=== PATIENT | male | born 1945 | race Caucasian/White ===

== ENCOUNTER → 2016-06-07 | Outpatient (CLI) | payer OTHER ==
[~2016-06-07] MED LIST: ACC10 PO; ALPR-411 PO; AMOX875T PO; ATOR-22 PO; ATOR-24 PO; ATRIN INH; AZITTAB PO; BENZ-57 PO; CARV6.252 PO; CHOL1000 PO; CLOP1TAB15 PO; DOXY100C76 PO; FLUO10CA48 PO; FLUO20CA35 PO; FLVHFA110 INH; GABA600T PO; GFNSR600 PO; HYDR-5688 PO; LEVO50TA6 PO; LVQ500 PO; MOME50SP5; MOME6000 NAE; NRN/600 PO; NTRGSL/4 UT; NXM/40 PO; OXYC-57 PO; PRED10TA PO; QUET1TAB10 PO; QUET1TAB11 PO; QUIN10TA25 PO; RAME8TAB PO; ROPI4TAB3 PO; SRQ/50 PO; SYMIN/8045 INH; SYN50 PO; TRAZ100T29 PO
[2016-06-07 09:26] LABS: COMPLETE YES; EOS % 3.3 %; HEMATOCRIT 42.6 % (42-52); IG% 0.2 %; LYMPH % 31.2 %; MEAN CELL VOLUME 90.3 fL (80-100); MEAN CORPUSCULAR HEMOGLOBIN 32.6 pg (25-34); MEAN CORPUSCULAR HGB CONC 36.2 g/dl (32-36); MEAN PLATELET VOLUME 9.9 fL (7.4-10.4); NEUT % 54.3 %; PLATELET COUNT 134 K/uL (130-400); RED BLOOD COUNT 4.72 M/uL (4.7-6.1); WHITE BLOOD COUNT 4.81 K/uL (4.8-10.8)
[2016-06-07 09:45] LABS: ALT/SGPT 31 U/L (12-78); AST/SGOT 22 U/L (15-37); BLOOD UREA NITROGEN 10 mg/dl (7-18); BUN/CREATININE RATIO 8.4 (10-20); CALCIUM 8.6 mg/dl (8.5-10.1); CARBON DIOXIDE 26 mmol/L (21-32); CHLORIDE 104 mmol/L (98-107); CHOLESTEROL 124 mg/dl (0-200); ESTIMATED AVERAGE GLUCOSE 123 mg/dl; GLUCOSE 110 mg/dl (70-99); HA1C FLAG Normal (Normal); POTASSIUM 3.6 mmol/L (3.5-5.1); SODIUM 138 mmol/L (136-145); TRIGLYCERIDES 264 mg/dl (0-150); VERY LOW DENSITY LIPOPROT CALC 53 mg/dl
[2016-06-07 09:55] LABS: ALB/GLOB RATIO 1.2 (0.9-2); ALKALINE PHOSPHATASE 79 U/L (45-117); CHOLESTEROL/HDL RATIO 2.3; HDL CHOLESTEROL 54 mg/dl; LDL CHOLESTEROL CALCULATED 17 mg/dl
--- NOTE | 2016-06-12 09:44 | CODING QUERY MEDICAL NECESSITY ---
SUPPORTING DIAGNOSIS NEEDED A supporting diagnosis is required for the test/procedure performed on this patient in order for us to be reimbursed by the patient's insurance. Please provide a supporting diagnosis for the following test/procedure listed below next to the test name along with your signature. *If there is no additional diagnosis for this patient that would support the following test/procedure please document that below next to the test/procedure. Test(s)/Procedure(s) that require a supporting diagnosis: DOS 06/07 * Vitamin D DIAGNOSIS: Provider Signature: Date: Thank you Rosi Apodaca Health Information Management Once completed, please kindly fax back to [phone] For questions please call [phone]
== END | disposition home or self-care (01) ==
LOC: C.LAB 08:11
PROVIDERS: ATTEND Internal Medicine Geriatric Medicine
DX: I10 Essential (primary) hypertension (principal); E11.9 Type 2 diabetes mellitus without complications; I25.10 Atherosclerotic heart disease of native coronary artery without angina pectoris; E03.9 Hypothyroidism, unspecified; G25.81 Restless legs syndrome; E55.9 Vitamin D deficiency, unspecified

== ENCOUNTER → 2016-10-26 | Outpatient (CLI) | payer OTHER ==
--- NOTE | 2016-10-26 09:05 | DIAGNOSTIC IMAGING REPORT ---
CHEST 2 VIEWS ROUTINE CLINICAL HISTORY: 71 years-old Male presenting with history of upper respiratory infection, cough. TECHNIQUE: PA and lateral views of the chest were obtained. COMPARISON: 11/30/2015. FINDINGS: Tortuosity of the thoracic aorta. Mildly enlarged cardiac silhouette. Lungs and pleural spaces clear. Osseous structures and upper abdomen normal. IMPRESSION: 1. Mild cardiomegaly without evidence of pulmonary edema. 2. No evidence of acute cardiopulmonary disease. Electronically signed by: Harjit Shipman M.D. 10/26/2016 9:04 AM Dictated Date/Time: 10/26/2016 9:02 AM
== END | disposition home or self-care (01) ==
LOC: C.RAD 08:46
PROVIDERS: ATTEND Physician Assistant
DX: Z87.09 Personal history of other diseases of the respiratory system (principal); I51.7 Cardiomegaly

== ENCOUNTER 2016-12-26 09:20 | Emergency (ER) | payer OTHER ==
[~2016-12-26] VITALS: Ht 162.6 cm; Wt 79.0 kg
[~2016-12-26 09:20] MED LIST changes: -AMOX875T PO; -ATOR-24 PO; -AZITTAB PO; -BENZ-57 PO; -CHOL1000 PO; -DOXY100C76 PO; -GFNSR600 PO; -LEVO50TA6 PO; -MOME6000 NAE; -NRN/600 PO; -OXYC-57 PO; -PRED10TA PO; -QUET1TAB10 PO; -QUIN10TA25 PO; -SRQ/50 PO; -SYMIN/8045 INH
[2016-12-26 09:30] VITALS: TEMP 37.3; Ht 162.6 cm; Wt 79.0 kg
[2016-12-26 10:26] VITALS: O2SAT 88
[2016-12-26 10:44] LABS: COMPLETE YES; EOS % 0.9 %; IG% 0.2 %; LYMPH % 8.8 %; LYMPH ABS # 0.89 K/uL (1.2-3.4); MEAN CELL VOLUME 92.1 fL (80-100); MEAN CORPUSCULAR HEMOGLOBIN 32.1 pg (25-34); MEAN CORPUSCULAR HGB CONC 34.9 g/dl (32-36); MEAN PLATELET VOLUME 9.4 fL (7.4-10.4); MONO % 12.9 %; NEUT % 77.2 %; PLATELET COUNT 122 K/uL (130-400); RED BLOOD COUNT 4.45 M/uL (4.7-6.1); WHITE BLOOD COUNT 10.09 K/uL (4.8-10.8)
--- NOTE | 2016-12-26 10:48 | DIAGNOSTIC IMAGING REPORT ---
CHEST ONE VIEW PORTABLE HISTORY: Short of breath. COMPARISON: Chest 10/26/2016. FINDINGS: No pneumothorax. Chronic silhouette remains moderately enlarged. Perihilar interstitial and vascular thickening has progressed. This likely represents mild pulmonary edema. Possible trace bilateral pleural effusions. IMPRESSION: Interval development of mild pulmonary edema and trace bilateral pleural effusions. Electronically signed by: Lam Rivera M.D. 12/26/2016 10:46 AM Dictated Date/Time: 12/26/2016 10:45 AM
[2016-12-26 10:54] LABS: INR 1.1 (0.9-1.1); PARTIAL THROMBOPLASTIN RATIO 1.1; PROTHROMBIN TIME (PATIENT) 11.6 SECONDS (9.0-12.0)
[2016-12-26 11:02] LABS: BUN/CREATININE RATIO 9.3 (10-20); CALCIUM 8.7 mg/dl (8.5-10.1); CREATININE 1.3 mg/dl (0.60-1.40); POTASSIUM 4.2 mmol/L (3.5-5.1)
[2016-12-26] MEDS ORDERED: NRN/600 PO (11:11)
[2016-12-26] MEDS ORDERED: LEVO50TA6 PO (11:11)
[2016-12-26] MEDS ORDERED: SRQ/50 PO (11:11)
[2016-12-26] MEDS ORDERED: SYMIN/8045 INH (11:11)
[2016-12-26] MEDS ORDERED: BENZ-57 PO (11:11)
[2016-12-26] MEDS ORDERED: CHOL1000 PO (11:11)
[2016-12-26] MEDS ORDERED: ATOR-24 PO (11:11)
[2016-12-26] MEDS ORDERED: MOME6000 NAE (11:11)
[2016-12-26] MEDS ORDERED: DOXY100C76 PO (11:11)
[2016-12-26] MEDS ORDERED: QUIN10TA25 PO (11:11)
[2016-12-26] MEDS ORDERED: QUET1TAB10 PO (11:11)
[2016-12-26 11:12] LABS: ARTERIAL BLD GAS O2 SATURATION 94.2 % (90-95); ARTERIAL BLOOD GAS BASE EXCESS 1.3 mEq/L (-9-1.8); ARTERIAL BLOOD GAS HCO3 25 mmol/L (19-24); ARTERIAL BLOOD GAS PO2 71 mm/Hg (80-95); ARTERIAL BLOOD GAS pH 7.44 (7.35-7.45); O2 ADMINISTRATION ROOM AIR
[2016-12-26 11:13] LABS: ALLEN TEST POS (POS)
[2016-12-26] MEDS ORDERED: AZITHROMYCIN 250 MG TAB PO STA (12:26)
[2016-12-26] MEDS ORDERED: AZITTAB PO (12:37)
--- NOTE | 2016-12-26 12:38 | EMERGENCY ROOM VISIT NOTE ---
History Report prepared by Aidan: Sisi Lea Under the Supervision of: Dr. Magan Aponte D.O. First contact with patient: 10:41 Chief Complaint: ILLNESS Stated Complaint: ILLNESS/COUGH History of Present Illness The patient is a 71 year old male who presents to the Emergency Room with complaints of a persistent cough that worsened yesterday. The patient reports that yesterday his cough worsened and has had difficulty breathing. He additionally reports an intermittent fever that has been treated with Tylenol. The patient reports fatigue and weakness and his family reports that the patient has been confused. The patient's family notes that when the patient appears this way, it is typically due to pneumonia. The patient reports a decrease in appetite and fluid intake. He denies any history of COPD or lung problems. The patient states that he quit smoking over 25 years ago. He denies any chest pain. The patient reports intermittent abdominal pain due to a hernia. He states that he has been intermittently congested for the past two months and notes that he has previously been on two antibiotics for his symptoms. Source of History: patient, family Onset: yesterday Position: other (global) Quality: other (cough) Timing: worsening, other (persistent) Associated Symptoms: + fevers, + SOB (difficulty breathing), + abdominal pain, + fatigue, + weakness, No chest pain Note: Associated Symptoms: decrease in appetite and fluid intake, congestion Review of Systems See HPI for pertinent positives & negatives. A total of 10 systems reviewed and were otherwise negative. Past Medical & Surgical Medical Problems: (1) Acute myocardial infarction (2) Benign hypertension (3) Cholecystectomy (4) Diabetes mellitus (5) Gastric ulcer (6) Heart disease (7) Ischemic stroke (8) legally blind (9) Myocardial infarction (10) Pneumonia (11) Restless legs (12) Small bowel obstruction (13) stroke Family History Unobtainable family history due to adoption Social History Smoking Status: Former Smoker Alcohol Use: none Drug Use: none Marital Status: in relationship Housing Status: lives with family Occupation Status: retired Current/Historical Medications Scheduled Alprazolam (Xanax), 0.75 MG PO DAILY Atorvastatin (Lipitor), 40 MG PO DAILY Budesonide/Formoterol Fumarate (Symbicort 80/4.5 Inhaler), 2 PUFFS INH BID Carvedilol (Coreg), 3.125 MG PO HS Cholecalciferol (Vitamin D3), 1,000 INTER.UNIT PO DAILY Clopidogrel (Plavix), 75 MG PO DAILY Doxycycline Monohydrate (Monodox), 100 MG PO Q12 Fluoxetine (Prozac), 10 MG PO DAILY Fluoxetine (Prozac), 20 MG PO DAILY Gabapentin (Neurontin), 600 MG PO QAM Gabapentin (Neurontin), 1,200 MG PO HS Levothyroxine Sodium (Levothyroxine Sodium), 50 MCG PO DAILY Mometasone Furoate (Nasal) (Mometasone Furoate), 2 SPRAYS SHELLIE DAILY Nitroglycerin (Nitrostat), 0.4 MG UT PRN Quetiapine Fumarate (Seroquel), 200 MG PO DAILY Quetiapine Fumarate (Seroquel), 50 MG PO DAILY Quinapril Hcl (Accupril), 10 MG PO DAILY Ropinirole (Requip), 4 MG PO HS Trazodone Hcl (Trazodone), 200 MG PO HS Scheduled PRN Benzonatate (Tessalon Perles), 200 MG PO TID PRN for Cough Hydrocodone/Acetaminophen 5MG/325MG ([place] 5MG/325MG), 1 TAB PO BID PRN for Pain Ramelteon (Rozerem), 8 MG PO HS PRN for Sleep Allergies Coded Allergies: Heparin (Verified Allergy, Severe, SEVERE REACTION, 11/11/15) Physical Exam Vital Signs Date Time Temp Pulse Resp B/P (MAP) Pulse Ox O2 Delivery O2 Flow Rate FiO2 12/26/16 12:20 61 16 114/63 93 12/26/16 11:00 84 16 110/69 89 Room Air 12/26/16 10:50 Nasal Cannula 2.0 12/26/16 10:28 63 12/26/16 10:26 63 16 115/69 92 Nasal Cannula 2.0 12/26/16 10:26 88 Room Air 12/26/16 09:30 37.3 88 18 147/82 95 Room Air Physical Exam CONSTITUTIONAL/VITAL SIGNS: Reviewed / noted above. GENERAL: Non-toxic in appearance. INTEGUMENTARY: Warm, dry, and [place]. HEAD: Normocephalic. EYES: without scleral icterus or trauma. ENT/OROPHARYNX: clear and moist. LYMPHADENOPATHY/NECK: Is supple without lymphadenopathy or meningismus. RESPIRATORY: Basilar rhonchi noted. CARDIOVASCULAR: Regular rate and rhythm. GI/ABDOMEN: Soft and nontender. No organomegaly or pulsatile mass. No rebound or guarding. Normal bowel sounds. EXTREMITIES: Warm and well perfused. BACK: No CVA tenderness. NEUROLOGICAL: Intact without focal deficits. PSYCHIATRIC: normal affect. MUSCULOSKELETAL: Normally developed with good muscle tone. Medical Decision & Procedures ER Provider Diagnostic Interpretation: X ray results and stated below per my interpretation and radiology interpretation. CHEST ONE VIEW PORTABLE HISTORY: Short of breath. COMPARISON: Chest 10/26/2016. FINDINGS: No pneumothorax. Chronic silhouette remains moderately enlarged. Perihilar interstitial and vascular thickening has progressed. This likely represents mild pulmonary edema. Possible trace bilateral pleural effusions. IMPRESSION: Interval development of mild pulmonary edema and trace bilateral pleural effusions. Electronically signed by: Lam Rivera M.D. 12/26/2016 10:46 AM Dictated Date/Time: 12/26/2016 10:45 AM Laboratory Results 12/26/16 10:34 Red Blood Count 4.45, Mean Corpuscular Volume 92.1, Mean Corpuscular Hemoglobin 32.1, Mean Corpuscular Hemoglobin Concent 34.9, Mean Platelet Volume 9.4, Neutrophils (%) (Auto) 77.2, Lymphocytes (%) (Auto) 8.8, Monocytes (%) (Auto) 12.9, Eosinophils (%) (Auto) 0.9, Basophils (%) (Auto) 0.0, Neutrophils # (Auto ) 7.79, Lymphocytes # (Auto) 0.89, Monocytes # (Auto) 1.30, Eosinophils # (Auto ) 0.09, Basophils # (Auto) 0.00 12/26/16 10:34 Test 12/26/16 10:34 12/26/16 10:47 12/26/16 11:02 White Blood Count 10.09 K/uL (4.8-10.8) Red Blood Count 4.45 M/uL (4.7-6.1) Hemoglobin 14.3 g/dL (14.0-18.0) Hematocrit 41.0 % (42-52) Mean Corpuscular Volume 92.1 fL (80-100) Mean Corpuscular Hemoglobin 32.1 pg (25-34) Mean Corpuscular Hemoglobin Concent 34.9 g/dl (32-36) Platelet Count 122 K/uL (130-400) Mean Platelet Volume 9.4 fL (7.4-10.4) Neutrophils (%) (Auto) 77.2 % Lymphocytes (%) (Auto) 8.8 % Monocytes (%) (Auto) 12.9 % Eosinophils (%) (Auto) 0.9 % Basophils (%) (Auto) 0.0 % Neutrophils # (Auto) 7.79 K/uL (1.4-6.5) Lymphocytes # (Auto) 0.89 K/uL (1.2-3.4) Monocytes # (Auto) 1.30 K/uL (0.11-0.59) Eosinophils # (Auto) 0.09 K/uL (0-0.5) Basophils # (Auto) 0.00 K/uL (0-0.2) RDW Standard Deviation 43.9 fL (36.4-46.3) RDW Coefficient of Variation 13.0 % (11.5-14.5) Immature Granulocyte % (Auto) 0.2 % Immature Granulocyte # (Auto) 0.02 K/uL (0.00-0.02) Prothrombin Time 11.6 SECONDS (9.0-12.0) Prothromb Time International Ratio 1.1 (0.9-1.1) Activated Partial Thromboplast Time 29.5 SECONDS (21.0-31.0) Partial Thromboplastin Ratio 1.1 Anion Gap 7.0 mmol/L (3-11) Est Creatinine Clear Calc Drug Dose 50.9 ml/min Estimated GFR () 64.5 Estimated GFR (Non- 55.7 BUN/Creatinine Ratio 9.3 (10-20) Calcium Level 8.7 mg/dl (8.5-10.1) Total Bilirubin 1.0 mg/dl (0.2-1) Aspartate Amino Transf (AST/SGOT) 12 U/L (15-37) Alanine Aminotransferase (ALT/SGPT) 25 U/L (12-78) Alkaline Phosphatase 75 U/L (45-117) Total Protein 6.9 gm/dl (6.4-8.2) Albumin 3.5 gm/dl (3.4-5.0) Globulin 3.4 gm/dl (2.5-4.0) Albumin/Globulin Ratio 1.0 (0.9-2) Bedside Troponin I < 0.030 ng/ml (0-0.045) Arterial Blood pH 7.44 (7.35-7.45) Arterial Blood Partial Pressure CO2 38 mmHg (35-46) Arterial Blood Partial Pressure O2 71 mm/Hg (80-95) Arterial Blood HCO3 25 mmol/L (19-24) Arterial Blood Oxygen Saturation 94.2 % (90-95) Arterial Blood Base Excess 1.3 mEq/L (-9-1.8) Arterial Blood Gas Delivery ROOM AIR Caden Test POS (POS) Laboratory results as stated above per my review. ECG Indication: SOB/dyspnea Rate (beats per minute): 64 Rhythm: normal sinus Findings: no acute ischemic change, no ectopy ED Course 1044: Previous medical records were reviewed. The patient was evaluated in room A3. A complete history and physical examination was performed. 1221: I reevaluated the patient and he is resting comfortably. I discussed the exam findings with him and his family and I discussed the exam findings with them. They verbalized complete understanding and agreement. The patient is ready for discharge shortly. 1226: Ordered Zithromax 500 mg PO. Medical Decision Differentials considered include acute myocardial infarction, acute coronary syndrome, myocarditis, pericarditis, pericardial effusions /tamponade, esophageal perforation, pulmonary embolism, pneumonia, pneumothorax, cardiomyopathy, congestive heart, anemia, and COPD/asthma exacerbation. This is a 71-year-old male who presents to the ED with a chief complaint of a cough as well as some upper respiratory congestion. He is also has some decreased oral intake. The patient was talking in his sleep last night and the felt that he was delusional. He is better now. He reports that he has had the upper respiratory congestion for the past couple of months. He was on a course of to antibiotics in October. This did not seem to help much. His vital signs here are normal. His physical exam was normal other than some basilar crackles. An EKG shows a normal sinus rhythm. CBC is normal, complete metabolic panel is unremarkable, troponin is negative. Glucose is 163. An ABG reveals a normal acid base status, normal carbon dioxide and a PaO2 of 71. A chest x-ray reveals some mild pulmonary edema trace pleural effusion. Clinically the patient is not presenting congestive heart failure. I did have the respiratory therapist come down and do a two-step to see if he qualifies for oxygen at home. They reported that he did not based on his saturations never dropped below 93% and his ABG. The patient will be discharged on Zithromax for his symptoms. Medication Reconcilliation Current Medication List: was personally reviewed by me Blood Pressure Screening Patient's blood pressure: Normal blood pressure Blood pressure disposition: Did not require urgent referral Impression Primary Impression: Congestion of nasal sinus Scribe Attestation The scribe's documentation has been prepared under my direction and personally reviewed by me in its entirety. I confirm that the note above accurately reflects all work, treatment, procedures, and medical decision making performed by me. Departure Information Prescriptions Azithromycin (ZITHROMAX Z-LORNE) 250 Mg Tab 0 PO UD, #1 PKT 2 TABS DAY 1, THEN 1 TAB DAILY FOR 4 DAYS Prov: Magan Aponte D.O. 12/26/16 Referrals Luis Manuel Pham M.D. (PCP) Patient Instructions My [facility] Additional Instructions Zithromax as prescribed. Follow-up with your doctor Saturday or Saturday for recheck. Return for worsening or new symptoms.
[2016-12-26 12:46] VITALS: BP 111/65; PULSE 58; O2SAT 90
[2017-01-01] MEDS ORDERED: AMOX875T PO ×2 (07:48→10:05)
[2017-01-01] MEDS ORDERED: PRED10TA PO ×2 (07:48→10:05)
[2017-01-01] MEDS ORDERED: GFNSR600 PO ×2 (07:48→10:05)
== END 2016-12-26 12:47 | disposition home or self-care (01) ==
LOC: EDBD 09:20 → C.EDA 09:22
DX: R09.81 Nasal congestion (principal); R50.9 Fever, unspecified; Z87.01 Personal history of pneumonia (recurrent); Z87.891 Personal history of nicotine dependence; I25.2 Old myocardial infarction; I10 Essential (primary) hypertension; Z90.49 Acquired absence of other specified parts of digestive tract; E11.9 Type 2 diabetes mellitus without complications; Z86.73 Personal history of transient ischemic attack (TIA), and cerebral infarction without residual deficits; H54.8 Legal blindness, as defined in USA; G25.81 Restless legs syndrome; Z79.01 Long term (current) use of anticoagulants; Z79.899 Other long term (current) drug therapy

== ENCOUNTER 2016-12-26 22:30 | Inpatient (IN) | payer OTHER ==
[~2016-12-26] VITALS: Ht 162.6 cm; Wt 78.1 kg
[~2016-12-26 22:30] MED LIST changes: +ATOR-24 PO; +AZITTAB PO; +BENZ-57 PO; +CHOL1000 PO; +DOXY100C76 PO; +LEVO50TA6 PO; +MOME6000 NAE; +NRN/600 PO; +QUET1TAB10 PO; +QUIN10TA25 PO; +SRQ/50 PO; +SYMIN/8045 INH
[2016-12-26] MEDS ORDERED: SODIUM CHLORIDE 0.9% 1000ML 1,000 ML IV ONE (22:57)
--- NOTE | 2016-12-26 23:00 | EMERGENCY ROOM VISIT NOTE ---
History Report prepared by Aidan: Leticia Ceja Under the Supervision of: Dr. Magan Rodriguez M.D. First contact with patient: 22:52 Chief Complaint: WEAKNESS Stated Complaint: WEAKNESS Nursing Triage Summary: Patient arrived via ALS from home. Patient was seen in ER earlier today and discharged with z-pack. Patient c/o increased weakness and repeated falls after being discharged. Denies head trauma, LOC, CP, SOB, N/V/D. Patient SAT 88% on RA per medics, improved to 95% on 4L O2. Patients BP low per medics. Patients states, "he shakes all over when he goes to get up". History of Present Illness The patient is a 71 year old male who presents to the Emergency Room with complaints of constant weakness beginning today. The patient states that he was seen here earlier today for shortness of breath and was put on a z-pac before being discharged home. He notes that when he returned home he had increased weakness and multiple falls. He reports that he is not on oxygen at home. He denies any head injury, LOC, chest pain, nausea, vomiting, and diarrhea. He states that he is on Plavix. Source of History: patient Onset: today Position: other (global) Quality: other (weakness) Timing: constant Associated Symptoms: No LOC, No chest pain, No nausea, No vomiting, No diarrhea Note: Pt complains of multiple falls. Review of Systems See HPI for pertinent positives & negatives. A total of 10 systems reviewed and were otherwise negative. Past Medical & Surgical Medical Problems: (1) Acute myocardial infarction (2) Benign hypertension (3) Cholecystectomy (4) Diabetes mellitus (5) Gastric ulcer (6) Heart disease (7) Ischemic stroke (8) legally blind (9) Myocardial infarction (10) Pneumonia (11) Restless legs (12) Small bowel obstruction (13) stroke (14) Weakness Family History Unobtainable family history due to adoption Social History Smoking Status: Former Smoker Alcohol Use: none Drug Use: none Marital Status: in relationship Housing Status: lives with family Occupation Status: retired Current/Historical Medications Scheduled Alprazolam (Xanax), 0.75 MG PO DAILY Atorvastatin (Lipitor), 40 MG PO DAILY Azithromycin (Zithromax Z-Amrit), 0 PO UD Budesonide/Formoterol Fumarate (Symbicort 80/4.5 Inhaler), 2 PUFFS INH BID Carvedilol (Coreg), 3.125 MG PO HS Cholecalciferol (Vitamin D3), 1,000 INTER.UNIT PO DAILY Clopidogrel (Plavix), 75 MG PO DAILY Doxycycline Monohydrate (Monodox), 100 MG PO Q12 Fluoxetine (Prozac), 10 MG PO DAILY Fluoxetine (Prozac), 20 MG PO DAILY Gabapentin (Neurontin), 600 MG PO QAM Gabapentin (Neurontin), 1,200 MG PO HS Levothyroxine Sodium (Levothyroxine Sodium), 50 MCG PO DAILY Mometasone Furoate (Nasal) (Mometasone Furoate), 2 SPRAYS SHELLIE DAILY Nitroglycerin (Nitrostat), 0.4 MG UT PRN Quetiapine Fumarate (Seroquel), 200 MG PO DAILY Quetiapine Fumarate (Seroquel), 50 MG PO DAILY Quinapril Hcl (Accupril), 10 MG PO DAILY Ropinirole (Requip), 4 MG PO HS Trazodone Hcl (Trazodone), 200 MG PO HS Scheduled PRN Benzonatate (Tessalon Perles), 200 MG PO TID PRN for Cough Hydrocodone/Acetaminophen 5MG/325MG ([place] 5MG/325MG), 1 TAB PO BID PRN for Pain Ramelteon (Rozerem), 8 MG PO HS PRN for Sleep Allergies Coded Allergies: Heparin (Verified Allergy, Severe, SEVERE REACTION, 11/11/15) Physical Exam Vital Signs Date Time Temp Pulse Resp B/P (MAP) Pulse Ox O2 Delivery O2 Flow Rate FiO2 12/27/16 01:30 98/58 12/27/16 01:29 54 11 93 12/27/16 01:09 105/60 12/27/16 01:00 88/55 12/27/16 00:59 50 16 98 12/27/16 00:30 94/56 12/27/16 00:29 50 18 97 12/27/16 00:15 55 20 111/64 99 Nebulizer 12/27/16 00:15 57 14 92 Nasal Cannula 2.0 12/27/16 00:15 111/64 12/26/16 23:54 95/52 12/26/16 23:40 53 12 92 12/26/16 23:30 78/51 12/26/16 23:19 95/50 12/26/16 23:10 55 15 12/26/16 22:44 57 12/26/16 22:39 92 Room Air 12/26/16 22:39 36.6 61 20 95/54 92 Room Air Physical Exam GENERAL: Patient is a healthy-appearing well-nourished male HEAD: Normocephalic atraumatic EYES: Ocular movements intact pupils equal and react to light OROPHARYNX mucous membranes are moist no exudates present no erythema or edema present NECK: Supple no nuchal rigidity CHEST: Good equal expansion LUNGS: Clear and equal to auscultation CARDIAC: Normal S1 and S2 ABDOMEN: Soft nontender no guarding BACK: No CVA tenderness EXTREMITIES: No pain upon palpation normal muscle strength in all groups no clubbing cyanosis or edema NEURO: Patient is following commands and answering questions appropriately. Alert and oriented x3 Cranial Nerves 2-12 grossly intact Medical Decision & Procedures ER Provider Diagnostic Interpretation: Radiology results as stated below per my review and radiologist interpretation: Chest X-Ray: Interpreted by me. No evidence of pneumonia, congestion or pneumothorax. CTA CHEST: No evidence of pulmonary embolus. No thoracic aortic dissection or aneurysm. Trace bilateral pleural effusions. Patchy consolidation seen within the right upper lobe, predominantly medially as well as within the right lower lobe. Mild thickening of the adjacent bronchi. Findings likely represent multifocal inflammatory/infectious process. Recommend short interval follow-up after appropriate treatment to demonstrate resolution. The heart is mildly enlarged. No pericardial effusions. Coronary artery calcification. No significant adenopathy. No acute osseous abnormality. Laboratory Results Test 12/26/16 22:40 12/26/16 23:12 12/26/16 23:28 Immature Granulocyte % (Auto) 0.3 % White Blood Count 7.53 K/uL (4.8-10.8) Red Blood Count 3.95 M/uL (4.7-6.1) Hemoglobin 13.1 g/dL (14.0-18.0) Hematocrit 36.2 % (42-52) Mean Corpuscular Volume 91.6 fL (80-100) Mean Corpuscular Hemoglobin 33.2 pg (25-34) Mean Corpuscular Hemoglobin Concent 36.2 g/dl (32-36) Platelet Count 116 K/uL (130-400) Mean Platelet Volume 9.5 fL (7.4-10.4) Neutrophils (%) (Auto) 68.5 % Lymphocytes (%) (Auto) 10.9 % Monocytes (%) (Auto) 16.5 % Eosinophils (%) (Auto) 3.7 % Basophils (%) (Auto) 0.1 % Neutrophils # (Auto) 5.16 K/uL (1.4-6.5) Lymphocytes # (Auto) 0.82 K/uL (1.2-3.4) Monocytes # (Auto) 1.24 K/uL (0.11-0.59) Eosinophils # (Auto) 0.28 K/uL (0-0.5) Basophils # (Auto) 0.01 K/uL (0-0.2) Immature Granulocyte # (Auto) 0.02 K/uL (0.00-0.02) Prothrombin Time 12.2 SECONDS (9.0-12.0) Prothromb Time International Ratio 1.1 (0.9-1.1) Activated Partial Thromboplast Time 31.1 SECONDS (21.0-31.0) Partial Thromboplastin Ratio 1.2 Total Bilirubin 1.0 mg/dl (0.2-1) Aspartate Amino Transf (AST/SGOT) 13 U/L (15-37) Alanine Aminotransferase (ALT/SGPT) 20 U/L (12-78) Alkaline Phosphatase 63 U/L (45-117) Creatine Kinase MB 1.3 ng/ml (0.5-3.6) Creatine Kinase MB Ratio 0.3 (0-3.0) Total Protein 6.1 gm/dl (6.4-8.2) Albumin 3.0 gm/dl (3.4-5.0) Globulin 3.1 gm/dl (2.5-4.0) Albumin/Globulin Ratio 1.0 (0.9-2) Bedside Hemoglobin 11.6 g/dl (14.0-18.0) Bedside Hematocrit 34 % (42-52) Bedside D-Dimer > 450 ng/mlFEU (0-450) Bedside Sodium 140 mEq/L (135-144) Bedside Potassium 3.4 mEq/L (3.3-5.0) Bedside Chloride 103 mEq/L (101-112) Bedside Total CO2 22 mEq/l (24-31) Bedside Blood Urea Nitrogen 13 mg/dl (7-18) Bedside Creatinine 1.2 mg/dl (0.6-1.3) Bedside Glucose (other) 164 mg/dl (70-99) Bedside Ionized Calcium (Suzi) 1.15 mmol/l (1.12-1.32) Influenza Type A (RT-PCR) Neg for Influ A (NEG) Influenza Type A Antigen Neg for Influ A (NEG) Influenza Type B Antigen Neg for Influ B (NEG) Influenza Type B (RT-PCR) Neg for Influ B (NEG) Labs reviewed by ED physician. Medications Administered Medications (Trade) Dose Ordered Sig/Shelby Route Start Time Stop Time Status Last Admin Dose Admin Sodium Chloride 1,000 ml @ 999 mls/hr Q1H1M ONCE IV 12/26/16 22:57 12/26/16 23:57 DC 12/26/16 22:57 999 MLS/HR Albuterol/ Ipratropium (Duoneb) 12 ml ONE ONCE INH 12/26/16 23:30 12/26/16 23:31 DC 12/27/16 00:14 12 ML Sodium Chloride 1,000 ml @ 999 mls/hr Q1H1M STAT IV 12/27/16 00:27 12/27/16 01:27 DC 12/27/16 00:39 999 MLS/HR Methylprednisolone Sodium Succinate (Solu-Medrol IV) 80 mg STK-MED ONCE .ROUTE 12/27/16 00:32 12/27/16 00:33 DC 12/27/16 00:38 60 MG Piperacillin Sod/ Tazobactam Sod (Zosyn Iv) 4.5 gm NOW STAT IV 12/27/16 00:59 12/27/16 01:01 DC 12/27/16 01:18 4.5 GM Levofloxacin (Levaquin / D5W) 750 mg NOW ONCE IV 12/27/16 01:00 12/27/16 01:01 DC 12/27/16 01:18 750 MG Vancomycin HCl 1000 mg/Sodium Chloride 270 ml @ 125 mls/hr NOW STAT IV 12/27/16 00:59 12/27/16 03:08 DC 12/27/16 01:19 125 MLS/HR Benzonatate (Tessalon Perles Cap) 200 mg TID PRN PO 12/27/16 01:30 01/26/17 01:29 12/27/16 07:59 200 MG ECG Indication: weakness Rate (beats per minute): 58 Rhythm: sinus bradycardia Findings: no acute ischemic change, no ectopy, other (old inferior infarct) ED Course 2251: Past medical records reviewed. The patient was evaluated in room B11. A complete history and physical examination was performed. 2257: Sodium Chloride 1000 ml @ 999 mls/hr IV. 2330: Duoneb 12ml INH. 0027: Solu-Medrol IV 60mg IV, Sodium Chloride 1000 ml @ 999 mls/hr IV. 0032: Solu-Medrol IV 80mg IV. 0059: Vancomycin HCl 1000mg/Sodium Chloride 270ml @ 125mls/hr IV, Zosyn IV 2.5 IV. 0100: Levofloxacin 750mg IV. 0122: I discussed the patient's case with Dr. Bai, he has agreed to evaluate the patient for further management and care. 0130: Upon reexamination the patient is doing well. I discussed results and treatment plan with the patient. He verbalizes agreement and understanding. I spoke with Dr. Bai from the [facility] Hospitalist Service. The patient will be evaluated for further management. Medical Decision Differential diagnosis: Etiologies such as metabolic, infection, hypo/hyperglycemia, electrolyte abnormalities, cardiac sources, intracerebral event, toxicologic, neurologic, as well as others were entertained. This is a 71-year-old male who presents emergency department complaining of shortness of breath and hypoxia. The patient does have a history of COPD. He was given an hour-long breathing treatment in the emergency department along with Solu-Medrol. Due to the patient's hypoxia he was sent for CAT scan of the chest which was concerning for pneumonia. At this point the patient was started on antibiotics and pancultured. I did discuss the case with the hospitalist service who agreed to admit the patient. Patient family were in agreement with the treatment plan. Medication Reconcilliation Current Medication List: was personally reviewed by me Blood Pressure Screening Patient's blood pressure: Low blood pressure Blood pressure disposition: Did not require urgent referral Consults Time Called: 0111 Consulting Physician: Dr. Bai - [facility] Returned Call: [phone] I discussed the patient's case with Dr. Bai, he has agreed to evaluate the patient for further management and care. Impression Primary Impression: Pneumonia Additional Impressions: Hypoxia COPD exacerbation Scribe Attestation The scribe's documentation has been prepared under my direction and personally reviewed by me in its entirety. I confirm that the note above accurately reflects all work, treatment, procedures, and medical decision making performed by me. Departure Information Dispostion Being Evaluated By Hospitalist Referrals Luis Manuel Pham M.D. (PCP) Patient Instructions [facility] Problem Qualifiers
[2016-12-26 23:14] LABS: BASO % 0.1 %; BASO ABS # 0.01 K/uL (0-0.2); COMPLETE YES; EOS % 3.7 %; HEMATOCRIT 36.2 % (42-52); IG% 0.3 %; LYMPH % 10.9 %; LYMPH ABS # 0.82 K/uL (1.2-3.4); MEAN CELL VOLUME 91.6 fL (80-100); MEAN CORPUSCULAR HEMOGLOBIN 33.2 pg (25-34); MEAN CORPUSCULAR HGB CONC 36.2 g/dl (32-36); MEAN PLATELET VOLUME 9.5 fL (7.4-10.4); MONO % 16.5 %; NEUT % 68.5 %; PLATELET COUNT 116 K/uL (130-400); RED BLOOD COUNT 3.95 M/uL (4.7-6.1); WHITE BLOOD COUNT 7.53 K/uL (4.8-10.8)
[2016-12-26 23:24] LABS: ISTAT CREATININE 1.2 mg/dl (0.6-1.3); ISTAT HEMOGLOBIN 11.6 g/dl (14.0-18.0); ISTAT IONIZED CALCIUM 1.15 mmol/l (1.12-1.32)
[2016-12-26 23:24] LABS: INR 1.1 (0.9-1.1); PARTIAL THROMBOPLASTIN RATIO 1.2; PROTHROMBIN TIME (PATIENT) 12.2 SECONDS (9.0-12.0)
[2016-12-26] MEDS ORDERED: ALBUT/IPRATROP 3MG/0.5MG NEB 3 ML VIAL INH ONE (23:30)
[2016-12-26] MEDS ORDERED: OPTIRAY 320 IV PRN (23:30)
[2016-12-26 23:47] LABS: ALKALINE PHOSPHATASE 63 U/L (45-117); ALT/SGPT 20 U/L (12-78); AST/SGOT 13 U/L (15-37); BLOOD UREA NITROGEN 14 mg/dl (7-18); BUN/CREATININE RATIO 10.5 (10-20); CALCIUM 8.2 mg/dl (8.5-10.1); CARBON DIOXIDE 26 mmol/L (21-32); CHLORIDE 108 mmol/L (98-107); CKMB/CK RATIO 0.3 (0-3.0); GLUCOSE 158 mg/dl (70-99); POTASSIUM 3.5 mmol/L (3.5-5.1); SODIUM 140 mmol/L (136-145)
[2016-12-27] VITALS (15 sets, daily range): BP systolic 99–140; BP diastolic 66–78; PULSE 51–68; TEMP 35.8–36.5; O2SAT 91–95; Ht 162.6 cm; Wt 78.1 kg
[2016-12-27] MEDS ORDERED: SODIUM CHLORIDE 0.9% 1000ML 1,000 ML IV STA (00:27)
[2016-12-27] MEDS ORDERED: METHYLPREDNISOLONE 125 MG VIAL IV STA (00:27)
[2016-12-27] MEDS ORDERED: VANCOMYCIN INJ 1,000 MG in SODIUM CHLORIDE 0.9% 250ML 250 ML IV STA (00:59)
[2016-12-27] MEDS ORDERED: PIPERACILLIN/TAZOBACTAM 4.5 GM/100ML D5W IV STA (00:59)
[2016-12-27] MEDS ORDERED: LEVAQUIN 750MG / 150ML D5W IV ONE (01:00)
[2016-12-27] MEDS ORDERED: ACETAMINOPHEN 325 MG TAB PO PRN (01:30)
[2016-12-27] MEDS ORDERED: NITROGLYCERIN 0.4 MG SL PER TAB CHARGE SL PRN (01:30)
[2016-12-27] MEDS ORDERED: ALUMINUM/MAGNESIUM/SIMETH (MAALOX MAX) 30 ML UDC PO PRN (01:30)
[2016-12-27] MEDS ORDERED: ONDANSETRON INJ 2 MG/ML 2 ML VIAL IV PRN (01:30)
[2016-12-27] MEDS ORDERED: POLYETHYLENE (MIRALAX) 17 GM PACK PO PRN (01:30)
[2016-12-27] MEDS ORDERED: MAGNESIUM HYDROXIDE SUSP 30 ML UDC PO PRN (01:30)
[2016-12-27] MEDS ORDERED: HYDROCODONE/ACETAMOPHEN 5/325MG TAB PO PRN (01:30)
[2016-12-27] MEDS ORDERED: MoRPHine SULFATE 2 MG/ML CARP IV PRN (01:30)
[2016-12-27] MEDS ORDERED: ALBUTEROL 0.083% NEBU SOLN 3 ML VIAL INH PRN (01:45)
--- NOTE | 2016-12-27 02:52 | History and Physical ---
History & Physical Date & Time of Service: Dec 27, 2016 at 02:15 Chief Complaint: Weakness Primary Care Physician: Luis Manuel Pham M.D. History of Present Illness Source: patient 71 y/o M Hx CAD, CVA, HTN, HPL hypothyroid, recurrent pneumonias and pneumonitis likely due to aspiration. The pt presented one day prior with c/o cough and mild SOB. He was discharged from the ER with a course of antibiotics. He returns with progressive weakness and persistent SOB with a worsening cough. He was mildly hypoxic on arrival to the ER. He denies CP, N/V , rigors. A CTA was obtained in the ER revealing a multifocal R sided pneumonia. Past Medical/Surgical History Medical Problems: (1) Acute myocardial infarction Status: Resolved (2) Benign hypertension Status: Chronic (3) Cholecystectomy Status: Resolved (4) Diabetes mellitus Status: Chronic (5) Heart disease Status: Chronic (6) Ischemic stroke Status: Resolved (7) legally blind Status: Chronic (8) Restless legs Status: Chronic (9) Small bowel obstruction Status: Resolved ) 2015 echo reveals an EF of 50%, ant and inf hypokinesis Family History Unobtainable family history due to adoption Social History does not drink or smoke - lives with a girlfriend Smoking Status: Former Smoker Drug Use: none Marital Status: in relationship Housing status: lives with significant other Occupational Status: retired Immunizations History of Influenza Vaccine: Yes Influenza Vaccine Date: Dec 26, 2011 History of Tetanus Vaccine?: Yes Tetanus Immunization Date: Oct 26, 2009 History of Pneumococcal: Yes Pneumococcal Date: Dec 26, 2011 History of Hepatitis B Vaccine: No Multi-Drug Resistant Organisms History of MDRO: No Allergies Coded Allergies: Heparin (Verified Allergy, Severe, SEVERE REACTION, 11/11/15) Home Medications Scheduled Alprazolam (Xanax), 0.75 MG PO DAILY Atorvastatin (Lipitor), 40 MG PO DAILY Azithromycin (Zithromax Z-Amrit), 0 PO UD Budesonide/Formoterol Fumarate (Symbicort 80/4.5 Inhaler), 2 PUFFS INH BID Carvedilol (Coreg), 3.125 MG PO HS Cholecalciferol (Vitamin D3), 1,000 INTER.UNIT PO DAILY Clopidogrel (Plavix), 75 MG PO DAILY Doxycycline Monohydrate (Monodox), 100 MG PO Q12 Fluoxetine (Prozac), 10 MG PO DAILY Fluoxetine (Prozac), 20 MG PO DAILY Gabapentin (Neurontin), 600 MG PO QAM Gabapentin (Neurontin), 1,200 MG PO HS Levothyroxine Sodium (Levothyroxine Sodium), 50 MCG PO DAILY Mometasone Furoate (Nasal) (Mometasone Furoate), 2 SPRAYS SHELLIE DAILY Nitroglycerin (Nitrostat), 0.4 MG UT PRN Quetiapine Fumarate (Seroquel), 200 MG PO DAILY Quetiapine Fumarate (Seroquel), 50 MG PO DAILY Quinapril Hcl (Accupril), 10 MG PO DAILY Ropinirole (Requip), 4 MG PO HS Trazodone Hcl (Trazodone), 200 MG PO HS Scheduled PRN Benzonatate (Tessalon Perles), 200 MG PO TID PRN for Cough Hydrocodone/Acetaminophen 5MG/325MG ([place] 5MG/325MG), 1 TAB PO BID PRN for Pain Ramelteon (Rozerem), 8 MG PO HS PRN for Sleep Review of Systems Constitutional: + weakness, + fatigue, No fever, No chills, No sweats Eyes: No worsening of vision ENT: No hearing loss, No unusual epistaxis, No nasal symptoms Respiratory: + cough, + sputum, + shortness of breath, + dyspnea on exertion, + dyspnea at rest Cardiovascular: No chest pain, No orthopnea, No PND Abdomen: No pain, No nausea, No vomiting Musculoskeletal: No joint pain Genitourinary - Male: No hematuria, No dysuria Neurologic: + weakness, No memory loss, No paralysis Psychiatric: No depression symptoms Endocrine: + fatigue Hematologic / Lymphatic: No abnormal bleeding/bruising Integumentary: No rash Allergic / Immunologic: No environmental allergies Physical Exam Vital Signs Date Time Temp Pulse Resp B/P (MAP) Pulse Ox O2 Delivery O2 Flow Rate FiO2 12/27/16 02:07 49 16 101/62 94 12/27/16 01:30 98/58 12/27/16 01:29 54 11 93 12/27/16 01:09 105/60 12/27/16 01:00 88/55 12/27/16 00:59 50 16 98 12/27/16 00:30 94/56 12/27/16 00:29 50 18 97 12/27/16 00:15 55 20 111/64 99 Nebulizer 12/27/16 00:15 57 14 92 Nasal Cannula 2.0 12/27/16 00:15 111/64 12/26/16 23:54 95/52 12/26/16 23:40 53 12 92 12/26/16 23:30 78/51 12/26/16 23:19 95/50 12/26/16 23:10 55 15 12/26/16 22:44 57 12/26/16 22:39 92 Room Air 12/26/16 22:39 36.6 61 20 95/54 92 Room Air General Appearance: WD/WN, no apparent distress Head: normocephalic Eyes: EOMI, + pertinent finding (Pt is legally blind ) ENT: normal ENT inspection, pharynx normal Neck: supple, no JVD Respiratory/Chest: chest non-tender, + decreased breath sounds, + pertinent finding (Poor air entry into entire R lung) Cardiovascular: regular rate, rhythm, no edema, no gallop Abdomen/GI: normal bowel sounds, non tender, soft Back: normal inspection, no CVA tenderness Extremities/Musculoskelatal: normal inspection, no calf tenderness, normal capillary refill Neurologic/Psych: 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, no motor/sensory deficits, alert, normal mood/affect, normal reflexes, oriented x 3 Skin: normal color, warm/dry, no rash Diagnostics Laboratory Results Results Past 24 Hours Test 12/26/16 22:40 12/26/16 23:12 12/26/16 23:28 Range/Units White Blood Count 7.53 4.8-10.8 K/uL Red Blood Count 3.95 4.7-6.1 M/uL Hemoglobin 13.1 14.0-18.0 g/dL Hematocrit 36.2 42-52 % Mean Corpuscular Volume 91.6 80-100 fL Mean Corpuscular Hemoglobin 33.2 25-34 pg Mean Corpuscular Hemoglobin Concent 36.2 32-36 g/dl Platelet Count 116 130-400 K/uL Mean Platelet Volume 9.5 7.4-10.4 fL Neutrophils (%) (Auto) 68.5 % Lymphocytes (%) (Auto) 10.9 % Monocytes (%) (Auto) 16.5 % Eosinophils (%) (Auto) 3.7 % Basophils (%) (Auto) 0.1 % Neutrophils # (Auto) 5.16 1.4-6.5 K/uL Lymphocytes # (Auto) 0.82 1.2-3.4 K/uL Monocytes # (Auto) 1.24 0.11-0.59 K/uL Eosinophils # (Auto) 0.28 0-0.5 K/uL Basophils # (Auto) 0.01 0-0.2 K/uL RDW Standard Deviation 44.0 36.4-46.3 fL RDW Coefficient of Variation 13.2 11.5-14.5 % Immature Granulocyte % (Auto) 0.3 % Immature Granulocyte # (Auto) 0.02 0.00-0.02 K/uL Prothrombin Time 12.2 9.0-12.0 SECONDS Prothromb Time International Ratio 1.1 0.9-1.1 Activated Partial Thromboplast Time 31.1 21.0-31.0 SECONDS Partial Thromboplastin Ratio 1.2 Sodium Level 140 136-145 mmol/L Potassium Level 3.5 3.5-5.1 mmol/L Chloride Level 108 98-107 mmol/L Carbon Dioxide Level 26 21-32 mmol/L Anion Gap 6.0 18.0 16-25 mmol/L Blood Urea Nitrogen 14 7-18 mg/dl Creatinine 1.30 0.60-1.40 mg/dl Est Creatinine Clear Calc Drug Dose 51.0 ml/min Estimated GFR () 64.5 Estimated GFR (Non- 55.7 BUN/Creatinine Ratio 10.5 10-20 Random Glucose 158 70-99 mg/dl Calcium Level 8.2 8.5-10.1 mg/dl Total Bilirubin 1.0 0.2-1 mg/dl Aspartate Amino Transf (AST/SGOT) 13 15-37 U/L Alanine Aminotransferase (ALT/SGPT) 20 12-78 U/L Alkaline Phosphatase 63 45-117 U/L Total Creatine Kinase 429 39-308 U/L Creatine Kinase MB 1.3 0.5-3.6 ng/ml Creatine Kinase MB Ratio 0.3 0-3.0 Troponin I < 0.015 0-0.045 ng/ml Total Protein 6.1 6.4-8.2 gm/dl Albumin 3.0 3.4-5.0 gm/dl Globulin 3.1 2.5-4.0 gm/dl Albumin/Globulin Ratio 1.0 0.9-2 Bedside Hemoglobin 11.6 14.0-18.0 g/dl Bedside Hematocrit 34 42-52 % Bedside D-Dimer > 450 0-450 ng/mlFEU Bedside Sodium 140 135-144 mEq/L Bedside Potassium 3.4 3.3-5.0 mEq/L Bedside Chloride 103 101-112 mEq/L Bedside Total CO2 22 24-31 mEq/l Bedside Blood Urea Nitrogen 13 7-18 mg/dl Bedside Creatinine 1.2 0.6-1.3 mg/dl Bedside Glucose (other) 164 70-99 mg/dl Bedside Ionized Calcium (Suzi) 1.15 1.12-1.32 mmol/l Influenza Type A Antigen Neg for Influ A NEG Influenza Type B Antigen Neg for Influ B NEG Microbiology Results 12/26/16 Blood Culture, Received Pending 12/26/16 Blood Culture, Received Pending Diagnostic Radiology R lung upper and lower lobe infiltrates EKG Sinus - evidence of prev inf [place] - no significant morphological change Impression Assessment and Plan 71 y/o M Hx CAD, CVA, HTN, HPL hypothyroid, recurrent pneumonias and pneumonitis likely due to aspiration. The pt presented one day prior with c/o cough and mild SOB. He was discharged from the ER with a course of antibiotics. He returns with progressive weakness and persistent SOB with a worsening cough. He was mildly hypoxic on arrival to the ER. He denies CP, N/V , rigors. A CTA was obtained in the ER revealing a multifocal R sided pneumonia. 1) Pneumonia - pt has a history of aspiration. As I was in the room he was noted to regurgitate and cough a few times while in a reclined position. The pt was started on Unasyn and Zithromax to cover both aspiration and CAP pending sputum and blood culture results. He will continue his prescribed inhalers in addition to Duonebs and PRN Albuterol. 2) CAD - no evidence of ACS - cont Plavix, Statin, B art - CK is elevated with normal trop - we will repeat both AM 3) CVA - cont Plavix , Statin 4) HTN - cont Carvedilol, Quinapril 5) HPL - cont Lipitor 6) Hypothyroidism - cont Synthroid Full code - SCDs - Heparin allergy is listed - unclear if he had THOMAS in past - will need anicoagulation if he remains in hospital for extended period so that we should verify the above allergy - platelet count is slightly low but at baseline Total time for this admit including review of labs, meds, imaging, EKG - discussion with pt and ER attending - 40 min Level of Care Telemetry Resuscitation Status FULL RESUSCITATION VTE Prophylaxis VTE Risk Assessment Done? Y/N: Yes Risk Level: Moderate Given or contraindicated: SCD's
[2016-12-27 03:16] LABS: INFLUENZA A PCR Neg for Influ A (NEG); INFLUENZA B PCR Neg for Influ B (NEG)
[2016-12-27] MEDS ORDERED: NSS + 20MEQ KCL 1000ML 1,000 ML IV SCH (03:30)
[2016-12-27] MEDS: ALBUT/IPRATROP 3MG/0.5MG NEB 3 ML VIAL INH SCH ×5 (03:34→23:26)
[2016-12-27] MEDS: AMPICILLIN/SULBACTAM SOD INJ 3,000 MG in SODIUM CHLORIDE 0.9% 100ML 100 ML IV SCH ×4 (05:56→23:08)
[2016-12-27] MEDS: LEVOTHYROXINE 50 MCG TAB PO SCH (06:31)
--- NOTE | 2016-12-27 06:48 | DIAGNOSTIC IMAGING REPORT ---
CT ANGIOGRAPHY OF THE CHEST, PULMONARY EMBOLUS PROTOCOL CLINICAL HISTORY: Sepsis. COMPARISON STUDY: Chest CT November 11, 2015 and chest radiograph performed December 26, 2016. TECHNIQUE: Following IV administration of Optiray-320, helical axial images of the chest were obtained utilizing the pulmonary embolus protocol. Maximal intensity projections and sagittal and coronal reformats were viewed on an independent 3D workstation. IV contrast was administered without complication. A dose lowering technique was utilized adhering to the principles of ALARA. CT DOSE: 392.51 mGy.cm FINDINGS: No pulmonary emboli are identified. The heart is moderately enlarged. There is no pericardial effusion. Old infarcts of the left ventricular apex and interventricular septum are again noted. No enlarged thoracic lymph nodes are present. No pneumothorax is present. There are trace bilateral pleural effusions. Mild bronchial wall thickening is noted. There are mild groundglass opacities within the right upper and right lower lobes. Left lung airspace opacity favors atelectasis. Bony thorax and upper abdomen are unremarkable. IMPRESSION: 1. No pulmonary emboli identified. 2. Mild multifocal airspace opacities within the right lung which favor an infectious process. 2. Moderate cardiomegaly with redemonstration of old infarcts of the left ventricular apex and interventricular septum. Electronically signed by: Shant Keen M.D. 12/27/2016 6:47 AM Dictated Date/Time: 12/27/2016 6:40 AM
--- NOTE | 2016-12-27 06:52 | DIAGNOSTIC IMAGING REPORT ---
CHEST ONE VIEW PORTABLE CLINICAL HISTORY: 71 years-old Male presenting with Sepsis. TECHNIQUE: Portable upright AP view of the chest was obtained. COMPARISON: 12/26/2016. FINDINGS: Persistent prominence of the cardiac silhouette. Prominence of the mediastinal contour along the vascular pedicle could suggest ectasia of the ascending aorta. Slight interval decrease in pulmonary vascular prominence. Slight interval decrease in perihilar and bibasilar vague opacities. Left retrocardiac opacity may persist. Possible trace left pleural effusion. No pneumothorax. Degenerative changes of the left glenohumeral joint. Degenerative changes of the spine. Upper abdomen normal. IMPRESSION: 1. Slight interval decrease in pulmonary vascular congestion and mild pulmonary edema. 2. Left retrocardiac opacity could suggest residual edema or atelectasis with possible trace left effusion. Electronically signed by: Harjit Shipman M.D. 12/27/2016 6:50 AM Dictated Date/Time: 12/27/2016 6:48 AM
[2016-12-27 06:53] LABS: HEMATOCRIT 36.6 % (42-52); MEAN CELL VOLUME 92.4 fL (80-100); MEAN CORPUSCULAR HEMOGLOBIN 32.3 pg (25-34); MEAN PLATELET VOLUME 9.6 fL (7.4-10.4); PLATELET COUNT 103 K/uL (130-400); RED BLOOD COUNT 3.96 M/uL (4.7-6.1); WHITE BLOOD COUNT 5.71 K/uL (4.8-10.8)
[2016-12-27 07:24] LABS: BUN/CREATININE RATIO 11.5 (10-20); CALCIUM 8.2 mg/dl (8.5-10.1); CREATININE 1.1 mg/dl (0.60-1.40); POTASSIUM 4.2 mmol/L (3.5-5.1)
[2016-12-27] MEDS: BUDESONIDE/FORMOTEROL FUMARATE 80/4.5 60 PUFFS/INHALER INH SCH ×2 (07:57→21:05)
[2016-12-27] MEDS: ATORVASTATIN 40 MG TAB PO SCH (07:57)
[2016-12-27] MEDS: GABAPENTIN 600 MG TAB PO SCH ×2 (07:58→21:02)
[2016-12-27] MEDS: FLUOXETINE HCL 10 MG CAP PO SCH (07:58)
[2016-12-27] MEDS: CLOPIDOGREL BISULFATE 75 MG TAB PO SCH (07:58)
[2016-12-27] MEDS: BENZONATATE 100MG CAP PO PRN (07:59)
[2016-12-27] MEDS: ENALAPRIL MALEATE 10 MG TAB PO SCH (07:59)
[2016-12-27] MEDS: FLUOXETINE HCL 20 MG CAP PO SCH (08:00)
[2016-12-27] MEDS: CHOLECALCIFEROL 1000 INTER.UNIT TAB PO SCH (08:00)
[2016-12-27] MEDS ORDERED: QUETIAPINE FUMARATE 25 MG TAB PO SCH (09:00)
[2016-12-27] MEDS ORDERED: ALPRAZOLAM 0.5 MG TAB PO SCH (09:00)
[2016-12-27] MEDS ORDERED: QUETIAPINE FUMARATE 200 MG TAB PO SCH (09:00)
[2016-12-27] MEDS ORDERED: GLUCOSE 10 TABS/TUBE PO PRN (09:30)
[2016-12-27] MEDS ORDERED: GLUCOSE 40% GEL 15 GM TUBE PO PRN (09:30)
[2016-12-27] MEDS ORDERED: DEXTROSE 50% 50 ML SYR IV PRN (09:30)
[2016-12-27] MEDS ORDERED: GLUCAGON FOR INJ 1 MG VIAL SQ PRN (09:30)
[2016-12-27] MEDS: INSULIN ASPART 100 UNITS/ML 3 ML PEN SC SCH ×3 (12:07→21:06)
--- NOTE | 2016-12-27 13:46 | DIAGNOSTIC IMAGING REPORT ---
VIDEO SWALLOW HISTORY: Aspiration assess for aspiration, please schedule at 1245 per order TECHNIQUE: Video fluoroscopic evaluation of swallowing was performed in the AP and lateral projections by the speech pathology staff. The patient is fed nectar-thick and thin liquid barium, a barium coated wafer, and barium pudding. FLUOROSCOPY TIME: 3.3 minutes. COMPARISON STUDY: None. FINDINGS: There is normal hyoid excursion and epiglottic deflection. Moderate persistent vallecular pooling. Trace aspiration with thin liquids. Dysmotility and esophageal irritability. IMPRESSION: 1. Trace aspiration. Generalized dysmotility. Vallecular pooling. 2. Please see the speech pathologist report for detailed findings and recommendations. The above report was generated using voice recognition software. It may contain grammatical, syntax or spelling errors. Electronically signed by: Pelon Abarca M.D. 12/27/2016 1:45 PM Dictated Date/Time: 12/27/2016 1:43 PM
[2016-12-27] MEDS ORDERED: NURSING VERBAL MED ORDER ONE ×2 (16:15→17:00)
[2016-12-27] MEDS ORDERED: FEXOFENADINE HCL 60 MG TAB PO ONE (20:15)
[2016-12-27] MEDS: ALPRAZOLAM 0.25 MG TAB PO SCH (20:59)
[2016-12-27] MEDS: CARVEDILOL 3.125 MG TAB PO SCH (21:01)
[2016-12-27] MEDS: TRAZODONE HCL 100 MG TAB PO SCH (21:03)
[2016-12-27] MEDS: ROPINIROLE HCL 1 MG TAB PO SCH (21:04)
[2016-12-27] MEDS: AZITHROMYCIN IV 500 MG in DEXTROSE 5% 250ML 250 ML IV SCH (22:42)
--- NOTE | 2016-12-27 23:52 | Progress Note ---
Subjective Date of Service: Dec 27, 2016. Subjective Pt evaluation today including: conversation w/ patient, physical exam, chart review, lab review, review of studies, conversation w/ clinical program consultant (speech), review of inpatient medication list Pain: denies PO Intake: fairly good Voiding: no voiding problems no issues since admission feels a bit better today than yesterday no fever some hoarse voice for about 1 week denies any reflux symptoms spoke with speech - generally speaking passed his video swallow test; dysmotility seen; GI consultation recommended Problem List Medical Problems: (1) Congestion of nasal sinus Status: Acute (2) COPD exacerbation Status: Acute (3) Hypoxia Status: Acute (4) Hypoxia Status: Acute (5) Infectious process Status: Acute Objective Vital Signs Date Time Temp Pulse Resp B/P (MAP) Pulse Ox O2 Delivery O2 Flow Rate FiO2 12/27/16 21:04 61 16 94 Room Air 12/27/16 20:19 36.4 68 18 140/77 (98) 94 Room Air 12/27/16 20:00 94 Room Air 12/27/16 16:00 Room Air 12/27/16 15:34 36.0 59 18 119/67 (84) 93 Room Air 12/27/16 14:10 60 16 94 Room Air 12/27/16 12:00 95 Room Air 12/27/16 11:28 36.4 66 18 99/66 (77) 94 Room Air 12/27/16 08:12 63 16 95 Room Air 12/27/16 08:00 95 Room Air 12/27/16 07:38 35.8 56 16 124/70 (88) 95 Room Air 12/27/16 03:35 63 16 91 Nasal Cannula 2.0 12/27/16 03:14 36.5 51 20 114/68 Nasal Cannula 2.0 12/27/16 02:07 49 16 101/62 94 12/27/16 01:30 98/58 12/27/16 01:29 54 11 93 12/27/16 01:09 105/60 12/27/16 01:00 88/55 12/27/16 00:59 50 16 98 12/27/16 00:30 94/56 12/27/16 00:29 50 18 97 12/27/16 00:15 55 20 111/64 99 Nebulizer 12/27/16 00:15 57 14 92 Nasal Cannula 2.0 12/27/16 00:15 111/64 12/26/16 23:54 95/52 12/26/16 23:40 53 12 92 12/26/16 23:30 78/51 12/26/16 23:19 95/50 12/26/16 23:10 55 15 12/26/16 22:44 57 12/26/16 22:39 92 Room Air 12/26/16 22:39 36.6 61 20 95/54 92 Room Air Physical Exam General Appearance: no apparent distress ENT: pharynx normal Neck: no JVD Respiratory/Chest: no respiratory distress, no accessory muscle use, + crackles (right base extending 1/2 way up back otherwise CTA b/l ) Cardiovascular: regular rate, rhythm, no gallop, no murmur Abdomen: normal bowel sounds, non tender, soft, no organomegaly Extremities: no pedal edema Neurologic/Psychiatric: alert, oriented x 3 Laboratory Results Last 24 Hours Test 12/26/16 22:40 12/26/16 23:12 12/26/16 23:28 12/27/16 06:22 White Blood Count 7.53 K/uL 5.71 K/uL Red Blood Count 3.95 M/uL 3.96 M/uL Hemoglobin 13.1 g/dL 12.8 g/dL Hematocrit 36.2 % 36.6 % Mean Corpuscular Volume 91.6 fL 92.4 fL Mean Corpuscular Hemoglobin 33.2 pg 32.3 pg Mean Corpuscular Hemoglobin Concent 36.2 g/dl 35.0 g/dl Platelet Count 116 K/uL 103 K/uL Mean Platelet Volume 9.5 fL 9.6 fL Neutrophils (%) (Auto) 68.5 % Lymphocytes (%) (Auto) 10.9 % Monocytes (%) (Auto) 16.5 % Eosinophils (%) (Auto) 3.7 % Basophils (%) (Auto) 0.1 % Neutrophils # (Auto) 5.16 K/uL Lymphocytes # (Auto) 0.82 K/uL Monocytes # (Auto) 1.24 K/uL Eosinophils # (Auto) 0.28 K/uL Basophils # (Auto) 0.01 K/uL RDW Standard Deviation 44.0 fL 45.3 fL RDW Coefficient of Variation 13.2 % 13.3 % Immature Granulocyte % (Auto) 0.3 % Immature Granulocyte # (Auto) 0.02 K/uL Prothrombin Time 12.2 SECONDS Prothromb Time International Ratio 1.1 Activated Partial Thromboplast Time 31.1 SECONDS Partial Thromboplastin Ratio 1.2 Sodium Level 140 mmol/L 140 mmol/L Potassium Level 3.5 mmol/L 4.2 mmol/L Chloride Level 108 mmol/L 109 mmol/L Carbon Dioxide Level 26 mmol/L 25 mmol/L Anion Gap 6.0 mmol/L 18.0 mmol/L 6.0 mmol/L Blood Urea Nitrogen 14 mg/dl 13 mg/dl Creatinine 1.30 mg/dl 1.10 mg/dl Est Creatinine Clear Calc Drug Dose 51.0 ml/min 60.3 ml/min Estimated GFR () 64.5 79.0 Estimated GFR (Non- 55.7 68.1 BUN/Creatinine Ratio 10.5 11.5 Random Glucose 158 mg/dl 217 mg/dl Calcium Level 8.2 mg/dl 8.2 mg/dl Total Bilirubin 1.0 mg/dl Aspartate Amino Transf (AST/SGOT) 13 U/L Alanine Aminotransferase (ALT/SGPT) 20 U/L Alkaline Phosphatase 63 U/L Total Creatine Kinase 429 U/L 420 U/L Creatine Kinase MB 1.3 ng/ml Creatine Kinase MB Ratio 0.3 Troponin I < 0.015 ng/ml < 0.015 ng/ml Total Protein 6.1 gm/dl Albumin 3.0 gm/dl Globulin 3.1 gm/dl Albumin/Globulin Ratio 1.0 Bedside Hemoglobin 11.6 g/dl Bedside Hematocrit 34 % Bedside D-Dimer > 450 ng/mlFEU Bedside Sodium 140 mEq/L Bedside Potassium 3.4 mEq/L Bedside Chloride 103 mEq/L Bedside Total CO2 22 mEq/l Bedside Blood Urea Nitrogen 13 mg/dl Bedside Creatinine 1.2 mg/dl Bedside Glucose (other) 164 mg/dl Bedside Ionized Calcium (Suzi) 1.15 mmol/l Influenza Type A (RT-PCR) Neg for Influ A Influenza Type A Antigen Neg for Influ A Influenza Type B Antigen Neg for Influ B Influenza Type B (RT-PCR) Neg for Influ B Magnesium Level 2.0 mg/dl Test 12/27/16 11:40 12/27/16 16:22 12/27/16 20:30 Bedside Glucose 237 mg/dl 188 mg/dl 197 mg/dl Assessment and Plan 71yo male - 1. right-sided pneumonia - either aspiration vs community-acquired. Agree w/ current IV abx including unasyn & zithromax. Cont supportive care. 2. ?aspiration - appreciate speech consultation. Minimal [facility] as well as GI consultation for significant esophageal dysmotility. 3. CAD - no ischemic sx's at this time. Cont plavix, BB. 4. h/o stroke - noted. 5. HTN - controlled. 6. hypothyroidism - TSH wnl; cont synthroid. 7. T2DM - oddly it appears he was NOT on medications at home? Novolog with meals/HS. BSG's ac/hs. Check records for last a1c. 8. thrombocytopenia - check b12/folate. this appears chronic. Continued [facility] stay due to: multiple IV medications needed Discharge planning: home
[2016-12-28] VITALS (12 sets, daily range): BP systolic 120–160; BP diastolic 66–83; PULSE 53–70; TEMP 36.1–37.3; O2SAT 90–96
[2016-12-28] MEDS: ALBUT/IPRATROP 3MG/0.5MG NEB 3 ML VIAL INH SCH ×4 (02:13→19:51)
[2016-12-28] MEDS: LEVOTHYROXINE 50 MCG TAB PO SCH (05:50)
[2016-12-28] MEDS: AMPICILLIN/SULBACTAM SOD INJ 3,000 MG in SODIUM CHLORIDE 0.9% 100ML 100 ML IV SCH ×3 (05:54→18:08)
[2016-12-28 06:20] LABS: BUN/CREATININE RATIO 11.1 (10-20); CALCIUM 8.2 mg/dl (8.5-10.1); CREATININE 1.1 mg/dl (0.60-1.40); POTASSIUM 4.2 mmol/L (3.5-5.1)
[2016-12-28 06:52] LABS: ESTIMATED AVERAGE GLUCOSE 120 mg/dl; HA1C FLAG Normal (Normal)
[2016-12-28] MEDS: CLOPIDOGREL BISULFATE 75 MG TAB PO SCH (07:34)
[2016-12-28] MEDS: ENALAPRIL MALEATE 10 MG TAB PO SCH (07:34)
[2016-12-28] MEDS: FLUOXETINE HCL 20 MG CAP PO SCH (07:34)
[2016-12-28] MEDS: FLUOXETINE HCL 10 MG CAP PO SCH (07:34)
[2016-12-28] MEDS: FEXOFENADINE HCL 60 MG TAB PO SCH ×2 (07:34→21:30)
[2016-12-28] MEDS: BUDESONIDE/FORMOTEROL FUMARATE 80/4.5 60 PUFFS/INHALER INH SCH ×2 (07:34→21:28)
[2016-12-28] MEDS: GABAPENTIN 600 MG TAB PO SCH ×2 (07:34→21:32)
[2016-12-28] MEDS: CHOLECALCIFEROL 1000 INTER.UNIT TAB PO SCH (07:35)
[2016-12-28] MEDS: ATORVASTATIN 40 MG TAB PO SCH (07:35)
[2016-12-28] MEDS: INSULIN ASPART 100 UNITS/ML 3 ML PEN SC SCH ×4 (08:36→21:33)
[2016-12-28] MEDS: CYANOCOBALAMIN 1000 MCG/ML VIAL IM SCH (10:50)
[2016-12-28] MEDS: BENZONATATE 100MG CAP PO PRN ×2 (10:50→21:30)
[2016-12-28] MEDS: METHYLPREDNISOLONE IV 40 MG in SYRINGE 0 ML IV SCH (18:08)
[2016-12-28] MEDS: ALPRAZOLAM 0.25 MG TAB PO SCH (21:28)
[2016-12-28] MEDS: GUAIFENESIN 600 MG TABCR PO SCH (21:29)
[2016-12-28] MEDS: ROPINIROLE HCL 1 MG TAB PO SCH (21:30)
[2016-12-28] MEDS: CARVEDILOL 3.125 MG TAB PO SCH (21:31)
[2016-12-28] MEDS: QUETIAPINE FUMARATE 25 MG TAB PO SCH (21:32)
[2016-12-28] MEDS: QUETIAPINE FUMARATE 200 MG TAB PO SCH (21:33)
[2016-12-28] MEDS: TRAZODONE HCL 100 MG TAB PO SCH (21:33)
--- NOTE | 2016-12-28 22:24 | Progress Note ---
Subjective Date of Service: Dec 28, 2016. Subjective Pt evaluation today including: conversation w/ patient, conversation w/ family ( ), physical exam, chart review, lab review, review of inpatient medication list Pain: denies PO Intake: normal Voiding: no voiding problems tele stable overnight feeling better still with cough but "nothing coming up" Problem List Medical Problems: (1) Congestion of nasal sinus Status: Acute (2) COPD exacerbation Status: Acute (3) Hypoxia Status: Acute (4) Hypoxia Status: Acute (5) Infectious process Status: Acute Review of Systems Constitutional: No fever, No chills Respiratory: No dyspnea at rest Cardiac: No chest pain Abdomen: No pain Objective Vital Signs Date Time Temp Pulse Resp B/P (MAP) Pulse Ox O2 Delivery O2 Flow Rate FiO2 12/28/16 20:00 90 Room Air 12/28/16 19:56 57 16 94 Room Air 12/28/16 19:27 37.3 57 18 143/76 (98) 90 Room Air 12/28/16 16:00 91 Room Air 12/28/16 15:31 36.7 70 16 137/70 (92) 91 Room Air 12/28/16 14:20 69 16 94 Room Air 12/28/16 12:07 37.0 53 18 136/66 (89) 94 Room Air 12/28/16 12:00 Room Air 12/28/16 08:00 Room Air 12/28/16 07:47 60 16 96 Room Air 12/28/16 07:40 36.4 55 18 160/83 (108) 91 Room Air 12/28/16 04:01 36.5 55 16 128/71 (90) 91 Room Air 12/28/16 04:00 Room Air 12/27/16 23:44 Room Air 12/27/16 23:42 36.3 64 20 116/78 (91) 94 Room Air 12/27/16 23:26 66 16 93 Room Air Physical Exam General Appearance: no apparent distress ENT: pharynx normal Neck: no JVD Respiratory/Chest: no respiratory distress, no accessory muscle use, + crackles (right base and RML), + wheezing (b/l) Cardiovascular: regular rate, rhythm, no gallop, no murmur Abdomen: normal bowel sounds, non tender, soft, no organomegaly Extremities: no pedal edema Laboratory Results Last 24 Hours Test 12/28/16 05:21 12/28/16 06:56 12/28/16 11:44 12/28/16 16:27 Sodium Level 146 mmol/L Potassium Level 4.2 mmol/L Chloride Level 114 mmol/L Carbon Dioxide Level 26 mmol/L Anion Gap 6.0 mmol/L Blood Urea Nitrogen 12 mg/dl Creatinine 1.10 mg/dl Est Creatinine Clear Calc Drug Dose 53.1 ml/min Estimated GFR () 79.0 Estimated GFR (Non- 68.1 BUN/Creatinine Ratio 11.1 Random Glucose 128 mg/dl Estimated Average Glucose 120 mg/dl Hemoglobin A1c 5.8 % Calcium Level 8.2 mg/dl Vitamin B12 Level 148 pg/mL Folate 7.60 ng/mL Bedside Glucose 120 mg/dl 117 mg/dl 117 mg/dl Test 12/28/16 20:21 Bedside Glucose 118 mg/dl Assessment and Plan 71yo male - 1. right-sided pneumonia - either aspiration vs community-acquired. Agree w/ current IV abx including unasyn & zithromax. Day #2 of each. Cont supportive care. Appears to have element of reactive bronchitis - add steroids. Add mucinex. Cont nebs. 2. ?aspiration - appreciate speech consultation. Minimal aspiration on video swallow. [facility] soft diet/slippery recommended, however, as well as GI consultation for significant esophageal dysmotility. 3. CAD - no ischemic sx's at this time. Cont plavix, BB. 4. h/o stroke - noted. 5. HTN - controlled. 6. hypothyroidism - TSH wnl; cont synthroid. 7. pre-T2DM - controlled. 8. thrombocytopenia - may be 2nd to vitamin b12 deficiency. With replacement platelets should improve. 9. trigeminal neuralgia - gabapentin. 10. vitamin B12 def - vitamin b12 injections 1000mcg daily while here. Would do shots for several months as outpatient then oral b12 thereafter. updated hopefully home next 1-2 days Continued [facility] stay due to: multiple IV medications needed Discharge planning: home
[2016-12-28] MEDS: AZITHROMYCIN IV 500 MG in DEXTROSE 5% 250ML 250 ML IV SCH (22:30)
[2016-12-29] VITALS (13 sets, daily range): BP systolic 118–161; BP diastolic 64–86; PULSE 48–68; TEMP 36.3–36.9; O2SAT 88–95
[2016-12-29] MEDS: AMPICILLIN/SULBACTAM SOD INJ 3,000 MG in SODIUM CHLORIDE 0.9% 100ML 100 ML IV SCH ×5 (00:28→23:51)
[2016-12-29] MEDS: ALBUT/IPRATROP 3MG/0.5MG NEB 3 ML VIAL INH SCH ×4 (01:56→19:40)
[2016-12-29] MEDS: LEVOTHYROXINE 50 MCG TAB PO SCH (06:02)
[2016-12-29] MEDS: METHYLPREDNISOLONE IV 40 MG in SYRINGE 0 ML IV SCH ×2 (06:02→17:32)
[2016-12-29 06:40] LABS: BUN/CREATININE RATIO 12.3 (10-20); CALCIUM 8.4 mg/dl (8.5-10.1); CREATININE 1.1 mg/dl (0.60-1.40); POTASSIUM 4.1 mmol/L (3.5-5.1)
[2016-12-29] MEDS: INSULIN ASPART 100 UNITS/ML 3 ML PEN SC SCH ×4 (08:01→20:51)
[2016-12-29] MEDS: GABAPENTIN 600 MG TAB PO SCH ×2 (08:03→20:45)
[2016-12-29] MEDS: ATORVASTATIN 40 MG TAB PO SCH (08:03)
[2016-12-29] MEDS: CLOPIDOGREL BISULFATE 75 MG TAB PO SCH (08:03)
[2016-12-29] MEDS: FLUOXETINE HCL 10 MG CAP PO SCH (08:04)
[2016-12-29] MEDS: CHOLECALCIFEROL 1000 INTER.UNIT TAB PO SCH (08:04)
[2016-12-29] MEDS: ENALAPRIL MALEATE 10 MG TAB PO SCH (08:04)
[2016-12-29] MEDS: FEXOFENADINE HCL 60 MG TAB PO SCH ×2 (08:04→20:44)
[2016-12-29] MEDS: BUDESONIDE/FORMOTEROL FUMARATE 80/4.5 60 PUFFS/INHALER INH SCH ×2 (08:05→20:32)
[2016-12-29] MEDS: GUAIFENESIN 600 MG TABCR PO SCH ×2 (08:05→20:45)
[2016-12-29] MEDS: FLUOXETINE HCL 20 MG CAP PO SCH (08:05)
[2016-12-29] MEDS: CYANOCOBALAMIN 1000 MCG/ML VIAL IM SCH (08:05)
[2016-12-29] MEDS: ACETYLCYSTEINE 20% INHAL SOLN ***DISPENSED BY RESP. INH SCH ×2 (14:30→19:40)
[2016-12-29] MEDS: CARVEDILOL 3.125 MG TAB PO SCH (20:44)
[2016-12-29] MEDS: TRAZODONE HCL 100 MG TAB PO SCH (20:45)
[2016-12-29] MEDS: ROPINIROLE HCL 1 MG TAB PO SCH (20:45)
[2016-12-29] MEDS: QUETIAPINE FUMARATE 200 MG TAB PO SCH (20:45)
[2016-12-29] MEDS: ALPRAZOLAM 0.25 MG TAB PO SCH (20:47)
[2016-12-29] MEDS: QUETIAPINE FUMARATE 25 MG TAB PO SCH (20:47)
[2016-12-29] MEDS: AZITHROMYCIN IV 500 MG in DEXTROSE 5% 250ML 250 ML IV SCH (22:34)
[2016-12-30] VITALS (14 sets, daily range): BP systolic 143–181; BP diastolic 71–94; PULSE 48–67; TEMP 36.4–36.9; O2SAT 90–96
[2016-12-30] MEDS: ALBUT/IPRATROP 3MG/0.5MG NEB 3 ML VIAL INH SCH ×4 (02:10→20:00)
[2016-12-30] MEDS: METHYLPREDNISOLONE IV 40 MG in SYRINGE 0 ML IV SCH ×2 (05:35→18:16)
[2016-12-30] MEDS: LEVOTHYROXINE 50 MCG TAB PO SCH (05:35)
[2016-12-30] MEDS: AMPICILLIN/SULBACTAM SOD INJ 3,000 MG in SODIUM CHLORIDE 0.9% 100ML 100 ML IV SCH ×3 (05:35→18:16)
[2016-12-30 05:57] LABS: PLATELET COUNT 138 K/uL (130-400)
[2016-12-30 06:29] LABS: BUN/CREATININE RATIO 15.9 (10-20); CALCIUM 8.4 mg/dl (8.5-10.1); POTASSIUM 4.1 mmol/L (3.5-5.1)
[2016-12-30] MEDS: ACETYLCYSTEINE 20% INHAL SOLN ***DISPENSED BY RESP. INH SCH ×3 (07:42→20:00)
[2016-12-30] MEDS: BUDESONIDE/FORMOTEROL FUMARATE 80/4.5 60 PUFFS/INHALER INH SCH ×2 (08:01→21:06)
[2016-12-30] MEDS: FLUOXETINE HCL 10 MG CAP PO SCH (08:01)
[2016-12-30] MEDS: FLUOXETINE HCL 20 MG CAP PO SCH (08:01)
[2016-12-30] MEDS: CLOPIDOGREL BISULFATE 75 MG TAB PO SCH (08:01)
[2016-12-30] MEDS: GABAPENTIN 600 MG TAB PO SCH ×2 (08:01→21:13)
[2016-12-30] MEDS: FEXOFENADINE HCL 60 MG TAB PO SCH ×2 (08:01→21:10)
[2016-12-30] MEDS: GUAIFENESIN 600 MG TABCR PO SCH ×2 (08:01→21:12)
[2016-12-30] MEDS: CYANOCOBALAMIN 1000 MCG/ML VIAL IM SCH (08:02)
[2016-12-30] MEDS: INSULIN ASPART 100 UNITS/ML 3 ML PEN SC SCH ×4 (08:09→21:17)
--- NOTE | 2016-12-30 08:29 | Progress Note ---
Subjective Date of Service: Dec 29, 2016. Subjective Pt evaluation today including: conversation w/ patient, conversation w/ family (son, ), physical exam, chart review, lab review, review of inpatient medication list Pain: denies PO Intake: normal/good Voiding: no voiding problems tele w/ sinus cassie only continues with cough but no sputum production denies dyspnea or dyspnea on exertion no new complaints Problem List Medical Problems: (1) Congestion of nasal sinus Status: Acute (2) COPD exacerbation Status: Acute (3) Hypoxia Status: Acute (4) Hypoxia Status: Acute (5) Infectious process Status: Acute Review of Systems Constitutional: No fever Respiratory: + cough, No shortness of breath, No dyspnea on exertion Cardiac: No chest pain Abdomen: No pain Objective Vital Signs Date Time Temp Pulse Resp B/P (MAP) Pulse Ox O2 Delivery O2 Flow Rate FiO2 12/29/16 20:57 68 143/72 (95) 12/29/16 19:43 64 16 92 Room Air 12/29/16 19:11 36.7 62 20 149/77 (101) 91 Room Air 12/29/16 17:12 92 Room Air 12/29/16 16:05 36.3 65 18 118/64 (82) 88 Room Air 12/29/16 16:00 92 Room Air 12/29/16 14:30 55 16 95 Room Air 12/29/16 12:00 Room Air 12/29/16 11:41 36.4 51 18 161/86 (111) 91 12/29/16 08:00 Room Air 12/29/16 07:32 36.9 49 16 130/69 (89) 90 Room Air 12/29/16 07:17 48 16 93 Room Air 12/29/16 04:00 Room Air 12/29/16 03:54 36.5 55 20 139/68 (91) 90 Room Air 12/29/16 01:58 50 16 92 Room Air 12/28/16 23:59 90 Room Air 12/28/16 23:12 36.1 54 18 120/81 (94) 90 Room Air Physical Exam General Appearance: no apparent distress ENT: pharynx normal Neck: no JVD Respiratory/Chest: no respiratory distress, no accessory muscle use, + crackles (extensive on right), + wheezing (b/l), + pertinent finding (airation - poor) Cardiovascular: no gallop, no murmur, + bradycardia Abdomen: normal bowel sounds, non tender, soft, no organomegaly Extremities: no pedal edema Neurologic/Psychiatric: alert, oriented x 3 Laboratory Results Last 24 Hours Test 12/29/16 05:49 12/29/16 07:36 12/29/16 11:50 12/29/16 16:55 Sodium Level 142 mmol/L Potassium Level 4.1 mmol/L Chloride Level 109 mmol/L Carbon Dioxide Level 27 mmol/L Anion Gap 6.0 mmol/L Blood Urea Nitrogen 14 mg/dl Creatinine 1.10 mg/dl Est Creatinine Clear Calc Drug Dose 53.1 ml/min Estimated GFR () 79.0 Estimated GFR (Non- 68.1 BUN/Creatinine Ratio 12.3 Random Glucose 166 mg/dl Calcium Level 8.4 mg/dl Total Creatine Kinase 636 U/L Bedside Glucose 145 mg/dl 192 mg/dl 188 mg/dl Assessment and Plan 71yo male - 1. right-sided pneumonia - either aspiration vs community-acquired. Continue current IV abx including unasyn & zithromax. Day #3 of each. Cont supportive care. Appears to have element of reactive bronchitis - continue steroids. Cont nebs and mucinex. Add mucomyst to nebs to help break secretions. Add flutter valve. May need vibration vest. 2. ?aspiration - appreciate speech consultation. Minimal aspiration on video swallow. Mech soft diet/slippery recommended, however, as well as GI consultation for significant esophageal dysmotility. 3. CAD - no ischemic sx's at this time. Cont plavix, BB. 4. h/o stroke - noted. 5. HTN - controlled. 6. hypothyroidism - TSH wnl; cont synthroid. 7. pre-T2DM - controlled. 8. thrombocytopenia - may be 2nd to vitamin b12 deficiency. With replacement platelets should improve. Recheck platelet count in am. 9. trigeminal neuralgia - gabapentin. 10. vitamin B12 def - vitamin b12 injections 1000mcg daily while here. Would do shots for several months as outpatient then oral b12 thereafter. updated son updated ambulate await PT, OT evals Continued [facility] stay due to: multiple IV medications needed Discharge planning: home
[2016-12-30] MEDS: CHOLECALCIFEROL 1000 INTER.UNIT TAB PO SCH (10:33)
[2016-12-30] MEDS: ENALAPRIL MALEATE 10 MG TAB PO SCH (10:34)
[2016-12-30] MEDS ORDERED: NIFEdipine 30 MG CR TAB PO STA (12:15)
--- NOTE | 2016-12-30 14:58 | Progress Note ---
Subjective Date of Service: Dec 30, 2016. (Natalya Narayanan ., JAYMIEC) Subjective Pt evaluation today including: conversation w/ patient, conversation w/ family , physical exam, chart review, lab review, review of studies, review of inpatient medication list Patient continues to have on and off cough- not expectorating any sputum. He does not have any pain currently. Continues to have SOB. Aggressive pulmonary toilet started yesterday- no real improvement seen yet. Patient continues Mucinex, Mucomyst INH TID, Symbicort, Unasyn, Albuterol Q4 PRN SOB, Benzonatate, Duoneb scheduled Q6, Flutter valve, & incentive spirometry CT images viewed and reviewed. Note bilateral lower lobe infiltrative changes consistent with probable aspiration, R>L. Video swallow confirmed trace aspiration. Sputum culture showed upper respiratory contamination. He has been afebrile. Labs reviewed 12/30: WBC 5.71 Hgb/Hct 12.8/36.6 Creatinine 1.00 BUN 16 Calcium 8.4 (Natalya Narayanan ., VIC-C) Problem List Medical Problems: (1) Congestion of nasal sinus Status: Acute (2) COPD exacerbation Status: Acute (3) Hypoxia Status: Acute (4) Hypoxia Status: Acute (5) Infectious process Status: Acute (Natalya Narayanan, JAYMIEC) Review of Systems Constitutional: No fever, No chills, No sweats Eyes: No worsening of vision ENT: No hearing loss, No sore throat Respiratory: + cough, + shortness of breath, + dyspnea on exertion, + dyspnea at rest, No sputum Cardiac: No chest pain Abdomen: No pain, No nausea, No vomiting Musculoskeletal: No joint pain Male : No dysuria Skin: No rash, No itch All Other Systems: Reviewed and Negative (Natalya Narayanan ., PA-C) Medications Current Inpatient Medications Medications (Trade) Dose Ordered Sig/Shelby Route Start Time Stop Time Status Last Admin Dose Admin Ioversol (Optiray 320) 100 ml UD PRN IV 12/26/16 23:30 12/30/16 23:29 Benzonatate (Tessalon Perles Cap) 200 mg TID PRN PO 12/27/16 01:30 01/26/17 01:29 12/28/16 21:30 200 MG Budesonide/ Formoterol Fumarate (Symbicort 80/ 4.5 Inh) 2 puffs BID INH 12/27/16 09:00 01/26/17 08:59 12/30/16 08:01 2 PUFFS Carvedilol (Coreg Tab) 3.125 mg HS PO 12/27/16 21:00 01/26/17 20:59 12/29/16 20:44 3.125 MG Cholecalciferol (Vitamin D Tab) 1,000 inter.unit DAILY PO 12/27/16 09:00 01/26/17 08:59 12/30/16 10:33 1,000 INTER.UNIT Clopidogrel Bisulfate (plAVix TAB) 75 mg DAILY PO 12/27/16 09:00 01/26/17 08:59 12/30/16 08:01 75 MG Fluoxetine HCl (Prozac Cap) 10 mg DAILY PO 12/27/16 09:00 01/26/17 08:59 12/30/16 08:01 10 MG Fluoxetine HCl (Prozac Cap) 20 mg DAILY PO 12/27/16 09:00 01/26/17 08:59 12/30/16 08:01 20 MG Gabapentin (Neurontin Tab) 1,200 mg HS PO 12/27/16 21:00 01/26/17 20:59 12/29/16 20:45 1,200 MG Gabapentin (Neurontin Tab) 600 mg QAM PO 12/27/16 09:00 01/26/17 08:59 12/30/16 08:01 600 MG Acetaminophen/ Hydrocodone Bitart ([place] 5/325 Tab) 1 tab BID PRN PO 12/27/16 01:30 01/10/17 01:29 Levothyroxine Sodium (Synthroid Tab) 50 mcg DAILYBB PO 12/27/16 06:30 01/26/17 06:29 12/30/16 05:35 50 MCG Ropinirole HCl (Requip Tab) 4 mg HS PO 12/27/16 21:00 01/26/17 20:59 12/29/16 20:45 4 MG Trazodone HCl (Desyrel Tab) 200 mg HS PO 12/27/16 21:00 01/26/17 20:59 12/29/16 20:45 200 MG Miscellaneous Information (Order Awaiting Action) 1 ea QS N/A 12/27/16 08:00 01/26/17 07:59 Albuterol/ Ipratropium (Duoneb) 3 ml Q6R INH 12/27/16 03:00 01/26/17 02:59 12/30/16 14:19 3 ML Acetaminophen (Tylenol Tab) 650 mg Q4H PRN PO 12/27/16 01:30 01/26/17 01:29 Al Hydrox/Mg Hydrox/Simethicone (Maalox Max Susp) 15 ml Q4H PRN PO 12/27/16 01:30 01/26/17 01:29 Magnesium Hydroxide (Milk Of Magnesia Susp) 30 ml Q12H PRN PO 12/27/16 01:30 01/26/17 01:29 Ondansetron HCl (Zofran Inj) 4 mg Q6H PRN IV 12/27/16 01:30 01/26/17 01:29 12/28/16 10:50 4 MG Nitroglycerin (Nitrostat Tab) 0.4 mg UD PRN SL 12/27/16 01:30 01/26/17 01:29 Morphine Sulfate (MoRPHine SULFATE INJ) 2 mg Q30M PRN IV 12/27/16 01:30 01/10/17 01:29 Polyethylene (Miralax Powder Packet) 17 gm DAILY PRN PO 12/27/16 01:30 01/26/17 01:29 Albuterol Sulfate (Ventolin 0.083% 2.5MG/3ML Neb) 2.5 mg Q4H PRN INH 12/27/16 01:45 01/26/17 01:44 12/27/16 23:26 2.5 MG Ampicillin Sodium/ Sulbactam Sodium 3000 mg/Sodium Chloride 108 ml @ 200 mls/hr Q6H IV 12/27/16 06:00 01/03/17 05:59 12/30/16 12:37 200 MLS/HR Azithromycin 500 mg/Dextrose 255 ml @ 125 mls/hr Q24H IV 12/27/16 23:00 01/03/17 22:59 12/29/16 22:34 125 MLS/HR Insulin Aspart (novoLOG ASPART) SLIDING SCALE G... ACHS SC 12/27/16 11:00 01/26/17 10:59 12/30/16 12:26 7 UNITS Glucose (Glucose 40% Gel) 15-30 GRAMS 15 GRAMS... UD PRN PO 12/27/16 09:30 01/26/17 09:29 Glucose (Glucose Chew Tab) 4-8 Tablets 4 Tabl... UD PRN PO 12/27/16 09:30 01/26/17 09:29 Dextrose (Dextrose 50% 50ML Syringe) 25-50ML OF 50% DW IV FOR... UD PRN IV 12/27/16 09:30 01/26/17 09:29 Glucagon (Glucagon Inj) 1 mg UD PRN SQ 12/27/16 09:30 01/26/17 09:29 Quetiapine Fumarate (seroQUEL TAB) 50 mg HS PO 12/28/16 21:00 01/27/17 20:59 12/29/16 20:47 50 MG Quetiapine Fumarate (seroQUEL TAB) 200 mg HS PO 12/28/16 21:00 01/27/17 20:59 12/29/16 20:45 200 MG Alprazolam (Xanax Tab) 0.75 mg HS PO 12/27/16 21:00 01/26/17 20:59 12/29/16 20:47 0.75 MG Fexofenadine HCl (Alina Tab) 60 mg BID PO 12/28/16 09:00 01/27/17 08:59 12/30/16 08:01 60 MG Cyanocobalamin (Vitamin B-12 Inj) 1,000 mcg DAILY IM 12/28/16 10:00 01/27/17 09:59 12/30/16 08:02 1,000 MCG Guaifenesin (Mucinex Contr Rel Tab) 1,200 mg Q12 PO 12/28/16 21:00 01/27/17 20:59 12/30/16 08:01 1,200 MG Methylprednisolone Sodium Succinate 40 mg/Syringe 0.64 ml @ 1.5 mls/min Q12H IV 12/28/16 17:30 01/27/17 17:29 12/30/16 05:35 1.5 MLS/MIN Acetylcysteine (Mucomyst 20% Inh Soln) 3 ml TIDR INH 12/29/16 15:00 9/18/17 13:59 12/30/16 14:19 3 ML Enalapril Maleate (Vasotec Tab) 20 mg DAILY PO 12/30/16 09:00 01/26/17 08:59 12/30/16 10:34 20 MG Nifedipine (Procardia Xl Tab) 30 mg QAM PO 12/31/16 09:00 01/30/17 08:59 (Natalya Narayanan ., PA-C) Objective Vital Signs Date Time Temp Pulse Resp B/P (MAP) Pulse Ox O2 Delivery O2 Flow Rate FiO2 12/30/16 14:19 53 16 92 Room Air 12/30/16 12:15 Room Air 12/30/16 12:06 36.5 56 18 181/93 (122) 96 Room Air 12/30/16 10:21 174/83 (113) 12/30/16 08:00 Room Air 12/30/16 07:48 36.4 48 20 181/92 (121) 93 Room Air 181/94 (123) 12/30/16 07:43 56 16 94 Room Air 12/30/16 04:00 Room Air 12/30/16 04:00 36.9 49 18 160/77 (104) 91 Room Air 12/30/16 02:10 54 14 93 Room Air 12/30/16 00:00 Room Air 12/30/16 00:00 36.5 54 20 143/71 (95) 90 Room Air 12/29/16 20:57 68 143/72 (95) 12/29/16 20:00 92 Room Air 12/29/16 19:43 64 16 92 Room Air 12/29/16 19:11 36.7 62 20 149/77 (101) 91 Room Air 12/29/16 17:12 92 Room Air 12/29/16 16:05 36.3 65 18 118/64 (82) 88 Room Air 12/29/16 16:00 92 Room Air (Natalya Narayanan ., PA-C) Physical Exam General Appearance: WD/WN, no apparent distress Eyes: normal inspection, sclerae normal ENT: hearing grossly normal Neck: supple, trachea midline Respiratory/Chest: chest non-tender, no respiratory distress, no accessory muscle use, + decreased breath sounds (severely decreased at bilateral bases), + pertinent finding (coarse breath sounds heard throughout) Cardiovascular: regular rate, rhythm Abdomen: normal bowel sounds, non tender, soft Extremities: non-tender, normal inspection Neurologic/Psychiatric: alert, normal mood/affect Skin: normal color, warm/dry, no rash (Natalya Narayanan ., VIC-C) Laboratory Results Last 24 Hours Test 12/29/16 16:55 12/29/16 20:42 12/30/16 05:28 12/30/16 07:14 Bedside Glucose 188 mg/dl 178 mg/dl 153 mg/dl Platelet Count 138 K/uL Sodium Level 141 mmol/L Potassium Level 4.1 mmol/L Chloride Level 108 mmol/L Carbon Dioxide Level 28 mmol/L Anion Gap 5.0 mmol/L Blood Urea Nitrogen 16 mg/dl Creatinine 1.00 mg/dl Est Creatinine Clear Calc Drug Dose 67.0 ml/min Estimated GFR () 88.6 Estimated GFR (Non- 76.5 BUN/Creatinine Ratio 15.9 Random Glucose 170 mg/dl Calcium Level 8.4 mg/dl Test 12/30/16 11:53 Bedside Glucose 220 mg/dl (Natalya Narayanan ., PA-C) Assessment and Plan 1. R-sided Pneumonia- Seems likely secondary to chronic aspiration, but also consider CAP -Currently on IV Unasyn and Zithromax- Day #4, patient afebrile -Continue supportive care, monitor SaO2- has been stable -Continue IV Solu-Medrol for now due to concern for bronchitis -Continue Duoneb scheduled, albuterol PRN, Mucinex, Mucomyst, aggressive pulmonary toilet -Will add vibration vest, continue flutter valve -Consider Pulmonary consultation tomorrow if no improvement seen to consider bronchoscopy 2. Trace Aspiration -Minimal aspiration on video swallow. -[facility] soft diet/slippery recommended 3. CAD - no ischemic sx's at this time. Cont plavix, BB. 4. h/o stroke - noted. 5. HTN- blood pressure continues to be elevated -CCB added today 6. Hypothyroidism -Continue Synthroid 7. pre-T2DM - controlled. 8. thrombocytopenia - Improved- possible secondary to B12 deficiency 9. trigeminal neuralgia - gabapentin. 10. vitamin B12 def -Continue vitamin b12 injections 1000mcg daily while here. -Recommend shots for several months as outpatient then oral b12 thereafter. Continued [facility] stay due to: multiple IV medications needed Discharge planning: home (Natalya Narayanan ., SHAUN) Attending Attestation: Pt seen/examined, chart reviewed, and care plan d/w VIC King. I agree w/ the boland components of her documentation. Pt w/ complaints of cough but no sputum production. No orthopnea. Minimal ZHAO. Appetite improved. VSS no fever gen - nad neck - no JVD heart - cassie, s1, s2 lungs - no increased wob; poor airation throughout; extensive course BS with wheeze/rhonchi; crackles b/l as well, a little worse on right abd - soft, NT, ND ext - no edema labs - platelets 130s BMP nl A/P: 1. aspiration pneumonia vs community acquired pneumonia - day #4 of IV abx therapy. 2. reactive acute bronchitis (vs underlying COPD w/ exacerbation) - ongoing - despite steroids, nebs, mucinex, mucomyst, etc - still with poor airation and course BS. Add chest PT. consider pulmonary consultation if no improvement next 1-2 days. 3. b12 def - daily injections for now. other plans per Ms. Real. family updated Micky Hutchins MD (Micky Hutchins MD)
[2016-12-30] MEDS: TRAZODONE HCL 100 MG TAB PO SCH (21:11)
[2016-12-30] MEDS: CARVEDILOL 3.125 MG TAB PO SCH (21:12)
[2016-12-30] MEDS: QUETIAPINE FUMARATE 25 MG TAB PO SCH (21:13)
[2016-12-30] MEDS: ROPINIROLE HCL 1 MG TAB PO SCH (21:13)
[2016-12-30] MEDS: QUETIAPINE FUMARATE 200 MG TAB PO SCH (21:13)
[2016-12-30] MEDS: ALPRAZOLAM 0.25 MG TAB PO SCH (21:18)
[2016-12-30] MEDS: AZITHROMYCIN IV 500 MG in DEXTROSE 5% 250ML 250 ML IV SCH (22:30)
[2016-12-31] VITALS (14 sets, daily range): BP systolic 108–184; BP diastolic 63–97; PULSE 47–77; TEMP 36.6–36.8; O2SAT 90–98
[2016-12-31] MEDS: AMPICILLIN/SULBACTAM SOD INJ 3,000 MG in SODIUM CHLORIDE 0.9% 100ML 100 ML IV SCH ×5 (00:25→23:51)
[2016-12-31] MEDS: ALBUT/IPRATROP 3MG/0.5MG NEB 3 ML VIAL INH SCH ×4 (01:41→19:53)
[2016-12-31] MEDS: METHYLPREDNISOLONE IV 40 MG in SYRINGE 0 ML IV SCH ×2 (05:53→17:43)
[2016-12-31] MEDS: LEVOTHYROXINE 50 MCG TAB PO SCH (05:54)
[2016-12-31] MEDS: ACETYLCYSTEINE 20% INHAL SOLN ***DISPENSED BY RESP. INH SCH (07:06)
[2016-12-31] MEDS: GUAIFENESIN 600 MG TABCR PO SCH ×2 (08:32→20:43)
[2016-12-31] MEDS: CLOPIDOGREL BISULFATE 75 MG TAB PO SCH (08:32)
[2016-12-31] MEDS: NIFEdipine 30 MG CR TAB PO SCH (08:33)
[2016-12-31] MEDS: FLUOXETINE HCL 10 MG CAP PO SCH (08:33)
[2016-12-31] MEDS: CHOLECALCIFEROL 1000 INTER.UNIT TAB PO SCH (08:34)
[2016-12-31] MEDS: FLUOXETINE HCL 20 MG CAP PO SCH (08:34)
[2016-12-31] MEDS: BUDESONIDE/FORMOTEROL FUMARATE 80/4.5 60 PUFFS/INHALER INH SCH ×2 (08:35→20:40)
[2016-12-31] MEDS: GABAPENTIN 600 MG TAB PO SCH ×2 (08:35→20:43)
[2016-12-31] MEDS: FEXOFENADINE HCL 60 MG TAB PO SCH ×2 (08:35→20:42)
[2016-12-31] MEDS: INSULIN ASPART 100 UNITS/ML 3 ML PEN SC SCH ×4 (08:37→20:44)
[2016-12-31] MEDS: CYANOCOBALAMIN 1000 MCG/ML VIAL IM SCH (08:38)
[2016-12-31] MEDS: ENALAPRIL MALEATE 10 MG TAB PO SCH (09:53)
--- NOTE | 2016-12-31 18:33 | Progress Note ---
Subjective Date of Service: Dec 31, 2016. Subjective Patient was seen and his are walking the halls he still has cough with congestion there is some consideration of pulmonary consultation which will be undertaken today. The patient himself feels congested like he cannot produce mucus with expectoration Problem List Medical Problems: (1) Congestion of nasal sinus Status: Acute (2) COPD exacerbation Status: Acute (3) Hypoxia Status: Acute (4) Hypoxia Status: Acute (5) Infectious process Status: Acute Review of Systems Constitutional: No fever, No chills Respiratory: + cough, + dyspnea on exertion, No shortness of breath Cardiac: No chest pain, No edema Abdomen: No pain, No nausea, No vomiting, No diarrhea Objective Vital Signs Date Time Temp Pulse Resp B/P (MAP) Pulse Ox O2 Delivery O2 Flow Rate FiO2 12/31/16 07:23 36.8 63 18 184/97 (126) 98 12/31/16 07:07 71 12 92 Room Air 12/31/16 04:00 Nasal Cannula 2.0 12/31/16 03:37 36.7 47 18 169/89 (115) 94 Nasal Cannula 2.0 12/31/16 01:41 68 18 91 Room Air 12/31/16 00:10 36.7 56 20 150/75 (100) 90 Room Air 12/31/16 00:00 Nasal Cannula 2.0 12/30/16 20:04 60 18 95 Room Air 12/30/16 20:00 90 Room Air 12/30/16 19:52 36.8 67 20 163/84 (110) 92 Nasal Cannula 2.0 12/30/16 16:23 36.8 61 18 148/73 (98) 90 Nasal Cannula 2.0 12/30/16 16:00 90 Room Air 12/30/16 14:23 169/77 (107) 12/30/16 14:19 53 16 92 Room Air 12/30/16 12:15 Room Air 12/30/16 12:06 36.5 56 18 181/93 (122) 96 Room Air 12/30/16 10:21 174/83 (113) Physical Exam General Appearance: WD/WN, + mild distress Eyes: PERRL, EOMI Respiratory/Chest: + decreased breath sounds, + accessory muscle use, + rhonchi Cardiovascular: regular rate, rhythm, no murmur Abdomen: normal bowel sounds, non tender, soft Extremities: no pedal edema, no calf tenderness Neurologic/Psychiatric: alert, oriented x 3 Laboratory Results Last 24 Hours Test 12/30/16 11:53 12/30/16 16:20 12/30/16 20:11 12/31/16 07:33 Bedside Glucose 220 mg/dl 217 mg/dl 190 mg/dl 201 mg/dl Assessment and Plan 71 Aspiration Pneumonia- also cover for Gram negative. pneumonia, IV Unasyn and Zithromax- COPD, IV Solu-Medrol, Duoneb scheduled, albuterol PRN, Mucinex, Mucomyst, aggressive pulmonary toilet -Will add vibration vest, continue flutter valve chronic Aspiration -Minimal aspiration on video swallow. -[facility] soft diet/ slippery recommended CAD/stroke - no ischemic sx's, plavix, BB. HTN- blood pressure continues to be elevated Hypothyroidism-Continue Synthroid thrombocytopenia - Improved- possible secondary to B12 deficiency trigeminal neuralgia - gabapentin. . Continued [facility] stay due to: multiple IV medications needed Discharge planning: home
--- NOTE | 2016-12-31 19:31 | Pulmonary Consultation ---
History General Date of Service: Dec 31, 2016. Stated Complaint: Chronic cough with diffuse pulmonary infiltrates HPI The patient is a 71 year old male who presents to [facility] with complaints of Pneumonia,Weakness. The patient's primary care provider is Luis Manuel Pham M.D.. 71-year-old male admitted 09/25/2016 for progressive weakness and repeated falls. He has a past medical history significant for coronary artery disease/ cardiomyopathy, left atrial thrombus, CVA, hypothyroidism and recurrent pneumonitis/possible aspiration events. Patient notes he is almost back to his baseline respiratory status and is currently saturating at 93% on room air. During the patients hospital stay has been saturating 92-95% on room air which mimics his outpatient visits. He does continue to complain of cough most often associated with drinking or eating. This appears to be happening for at least the past 1-2 years. He currently denies fever, chills, pleurisy, classic cardiac chest pain, records, night sweats or hemoptysis. Workup: Video swallow 12/27/2016: Trace aspiration, generalized dysmotility of esophagus, vallecula pooling CT angios chest 12/27/2016 No pulmonary emboli Multifocal airspace opacifications within the right lung dependent regions Mild/moderate cardiomegaly and old infarction left ventricular apex Probable basilar pleural thickening and signs of bilateral lower lobe bronchiectasis CXR 12/26/2016: Mild pulmonary edema, retrocardiac opacification CTA thorax 11/11/2015 Bilateral basilar pleural scarring Bilateral basilar bronchiectasis Adell dependent infiltrates/aspiration within the trachea CT of the abdomen 09/13/2012 Bilateral pleural scarring at the bases with atelectasis of the right Previous workup: Microbiology: Blood culture 11/29/1998: Escherichia coli Hearing catheterization 07/07/2012: Gram-positive cocci Pulmonary function studies 12/10/2015 These were very poor pulmonary function studies at most can be said is the numbers are equal to their estimated value FEV1: 1.80/62% FVC: 1.92/52% FEV1/FVC: 94 T.65/62% DLCO: 65% Current treatment: #1 Pulmozyme twice a day #2 Procardia 30 mg daily #3 Vasotec 20 mg daily #4 Seroquel 250 mg daily at bedtime #5 methylprednisolone 40 mg IV every 12 hours #6 Alina 60 mg by mouth twice a day #7 azithromycin 500 mg every 24 #8 Coreg 3.25 mg daily #9 Neurontin 1200 mg daily #10 reequip 4 mg daily #11 trazodone 200 mg daily #12 Xanax 0.75 mg daily #13 Symbicort 80/4.5 twice a day #14 Plavix 75 mg daily #15 Synthroid 50 g daily #16 Unasyn every 6 hours #17 duo nebs every 6 hours Historian: patient, EMS Review of Systems Constitutional: reports: weakness Eyes: reports: no symptoms ENT: reports: no symptoms Cardiovascular: reports: as stated in HPI Respiratory: reports: as stated in HPI Gastrointestinal: reports: as stated in HPI Genitourinary - Male: reports: no symptoms Musculoskeletal: reports: no symptoms Integumentary: reports: no symptoms Neurologic: reports: no symptoms Psychiatric: reports: no symptoms Endocrine: no symptoms Hematologic / Lymphatic: no symptoms Allergic / Immunologic: no symptoms Past Medical History Past Medical History: Anxiety Atypical face pain Ischemic cardiomyopathy (EF 40-50%) CAD (coronary artery disease) Chronic cerebral ischemia 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 Cough Diabetes mellitus Embolus, cerebral Gastroesophageal reflux disease Hypertension Hypothyroidism Insomnia Ischemic cardiomyopathy Obesity Restless legs syndrome Restrictive lung disease Rhinorrhea Trochanteric bursitis Vitamin D deficiency History of Alcoholism History of Gastric ulcer History of Left heart thrombus-- laminated Past Surgical History: PTCA: 2011/occluded LAD Cholecystectomy Hernia Repair Family History Unobtainable family history due to adoption Social History Denied: History of Current Smoker Former smoker ---28 to about age 44 about a pack a day Living With Significant Other Never used moist powdered tobacco No secondhand smoke exposure [facility]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 Hx Tobacco Use In Past Year?: No Smoking Status: Former Smoker Marital status: in relationship Housing status: lives with significant other Occupational Status: retired Immunizations History of Influenza Vaccine: Yes Influenza Vaccine Date: Dec 26, 2011 History of Tetanus Vaccine?: Yes Tetanus Immunization Date: Oct 26, 2009 History of Pneumococcal: Yes Pneumococcal Date: Dec 26, 2011 History of Hepatitis B Vaccine: No History of MDRO History of MDRO: No Allergies Coded Allergies: Heparin (Verified Allergy, Severe, SEVERE REACTION, 11/11/15) Current Medications Reported Home Medications Medications Dose Route/Sig Max Daily Dose Days Date Category Dose Instructions Zithromax Z-Amrit (Azithromycin) 250 Mg Tab 0 PO UD 12/26/16 Rx 2 TABS DAY 1, THEN 1 TAB DAILY FOR 4 DAYS Symbicort 80/4.5 Inhaler (Budesonide/Formoterol Fumarate) Aero 2 Puffs INH BID 12/26/16 Reported Tessalon Perles (Benzonatate) 200 Mg Cap 200 Mg PO TID PRN 12/26/16 Reported Monodox (Doxycycline Monohydrate) 100 Mg Cap 100 Mg PO Q12 12/26/16 Reported Seroquel (Quetiapine Fumarate) 50 Mg Tab 50 Mg PO DAILY 12/26/16 Reported TAKE ALONG WITH 200MG TAB. TOTAL DOSE 250MG DAILY Vitamin D3 (Cholecalciferol) 1,000 Unit Tab 1,000 Inter.unit PO DAILY 90 12/26/16 Reported Neurontin (Gabapentin) 600 Mg Tab 1,200 Mg PO HS 12/26/16 Reported Mometasone Furoate (Mometasone Furoate (Nasal)) 50 Mcg/Act Spr 2 Sprays SHELLIE DAILY 12/26/16 Reported Seroquel (Quetiapine Fumarate) 200 Mg Tab 200 Mg PO DAILY 12/26/16 Reported TAKE ALONG WITH 50MG TAB. TOTAL DOSE 250MG Lipitor (Atorvastatin Calcium) 40 Mg Tab 40 Mg PO DAILY 12/26/16 Reported Accupril (Quinapril HCl) 10 Mg Tab 10 Mg PO DAILY 12/26/16 Reported Levothyroxine Sodium 50 Mcg Tab 50 Mcg PO DAILY 90 12/26/16 Reported Rozerem (Ramelteon) 8 Mg Tab 8 Mg PO HS PRN 11/11/15 Reported [place] 5MG/325MG (Acetaminophen/Hydrocodone Bitart) Tab 1 Tab PO BID PRN 11/11/15 Reported PRN PAIN Neurontin (Gabapentin) 600 Mg Tab 600 Mg PO QAM 11/11/15 Reported Prozac (Fluoxetine HCl) 20 Mg Cap 20 Mg PO DAILY 11/11/15 Reported TAKE ALONG WITH 10MG TAB. TOTAL DOSE 30MG DAILY Trazodone (Trazodone HCl) 100 Mg Tab 200 Mg PO HS 07/07/12 Reported Requip (Ropinirole HCl) 4 Mg Tab 4 Mg PO HS 07/07/12 Reported Prozac (Fluoxetine HCl) 10 Mg Cap 10 Mg PO DAILY 07/07/12 Reported TAKE ALONG WITH 20MG TAB. TOTAL DOSE 30MG DAILY Plavix (Clopidogrel Bisulfate) 75 Mg Tab 75 Mg PO DAILY 07/07/12 Reported Coreg (Carvedilol) 6.25 Mg Tab 3.125 Mg PO HS 07/07/12 Reported Nitrostat (Nitroglycerin) 0.4 Mg Tab 0.4 Mg UT PRN 02/21/11 Reported Xanax (Alprazolam) 0.5 Mg Tab 0.75 Mg PO DAILY 02/21/11 Reported Physical Physical Exam Vital Signs: Date Time Temp Pulse Resp B/P (MAP) Pulse Ox O2 Delivery O2 Flow Rate FiO2 12/31/16 19:13 36.6 57 18 129/71 (90) 91 12/31/16 16:00 90 Room Air 12/31/16 15:06 36.6 61 18 137/78 (97) 90 12/31/16 14:17 77 12 92 Room Air 12/31/16 14:00 36.8 55 18 158/86 (110) 91 12/31/16 12:00 Room Air 12/31/16 09:51 58 136/77 (96) 12/31/16 08:23 55 129/66 (87) 55 12/31/16 08:00 Room Air 12/31/16 07:23 36.8 63 18 184/97 (126) 98 12/31/16 07:07 71 12 92 Room Air 12/31/16 04:00 Nasal Cannula 2.0 12/31/16 03:37 36.7 47 18 169/89 (115) 94 Nasal Cannula 2.0 12/31/16 01:41 68 18 91 Room Air 12/31/16 00:10 36.7 56 20 150/75 (100) 90 Room Air 12/31/16 00:00 Nasal Cannula 2.0 12/30/16 20:04 60 18 95 Room Air 12/30/16 20:00 90 Room Air 12/30/16 19:52 36.8 67 20 163/84 (110) 92 Nasal Cannula 2.0 General Appearance: NO APPARENT DISTRESS Head: NORMOCEPHALIC, ATRAUMATIC Eyes: NO DISCHARGE, SCLERAE NORMAL, CONJUNCTIVAE NORMAL ENT: NORMAL EAR EXAM, NORMAL NASAL EXAM, NORMAL MOUTH EXAM, NORMAL THROAT EXAM Neck: NORMAL RANGE OF MOTION, NO TENDERNESS, TRACHEA MIDLINE, NO STRIDOR Respiratory: other (mild rhonchi at the bases) Cardiovasular: REGULAR RATE/RHYTHM, NORMAL S1S2, NO M/G/R, NO MURMUR, NO GALLOP Abdomen: NON TENDER, NORMAL BOWEL SOUNDS, NO REBOUND, NO MASSES, NO GUARDING, NO ORGANOMEGALY Genitourinary - Male: EXTERNAL GENITALIA NORMAL Back: NORMAL INSPECTION, NO MIDLINE TENDERNESS, NO CVA TENDERNESS Upper Extremities: NO EDEMA, NO DEFORMITY, NORMAL ROM Lower Extremities: NO EDEMA, NO DEFORMITY, NORMAL ROM Pulses: carotid (R) (2+), carotid (L) (2+), posterior tibial (R), posterior tibial (L) (2+) Neuro: ALERT, ORIENTED x 3, NORMAL MOTOR EXAM, NORMAL SENSATION Reflexes: biceps (R) (2+), bicpes (L) (2+), achilles (R) (2+), achilles (L) (2+ ) Babinski Testing: right (downgoing), left (downgoing) Psychiatric: NORMAL AFFECT, NO SUICIDAL IDEATION Diagnostics Labs Results Past 24 Hours Test 12/30/16 20:11 12/31/16 07:33 12/31/16 11:25 12/31/16 16:20 Range/Units Bedside Glucose 190 201 242 132 70-99 mg/dl Diagnostic Radiology Video swallow 12/27/2016: Trace aspiration, generalized dysmotility of esophagus, vallecula pooling CT angios chest 12/27/2016 No pulmonary emboli Multifocal airspace opacifications within the right lung dependent regions Mild/moderate cardiomegaly and old infarction left ventricular apex Probable basilar pleural thickening and signs of bilateral lower lobe bronchiectasis CXR 12/26/2016: Mild pulmonary edema, retrocardiac opacification CTA thorax 11/11/2015 Bilateral basilar pleural scarring Bilateral basilar bronchiectasis Adell dependent infiltrates/aspiration within the trachea CT of the abdomen 09/13/2012 Bilateral pleural scarring at the bases with atelectasis of the right EKG Low voltage otherwise within normal limits Impression Assessment and Plan Chronic cough with abnormal CT #1 Respiratory: Patient has a chronic cough with abnormal CT after reviewing the patient's history it is most likely associated with chronic aspiration. I believe this is been going on since at least 2015 but initial imaging from a CT of the abdomen performed 09/13/2012 gestural initiation of bilateral basilar scarring right greater than left. This patient's pulmonary performed a 2015 were nondiagnostic as they were extremely poorly performed but even his low effort showed only moderate signs of pulmonary dysfunction which would fit with his minimal history of smoking. At this time I do not believe bronchoscopy is warranted. I will repeat bedside spirometry tomorrow and also believe that aggressive taper down of the patient's steroids is warranted I will discontinue the IV tonight and then placed on by mouth steroids tomorrow. After reevaluation it is reasonable to think that the patient should be slowly tapered off all inhalers but not during this acute event. #2 Infectious Disease: I do agree with the current antibiotic regimen with Unasyn as well as atypical coverage with azithromycin. Once again I do believe this patient's CT changes most consistent with aspiration where most 90% of aspiration events are noted to be chemical in nature. As the patient has been on antibiotics for multiple days now even attempting bronchoscopic intervention for microbiologic analysis with have a low yield at this time.
[2016-12-31] MEDS: DORNASE ALFA (2500U) 2.5MG/2.5ML INH SCH (19:53)
[2016-12-31] MEDS: TRAZODONE HCL 100 MG TAB PO SCH (20:42)
[2016-12-31] MEDS: ROPINIROLE HCL 1 MG TAB PO SCH (20:44)
[2016-12-31] MEDS: QUETIAPINE FUMARATE 200 MG TAB PO SCH (20:45)
[2016-12-31] MEDS: QUETIAPINE FUMARATE 25 MG TAB PO SCH (20:46)
[2016-12-31] MEDS: ALPRAZOLAM 0.25 MG TAB PO SCH (20:50)
[2016-12-31] MEDS: CARVEDILOL 3.125 MG TAB PO SCH (20:50)
[2016-12-31] MEDS: AZITHROMYCIN IV 500 MG in DEXTROSE 5% 250ML 250 ML IV SCH (22:33)
[2017-01-01] MEDS: ALBUT/IPRATROP 3MG/0.5MG NEB 3 ML VIAL INH SCH ×2 (02:05→07:07)
[2017-01-01 04:00] VITALS: BP 126/68; PULSE 45; TEMP 36.3; O2SAT 90
[2017-01-01] MEDS: AMPICILLIN/SULBACTAM SOD INJ 3,000 MG in SODIUM CHLORIDE 0.9% 100ML 100 ML IV SCH (05:37)
[2017-01-01] MEDS: LEVOTHYROXINE 50 MCG TAB PO SCH (05:38)
[2017-01-01] MEDS: DORNASE ALFA (2500U) 2.5MG/2.5ML INH SCH (07:08)
[2017-01-01 07:16] VITALS: PULSE 66; O2SAT 90
[2017-01-01] MEDS ORDERED: PRED10TA PO ×2 (07:48→10:05)
[2017-01-01] MEDS ORDERED: AMOX875T PO ×2 (07:48→10:05)
[2017-01-01] MEDS ORDERED: GFNSR600 PO ×2 (07:48→10:05)
--- NOTE | 2017-01-01 07:49 | Discharge Instructions ---
Discharge Instructions Date of Service Jan 01, 2017. Admission Reason for Admission: Pneumonia,Weakness Discharge Discharge Diagnosis / Problem: aspiration pneumonia Discharge Goals Goal(s): Diagnostic testing, Therapeutic intervention Activity Recommendations Activity Limitations: resume your previous activity . Current Hospital Diet Patient's current hospital diet: AHA Diet (Heart Healthy), Diabetes Type 2 Diet Discharge Diet Recommended Diet: Regular Diet (aspiration precautions) Pending Studies Studies pending at discharge: no Laboratory Results Hemoglobin A1c Test 12/28/16 05:21 Range/Units Estimated Average Glucose 120 mg/dl Hemoglobin A1c 5.8 H 4.5-5.6 % Medical Emergencies . Who to Call and When: Medical Emergencies: If at any time you feel your situation is an emergency, please call 911 immediately. . Non-Emergent Contact Non-Emergency issues call your: Primary Care Provider, Wafer Slicer Call Non-Emergent contact if: temperature is above 101, your pain is unusual for you . . "Provider Documentation" section prepared by Omar Chaney. . VTE Core Measure Inpt VTE Proph given/why not?: SCD's
[2017-01-01 07:51] VITALS: BP 143/81; PULSE 51; TEMP 36.6; O2SAT 90
[2017-01-01] MEDS: NIFEdipine 30 MG CR TAB PO SCH (09:00)
[2017-01-01] MEDS: ENALAPRIL MALEATE 10 MG TAB PO SCH ×2 (09:00→10:21)
[2017-01-01 09:01] VITALS: BP 97/62; PULSE 60
[2017-01-01] MEDS: BUDESONIDE/FORMOTEROL FUMARATE 80/4.5 60 PUFFS/INHALER INH SCH (09:01)
[2017-01-01] MEDS: CLOPIDOGREL BISULFATE 75 MG TAB PO SCH (09:02)
[2017-01-01] MEDS: FLUOXETINE HCL 20 MG CAP PO SCH (09:03)
[2017-01-01] MEDS: CHOLECALCIFEROL 1000 INTER.UNIT TAB PO SCH (09:03)
[2017-01-01] MEDS: FEXOFENADINE HCL 60 MG TAB PO SCH (09:04)
[2017-01-01] MEDS: GABAPENTIN 600 MG TAB PO SCH (09:04)
[2017-01-01] MEDS: GUAIFENESIN 600 MG TABCR PO SCH (09:04)
[2017-01-01] MEDS: FLUOXETINE HCL 10 MG CAP PO SCH (09:05)
[2017-01-01] MEDS: CYANOCOBALAMIN 1000 MCG/ML VIAL IM SCH (09:05)
[2017-01-01] MEDS: INSULIN ASPART 100 UNITS/ML 3 ML PEN SC SCH (09:08)
[2017-01-01 10:20] VITALS: BP 148/77; PULSE 54
[2017-01-01 10:44] VITALS: BP 148/77; PULSE 54; TEMP 36.6; O2SAT 90
[2017-01-01] MEDS ORDERED: NURSING VERBAL MED ORDER ONE (11:30)
[2017-01-01] MEDS ORDERED: INFLUENZA ADMINISTRATION CHARGE ONE (11:45)
[2017-01-01] MEDS ORDERED: INFLUENZA VACCINE HIGH DOSE 65+ 0.5 ML SYR IM. ONE (11:45)
--- NOTE | 2017-01-01 15:45 | Discharge Summary ---
Discharge Summary Date of Service Jan 01, 2017. Discharge Summary Admission Date: Dec 27, 2016 at 01:33 Discharge Date: Jan 01, 2017 Discharge Disposition: Home with services Principal Diagnosis: aspiration pneumonia Immunizations: Have You Had Influenza Vaccine: Yes Influenza Vaccine Date: Dec 26, 2011 History of Tetanus Vaccine?: Yes Tetanus Immunization Date: Oct 26, 2009 History of Pneumococcal: Yes Pneumococcal Date: Dec 26, 2011 History of Hepatitis B Vaccine: No Consultations: Dr Hermosillo Medication Reconciliation New Medications: Amoxicillin & Pot Clavulanate (Augmentin 875-125 mg) 1 Tab Tab 875 MG PO BID, #10 TAB . Prednisone (Prednisone) 10 Mg Tab 10 MG PO UD, #42 TAB 4 daily for 4 days then 3 daily for 4 days then 2 daily for 4 days then 1 daily. Guaifenesin Ext Rel (Mucinex Ext Rel) 600 Mg Tabcr 1200 MG PO Q12, #14 DOSE . Continued Medications: Alprazolam (Xanax) 0.5 Mg Tab 0.75 MG PO DAILY, 0 Refills Atorvastatin (Lipitor) 40 Mg Tab 40 MG PO DAILY, TAB Budesonide/Formoterol Fumarate (Symbicort 80/4.5 Inhaler) Aero 2 PUFFS INH BID, INHALER Carvedilol (Coreg) 6.25 Mg Tab 3.125 MG PO HS, TAB Cholecalciferol (Vitamin D3) 1,000 Unit Tab 1000 INTER.UNIT PO DAILY for 90 Days, TAB 3 Refills Clopidogrel (Plavix) 75 Mg Tab 75 MG PO DAILY, TAB Fluoxetine (Prozac) 10 Mg Cap 10 MG PO DAILY, CAP TAKE ALONG WITH 20MG TAB. TOTAL DOSE 30MG DAILY Fluoxetine (Prozac) 20 Mg Cap 20 MG PO DAILY, CAP TAKE ALONG WITH 10MG TAB. TOTAL DOSE 30MG DAILY Gabapentin (Neurontin) 600 Mg Tab 600 MG PO QAM, TAB Gabapentin (Neurontin) 600 Mg Tab 1200 MG PO HS, TAB Hydrocodone/Acetaminophen 5MG/325MG ([place] 5MG/325MG) Tab 1 TAB PO BID PRN for Pain PRN PAIN Levothyroxine Sodium (Levothyroxine Sodium) 50 Mcg Tab 50 MCG PO DAILY for 90 Days, #90 TAB 3 Refills Mometasone Furoate (Nasal) (Mometasone Furoate) 50 Mcg/Act Spr 2 SPRAYS SHELLIE DAILY Nitroglycerin (Nitrostat) 0.4 Mg Tab 0.4 MG UT PRN, 0 Refills Quetiapine Fumarate (Seroquel) 200 Mg Tab 200 MG PO DAILY, TAB TAKE ALONG WITH 50MG TAB. TOTAL DOSE 250MG Quetiapine Fumarate (Seroquel) 50 Mg Tab 50 MG PO DAILY, TAB TAKE ALONG WITH 200MG TAB. TOTAL DOSE 250MG DAILY Quinapril Hcl (Accupril) 10 Mg Tab 10 MG PO DAILY, TAB Ramelteon (Rozerem) 8 Mg Tab 8 MG PO HS PRN for Sleep, TAB Ropinirole (Requip) 4 Mg Tab 4 MG PO HS, TAB Trazodone Hcl (Trazodone) 100 Mg Tab 200 MG PO HS, TAB Discontinued Medications: Azithromycin (Zithromax Z-Amrit) 250 Mg Tab 0 PO UD, #1 PKT 2 TABS DAY 1, THEN 1 TAB DAILY FOR 4 DAYS Benzonatate (Tessalon Perles) 200 Mg Cap 200 MG PO TID PRN for Cough, CAP Doxycycline Monohydrate (Monodox) 100 Mg Cap 100 MG PO Q12, CAP Discharge Exam Review of Systems: Constitutional: No fever, No chills Respiratory: No cough, No sputum, No wheezing Cardiovascular: No chest pain, No orthopnea Physical Exam: General Appearance: WD/WN, no apparent distress Neck: supple, no JVD Respiratory/Chest: chest non-tender, lungs clear, no respiratory distress Cardiovascular: regular rate, rhythm, no murmur Hospital Course 71 Aspiration Pneumonia- also cover for Gram negative. pneumonia, IV Unasyn and Zithromax-will complete outpt augmentin COPD, po prednisone taper, will return to inhalers, can continue to use flutter valve at home, chronic Aspiration -Minimal aspiration on video swallow. -[facility] soft diet/ slippery recommended, good aspiration precautions CAD/stroke - no ischemic sx's, plavix, BB., bp rechecked on discharge and improved Hypothyroidism-Continue Synthroid thrombocytopenia - Improved- possible secondary to B12 deficiency trigeminal neuralgia - gabapentin. . Total Time Spent: Greater than 30 minutes This includes examination of the patient, discharge planning, medication reconciliation, and communication with other providers. Discharge Instructions Please refer to the electronic Patient Visit Report (Discharge Instructions) for additional information.
--- NOTE | 2017-01-04 11:40 | EDITING REQUIRED CODING QUERY ---
CODING QUERY To promote full compliance with coding requirements relating to patient care, provider participation is requested in all cases of baby attendant uncertainty. Please assist us with the question(s) below: Coding Question(s): There is mention of COPD exacerbation in the record. The discharge summary documents COPD. Please clarify below, in your clinical opinion. ( ) COPD exacerbation ( xx ) COPD without exacerbation Physician's Response(s): Thank you Alessandra Monzon Principal Diagnosis: "_that condition established after study, to be chiefly responsible for occasioning the admission of the patient to the hospital for care." Co-Existing Principal Diagnosis: "_when two or more diagnoses equally meet the criteria for principal diagnosis as determined by the circumstances of admission, diagnostic work up, and/or therapy provided, and the Alphabetic Index, Tabular List, or another coding guideline does not provide sequencing direction, any one of the diagnoses may be sequenced first." "When the physician has documented what appears to be a current diagnosis in the body of the record, but has not included the diagnosis in the final diagnostic statement, the physician should be asked whether the diagnosis should be added." (Source Coding Clinic 2 QTR90. p3-4)
== END 2017-01-01 12:10 | disposition home health service (06) | DRG 179 ==
LOC: EDBD 22:30 → C.EDB 22:32 → C.MED 12-27 01:33 → ENRESERV 12-27 01:53
PROVIDERS: ADMIT Internal Medicine; ATTEND Internal Medicine
DX: J69.0 Pneumonitis due to inhalation of food and vomit (principal); R09.02 Hypoxemia; D69.59 Other secondary thrombocytopenia; E53.8 Deficiency of other specified B group vitamins; J44.9 Chronic obstructive pulmonary disease, unspecified; R73.03 Prediabetes; I11.9 Hypertensive heart disease without heart failure; I25.2 Old myocardial infarction; I25.10 Atherosclerotic heart disease of native coronary artery without angina pectoris; G25.81 Restless legs syndrome; G50.0 Trigeminal neuralgia; E03.9 Hypothyroidism, unspecified; H54.8 Legal blindness, as defined in USA; Z79.899 Other long term (current) drug therapy; Z79.02 Long term (current) use of antithrombotics/antiplatelets; Z91.81 History of falling; Z87.01 Personal history of pneumonia (recurrent); Z86.73 Personal history of transient ischemic attack (TIA), and cerebral infarction without residual deficits; Z87.891 Personal history of nicotine dependence; R09.81 Nasal congestion; R50.9 Fever, unspecified; Z90.49 Acquired absence of other specified parts of digestive tract; Z79.01 Long term (current) use of anticoagulants

== ENCOUNTER 2017-01-03 12:52 | Emergency (ER) | payer OTHER ==
[~2017-01-03] VITALS: Ht 162.6 cm; Wt 80.2 kg
[~2017-01-03 12:52] MED LIST changes: -ACC10 PO; +AMOX875T PO; -ATOR-22 PO; -ATRIN INH; -AZITTAB PO; -BENZ-57 PO; -DOXY100C76 PO; -FLVHFA110 INH; +GFNSR600 PO; -LVQ500 PO; -MOME50SP5; -NXM/40 PO; +PRED10TA PO; -QUET1TAB11 PO; -SYN50 PO
[2017-01-03 12:57] VITALS: TEMP 36.9; Ht 162.6 cm; Wt 80.2 kg
--- NOTE | 2017-01-03 14:05 | DIAGNOSTIC IMAGING REPORT ---
L SHOULDER MIN 2 VIEWS ROUTINE CLINICAL HISTORY: Left shoulder pain following fall. COMPARISON: None FINDINGS: There is an old fracture of the left clavicle. Alignment of the left acromioclavicular and glenohumeral joints is anatomic. No acute fracture of the proximal left humerus is identified. There is lucency with cortical irregularity of the scapular body. IMPRESSION: Lucency with cortical irregularity of the left scapular body which raises the possibility of a scapular fracture. Left scapula radiographs could be obtained. Electronically signed by: Shant Keen M.D. 01/03/2017 2:04 PM Dictated Date/Time: 01/03/2017 2:01 PM
--- NOTE | 2017-01-03 14:08 | DIAGNOSTIC IMAGING REPORT ---
L HUMERUS MIN 2 VIEWS ROUTINE CLINICAL HISTORY: Pain following fall. COMPARISON: None FINDINGS: An old fracture of the left clavicle is noted. There is lucency with cortical irregularity of the lateral aspect of the left scapular body. No acute fracture of the left humerus is identified. Note is made of lucency with cortical irregularity of the lateral aspect of the left scapular body which favors an acute fracture. IMPRESSION: 1. Lucency with cortical irregularity of the lateral aspect of the left scapular body which favors an acute fracture. Left scapula radiographs could be obtained. 2. No acute fracture of the left humerus. Electronically signed by: Shant Keen M.D. 01/03/2017 2:06 PM Dictated Date/Time: 01/03/2017 2:04 PM
[2017-01-03] MEDS ORDERED: MoRPHine SULFATE 2 MG/ML CARP IV STA (14:10)
--- NOTE | 2017-01-03 14:26 | EMERGENCY ROOM VISIT NOTE ---
History First contact with patient: 13:48 Chief Complaint: SHOULDER PAIN Stated Complaint: FALL/SHOULDER PAIN History of Present Illness The patient is a 71 year old male who presents to the Emergency Room with complaints of worsening left shoulder pain which started 2 days ago. The patient had fallen out of his bed while sleeping and injured his left shoulder by hitting it on the dresser nearby. denied any injury to the head and denies any loss of consciousness. He complains of left shoulder pain, 10/ 10 in severity and worse on moving his arm. Denies any numbness or tingling. denies any headache, nausea, vomiting Review of Systems See HPI for pertinent positives & negatives. A total of 10 systems reviewed and were otherwise negative. Past Medical/Surgical History Medical Problems: (1) Acute myocardial infarction (2) Benign hypertension (3) Cholecystectomy (4) Diabetes mellitus (5) Gastric ulcer (6) Heart disease (7) Ischemic stroke (8) legally blind (9) Myocardial infarction (10) Pneumonia (11) Restless legs (12) Small bowel obstruction (13) stroke (14) Weakness Family History Unobtainable family history due to adoption Social History Smoking Status: Never Smoker Alcohol Use: none Drug Use: none Marital Status: in relationship Housing Status: lives with family Occupation Status: retired Current/Historical Medications Scheduled Alprazolam (Xanax), 0.75 MG PO DAILY Amoxicillin & Pot Clavulanate (Augmentin 875-125 mg), 875 MG PO BID Atorvastatin (Lipitor), 40 MG PO DAILY Budesonide/Formoterol Fumarate (Symbicort 80/4.5 Inhaler), 2 PUFFS INH BID Carvedilol (Coreg), 3.125 MG PO HS Cholecalciferol (Vitamin D3), 1,000 INTER.UNIT PO DAILY Clopidogrel (Plavix), 75 MG PO DAILY Fluoxetine (Prozac), 10 MG PO DAILY Fluoxetine (Prozac), 20 MG PO DAILY Gabapentin (Neurontin), 600 MG PO QAM Gabapentin (Neurontin), 1,200 MG PO HS Guaifenesin Ext Rel (Mucinex Ext Rel), 1,200 MG PO Q12 Levothyroxine Sodium (Levothyroxine Sodium), 50 MCG PO DAILY Mometasone Furoate (Nasal) (Mometasone Furoate), 2 SPRAYS SHELLIE DAILY Nitroglycerin (Nitrostat), 0.4 MG UT PRN Prednisone (Prednisone), 10 MG PO UD Quetiapine Fumarate (Seroquel), 200 MG PO DAILY Quetiapine Fumarate (Seroquel), 50 MG PO DAILY Quinapril Hcl (Accupril), 10 MG PO DAILY Ropinirole (Requip), 4 MG PO HS Trazodone Hcl (Trazodone), 200 MG PO HS Scheduled PRN Hydrocodone/Acetaminophen 5MG/325MG ([place] 5MG/325MG), 1 TAB PO BID PRN for Pain Oxycodone/Acetaminophen 5MG/325MG (Percocet 5MG/325MG), 1 TABLET PO TID PRN for Pain Ramelteon (Rozerem), 8 MG PO HS PRN for Sleep Allergies Coded Allergies: Heparin (Verified Allergy, Severe, SEVERE REACTION, 01/03/17) Physical Exam Vital Signs Date Time Temp Pulse Resp B/P (MAP) Pulse Ox O2 Delivery O2 Flow Rate FiO2 01/03/17 17:12 71 18 105/72 96 01/03/17 15:43 44 14 175/82 94 Room Air 01/03/17 14:30 45 155/83 92 01/03/17 12:57 36.9 52 18 155/83 95 Room Air Physical Exam GENERAL: Patient is in mild distress. HEENT: No acute trauma, normocephalic atraumatic, mucous membranes moist, no nasal congestion, no scleral icterus. NECK: No stridor, no adenopathy, no meningismus, trachea is midline. LUNGS: Clear to auscultation bilaterally, no wheeze, no rhonchi, breath sounds equal. HEART: Without murmurs gallops or rubs, regular rate and rhythm. ABDOMEN: Soft, nontender, bowel sounds positive, no hernias, no peritonitis. EXTREMITIES: No cyanosis or edema, left shoulder appears normal with no swelling or bruising. tenderness along shoulder joint and scapula. restricted ROM. NEUROLOGIC: Oriented x 3, no acute motor or sensory deficits, no focal weakness. SKIN: No rash, no jaundice, no diaphoresis. Medical Decision & Procedures ER Provider Diagnostic Interpretation: [~ rep ct add3]] L SHOULDER MIN 2 VIEWS ROUTINE CLINICAL HISTORY: Left shoulder pain following fall. COMPARISON: None FINDINGS: There is an old fracture of the left clavicle. Alignment of the left acromioclavicular and glenohumeral joints is anatomic. No acute fracture of the proximal left humerus is identified. There is lucency with cortical irregularity of the scapular body. IMPRESSION: Lucency with cortical irregularity of the left scapular body which raises the possibility of a scapular fracture. Left scapula radiographs could be obtained. Electronically signed by: Shant Keen M.D. 01/03/2017 2:04 PM Dictated Date/Time: 01/03/2017 2:01 PM L HUMERUS MIN 2 VIEWS ROUTINE CLINICAL HISTORY: Pain following fall. COMPARISON: None FINDINGS: An old fracture of the left clavicle is noted. There is lucency with cortical irregularity of the lateral aspect of the left scapular body. No acute fracture of the left humerus is identified. Note is made of lucency with cortical irregularity of the lateral aspect of the left scapular body which favors an acute fracture. IMPRESSION: 1. Lucency with cortical irregularity of the lateral aspect of the left scapular body which favors an acute fracture. Left scapula radiographs could be obtained. 2. No acute fracture of the left humerus. Electronically signed by: Shant Keen M.D. 01/03/2017 2:06 PM [~ rep ct add3]] L SCAPULA CLINICAL HISTORY: Left scapular pain status post trauma COMPARISON: Left shoulder study dated 01/03/2017 DISCUSSION: There is an acute fracture of the left scapular body and neck. No pneumothorax is visualized. No fractures the proximal humerus are visualized. IMPRESSION: Acute left scapular fracture involving the body and neck. Electronically signed by: Sagar Magana M.D. 01/03/2017 3:15 PM Dictated Date/Time: 01/03/2017 3:14 PM CHEST ONE VIEW PORTABLE CLINICAL HISTORY: Trauma. COMPARISON STUDY: 12/26/2016 FINDINGS: The heart is enlarged. There is a left scapular fracture. No pneumothorax is visualized. There is mild pulmonary vascular congestion. Minimal left basal airspace opacities are present.[ IMPRESSION: 1. Left scapular fracture 2. Cardiomegaly and persistent left basilar airspace opacities 3. Mild pulmonary vascular congestion 4. No evidence of pneumothorax Electronically signed by: Sagar Magana M.D. 01/03/2017 4:15 PM Dictated Date/Time: 01/03/2017 4:13 PM Medications Administered Medications (Trade) Dose Ordered Sig/Shelby Route Start Time Stop Time Status Last Admin Dose Admin Morphine Sulfate (MoRPHine SULFATE INJ) 2 mg NOW STAT IV 01/03/17 14:10 01/03/17 14:12 DC 01/03/17 14:29 2 MG Medical Decision Prior records/ancillary studies reviewed. Triage Nursing notes reviewed. Additional history obtained from his . The patient's history was concerning for left shoulder pain Differential diagnosis: Etiologies such as fracture, dislocation, ligament tear were entertained. Physical examination findings: As above. The patients vitals were stable ER treatment provided: Shoulder , Humerus and scapular and chest Xrays were ordered. He was given morphine for pain control On reassessment the patient felt better. Diagnostic interpretation by me: Imaging studies: Xray of Left shoulder: Lucency with cortical irregularity of the left scapular body which raises the possibility of a scapular fracture. Left scapula radiographs could be obtained. Xray of scapula:Acute left scapular fracture involving the body and neck. Xray left humerus: No acute fracture of the left humerus. Consultation: A phone consultation was placed with Dr. Jade of Orthopedics. The case was discussed and diagnostics were reviewed. The patient was recommended to discharged home with a shoulder immobilizer and recommended follow-up as an outpatient next week. He was discharged home with Percocet 5/325 to be taken every 6-8 hours for pain control. This appears to be consistent with acute fracture of the left scapular body and neck. The patient was informed about the findings as listed above. All questions were answered and he was pleased with the treatment. Return instructions were outlined and the patient was discharged in stable condition. Outpatient prescription management: Percocet 5/325 mg q6-8h The patient was referred to Orthopedics for follow-up in 7 days for a recheck of the current condition. The patient presented with left shoulder pain after sustaining a mechanical fall while sleeping and rolling out of the bed. X-ray of the left shoulder and scapula revealed an acute scapular fracture of the body and neck. He was given IV morphine for pain control in the ER. After consulting orthopedics, and he was recommended to be discharged with a shoulder immobilizer and follow-up with orthopedics in one week. He was discharged with Percocet 5/325 mg to use every 6-8 hours for pain control. Impression Primary Impression: Scapula fracture Departure Information Prescriptions Oxycodone/Acetaminophen 5MG/325MG (PERCOCET 5MG/325MG) Tab 1 TABLET PO TID Y for Pain for 7 Days, #20 TAB PAIN Prov: Carine Calabrese MD 01/03/17 Referrals Luis Manuel Pham M.D. (PCP) Patient Instructions Formerly [facility] Resident Tracking Resident Involvement: Resident Care Provided Care Provided: Adult Hospital Medicine Problem Qualifiers Primary Impression: Scapula fracture Laterality: left
--- NOTE | 2017-01-03 15:17 | DIAGNOSTIC IMAGING REPORT ---
L SCAPULA CLINICAL HISTORY: Left scapular pain status post trauma COMPARISON: Left shoulder study dated 01/03/2017 DISCUSSION: There is an acute fracture of the left scapular body and neck. No pneumothorax is visualized. No fractures the proximal humerus are visualized. IMPRESSION: Acute left scapular fracture involving the body and neck. Electronically signed by: Sagar Magana M.D. 01/03/2017 3:15 PM Dictated Date/Time: 01/03/2017 3:14 PM
--- NOTE | 2017-01-03 16:16 | DIAGNOSTIC IMAGING REPORT ---
CHEST ONE VIEW PORTABLE CLINICAL HISTORY: Trauma. COMPARISON STUDY: 12/26/2016 FINDINGS: The heart is enlarged. There is a left scapular fracture. No pneumothorax is visualized. There is mild pulmonary vascular congestion. Minimal left basal airspace opacities are present.[ IMPRESSION: 1. Left scapular fracture 2. Cardiomegaly and persistent left basilar airspace opacities 3. Mild pulmonary vascular congestion 4. No evidence of pneumothorax Electronically signed by: Sagar Magana M.D. 01/03/2017 4:15 PM Dictated Date/Time: 01/03/2017 4:13 PM
[2017-01-03] MEDS ORDERED: OXYC-57 PO (16:59)
[2017-01-03 17:12] VITALS: BP 105/72; PULSE 71; O2SAT 96
--- NOTE | 2017-01-03 17:52 | EMERGENCY ROOM VISIT NOTE ---
History Report prepared by Aidan: Mary Beth Madrigal Under the Supervision of: Dr. Omar Seo M.D. First contact with patient: 13:45 Chief Complaint: SHOULDER PAIN Stated Complaint: FALL/SHOULDER PAIN History of Present Illness The patient is a 71 year old male who presents to the Emergency Room with complaints of persistent left shoulder pain starting 2 days ago. The patient rolled out of bed in his sleep 2 days ago. He hit a dresser on the way down. He did not lose consciousness. He thought that his symptoms would improve, but his pain worsened today prompting him to present to the ED. He currently rates his discomfort as a 10/10 in severity. He states he is unable to move his arm because of the pain. He denies any numbness, tingling, headache, neck pain, or hip pain. He denies any head injury. He is on Plavix. He is not on any other blood thinners. Source of History: patient Onset: 2 days ago Position: shoulder (left) Symptom Intensity: 10/10 Quality: other (injury, pain) Modifying Factors (Worsening): movement Associated Symptoms: No headache, No neck pain, No numbness Note: Pt denies tingling, hip pain. Review of Systems See HPI for pertinent positives & negatives. A total of 10 systems reviewed and were otherwise negative. Past Medical & Surgical Medical Problems: (1) Acute myocardial infarction (2) Benign hypertension (3) Cholecystectomy (4) Diabetes mellitus (5) Gastric ulcer (6) Heart disease (7) Ischemic stroke (8) legally blind (9) Myocardial infarction (10) Pneumonia (11) Restless legs (12) Small bowel obstruction (13) stroke (14) Weakness Family History Unobtainable family history due to adoption Social History Smoking Status: Never Smoker Alcohol Use: none Drug Use: none Marital Status: in relationship Housing Status: lives with family Occupation Status: retired Current/Historical Medications Scheduled Alprazolam (Xanax), 0.75 MG PO DAILY Amoxicillin & Pot Clavulanate (Augmentin 875-125 mg), 875 MG PO BID Atorvastatin (Lipitor), 40 MG PO DAILY Budesonide/Formoterol Fumarate (Symbicort 80/4.5 Inhaler), 2 PUFFS INH BID Carvedilol (Coreg), 3.125 MG PO HS Cholecalciferol (Vitamin D3), 1,000 INTER.UNIT PO DAILY Clopidogrel (Plavix), 75 MG PO DAILY Fluoxetine (Prozac), 10 MG PO DAILY Fluoxetine (Prozac), 20 MG PO DAILY Gabapentin (Neurontin), 600 MG PO QAM Gabapentin (Neurontin), 1,200 MG PO HS Guaifenesin Ext Rel (Mucinex Ext Rel), 1,200 MG PO Q12 Levothyroxine Sodium (Levothyroxine Sodium), 50 MCG PO DAILY Mometasone Furoate (Nasal) (Mometasone Furoate), 2 SPRAYS SHELLIE DAILY Nitroglycerin (Nitrostat), 0.4 MG UT PRN Prednisone (Prednisone), 10 MG PO UD Quetiapine Fumarate (Seroquel), 200 MG PO DAILY Quetiapine Fumarate (Seroquel), 50 MG PO DAILY Quinapril Hcl (Accupril), 10 MG PO DAILY Ropinirole (Requip), 4 MG PO HS Trazodone Hcl (Trazodone), 200 MG PO HS Scheduled PRN Hydrocodone/Acetaminophen 5MG/325MG ([place] 5MG/325MG), 1 TAB PO BID PRN for Pain Oxycodone/Acetaminophen 5MG/325MG (Percocet 5MG/325MG), 1 TABLET PO TID PRN for Pain Ramelteon (Rozerem), 8 MG PO HS PRN for Sleep Allergies Coded Allergies: Heparin (Verified Allergy, Severe, SEVERE REACTION, 01/03/17) Physical Exam Vital Signs Date Time Temp Pulse Resp B/P (MAP) Pulse Ox O2 Delivery O2 Flow Rate FiO2 01/03/17 17:12 71 18 105/72 96 01/03/17 15:43 44 14 175/82 94 Room Air 01/03/17 14:30 45 155/83 92 01/03/17 12:57 36.9 52 18 155/83 95 Room Air Physical Exam Constitutional: Vital signs reviewed. Eyes: Pupils are equal round reactive to light. Conjunctiva are noninjected. ENT: Pharynx is clear without erythema or exudate. Mucous membranes are moist. Neck supple without meningeal signs. No midline tenderness to the cervical spine. Respiratory: Clear to auscultation bilaterally. Breath sounds are equal bilaterally. Cardiovascular: Regular rate and rhythm. No rubs or gallops. GI: Soft, nondistended and nontender. Bowel sounds are present. Musculoskeletal: No lower extremity tenderness. Tenderness over the left scapula. No deformity to the shoulder. Integumentary: No cyanosis. Neurological: The patient is awake and alert. No focal deficits. Psychiatric: Normal affect. Medical Decision & Procedures ER Provider Diagnostic Interpretation: X-ray results as stated below per interpretation by me and the radiologist: CHEST ONE VIEW PORTABLE CLINICAL HISTORY: Trauma. COMPARISON STUDY: 12/26/2016 FINDINGS: The heart is enlarged. There is a left scapular fracture. No pneumothorax is visualized. There is mild pulmonary vascular congestion. Minimal left basal airspace opacities are present.[ IMPRESSION: 1. Left scapular fracture 2. Cardiomegaly and persistent left basilar airspace opacities 3. Mild pulmonary vascular congestion 4. No evidence of pneumothorax Electronically signed by: Sagar Magana M.D. 01/03/2017 4:15 PM Dictated Date/Time: 01/03/2017 4:13 PM L SCAPULA CLINICAL HISTORY: Left scapular pain status post trauma COMPARISON: Left shoulder study dated 01/03/2017 DISCUSSION: There is an acute fracture of the left scapular body and neck. No pneumothorax is visualized. No fractures the proximal humerus are visualized. IMPRESSION: Acute left scapular fracture involving the body and neck. Electronically signed by: Sagar Magana M.D. 01/03/2017 3:15 PM Dictated Date/Time: 01/03/2017 3:14 PM L HUMERUS MIN 2 VIEWS ROUTINE CLINICAL HISTORY: Pain following fall. COMPARISON: None FINDINGS: An old fracture of the left clavicle is noted. There is lucency with cortical irregularity of the lateral aspect of the left scapular body. No acute fracture of the left humerus is identified. Note is made of lucency with cortical irregularity of the lateral aspect of the left scapular body which favors an acute fracture. IMPRESSION: 1. Lucency with cortical irregularity of the lateral aspect of the left scapular body which favors an acute fracture. Left scapula radiographs could be obtained. 2. No acute fracture of the left humerus. Electronically signed by: Shant Keen M.D. 01/03/2017 2:06 PM Dictated Date/Time: 01/03/2017 2:04 PM L SHOULDER MIN 2 VIEWS ROUTINE CLINICAL HISTORY: Left shoulder pain following fall. COMPARISON: None FINDINGS: There is an old fracture of the left clavicle. Alignment of the left acromioclavicular and glenohumeral joints is anatomic. No acute fracture of the proximal left humerus is identified. There is lucency with cortical irregularity of the scapular body. IMPRESSION: Lucency with cortical irregularity of the left scapular body which raises the possibility of a scapular fracture. Left scapula radiographs could be obtained. Electronically signed by: Shant Keen M.D. 01/03/2017 2:04 PM Dictated Date/Time: 01/03/2017 2:01 PM Medications Administered Medications (Trade) Dose Ordered Sig/Shelby Route Start Time Stop Time Status Last Admin Dose Admin Morphine Sulfate (MoRPHine SULFATE INJ) 2 mg NOW STAT IV 01/03/17 14:10 01/03/17 14:12 DC 01/03/17 14:29 2 MG ED Course 1413: The patient was evaluated in room B4B. A complete history and physical exam was performed. 1410: Morphine Sulfate 2 mg IV. 1642: The resident discussed the patient's case with Dr. Jade, [facility] orthopedic surgeon. He recommends the patient being placed in a sling immobilizer and follow up in the office next week. 1655: Upon reevaluation, the patient appeared to have improvement of his symptoms. I discussed tonight's findings with him. He verbalized agreement of the treatment plan. He was discharged home. Medical Decision This is a 71-year-old male who presents with shoulder pain after a mechanical fall. Differential diagnosis includes contusion, dislocation, humeral fracture , scapular fracture. I did perform a limited focused review of portions of the patient's old chart on the electronic medical record. The patient was admitted December 27 for aspiration pneumonia. I did evaluate the patient as noted above. I did order and personally review the patient's x-rays as described above. The patient has a left scapular fracture. There is no evidence of pneumothorax or other injury. Orthopedics was called. They did recommend a shoulder immobilizer and follow up in the office. The patient was placed in a shoulder immobilizer and discharged with pain medications. Resident Physician Supervision Note: I did evaluate and examine this patient myself. I did guide management for the patient. I agree with the resident's ( ) assessment as discussed. Please see the resident's dictation for further details. Medication Reconcilliation Current Medication List: was personally reviewed by me Blood Pressure Screening Patient's blood pressure: Elevated blood pressure Blood pressure disposition: Referred to PCP Consults Time Called: 1634 Consulting Physician: Dr. Jade, [facility] orthopedic surgeon Returned Call: 1641 The resident discussed the patient's case with him. He recommends the patient being placed in a sling immobilizer and follow up in the office next week. Impression Primary Impression: Left scapula fracture Additional Impression: Fall Scribe Attestation The scribe's documentation has been prepared under my direct and personally reviewed by me in its entirety. I confirm that the note above accurately reflects all work, treatment, procedures, and medical decision making performed by me. Departure Information Dispostion Home / Self-Care Prescriptions Oxycodone/Acetaminophen 5MG/325MG (PERCOCET 5MG/325MG) Tab 1 TABLET PO TID Y for Pain for 7 Days, #20 TAB PAIN Prov: Carine Calabrese MD 01/03/17 Referrals Luis Manuel Pham M.D. (PCP) Forms HOME CARE DOCUMENTATION FORM, IMPORTANT VISIT INFORMATION Patient Instructions My [facility] Additional Instructions You have been examined and treated today on an emergency basis only. This is not a substitute for, or an effort to provide, complete comprehensive medical care. It is impossible to recognize and treat all injuries or illnesses in a single emergency department visit. It is therefore important that you follow up closely with your physician. Call as soon as possible for an appointment. Return for worsening symptoms or if you develop worsening pain or any other concerning symptoms. - You were found to have a fracture in your left scapula. - You may use Percocet every 6-8 hours as needed for pain control. - Continue to use a sling immobilizer and please follow up with Dr. Jade's office on saturday. Address: [address] [place] [address], [place], [place] [address] Problem Qualifiers Primary Impression: Left scapula fracture Encounter type: initial encounter Scapula location: body Fracture type: closed Fracture alignment: nondisplaced Qualified Codes: S42.115A - Nondisplaced fracture of body of scapula, left shoulder, initial encounter for closed fracture Additional Impression: Fall Encounter type: initial encounter Qualified Codes: W19.XXXA - Unspecified fall, initial encounter
== END 2017-01-03 17:14 | disposition home or self-care (01) ==
LOC: EDBD 12:52 → C.EDB 12:53
DX: S42.115A Nondisplaced fracture of body of scapula, left shoulder, initial encounter for closed fracture (principal); S42.155A Nondisplaced fracture of neck of scapula, left shoulder, initial encounter for closed fracture; W06.XXXA Fall from bed, initial encounter; I25.2 Old myocardial infarction; I10 Essential (primary) hypertension; Z90.49 Acquired absence of other specified parts of digestive tract; Z83.3 Family history of diabetes mellitus; Z86.73 Personal history of transient ischemic attack (TIA), and cerebral infarction without residual deficits; H54.8 Legal blindness, as defined in USA; Z87.01 Personal history of pneumonia (recurrent); G25.81 Restless legs syndrome; Z79.01 Long term (current) use of anticoagulants; Z79.899 Other long term (current) drug therapy

== ENCOUNTER 2017-03-28 12:18 | Observation (INO) | payer OTHER ==
[~2017-03-28] VITALS: Ht 165.1 cm; Wt 79.6 kg
[~2017-03-28 12:18] MED LIST changes: -QUIN10TA25 PO; +QUIN1TAB61 PO
[2017-03-28] MEDS ORDERED: SODIUM CHLORIDE 0.9% 1000ML 1,000 ML IV STA (12:50)
[2017-03-28] MEDS ORDERED: SODIUM CHLORIDE 0.9% 500ML 500 ML IV STA ×2 (12:50→13:49)
--- NOTE | 2017-03-28 12:55 | DIAGNOSTIC IMAGING REPORT ---
CHEST ONE VIEW PORTABLE CLINICAL HISTORY: EVALUATE WEAKNESS mental status change COMPARISON STUDY: 01/03/2017 FINDINGS: Moderate stable cardiomegaly. Small parenchymal infiltrate left lung base. Slight accentuation right basilar peripheral markings. Tortuosity thoracic aorta unchanged. Pre-existing left scapular fracture IMPRESSION: 1. Small parenchymal infiltrate possibly combined with a small left basilar joint effusion. 2. Moderate stable cardiomegaly. 3. Pre-existing left scapular fracture The above report was generated using voice recognition software. It may contain grammatical, syntax or spelling errors. Electronically signed by: Pelon Abarca M.D. 03/28/2017 12:54 PM Dictated Date/Time: 03/28/2017 12:52 PM
--- NOTE | 2017-03-28 13:07 | EMERGENCY ROOM VISIT NOTE ---
History Report prepared by Aidan: Leticia Ceja Under the Supervision of: Dr. Sravan Hidalgo M.D. First contact with patient: 12:20 Stated Complaint: weakness History of Present Illness The patient is a 71 year old male who presents to the Emergency Room with complaints of constant weakness beginning this morning. The patient states that he woke up this morning and felt too weak to get up and move around. He reports that he has had similar symptoms in the past when he had double pneumonia. The patient complains of lightheadedness, dizziness, leg cramping at night, and shortness of breath. He notes that he has had some sick contacts recently. The patient's notes that the patient has been confused today. Pt denies headache, fevers, chills, diaphoresis, neck pain, chest pain, nausea, vomiting, abdominal pain, back pain, melena, hematochezia, urinary symptoms, numbness, weakness, lymphadenopathy, rash, or other complaints. He states that he does not wear oxygen at home and he quit smoking 25 years ago. The patient notes a history of cholecystectomy. Source of History: patient Onset: this morning Position: other (global) Quality: other (weakness) Timing: constant Associated Symptoms: + SOB Note: The patient complains of lightheadedness, dizziness, leg cramping at night, confusion. Review of Systems See HPI for pertinent positives and negatives. A total of ten systems were reviewed and were otherwise negative. Past Medical & Surgical Medical Problems: (1) Acute myocardial infarction (2) Benign hypertension (3) Cholecystectomy (4) Diabetes mellitus (5) Gastric ulcer (6) Heart disease (7) Ischemic stroke (8) legally blind (9) Myocardial infarction (10) Pneumonia (11) Restless legs (12) Small bowel obstruction (13) stroke (14) Weakness Family History Unobtainable family history due to adoption Social History Smoking Status: Never Smoker Alcohol Use: none Drug Use: none Marital Status: in relationship Housing Status: lives with family Occupation Status: retired Current/Historical Medications Scheduled Alprazolam (Xanax), 0.75 MG PO DAILY Atorvastatin (Lipitor), 40 MG PO DAILY Carvedilol (Coreg), 3.125 MG PO BID Cholecalciferol (Vitamin D3), 1,000 INTER.UNIT PO DAILY Clopidogrel (Plavix), 75 MG PO DAILY Esomeprazole Magnesium (Nexium), 40 MG PO DAILY Fluoxetine (Prozac), 10 MG PO DAILY Fluoxetine (Prozac), 20 MG PO DAILY Gabapentin (Neurontin), 600 MG PO BID Gabapentin (Neurontin), 1,200 MG PO HS Levothyroxine Sodium (Levothyroxine Sodium), 50 MCG PO DAILY Mometasone Furoate (Nasal) (Mometasone Furoate), 2 SPRAYS SHELLIE DAILY Nitroglycerin (Nitrostat), 0.4 MG UT PRN Quetiapine Fumarate (Seroquel), 200 MG PO DAILY Quetiapine Fumarate (Seroquel), 50 MG PO DAILY Quinapril Hcl (Accupril), 10 MG PO DAILY Ropinirole (Requip), 4 MG PO HS Trazodone Hcl (Trazodone), 200 MG PO HS Scheduled PRN Ramelteon (Rozerem), 8 MG PO HS PRN for Sleep Allergies Coded Allergies: Heparin (Verified Allergy, Severe, SEVERE REACTION, 01/03/17) Physical Exam Vital Signs Date Time Temp Pulse Resp B/P (MAP) Pulse Ox O2 Delivery O2 Flow Rate FiO2 03/28/17 15:35 64 18 123/49 95 Room Air 03/28/17 13:39 58 03/28/17 13:30 58 18 105/63 97 Nasal Cannula 3.0 03/28/17 12:33 95 Nasal Cannula 3.0 03/28/17 12:25 36.8 70 18 115/76 91 Room Air Physical Exam GENERAL: Awake, alert, generally tired appearing HENT: Normocephalic, atraumatic. Oropharynx unremarkable. EYES: Normal conjunctiva. Sclera non-icteric. NECK: Supple. No nuchal rigidity. FROM. No JVD. RESPIRATORY: Clear to auscultation. CARDIAC: Regular rate, normal rhythm. Extremities warm and well perfused. Pulses equal. ABDOMEN: Soft, non-distended. No tenderness to palpation. No rebound or guarding. No masses. RECTAL: Deferred. MUSCULOSKELETAL: Chest examination reveals no tenderness. The back is symmetrical on inspection without obvious abnormality. There is no CVA tenderness to palpation. No joint edema. LOWER EXTREMITIES: Calves are equal size bilaterally and non-tender. No edema. No discoloration. NEURO: Normal sensorium. No sensory or motor deficits noted. SKIN: No rash or jaundice noted. Medical Decision & Procedures ER Provider Diagnostic Interpretation: X-ray: Per my interpretation, radiologist review. CHEST ONE VIEW PORTABLE FINDINGS: Moderate stable cardiomegaly. Small parenchymal infiltrate left lung base. Slight accentuation right basilar peripheral markings. Tortuosity thoracic aorta unchanged. Pre-existing left scapular fracture IMPRESSION: 1. Small parenchymal infiltrate possibly combined with a small left basilar joint effusion. 2. Moderate stable cardiomegaly. 3. Pre-existing left scapular fracture The above report was generated using voice recognition software. It may contain grammatical, syntax or spelling errors. Electronically signed by: Pelon Abarca M.D. 03/28/2017 12:54 PM Dictated Date/Time: 03/28/2017 12:52 PM Laboratory Results 03/28/17 12:32 Red Blood Count 4.04, Mean Corpuscular Volume 92.3, Mean Corpuscular Hemoglobin 32.7, Mean Corpuscular Hemoglobin Concent 35.4, Mean Platelet Volume 9.4, Neutrophils (%) (Auto) 82.7, Lymphocytes (%) (Auto) 7.6, Monocytes (%) (Auto) 7.6, Eosinophils (%) (Auto) 1.8, Basophils (%) (Auto) 0.1, Neutrophils # (Auto) 9.31, Lymphocytes # (Auto) 0.85, Monocytes # (Auto) 0.86, Eosinophils # (Auto) 0.20, Basophils # (Auto) 0.01 03/28/17 12:32 Test 03/28/17 12:32 03/28/17 12:49 03/28/17 13:34 03/28/17 15:34 White Blood Count 11.25 K/uL (4.8-10.8) Red Blood Count 4.04 M/uL (4.7-6.1) Hemoglobin 13.2 g/dL (14.0-18.0) Hematocrit 37.3 % (42-52) Mean Corpuscular Volume 92.3 fL (80-100) Mean Corpuscular Hemoglobin 32.7 pg (25-34) Mean Corpuscular Hemoglobin Concent 35.4 g/dl (32-36) Platelet Count 116 K/uL (130-400) Mean Platelet Volume 9.4 fL (7.4-10.4) Neutrophils (%) (Auto) 82.7 % Lymphocytes (%) (Auto) 7.6 % Monocytes (%) (Auto) 7.6 % Eosinophils (%) (Auto) 1.8 % Basophils (%) (Auto) 0.1 % Neutrophils # (Auto) 9.31 K/uL (1.4-6.5) Lymphocytes # (Auto) 0.85 K/uL (1.2-3.4) Monocytes # (Auto) 0.86 K/uL (0.11-0.59) Eosinophils # (Auto) 0.20 K/uL (0-0.5) Basophils # (Auto) 0.01 K/uL (0-0.2) RDW Standard Deviation 43.1 fL (36.4-46.3) RDW Coefficient of Variation 12.8 % (11.5-14.5) Immature Granulocyte % (Auto) 0.2 % Immature Granulocyte # (Auto) 0.02 K/uL (0.00-0.02) Prothrombin Time 10.8 SECONDS (9.0-12.0) Prothromb Time International Ratio 1.0 (0.9-1.1) Activated Partial Thromboplast Time 27.1 SECONDS (21.0-31.0) Partial Thromboplastin Ratio 1.0 Anion Gap 9.0 mmol/L (3-11) Est Creatinine Clear Calc Drug Dose 59.5 ml/min Estimated GFR () 75.6 Estimated GFR (Non- 65.3 BUN/Creatinine Ratio 8.4 (10-20) Calcium Level 8.2 mg/dl (8.5-10.1) Magnesium Level 2.0 mg/dl (1.8-2.4) Total Bilirubin 0.7 mg/dl (0.2-1) Direct Bilirubin 0.2 mg/dl (0-0.2) Aspartate Amino Transf (AST/SGOT) 17 U/L (15-37) Alanine Aminotransferase (ALT/SGPT) 25 U/L (12-78) Alkaline Phosphatase 71 U/L (45-117) Total Creatine Kinase 129 U/L (39-308) Creatine Kinase MB 1.0 ng/ml (0.5-3.6) Creatine Kinase MB Ratio 0.8 (0-3.0) Troponin I < 0.015 ng/ml (0-0.045) Pro-B-Type Natriuretic Peptide 373 pg/ml (0-900) Total Protein 6.1 gm/dl (6.4-8.2) Albumin 3.3 gm/dl (3.4-5.0) Lipase 118 U/L (73-393) Thyroid Stimulating Hormone (TSH) 0.594 uIu/ml (0.300-4.500) Bedside Lactic Acid Venous 2.92 mmol/L (0.90-1.70) Influenza Type A (RT-PCR) Neg for Influ A (NEG) Influenza Type A Antigen Uninterpretable (NEG) Influenza Type B Antigen Uninterpretable (NEG) Influenza Type B (RT-PCR) Neg for Influ B (NEG) Urine Color YELLOW Urine Appearance CLEAR (CLEAR) Urine pH 8.5 (4.5-7.5) Urine Specific Welling 1.010 (1.000-1.030) Urine Protein NEG (NEG) Urine Glucose (UA) NEG (NEG) Urine Ketones NEG (NEG) Urine Occult Blood NEG (NEG) Urine Nitrite NEG (NEG) Urine Bilirubin NEG (NEG) Urine Urobilinogen NEG (NEG) Urine Leukocyte Esterase NEG (NEG) Laboratory results reviewed by me Medications Administered Medications (Trade) Dose Ordered Sig/Shelby Route Start Time Stop Time Status Last Admin Dose Admin Sodium Chloride 1,000 ml @ 125 mls/hr Q8H STAT IV 03/28/17 12:50 03/28/17 20:49 03/28/17 13:30 125 MLS/HR Sodium Chloride 500 ml @ 999 mls/hr Q31M STAT IV 03/28/17 12:50 03/28/17 13:20 DC 03/28/17 12:56 999 MLS/HR Levofloxacin (Levaquin / D5W) 750 mg NOW STAT IV 03/28/17 13:08 03/28/17 13:09 DC 03/28/17 13:30 750 MG Sodium Chloride 500 ml @ 999 mls/hr Q31M STAT IV 03/28/17 13:49 03/28/17 14:19 DC 03/28/17 14:23 999 MLS/HR ECG Indication: weakness Rate (beats per minute): 65 Rhythm: normal sinus Findings: Q waves (Inferior and anteroseptal), no ectopy, other (low voltage QRS) Comparison ECG Date: 12/26/16 Change: no significant change ED Course 1226: The patient was evaluated in room B11. A complete history and physical exam was performed. 1250: Sodium Chloride 500 ml @ 125 mls/hr IV, Sodium Chloride 1000 ml @ 125 mls/ hr IV. 1308: Levofloxacin 750mg IV. 1314: I reevaluated and updated the patient on his results. 1349: Sodium Chloride 500 ml @ 999 mls/hr IV. 1500: Discussed the patient's case with Dr. [place] [facility] The patient will be evaluated for further treatment and disposition. 1514: Upon reexamination, the patient was doing well. I discussed the test results and treatment plan with him. The patient will be evaluated for further management. Medical Decision Triage Nursing notes reviewed. The patient's presentation and history were concerning for weakness. Etiologies such as metabolic, infection, hypo/hyperglycemia, electrolyte abnormalities, cardiac sources, intracerebral event, toxicologic, neurologic, as well as others were entertained. The patient was evaluated. He had a nonfocal examination. ECG was unchanged. Chest x-ray was performed as above. Blood work was performed as well. The patient had an elevated lactate. Fluid hydration was initiated. Chest x-ray revealed a left lower lobe pneumonia. His CBC showed a leukocytosis. The patient had additional IV fluids administered and was given IV Levaquin. He had O2 saturations from 90-91% on room air. He was given supplemental oxygen and was in the mid to high 90s with this. He was feeling somewhat better. Given his generalized weakness, recent pneumonia, and other previous medical issues further treatment in the hospital felt to be most appropriate. The patient was in agreement. Consultation was made with internal medicine and the patient was evaluated for further management. Medication Reconcilliation Current Medication List: was personally reviewed by me Blood Pressure Screening Patient's blood pressure: Normal blood pressure Blood pressure disposition: Did not require urgent referral Consults Time Called: 1450 Consulting Physician: Dr. Nelson - [facility] Returned Call: 1500 Discussed the patient's case. The patient will be evaluated for further treatment and disposition. Impression Primary Impression: Pneumonia Additional Impression: Weakness Scribe Attestation The scribe's documentation has been prepared under my direction and personally reviewed by me in its entirety. I confirm that the note above accurately reflects all work, treatment, procedures, and medical decision making performed by me. Departure Information Dispostion Being Evaluated By Hospitalist Referrals Luis Manuel Pham M.D. (PCP) Problem Qualifiers
[2017-03-28] MEDS ORDERED: LEVAQUIN 750MG / 150ML D5W IV STA (13:08)
[2017-03-28 13:21] LABS: BASO % 0.1 %; BASO ABS # 0.01 K/uL (0-0.2); COMPLETE YES; EOS % 1.8 %; HEMATOCRIT 37.3 % (42-52); IG% 0.2 %; LYMPH % 7.6 %; LYMPH ABS # 0.85 K/uL (1.2-3.4); MEAN CELL VOLUME 92.3 fL (80-100); MEAN CORPUSCULAR HEMOGLOBIN 32.7 pg (25-34); MEAN CORPUSCULAR HGB CONC 35.4 g/dl (32-36); MEAN PLATELET VOLUME 9.4 fL (7.4-10.4); MONO % 7.6 %; NEUT % 82.7 %; PLATELET COUNT 116 K/uL (130-400); RED BLOOD COUNT 4.04 M/uL (4.7-6.1); WHITE BLOOD COUNT 11.25 K/uL (4.8-10.8)
[2017-03-28 13:32] LABS: PROTHROMBIN TIME (PATIENT) 10.8 SECONDS (9.0-12.0)
[2017-03-28 13:42] LABS: ALT/SGPT 25 U/L (12-78); BLOOD UREA NITROGEN 10 mg/dl (7-18); BUN/CREATININE RATIO 8.4 (10-20); CALCIUM 8.2 mg/dl (8.5-10.1); CARBON DIOXIDE 25 mmol/L (21-32); CHLORIDE 104 mmol/L (98-107); CREATININE 1.14 mg/dl (0.60-1.40); GLUCOSE 172 mg/dl (70-99); POTASSIUM 3.6 mmol/L (3.5-5.1); SODIUM 138 mmol/L (136-145)
[2017-03-28 13:50] LABS: ALKALINE PHOSPHATASE 71 U/L (45-117); AST/SGOT 17 U/L (15-37); CKMB/CK RATIO 0.8 (0-3.0); THYROID STIMULATING HORMONE 0.594 uIu/ml (0.300-4.500)
[2017-03-28] MEDS ORDERED: NXM/40 PO (14:18)
[2017-03-28] MEDS ORDERED: SYMIN/8045 INH (14:18)
[2017-03-28 15:37] LABS: INFLUENZA A PCR Neg for Influ A (NEG); INFLUENZA B PCR Neg for Influ B (NEG)
[2017-03-28] MEDS ORDERED: ACETAMINOPHEN 325 MG TAB PO PRN (15:45)
[2017-03-28] MEDS ORDERED: ONDANSETRON INJ 2 MG/ML 2 ML VIAL IV PRN (15:45)
[2017-03-28 15:52] LABS: URINE APPEARANCE CLEAR (CLEAR); URINE BILIRUBIN NEG (NEG); URINE COLOR YELLOW; URINE NITRITE NEG (NEG); URINE PH 8.5 (4.5-7.5); UROBILINOGEN NEG (NEG)
[2017-03-28 16:05] LABS: MANUAL MICROSCOPIC REQUIRED? NO; REVIEW REQ? NO
--- NOTE | 2017-03-28 16:13 | History and Physical ---
History & Physical Date & Time of Service: Mar 28, 2017 at 15:59 Chief Complaint: weakness Primary Care Physician: Luis Manuel Pham M.D. History of Present Illness Source: patient, family, hospital records 71 yo male with h/o pneumonia, [place], CVA presents to the ED with sudden onset of weakness. Patient was feeling well yesterday, eating and drinking well, ambulating without difficulty. He was coughing a lot last night according to his . No fever/chills, no night sweats. When he woke up this AM he felt profoundly weak, could not stand up initially. When he finally got to his feet with assistance from family he was dizzy. At one point he did fall backwards, did not suffer any injuries. He was able to eat breakfast. He has been urinating and moving his bowels. Weight stable, no edema. 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 In the ED his vitals were stable, afebrile, borderline hypoxia with 91% on room air. Mild leukocytosis with left shift but otherwise labs normal. CXR showed a small left basilar infiltrate and small effusion. He was given normal saline bolus and Levaquin. Past Medical/Surgical History Medical Problems: (1) Acute myocardial infarction Status: Resolved (2) Benign hypertension Status: Chronic (3) Cholecystectomy Status: Resolved (4) Diabetes mellitus Status: Chronic (5) Heart disease Status: Chronic (6) Ischemic stroke Status: Resolved (7) legally blind Status: Chronic (8) Myocardial infarction Status: Resolved (9) Pneumonia Status: Resolved (10) Restless legs Status: Chronic (11) Small bowel obstruction Status: Resolved (12) stroke Status: Resolved Family History Unobtainable family history due to adoption Social History Smoking Status: Never Smoker Drug Use: none Marital Status: in relationship Housing status: lives with significant other Occupational Status: retired Immunizations History of Influenza Vaccine: Yes Influenza Vaccine Date: Dec 26, 2011 History of Tetanus Vaccine?: Yes Tetanus Immunization Date: Oct 26, 2009 History of Pneumococcal: Yes Pneumococcal Date: Dec 26, 2011 History of Hepatitis B Vaccine: No Multi-Drug Resistant Organisms History of MDRO: No Allergies Coded Allergies: Heparin (Verified Allergy, Severe, SEVERE REACTION, 01/03/17) Home Medications Scheduled Alprazolam (Xanax), 0.75 MG PO DAILY Atorvastatin (Lipitor), 40 MG PO DAILY Carvedilol (Coreg), 3.125 MG PO BID Cholecalciferol (Vitamin D3), 1,000 INTER.UNIT PO DAILY Clopidogrel (Plavix), 75 MG PO DAILY Esomeprazole Magnesium (Nexium), 40 MG PO DAILY Fluoxetine (Prozac), 10 MG PO DAILY Fluoxetine (Prozac), 20 MG PO DAILY Gabapentin (Neurontin), 600 MG PO BID Gabapentin (Neurontin), 1,200 MG PO HS Levothyroxine Sodium (Levothyroxine Sodium), 50 MCG PO DAILY Mometasone Furoate (Nasal) (Mometasone Furoate), 2 SPRAYS SHELLIE DAILY Nitroglycerin (Nitrostat), 0.4 MG UT PRN Quetiapine Fumarate (Seroquel), 200 MG PO DAILY Quetiapine Fumarate (Seroquel), 50 MG PO DAILY Quinapril Hcl (Accupril), 10 MG PO DAILY Ropinirole (Requip), 4 MG PO HS Trazodone Hcl (Trazodone), 200 MG PO HS Scheduled PRN Ramelteon (Rozerem), 8 MG PO HS PRN for Sleep Review of Systems Constitutional: + weakness, + fatigue, No fever, No chills, No sweats, No weight loss, No problem reported Eyes: + problem reported (legally blind), No worsening of vision, No eye pain, No redness, No discharge, No diplopia ENT: No hearing loss, No unusual epistaxis, No nasal symptoms, No sore throat, No tinnitus, No dental problems, No trouble swallowing, No problem reported Respiratory: + dyspnea on exertion, No cough, No sputum, No wheezing, No shortness of breath, No dyspnea at rest, No hemoptysis, No problem reported Cardiovascular: No chest pain, No orthopnea, No PND, No edema, No claudication , No palpitations, No problem reported Abdomen: No pain, No nausea, No vomiting, No diarrhea, No constipation, No GI bleeding, No problem reported Musculoskeletal: No joint pain, No muscle pain, No swelling, No calf pain, No problem reported Genitourinary - Male: No hematuria, No dysuria, No urinary frequency, No urinary urgency Neurologic: + weakness, No memory loss, No paralysis, No numbness/tingling, No vertigo, No balance problems, No problem reported Psychiatric: + insomnia, No depression symptoms, No anhedonism, No anxiety, No substance abuse, No problem reported Endocrine: No fatigue, No excessive thirst, No excessive urination, No problem reported Hematologic / Lymphatic: No abnormal bleeding/bruising, No clotting problems, No swollen lymph nodes, No night sweats, No problem reported Integumentary: No rash, No itch, No new/changing skin lesions, No color change , No bleeding, No problem reported Allergic / Immunologic: No environmental allergies, No seasonal allergies, No pet sensitivities, No food allergies, No hives, No frequent infections, No poor healing, No prolonged convalescence, No problem reported Physical Exam Vital Signs Date Time Temp Pulse Resp B/P (MAP) Pulse Ox O2 Delivery O2 Flow Rate FiO2 03/28/17 15:35 64 18 123/49 95 Room Air 03/28/17 13:39 58 03/28/17 13:30 58 18 105/63 97 Nasal Cannula 3.0 03/28/17 12:33 95 Nasal Cannula 3.0 03/28/17 12:25 36.8 70 18 115/76 91 Room Air General Appearance: WD/WN, no apparent distress Head: normocephalic, atraumatic ENT: normal ENT inspection, hearing grossly normal, pharynx normal Neck: supple, no adenopathy, no JVD, trachea midline Respiratory/Chest: chest non-tender, lungs clear, no respiratory distress, no accessory muscle use, + decreased breath sounds (left base) Cardiovascular: regular rate, rhythm, no edema, no gallop, no JVD, no murmur, normal peripheral pulses Abdomen/GI: normal bowel sounds, non tender, soft, no organomegaly Back: normal inspection, no CVA tenderness, no muscle spasm, normal range of motion Extremities/Musculoskelatal: normal inspection, no calf tenderness, normal capillary refill, no pedal edema, normal range of motion, pelvis stable Neurologic/Psych: printed circuit boards contact printer II-XII nml as tested, no motor/sensory deficits, alert, normal mood/affect, normal reflexes, oriented x 3 Skin: normal color, warm/dry, no rash Lymphatic: no adenopathy Diagnostics Laboratory Results Results Past 24 Hours Test 03/28/17 12:32 03/28/17 12:49 03/28/17 13:34 03/28/17 15:34 Range/Units White Blood Count 11.25 4.8-10.8 K/uL Red Blood Count 4.04 4.7-6.1 M/uL Hemoglobin 13.2 14.0-18.0 g/dL Hematocrit 37.3 42-52 % Mean Corpuscular Volume 92.3 80-100 fL Mean Corpuscular Hemoglobin 32.7 25-34 pg Mean Corpuscular Hemoglobin Concent 35.4 32-36 g/dl Platelet Count 116 130-400 K/uL Mean Platelet Volume 9.4 7.4-10.4 fL Neutrophils (%) (Auto) 82.7 % Lymphocytes (%) (Auto) 7.6 % Monocytes (%) (Auto) 7.6 % Eosinophils (%) (Auto) 1.8 % Basophils (%) (Auto) 0.1 % Neutrophils # (Auto) 9.31 1.4-6.5 K/uL Lymphocytes # (Auto) 0.85 1.2-3.4 K/uL Monocytes # (Auto) 0.86 0.11-0.59 K/uL Eosinophils # (Auto) 0.20 0-0.5 K/uL Basophils # (Auto) 0.01 0-0.2 K/uL RDW Standard Deviation 43.1 36.4-46.3 fL RDW Coefficient of Variation 12.8 11.5-14.5 % Immature Granulocyte % (Auto) 0.2 % Immature Granulocyte # (Auto) 0.02 0.00-0.02 K/uL Prothrombin Time 10.8 9.0-12.0 SECONDS Prothromb Time International Ratio 1.0 0.9-1.1 Activated Partial Thromboplast Time 27.1 21.0-31.0 SECONDS Partial Thromboplastin Ratio 1.0 Sodium Level 138 136-145 mmol/L Potassium Level 3.6 3.5-5.1 mmol/L Chloride Level 104 98-107 mmol/L Carbon Dioxide Level 25 21-32 mmol/L Anion Gap 9.0 3-11 mmol/L Blood Urea Nitrogen 10 7-18 mg/dl Creatinine 1.14 0.60-1.40 mg/dl Est Creatinine Clear Calc Drug Dose 59.5 ml/min Estimated GFR () 75.6 Estimated GFR (Non- 65.3 BUN/Creatinine Ratio 8.4 10-20 Random Glucose 172 70-99 mg/dl Calcium Level 8.2 8.5-10.1 mg/dl Magnesium Level 2.0 1.8-2.4 mg/dl Total Bilirubin 0.7 0.2-1 mg/dl Direct Bilirubin 0.2 0-0.2 mg/dl Aspartate Amino Transf (AST/SGOT) 17 15-37 U/L Alanine Aminotransferase (ALT/SGPT) 25 12-78 U/L Alkaline Phosphatase 71 45-117 U/L Total Creatine Kinase 129 39-308 U/L Creatine Kinase MB 1.0 0.5-3.6 ng/ml Creatine Kinase MB Ratio 0.8 0-3.0 Troponin I < 0.015 0-0.045 ng/ml Pro-B-Type Natriuretic Peptide 373 0-900 pg/ml Total Protein 6.1 6.4-8.2 gm/dl Albumin 3.3 3.4-5.0 gm/dl Lipase 118 73-393 U/L Thyroid Stimulating Hormone (TSH) 0.594 0.300-4.500 uIu/ml Bedside Lactic Acid Venous 2.92 0.90-1.70 mmol/L Influenza Type A (RT-PCR) Neg for Influ A NEG Influenza Type A Antigen Uninterpretable NEG Influenza Type B Antigen Uninterpretable NEG Influenza Type B (RT-PCR) Neg for Influ B NEG Microbiology Results 03/28/17 Blood Culture, Received Pending 03/28/17 Blood Culture, Received Pending 03/28/17 Urine Culture, Received Pending Diagnostic Radiology CXR: left basilar infiltrate, small left pleural effusion Normal EKG Impression Assessment and Plan 71 yo male with sudden onset of weakness this AM, has mild leukocytosis, left basilar infiltrate - Left lower lobe pneumonia: treat with Levaquin, NSS x 2 bags, nebulizers PRN repeat labs tomorrow vitals stable, try to wean off of oxygen no signs of sepsis - Profound weakness: most likely from pneumonia electrolytes, renal function stable with h/o WA, could consider a silent WA however, troponin negative and normal EKG, will check one additional troponin in 6 hours PT/OT consults suspect he will feel stronger in 24 hours with fluids and Levaquin no focal deficits, this is diffuse weakness, so doubtful for any neurologic insult - CAD with h/o [place]: continue antiplatelets, Coreg, statin had an Echo in 2017 that showed EF 50%, no h/o failure - h/o stroke: continue antiplatelet therapy - DVT prophylaxis: SCD's, h/o heparin allergy Level of Care Med/Surg Resuscitation Status FULL RESUSCITATION VTE Prophylaxis VTE Risk Assessment Done? Y/N: Yes Risk Level: High Given or contraindicated: SCD's Additional Copies To Luis Manuel Pham M.D.
[2017-03-28] MEDS ORDERED: ALBUT/IPRATROP 3MG/0.5MG NEB 3 ML VIAL INH PRN (16:45)
[2017-03-28 16:55] VITALS: O2SAT 94
[2017-03-28 17:07] VITALS: BP 131/70; PULSE 63; TEMP 36.9; O2SAT 92
[2017-03-28 17:19] VITALS: Ht 165.1 cm; Wt 79.6 kg
[2017-03-28] MEDS: NSS + 20MEQ KCL 1000ML 1,000 ML IV SCH (18:34)
[2017-03-28] MEDS ORDERED: IV FLUIDS COMPLETED PRN (19:30)
[2017-03-28] MEDS ORDERED: NITROGLYCERIN 0.4 MG SL PER TAB CHARGE UT SCH (21:30)
[2017-03-28 23:23] VITALS: BP 148/74; PULSE 57; TEMP 37.1; O2SAT 94
[2017-03-29] MEDS: NSS + 20MEQ KCL 1000ML 1,000 ML IV SCH (04:01)
[2017-03-29 05:47] LABS: COMPLETE YES; EOS % 3.2 %; HEMATOCRIT 35.4 % (42-52); IG% 0.3 %; LYMPH % 15.7 %; LYMPH ABS # 1.21 K/uL (1.2-3.4); MEAN CELL VOLUME 93.2 fL (80-100); MEAN CORPUSCULAR HEMOGLOBIN 32.6 pg (25-34); MEAN PLATELET VOLUME 9.4 fL (7.4-10.4); MONO % 7.1 %; NEUT % 73.7 %; PLATELET COUNT 113 K/uL (130-400)
[2017-03-29 06:20] LABS: BUN/CREATININE RATIO 8.4 (10-20); CALCIUM 7.8 mg/dl (8.5-10.1); CREATININE 1.02 mg/dl (0.60-1.40); POTASSIUM 4.1 mmol/L (3.5-5.1)
[2017-03-29] MEDS ORDERED: LEVOTHYROXINE 50 MCG TAB PO SCH (06:30)
[2017-03-29 07:35] VITALS: BP_SYST 134; BP_SYST 162; BP_DIAS 74; BP_DIAS 80; PULSE 53; TEMP 36.4; O2SAT 93
[2017-03-29 08:30] VITALS: PULSE 62
[2017-03-29] MEDS ORDERED: NURSING DECISION MEDICATION ORDER SCH (08:45)
[2017-03-29] MEDS ORDERED: QUETIAPINE FUMARATE 25 MG TAB PO SCH ×2 (09:00→21:00)
[2017-03-29] MEDS ORDERED: CLOPIDOGREL BISULFATE 75 MG TAB PO SCH (09:00)
[2017-03-29] MEDS ORDERED: QUETIAPINE FUMARATE 200 MG TAB PO SCH ×2 (09:00→21:00)
[2017-03-29] MEDS ORDERED: FLUTICASONE PROPIONATE NA SPR 16 GM BTL NAE SCH (09:00)
[2017-03-29] MEDS ORDERED: CHOLECALCIFEROL 1000 INTER.UNIT TAB PO SCH (09:00)
[2017-03-29] MEDS ORDERED: GABAPENTIN 600 MG TAB PO SCH ×2 (09:00→21:00)
[2017-03-29] MEDS ORDERED: ALPRAZOLAM 0.25 MG TAB PO SCH (09:00)
[2017-03-29] MEDS ORDERED: FLUOXETINE HCL 10 MG CAP PO SCH (09:00)
[2017-03-29] MEDS ORDERED: PANTOprazole SOD 40 MG TAB PO SCH (09:00)
[2017-03-29] MEDS ORDERED: FLUOXETINE HCL 20 MG CAP PO SCH (09:00)
[2017-03-29] MEDS ORDERED: CARVEDILOL 3.125 MG TAB PO SCH (09:00)
[2017-03-29] MEDS ORDERED: ENALAPRIL MALEATE 10 MG TAB PO SCH (09:00)
[2017-03-29] MEDS ORDERED: QUINAPRIL HCL 10 MG TAB PO SCH (09:00)
[2017-03-29] MEDS ORDERED: ATORVASTATIN 40 MG TAB PO SCH (09:00)
[2017-03-29] MEDS ORDERED: LEVO1TAB35 PO (11:31)
--- NOTE | 2017-03-29 11:36 | Discharge Instructions ---
Discharge Instructions Date of Service Mar 29, 2017. Admission Reason for Admission: Pneumonia, Weakness Discharge Discharge Diagnosis / Problem: pneumonia - likely from aspiration Discharge Goals Goal(s): Improve disease control, Diagnostic testing, Therapeutic intervention Activity Recommendations Activity Limitations: resume your previous activity . Instructions / Follow-Up Instructions / Follow-Up pneumonia -fortunately the pneumonia itself is getting better quickly - so it doesn't appear that getting you through this particular illness will be a problem. we' ll simply have you take levaquin (the antibiotic) once a day for five more days (next dose tomorrow, 03/30) -the bigger picture is preventing future ones. it appears most likely that aspiration events are leading to the pneumonias. aspiration events are when food goes "down the wrong pipe" and ends up in your lungs instead of your stomach. we'll set up a referral for speech therapy (swallowing experts) to continue to work with you to minimize that risk. 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 we'll look at this as a multi-step process though to try to keep you from ending up on a bunch of medications if simple therapy and coaching helps correct the problem. -in addition to the therapy, actually being "obsessive" about oral hygiene can reduce how often you get a pneumonia - it doesn't change how often food goes "down the wrong pipe" but it can change how many bacteria end up in your lungs. brush/floss at least twice a day, and use a mouthwash at least twice a day as well to help cut down the bacteria risk -levaquin is usually really well tolerated, but in very rare instances it can increase risk of tendonitis or even tendon rupture/tear -- so for the next month or so, avoid heavy lifting, repetitive lifting, etc Current Hospital Diet Patient's current hospital diet: AHA Diet (Heart Healthy) Discharge Diet Recommended Diet: AHA Diet (Heart Healthy) Pending Studies Studies pending at discharge: no Laboratory Results Hemoglobin A1c Test 12/28/16 05:21 Range/Units Estimated Average Glucose 120 mg/dl Hemoglobin A1c 5.8 H 4.5-5.6 % Medical Emergencies . Who to Call and When: Medical Emergencies: If at any time you feel your situation is an emergency, please call 911 immediately. . Non-Emergent Contact Non-Emergency issues call your: Primary Care Provider . . "Provider Documentation" section prepared by Vipul Ramon. . VTE Core Measure Inpt VTE Proph given/why not?: SCD's
[2017-03-29] MEDS ORDERED: LEVOFLOXACIN 750 MG TAB PO ONE (12:00)
[2017-03-29 12:25] VITALS: BP 134/80; PULSE 62; TEMP 36.4; O2SAT 93
[2017-03-29] MEDS ORDERED: LEVOFLOXACIN / D5W 750 MG in PREMIXED IN D5W 150 ML IV SCH (13:00)
--- NOTE | 2017-03-29 19:11 | Discharge Summary ---
Discharge Summary Date of Service Mar 29, 2017. Discharge Summary Admission Date: Mar 28, 2017 at 15:59 Discharge Date: Mar 29, 2017 Discharge Disposition: Home with services Principal Diagnosis: pneumonia, appearing most c/w aspiration Immunizations: Have You Had Influenza Vaccine: Yes Influenza Vaccine Date: Dec 26, 2011 History of Tetanus Vaccine?: Yes Tetanus Immunization Date: Oct 26, 2009 History of Pneumococcal: Yes Pneumococcal Date: Dec 26, 2011 History of Hepatitis B Vaccine: No Procedures: CHEST ONE VIEW PORTABLE CLINICAL HISTORY: EVALUATE WEAKNESS mental status change COMPARISON STUDY: 01/03/2017 FINDINGS: Moderate stable cardiomegaly. Small parenchymal infiltrate left lung base. Slight accentuation right basilar peripheral markings. Tortuosity thoracic aorta unchanged. Pre-existing left scapular fracture IMPRESSION: 1. Small parenchymal infiltrate possibly combined with a small left basilar joint effusion. 2. Moderate stable cardiomegaly. 3. Pre-existing left scapular fracture Last Resulted CBC 03/29/17 05:17 Red Blood Count 3.80, Mean Corpuscular Volume 93.2, Mean Corpuscular Hemoglobin 32.6, Mean Corpuscular Hemoglobin Concent 35.0, Mean Platelet Volume 9.4, Neutrophils (%) (Auto) 73.7, Lymphocytes (%) (Auto) 15.7, Monocytes (%) (Auto) 7.1, Eosinophils (%) (Auto) 3.2, Basophils (%) (Auto) 0.0, Neutrophils # (Auto) 5.67, Lymphocytes # (Auto) 1.21, Monocytes # (Auto) 0.55, Eosinophils # (Auto) 0.25, Basophils # (Auto) 0.00 Last Resulted BMP 03/29/17 05:17 Medication Reconciliation New Medications: Levofloxacin (Levaquin) 750 Mg Tab 750 MG PO DAILY, #5 TAB next dose 03/30 Continued Medications: Alprazolam (Xanax) 0.5 Mg Tab 0.75 MG PO DAILY, 0 Refills Atorvastatin (Lipitor) 40 Mg Tab 40 MG PO DAILY, TAB Carvedilol (Coreg) 6.25 Mg Tab 3.125 MG PO BID, TAB Cholecalciferol (Vitamin D3) 1,000 Unit Tab 1000 INTER.UNIT PO DAILY for 90 Days, TAB 3 Refills Clopidogrel (Plavix) 75 Mg Tab 75 MG PO DAILY, TAB Esomeprazole Magnesium (Nexium) 40 Mg Cap 40 MG PO DAILY, CAP Fluoxetine (Prozac) 10 Mg Cap 10 MG PO DAILY, CAP TAKE ALONG WITH 20MG TAB. TOTAL DOSE 30MG DAILY Fluoxetine (Prozac) 20 Mg Cap 20 MG PO DAILY, CAP TAKE ALONG WITH 10MG TAB. TOTAL DOSE 30MG DAILY Gabapentin (Neurontin) 600 Mg Tab 600 MG PO BID, TAB MORNING & AFTERNOON Gabapentin (Neurontin) 600 Mg Tab 1200 MG PO HS, TAB Levothyroxine Sodium (Levothyroxine Sodium) 50 Mcg Tab 50 MCG PO DAILY for 90 Days, #90 TAB 3 Refills Mometasone Furoate (Nasal) (Mometasone Furoate) 50 Mcg/Act Spr 2 SPRAYS SHELLIE DAILY Nitroglycerin (Nitrostat) 0.4 Mg Tab 0.4 MG UT PRN, 0 Refills Quetiapine Fumarate (Seroquel) 200 Mg Tab 200 MG PO HS, TAB TAKE ALONG WITH 50MG TAB. TOTAL DOSE 250MG Quetiapine Fumarate (Seroquel) 50 Mg Tab 50 MG PO HS, TAB TAKE ALONG WITH 200MG TAB. 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 Discharge Instructions Please refer to the electronic Patient Visit Report (Discharge Instructions) for additional information. Additional Copies To Luis Manuel Pham M.D.
[2017-03-29] MEDS ORDERED: ROPINIROLE HCL 1 MG TAB PO SCH (21:00)
[2017-03-29] MEDS ORDERED: TRAZODONE HCL 100 MG TAB PO SCH (21:00)
== END 2017-03-29 13:00 | disposition home or self-care (01) ==
LOC: EDBD 12:18 → C.EDB 12:19 → C.MED 15:59 → EDBEDREQ 16:02 → ENRESERV 16:08
PROVIDERS: ADMIT Internal Medicine; ATTEND Family Medicine
DX: J69.0 Pneumonitis due to inhalation of food and vomit (principal); I25.2 Old myocardial infarction; I10 Essential (primary) hypertension; E11.9 Type 2 diabetes mellitus without complications; G25.81 Restless legs syndrome; Z86.73 Personal history of transient ischemic attack (TIA), and cerebral infarction without residual deficits; Z87.891 Personal history of nicotine dependence; Z79.02 Long term (current) use of antithrombotics/antiplatelets; Z79.899 Other long term (current) drug therapy; H54.8 Legal blindness, as defined in USA

== ENCOUNTER 2017-05-14 07:23 | Observation (INO) | payer OTHER ==
[2017-05-14] VITALS (7 sets, daily range): BP systolic 91–125; BP diastolic 57–68; PULSE 50–88; TEMP 36.1–37; O2SAT 91–94; Ht 162.6 cm; Wt 73.2 kg
[~2017-05-14] VITALS: Ht 162.6 cm; Wt 73.2 kg
[~2017-05-14 07:23] MED LIST changes: -AMOX875T PO; -GFNSR600 PO; -HYDR-5688 PO; +LEVO1TAB35 PO; +NXM/40 PO; -PRED10TA PO; -SYMIN/8045 INH
[2017-05-14] MEDS ORDERED: SODIUM CHLORIDE 0.9% 1000ML 1,000 ML IV STA (07:38)
[2017-05-14] MEDS ORDERED: ACETAMINOPHEN 325 MG TAB PO STA (07:43)
--- NOTE | 2017-05-14 07:48 | EMERGENCY ROOM VISIT NOTE ---
History Report prepared by Aidan: Meliton White Under the Supervision of: Dr. Luis Carlos Roblero M.D. First contact with patient: 07:29 Chief Complaint: ILLNESS Stated Complaint: ILLNESS History of Present Illness The patient is a 71 year old male who presents to the Emergency Room by EMS with complaints of persistent generalized illness beginning a few days ago. His symptoms include cough, and subjective fevers. Per , the patient has a history of frequent aspiration, and has had pneumonia several times. She states that the patient has been a bit confused recently as well. She states that the patient was complaining of chest pain with coughing yesterday. The patient has a history of CA and CVA. He denies SOB, current chest pain, headache, abdominal pain, or back pain. He does not wear supplemental oxygen at home. The patient is on Plavix. He had a flu-shot this year. Source of History: patient, spouse/significant other () Onset: A few days ago Position: other (generalized) Quality: other (illness) Timing: other (persistent) Associated Symptoms: + fevers (subjective), + cough, + chest pain (with coughing. Currently denies pain. ), No headache, No SOB, No abdominal pain, No back pain Note: Additional symptoms: confusion. Review of Systems See HPI for pertinent positives & negatives. A total of 10 systems reviewed and were otherwise negative. Past Medical & Surgical Medical Problems: (1) Acute myocardial infarction (2) Acute respiratory failure with hypoxia (3) Benign hypertension (4) Cholecystectomy (5) Diabetes mellitus (6) Gastric ulcer (7) Heart disease (8) Influenza A (9) Ischemic stroke (10) legally blind (11) Myocardial infarction (12) Pneumonia (13) Restless legs (14) Small bowel obstruction (15) stroke (16) Weakness Old medical records were reviewed. Nurse's notes were reviewed and I agree with. Family History Unobtainable family history due to adoption Social History Smoking Status: Never Smoker Alcohol Use: none Drug Use: none Marital Status: in relationship Housing Status: lives with family Occupation Status: retired Current/Historical Medications Scheduled Alprazolam (Xanax), 0.75 MG PO HS Atorvastatin (Lipitor), 40 MG PO DAILY Budesonide/Formoterol Fumarate (Symbicort 80/4.5 Inhaler), 2 PUFFS INH BID Carvedilol (Coreg), 3.125 MG PO BID Cholecalciferol (Vitamin D3), 1,000 INTER.UNIT PO DAILY Clopidogrel (Plavix), 75 MG PO DAILY Cyanocobalamin (Vitamin B12), 1,000 MCG PO DAILY Esomeprazole Magnesium (Nexium), 40 MG PO DAILY Fluoxetine (Prozac), 10 MG PO DAILY Fluoxetine (Prozac), 20 MG PO DAILY Gabapentin (Neurontin), 600 MG PO BID Gabapentin (Neurontin), 1,200 MG PO HS Levothyroxine Sodium (Levothyroxine Sodium), 50 MCG PO DAILY Mometasone Furoate (Nasal) (Mometasone Furoate), 2 SPRAYS SHELLIE DAILY Nitroglycerin (Nitrostat), 0.4 MG UT PRN Quetiapine Fumarate (Seroquel), 200 MG PO HS Quetiapine Fumarate (Seroquel), 50 MG PO HS Quinapril Hcl (Accupril), 10 MG PO DAILY Ramelteon (Rozerem), 8 MG PO HS Ropinirole (Requip), 4 MG PO HS Trazodone Hcl (Trazodone), 200 MG PO HS Allergies Coded Allergies: Heparin (Verified Allergy, Severe, SEVERE REACTION, 05/14/17) Physical Exam Vital Signs Date Time Temp Pulse Resp B/P (MAP) Pulse Ox O2 Delivery O2 Flow Rate FiO2 05/14/17 09:38 36.8 58 22 102/63 93 Nasal Cannula 2.0 05/14/17 09:30 37.0 54 18 107/65 93 Room Air 05/14/17 07:37 77 05/14/17 07:34 Nasal Cannula 2.0 05/14/17 07:32 38.1 77 26 127/81 87 Room Air Physical Exam General: Mildly-ill appearing older male in no acute distress. Intermittent hacky cough. HEENT: Normal cephalic atraumatic. Pupils are equal round and reactive to light. Extraocular movements are intact. Oropharynx is pink with moist mucous membranes. No swelling of the mouth lips or tongue. Neck: Supple with a midline trachea. No meningeal signs or stiffness, no JVD or bruits. No Stridor. Chest: Rhonchi in the bilateral lung bases. Heart: regular rate and rhythm. Abdomen: Soft nontender, nondistended without rebound guarding or rigidity. Extremities: No cyanosis clubbing or edema. No calf tenderness or assymetry Spine/Back. Non tender to palpation. No CVA tenderness Skin: Good turgor without rashes. Neurologic exam: Awake, and oriented to person and place, but not date. Cranial nerves two through 12 are intact. Motor and sensation are intact and symmetrical throughout. Medical Decision & Procedures ER Provider Diagnostic Interpretation: Radiology results as stated below per my review and radiologist interpretation: CHEST ONE VIEW PORTABLE FINDINGS: Healing left scapular fracture is again noted. No pneumothorax. No pleural effusions. The heart remains enlarged. Mild pulmonary vascular congestion without overt edema. This has improved. No new focal lung consolidations to suggest pneumonia. IMPRESSION: Stable cardiomegaly with improvement in the mild pulmonary vascular congestion. Electronically signed by: Lam Rivera M.D. 05/14/2017 8:27 AM Laboratory Results 05/14/17 07:35 Red Blood Count 4.25, Mean Corpuscular Volume 91.1, Mean Corpuscular Hemoglobin 32.5, Mean Corpuscular Hemoglobin Concent 35.7, Mean Platelet Volume 9.7, Neutrophils (%) (Auto) 76.8, Lymphocytes (%) (Auto) 10.1, Monocytes (%) (Auto) 12.6, Eosinophils (%) (Auto) 0.3, Basophils (%) (Auto) 0.1, Neutrophils # (Auto ) 5.62, Lymphocytes # (Auto) 0.74, Monocytes # (Auto) 0.92, Eosinophils # (Auto ) 0.02, Basophils # (Auto) 0.01 05/14/17 07:35 Test 05/14/17 07:29 05/14/17 07:35 05/14/17 07:53 Influenza Type A Antigen POS for Influ A (NEG) Influenza Type B Antigen Neg for Influ B (NEG) White Blood Count 7.32 K/uL (4.8-10.8) Red Blood Count 4.25 M/uL (4.7-6.1) Hemoglobin 13.8 g/dL (14.0-18.0) Hematocrit 38.7 % (42-52) Mean Corpuscular Volume 91.1 fL (80-100) Mean Corpuscular Hemoglobin 32.5 pg (25-34) Mean Corpuscular Hemoglobin Concent 35.7 g/dl (32-36) Platelet Count 111 K/uL (130-400) Mean Platelet Volume 9.7 fL (7.4-10.4) Neutrophils (%) (Auto) 76.8 % Lymphocytes (%) (Auto) 10.1 % Monocytes (%) (Auto) 12.6 % Eosinophils (%) (Auto) 0.3 % Basophils (%) (Auto) 0.1 % Neutrophils # (Auto) 5.62 K/uL (1.4-6.5) Lymphocytes # (Auto) 0.74 K/uL (1.2-3.4) Monocytes # (Auto) 0.92 K/uL (0.11-0.59) Eosinophils # (Auto) 0.02 K/uL (0-0.5) Basophils # (Auto) 0.01 K/uL (0-0.2) RDW Standard Deviation 42.1 fL (36.4-46.3) RDW Coefficient of Variation 12.7 % (11.5-14.5) Immature Granulocyte % (Auto) 0.1 % Immature Granulocyte # (Auto) 0.01 K/uL (0.00-0.02) Prothrombin Time 11.0 SECONDS (9.0-12.0) Prothromb Time International Ratio 1.0 (0.9-1.1) Activated Partial Thromboplast Time 29.6 SECONDS (21.0-31.0) Partial Thromboplastin Ratio 1.1 Anion Gap 9.0 mmol/L (3-11) Est Creatinine Clear Calc Drug Dose 58.4 ml/min Estimated GFR () 77.3 Estimated GFR (Non- 66.7 BUN/Creatinine Ratio 9.4 (10-20) Estimated Average Glucose 111 mg/dl Hemoglobin A1c 5.5 % (4.5-5.6) Calcium Level 8.3 mg/dl (8.5-10.1) Total Bilirubin 0.6 mg/dl (0.2-1) Aspartate Amino Transf (AST/SGOT) 32 U/L (15-37) Alanine Aminotransferase (ALT/SGPT) 33 U/L (12-78) Alkaline Phosphatase 71 U/L (45-117) Troponin I < 0.015 ng/ml (0-0.045) Total Protein 6.5 gm/dl (6.4-8.2) Albumin 3.4 gm/dl (3.4-5.0) Globulin 3.1 gm/dl (2.5-4.0) Albumin/Globulin Ratio 1.1 (0.9-2) Bedside Lactic Acid Venous 1.69 mmol/L (0.90-1.70) Laboratory studies as stated above per my review. Medications Administered Medications (Trade) Dose Ordered Sig/Shelby Route Start Time Stop Time Status Last Admin Dose Admin Sodium Chloride 1,000 ml @ 999 mls/hr Q1H1M STAT IV 05/14/17 07:38 05/14/17 08:38 DC 05/14/17 07:42 999 MLS/HR Acetaminophen (Tylenol Tab) 650 mg NOW STAT PO 05/14/17 07:43 05/14/17 07:44 DC 05/14/17 07:50 650 MG Oseltamivir Phosphate (Tamiflu Cap) 75 mg NOW STAT PO 05/14/17 08:32 05/14/17 08:33 DC 05/14/17 08:37 75 MG Prednisone (PredniSONE TAB) 40 mg 1009 ONCE PO 05/14/17 10:09 05/14/17 10:40 DC 05/14/17 14:40 40 MG ECG Indication: altered mental status Rate (beats per minute): 75 Rhythm: normal sinus Findings: no acute ischemic change, other (Low voltage. Poor R-wave progression. Old inferior infarct. ) Comparison ECG Date: March 28, 2014 Change: no significant change ED Course 0730: Past medical records reviewed. The patient was evaluated in room B5, and a complete history and physical examination were performed. 0738: Ordered Sodium Chloride 1000 ml @ 999 mls/hr IV. 0743: Ordered Tylenol Tab 650 mg PO. 0815: I reassessed the patient. He is resting comfortably. 0832: Ordered Tamiflu Cap 75 mg PO. 0850: Upon reevaluation, the patient is resting comfortably. I discussed the results and treatment plan with the patient. He verbalized agreement of the treatment plan. The patient will be evaluated for further management. Medical Decision Differentials include, but are not limited to; pneumonia, influenza, aspiration pneumonia, cardiac disease, sepsis, and electrolyte or metabolic abnormality. This patient comes in as described above. He has a history of pneumonia/ aspiration. He comes in after having a cough and fever. He was found to be hypoxemic and was placed on oxygen. He feels that he's been keeping up with his fluids. He denies chest pain now but has had chest pain with coughing. He has no other flulike symptoms. He did have a flu shot this year. I reviewed his records any does tend to get admitted for pneumonia. IV access established blood work was obtained including blood cultures and lactic acid. EKG and chest x-ray were obtained. He was given by mouth Tylenol as well. His white count and lactic acid are not significant elevated. Chest x-ray does not show any focal infiltrates or CHF acutely. His influenza did come back positive. He has no significant electrolyte or metabolic abnormalities. Given his chronic problems including pulmonary issues as well as his hypoxemia here influenza, I do think he needs to be admitted/observed for further treatment and evaluation. He was given Tamiflu here as well as IV fluids. I have consulted with the [facility] physician and he was admitted for these measures. Medication Reconcilliation Current Medication List: was personally reviewed by me Blood Pressure Screening Patient's blood pressure: Normal blood pressure Blood pressure disposition: Did not require urgent referral Consults Time Called: [phone] Consulting Physician: Dr. Natalie Wright [facility] [place] Returned Call: [phone] Discussed the patient's case. The patient will be evaluated for further management. Impression Primary Impression: Influenza Additional Impression: Hypoxemia Scribe Attestation The scribe's documentation has been prepared under my direction and personally reviewed by me in its entirety. I confirm that the note above accurately reflects all work, treatment, procedures, and medical decision making performed by me. Departure Information Dispostion Being Evaluated By Hospitalist Referrals Luis Manuel Pham M.D. (PCP) Patient Instructions [facility] Problem Qualifiers
[2017-05-14 08:07] LABS: BASO % 0.1 %; BASO ABS # 0.01 K/uL (0-0.2); EOS % 0.3 %; EOS ABS # 0.02 K/uL (0-0.5); HEMATOCRIT 38.7 % (42-52); HEMOGLOBIN 13.8 g/dL (14.0-18.0); IG# 0.01 K/uL (0.00-0.02); LYMPH % 10.1 %; LYMPH ABS # 0.74 K/uL (1.2-3.4); MEAN CELL VOLUME 91.1 fL (80-100); MEAN CORPUSCULAR HEMOGLOBIN 32.5 pg (25-34); MEAN CORPUSCULAR HGB CONC 35.7 g/dl (32-36); MEAN PLATELET VOLUME 9.7 fL (7.4-10.4); MONO % 12.6 %; MONO ABS # 0.92 K/uL (0.11-0.59); NEUT % 76.8 %; NEUT ABS # 5.62 K/uL (1.4-6.5); PLATELET COUNT 111 K/uL (130-400); RED CELL DISTRIBUTION WIDTH CV 12.7 % (11.5-14.5); RED CELL DISTRIBUTION WIDTH SD 42.1 fL (36.4-46.3); WHITE BLOOD COUNT 7.32 K/uL (4.8-10.8)
[2017-05-14 08:15] LABS: ALBUMIN 3.4 gm/dl (3.4-5.0); CALCIUM 8.3 mg/dl (8.5-10.1); CREATININE 1.12 mg/dl (0.60-1.40)
[2017-05-14] MEDS ORDERED: SYMIN/8045 INH (08:15)
[2017-05-14] MEDS ORDERED: CYAN100020 PO (08:15)
[2017-05-14 08:17] LABS: PTT PATIENT 29.6 SECONDS (21.0-31.0)
[2017-05-14 08:18] LABS: TOTAL PROTEIN 6.5 gm/dl (6.4-8.2)
[2017-05-14 08:23] LABS: INFLUENZA B ANTIGEN Neg for Influ B (NEG)
--- NOTE | 2017-05-14 08:29 | DIAGNOSTIC IMAGING REPORT ---
CHEST ONE VIEW PORTABLE HISTORY: Sepsis COMPARISON: Chest 03/28/2017. FINDINGS: Healing left scapular fracture is again noted. No pneumothorax. No pleural effusions. The heart remains enlarged. Mild pulmonary vascular congestion without overt edema. This has improved. No new focal lung consolidations to suggest pneumonia. IMPRESSION: Stable cardiomegaly with improvement in the mild pulmonary vascular congestion. Electronically signed by: Lam Rivera M.D. 05/14/2017 8:27 AM Dictated Date/Time: 05/14/2017 8:11 AM
[2017-05-14] MEDS ORDERED: OSELTAMIVIR PHOSPHATE 75 MG CAP PO STA (08:32)
[2017-05-14] MEDS ORDERED: ALUMINUM/MAGNESIUM/SIMETH (MAALOX MAX) 30 ML UDC PO PRN (10:15)
[2017-05-14] MEDS ORDERED: MAGNESIUM HYDROXIDE SUSP 30 ML UDC PO PRN (10:15)
[2017-05-14] MEDS ORDERED: ONDANSETRON INJ 2 MG/ML 2 ML VIAL IV PRN (10:15)
[2017-05-14] MEDS ORDERED: ACETAMINOPHEN 325 MG TAB PO PRN (10:15)
[2017-05-14] MEDS ORDERED: POLYETHYLENE (MIRALAX) 17 GM PACK PO PRN (10:15)
[2017-05-14] MEDS ORDERED: ALBUT/IPRATROP 3MG/0.5MG NEB 3 ML VIAL INH PRN (10:45)
--- NOTE | 2017-05-14 10:51 | History and Physical ---
History & Physical Date & Time of Service: May 14, 2017 at 10:25 Chief Complaint: Illness Primary Care Physician: Luis Manuel Pham M.D. History of Present Illness Source: patient, partner, clinic records, hospital records This is a 71 y/o male with a history of CAD, HTN, HLD, h/o [place] and CVA, restrictive lung disease, prediabetes, hypothyroidism, RLS, atypical face pain, insomnia and anxiety who presented to the ED on 05/14 with productive cough and fevers. The patient states that he developed a productive cough about 2 days ago, along with fevers, chills and sweats. He denies any shortness of breath but does report intermittent wheezing, especially at night. He has not had much appetite and feels generally weak and fatigued. He did vomit a few times yesterday but denies any vomiting today or nausea currently. Per significant other, the patient had been complaining of chest pain while coughing, but he denies any pain currently. The patient denies palpitations, claudication, shortness of breath, abdominal pain, dysuria, hematuria, urinary retention, paralysis, motor weakness, numbness and tingling. Past Medical/Surgical History Medical Problems: (1) Acute myocardial infarction Status: Resolved (2) Benign hypertension Status: Chronic (3) Cholecystectomy Status: Resolved (4) Prediabetes Status: Chronic (5) Heart disease Status: Chronic (6) Ischemic stroke Status: Resolved (7) legally blind Status: Chronic (8) Myocardial infarction Status: Resolved (9) Pneumonia Status: Resolved (10) Restless legs Status: Chronic (11) Small bowel obstruction Status: Resolved (12) stroke Status: Resolved Restrictive lung disease Hypothyroidism Atypical face pain Insomnia Anxiety Family History Unobtainable family history due to adoption Social History Smoking Status: Former Smoker (quit about 25 years ago following [place]) Smokeless Tobacco Use: No Alcohol Use: none (quit 31 years ago) Drug Use: none Marital Status: in relationship Housing status: lives with significant other Occupational Status: retired Immunizations History of Influenza Vaccine: Yes Influenza Vaccine Date: Dec 26, 2011 History of Tetanus Vaccine?: Yes Tetanus Immunization Date: Oct 26, 2009 History of Pneumococcal: Yes Pneumococcal Date: Dec 26, 2011 History of Hepatitis B Vaccine: No Multi-Drug Resistant Organisms History of MDRO: No Allergies Coded Allergies: Heparin (Verified Allergy, Severe, SEVERE REACTION, 05/14/17) Home Medications Scheduled Alprazolam (Xanax), 0.75 MG PO HS Atorvastatin (Lipitor), 40 MG PO DAILY Budesonide/Formoterol Fumarate (Symbicort 80/4.5 Inhaler), 2 PUFFS INH BID Carvedilol (Coreg), 3.125 MG PO BID Cholecalciferol (Vitamin D3), 1,000 INTER.UNIT PO DAILY Clopidogrel (Plavix), 75 MG PO DAILY Cyanocobalamin (Vitamin B12), 1,000 MCG PO DAILY Esomeprazole Magnesium (Nexium), 40 MG PO DAILY Fluoxetine (Prozac), 10 MG PO DAILY Fluoxetine (Prozac), 20 MG PO DAILY Gabapentin (Neurontin), 600 MG PO BID Gabapentin (Neurontin), 1,200 MG PO HS Levothyroxine Sodium (Levothyroxine Sodium), 50 MCG PO DAILY Mometasone Furoate (Nasal) (Mometasone Furoate), 2 SPRAYS SHELLIE DAILY Nitroglycerin (Nitrostat), 0.4 MG UT PRN Oseltamivir Phosphate (Tamiflu), 75 MG PO BID Prednisone (Prednisone), 20 MG PO UD Quetiapine Fumarate (Seroquel), 200 MG PO HS Quetiapine Fumarate (Seroquel), 50 MG PO HS Quinapril Hcl (Accupril), 10 MG PO DAILY Ramelteon (Rozerem), 8 MG PO HS Ropinirole (Requip), 4 MG PO HS Trazodone Hcl (Trazodone), 200 MG PO HS Review of Systems Constitutional: +Fever, chills, sweats, generalizes weakness, fatigue Eyes: No worsening of vision, No eye pain, No diplopia ENT: No hearing loss, No nasal symptoms, No trouble swallowing Respiratory: +Cough, wheezing. No shortness of breath Cardiovascular: +Chest pain with coughing. No claudication, No palpitations Abdomen: +Nausea, vomiting. No pain Musculoskeletal: No joint pain, No muscle pain, No swelling Genitourinary - Male: No dysuria, No urinary retention, No hematuria Neurologic: No paralysis, No weakness, No numbness/tingling Integumentary: No rash, No itch, No color change Physical Exam Vital Signs Date Time Temp Pulse Resp B/P (MAP) Pulse Ox O2 Delivery O2 Flow Rate FiO2 05/14/17 09:38 36.8 58 22 102/63 93 Nasal Cannula 2.0 05/14/17 09:30 93 Nasal Cannula 2.0 05/14/17 07:37 77 05/14/17 07:34 Nasal Cannula 2.0 05/14/17 07:32 38.1 77 26 127/81 87 Room Air General appearance: +Fatigued. Well-developed, well-nourished, no apparent distress Head: Normocephalic, atraumatic Eyes: Normal inspection, PERRL, EOMI ENT: Normal ENT inspection, hearing grossly normal, pharynx normal Neck: Supple, no JVD, trachea midline Respiratory/Chest: +Decreased breath sounds, tight. Lungs clear to auscultation, no respiratory distress Cardiovascular: Regular rate & rhythm, no gallop, no murmur Abdomen/GI: Normal bowel sounds, non-tender, soft Extremities/Musculoskeletal: Normal inspection, no calf tenderness, no pedal edema Neurological/Psych: +Disoriented to time. Alert, normal mood/affect, oriented x 2 Skin: Normal color, warm/dry, no rash Diagnostics Laboratory Results Results Past 24 Hours Test 05/14/17 07:29 05/14/17 07:35 05/14/17 07:53 Range/Units Influenza Type A Antigen POS for Influ A NEG Influenza Type B Antigen Neg for Influ B NEG White Blood Count 7.32 4.8-10.8 K/uL Red Blood Count 4.25 4.7-6.1 M/uL Hemoglobin 13.8 14.0-18.0 g/dL Hematocrit 38.7 42-52 % Mean Corpuscular Volume 91.1 80-100 fL Mean Corpuscular Hemoglobin 32.5 25-34 pg Mean Corpuscular Hemoglobin Concent 35.7 32-36 g/dl Platelet Count 111 130-400 K/uL Mean Platelet Volume 9.7 7.4-10.4 fL Neutrophils (%) (Auto) 76.8 % Lymphocytes (%) (Auto) 10.1 % Monocytes (%) (Auto) 12.6 % Eosinophils (%) (Auto) 0.3 % Basophils (%) (Auto) 0.1 % Neutrophils # (Auto) 5.62 1.4-6.5 K/uL Lymphocytes # (Auto) 0.74 1.2-3.4 K/uL Monocytes # (Auto) 0.92 0.11-0.59 K/uL Eosinophils # (Auto) 0.02 0-0.5 K/uL Basophils # (Auto) 0.01 0-0.2 K/uL RDW Standard Deviation 42.1 36.4-46.3 fL RDW Coefficient of Variation 12.7 11.5-14.5 % Immature Granulocyte % (Auto) 0.1 % Immature Granulocyte # (Auto) 0.01 0.00-0.02 K/uL Prothrombin Time 11.0 9.0-12.0 SECONDS Prothromb Time International Ratio 1.0 0.9-1.1 Activated Partial Thromboplast Time 29.6 21.0-31.0 SECONDS Partial Thromboplastin Ratio 1.1 Sodium Level 136 136-145 mmol/L Potassium Level 4.0 3.5-5.1 mmol/L Chloride Level 103 98-107 mmol/L Carbon Dioxide Level 24 21-32 mmol/L Anion Gap 9.0 3-11 mmol/L Blood Urea Nitrogen 11 7-18 mg/dl Creatinine 1.12 0.60-1.40 mg/dl Est Creatinine Clear Calc Drug Dose 58.4 ml/min Estimated GFR () 77.3 Estimated GFR (Non- 66.7 BUN/Creatinine Ratio 9.4 10-20 Random Glucose 110 70-99 mg/dl Calcium Level 8.3 8.5-10.1 mg/dl Total Bilirubin 0.6 0.2-1 mg/dl Aspartate Amino Transf (AST/SGOT) 32 15-37 U/L Alanine Aminotransferase (ALT/SGPT) 33 12-78 U/L Alkaline Phosphatase 71 45-117 U/L Total Protein 6.5 6.4-8.2 gm/dl Albumin 3.4 3.4-5.0 gm/dl Globulin 3.1 2.5-4.0 gm/dl Albumin/Globulin Ratio 1.1 0.9-2 Bedside Lactic Acid Venous 1.69 0.90-1.70 mmol/L Microbiology Results 05/14/17 Blood Culture, Received Pending 05/14/17 Blood Culture, Received Pending Diagnostic Radiology Reviewed the following studies and agree with interpretation as follows: CHEST ONE VIEW PORTABLE HISTORY: Sepsis COMPARISON: Chest 03/28/2017. FINDINGS: Healing left scapular fracture is again noted. No pneumothorax. No pleural effusions. The heart remains enlarged. Mild pulmonary vascular congestion without overt edema. This has improved. No new focal lung consolidations to suggest pneumonia. IMPRESSION: Stable cardiomegaly with improvement in the mild pulmonary vascular congestion. EKG Reviewed EKG and agree with interpretation as follows: 75 bpm, NSR, non-specific T wave abnormality in anterior leads Impression Assessment and Plan 71 y/o male with a history of CAD, HTN, HLD, h/o [place] and CVA, restrictive lung disease, prediabetes, hypothyroidism, RLS, atypical face pain, insomnia and anxiety who presented to the ED on 05/14 with productive cough and fevers. Pt febrile on arrival to ED with temp of 38.1C, did resolve with Tylenol. Tachypneic with RR of 26, hypoxic with O2 sat 87% on room air. Now 93% on 2L NC. Does not wear oxygen at home. HR and BP stable. CXR without pneumonia, shows improving pulmonary vascular congestion. EKG no acute ischemic changes. Influenza A positive. No leukocytosis. Labs grossly unremarkable. Acute respiratory failure w/hypoxia secondary to influenza A -Admit to med/surg for observation -Tamiflu 75 mg PO BID. First dose given in ED -DuoNebs QIDR and q2h prn SOB/wheezing -Prednisone 40 mg PO qd -Tylenol prn fever, Zofran prn nausea -O2 by protocol. Currently on 2L NC, does not wear oxygen at home CAD, HTN, HLD, h/o [place], h/o CVA--stable. Per pt, had [place] about 25 years ago, started on heparin drip and had allergic reaction causing a stroke later that day -Continue Coreg 3.125 mg PO BID, Plavix, quinapril 10 mg PO qd (in stock per pharmacy), and Lipitor 40 mg PO hs Restrictive lung disease -Had been on Symbicort but has not taken in a few months per pt. Will resume Symbicort BID now and nebs as above Prediabetes--last HgbA1c 5.8 on 12/28/16 -Sugars currently acceptable but will be started on steroids, likely to increase -Insulin sliding scale -Check BSGs q ac and qhs -Recheck HgbA1c Hypothyroidism -TSH WNL 03/28/17 -Continue Synthroid 50 mcg PO qd RLS -Continue Requip 4 mg PO hs Atypical face pain -Continue gabapentin 600 mg PO q morning and afternoon, 1200 mg PO hs Insomnia, anxiety -Continue Xanax 0.75 mg PO hs, Seroquel 250 mg PO hs, Rozerem 8 mg PO hs, trazodone 200 mg PO hs, and fluoxetine 30 mg PO qd DVT prophylaxis -Will avoid chemical prophylaxis due to h/o severe reaction to heparin -SONDRA sloan and SCDs Code Status -Level I, FULL RESUSCITATION STATUS Level of Care Med/Surg Advanced Directives Existing Living Will: No Existing Power of Founder And President: Yes Resuscitation Status FULL RESUSCITATION VTE Prophylaxis VTE Risk Assessment Done? Y/N: Yes Risk Level: Moderate Given or contraindicated: Radha Ramirez, SCD's Note Supervising Note Dr. Estrada I performed a history and physical examination on the patient. I reviewed above note and agree with it. I discussed plan with APC and patient. During my face to face encounter with the patient, I answered all of the patient's questions.
[2017-05-14] MEDS ORDERED: DEXTROSE 50% 50 ML SYR IV PRN (11:00)
[2017-05-14] MEDS ORDERED: GLUCOSE 40% GEL 15 GM TUBE PO PRN (11:00)
[2017-05-14] MEDS ORDERED: GLUCAGON FOR INJ 1 MG VIAL SQ PRN (11:00)
[2017-05-14] MEDS ORDERED: GLUCOSE 10 TABS/TUBE PO PRN (11:00)
[2017-05-14] MEDS ORDERED: IV FLUIDS COMPLETED PRN (11:15)
[2017-05-14 11:26] LABS: HEMOGLOBIN A1C 5.5 % (4.5-5.6)
[2017-05-14] MEDS: ALBUT/IPRATROP 3MG/0.5MG NEB 3 ML VIAL INH SCH ×2 (16:13→20:00)
[2017-05-14] MEDS: INSULIN ASPART 100 UNITS/ML 3 ML PEN SC SCH ×2 (16:30→22:00)
[2017-05-14] MEDS: GABAPENTIN 600 MG TAB PO SCH (17:30)
[2017-05-14] MEDS ORDERED: QUETIAPINE FUMARATE 25 MG TAB PO SCH (21:00)
[2017-05-14] MEDS ORDERED: ALPRAZOLAM 0.5 MG TAB PO SCH (21:00)
[2017-05-14] MEDS ORDERED: TRAZODONE HCL 100 MG TAB PO SCH (21:00)
[2017-05-14] MEDS ORDERED: RAMELTEON 8 MG PO SCH (21:00)
[2017-05-14] MEDS ORDERED: ROPINIROLE HCL 1 MG TAB PO SCH (21:00)
[2017-05-14] MEDS ORDERED: GABAPENTIN 600 MG TAB PO SCH ×2 (21:00)
[2017-05-14] MEDS ORDERED: ATORVASTATIN 20 MG TAB PO SCH (21:00)
[2017-05-14] MEDS ORDERED: QUETIAPINE FUMARATE 200 MG TAB PO SCH (21:00)
[2017-05-14] MEDS: BUDESONIDE/FORMOTEROL FUMARATE 80/4.5 60 PUFFS/INHALER INH SCH (21:56)
[2017-05-14] MEDS: CARVEDILOL 3.125 MG TAB PO SCH (21:58)
[2017-05-14] MEDS: OSELTAMIVIR PHOSPHATE 75 MG CAP PO SCH (21:59)
[2017-05-15] VITALS (7 sets, daily range): BP systolic 104–120; BP diastolic 63–74; PULSE 51–55; TEMP 36.5–36.7; O2SAT 91–96
[2017-05-15 06:08] LABS: HEMATOCRIT 36.3 % (42-52); HEMOGLOBIN 13.1 g/dL (14.0-18.0); MEAN CELL VOLUME 90.5 fL (80-100); MEAN CORPUSCULAR HEMOGLOBIN 32.7 pg (25-34); MEAN CORPUSCULAR HGB CONC 36.1 g/dl (32-36); MEAN PLATELET VOLUME 9.4 fL (7.4-10.4); PLATELET COUNT 110 K/uL (130-400); RED CELL DISTRIBUTION WIDTH CV 12.5 % (11.5-14.5); RED CELL DISTRIBUTION WIDTH SD 41.1 fL (36.4-46.3); WHITE BLOOD COUNT 4.14 K/uL (4.8-10.8)
[2017-05-15] MEDS ORDERED: LEVOTHYROXINE 50 MCG TAB PO SCH (06:30)
[2017-05-15 06:52] LABS: CALCIUM 8.4 mg/dl (8.5-10.1); CREATININE 0.98 mg/dl (0.60-1.40); POTASSIUM 4.2 mmol/L (3.5-5.1)
[2017-05-15] MEDS: ALBUT/IPRATROP 3MG/0.5MG NEB 3 ML VIAL INH SCH ×3 (07:18→15:55)
[2017-05-15] MEDS ORDERED: FLUOXETINE HCL 20 MG CAP PO SCH (08:00)
[2017-05-15] MEDS ORDERED: FLUOXETINE HCL 10 MG CAP PO SCH (08:00)
[2017-05-15] MEDS ORDERED: ENALAPRIL MALEATE 10 MG TAB PO SCH (08:00)
[2017-05-15] MEDS ORDERED: CHOLECALCIFEROL 1000 INTER.UNIT TAB PO SCH (08:00)
[2017-05-15] MEDS ORDERED: PANTOprazole SOD 40 MG TAB PO SCH (08:00)
[2017-05-15] MEDS ORDERED: CLOPIDOGREL BISULFATE 75 MG TAB PO SCH (08:00)
[2017-05-15] MEDS: GABAPENTIN 600 MG TAB PO SCH ×2 (08:34→15:00)
[2017-05-15] MEDS: BUDESONIDE/FORMOTEROL FUMARATE 80/4.5 60 PUFFS/INHALER INH SCH (08:34)
[2017-05-15] MEDS: OSELTAMIVIR PHOSPHATE 75 MG CAP PO SCH (08:35)
[2017-05-15] MEDS: CARVEDILOL 3.125 MG TAB PO SCH (08:36)
[2017-05-15] MEDS: INSULIN ASPART 100 UNITS/ML 3 ML PEN SC SCH ×2 (08:42→12:39)
[2017-05-15] MEDS ORDERED: ATORVASTATIN 20 MG TAB PO SCH (09:00)
[2017-05-15] MEDS ORDERED: TMF75 PO (15:09)
[2017-05-15] MEDS ORDERED: SYMIN/8045 INH (15:09)
[2017-05-15] MEDS ORDERED: PRD20 PO (15:22)
--- NOTE | 2017-05-15 15:25 | Discharge Instructions ---
Discharge Instructions Date of Service May 15, 2017. Admission Reason for Admission: Acute Respiratory Failure With Hypoxia, Influenza Discharge Discharge Diagnosis / Problem: Influenza A, hypoxia Discharge Goals Goal(s): Decrease discomfort, Improve function, Diagnostic testing, Therapeutic intervention Activity Recommendations Activity Limitations: resume your previous activity (as tolerated) . Instructions / Follow-Up Instructions / Follow-Up You were admitted to the hospital for overnight observation after presenting with the flu and hypoxia. You were provided supportive care and Tamiflu, an antiviral medication. You are now feeling better and are no longer requiring oxygen. You were able to ambulate without needing oxygen as well. It may take a week or two until you are fully recovered from the flu, but as you are improving, you are medically stable for discharge. Medications: *Continue taking Tamiflu 75 mg twice a day until used up. First dose is due tonight. *Please take prednisone as follows: -Take 40 mg (2 tablets) tomorrow, then -20 mg (1 tablet) once a day for the next 3 days, then stop *It is recommended that you resume using Symbicort twice a day again. This prescription has been renewed for you. *Continue home medications as prescribed. Follow up: *You have been scheduled to follow up at Dr. Pham's office with Cassie Oconnell PA-C on May 20 at 11:00 am. Please seek medical attention if you experience fevers, chills, sweats, dizziness/lightheadedness, loss of consciousness, chest pain, shortness of breath, nausea, vomiting, numbness or tingling. Current Hospital Diet Patient's current hospital diet: AHA Diet (Heart Healthy), Diabetes Type 2 Diet Discharge Diet Recommended Diet: AHA Diet (Heart Healthy), Diabetes Type 2 Diet Pending Studies Studies pending at discharge: yes List of pending studies: Finalized blood cultures. Preliminary results contaminated by skin Laboratory Results Hemoglobin A1c Test 05/14/17 07:35 Range/Units Estimated Average Glucose 111 mg/dl Hemoglobin A1c 5.5 4.5-5.6 % Medical Emergencies . Who to Call and When: Medical Emergencies: If at any time you feel your situation is an emergency, please call 911 immediately. . Non-Emergent Contact Non-Emergency issues call your: Primary Care Provider Call Non-Emergent contact if: you have a fever, you have any medication questions . Past History Medical & Surgical History: (1) Influenza A (2) Acute respiratory failure with hypoxia . "Provider Documentation" section prepared by Barb Rossi. . VTE Core Measure Inpt VTE Proph given/why not?: T.E.D. Stockings, SCD's, Drug Allergy (heparin allergy)
--- NOTE | 2017-05-15 15:26 | Discharge Summary ---
Discharge Summary Date of Service May 15, 2017. Discharge Summary Admission Date: May 14, 2017 at 10:25 Discharge Date: May 15, 2017 Discharge Disposition: Home Principal Diagnosis: Influenza A, acute respiratory failure with hypoxia Problems/Secondary Diagnoses: CAD, HTN, HLD, h/o [place] and CVA, restrictive lung disease, prediabetes, hypothyroidism, RLS, atypical face pain, insomnia and anxiety Immunizations: Have You Had Influenza Vaccine: Yes Influenza Vaccine Date: Dec 26, 2011 History of Tetanus Vaccine?: Yes Tetanus Immunization Date: Oct 26, 2009 History of Pneumococcal: Yes Pneumococcal Date: Dec 26, 2011 History of Hepatitis B Vaccine: No Procedures: CHEST ONE VIEW PORTABLE HISTORY: Sepsis COMPARISON: Chest 03/28/2017. FINDINGS: Healing left scapular fracture is again noted. No pneumothorax. No pleural effusions. The heart remains enlarged. Mild pulmonary vascular congestion without overt edema. This has improved. No new focal lung consolidations to suggest pneumonia. IMPRESSION: Stable cardiomegaly with improvement in the mild pulmonary vascular congestion. Medication Reconciliation New Medications: Oseltamivir Phosphate (Tamiflu) 75 Mg Cap 75 MG PO BID for 4 Days, #7 CAP Take 1 capsule twice a day until completed. Start evening of 05/15. Prednisone (Prednisone) 20 Mg Tab 20 MG PO UD for 4 Days, #5 TAB Take 40 mg (2 tablets) on 05/16/17, then 20 mg (1 tablet) daily for the next 3 days. Continued Medications: Alprazolam (Xanax) 0.5 Mg Tab 0.75 MG PO HS, 0 Refills Atorvastatin (Lipitor) 40 Mg Tab 40 MG PO DAILY, TAB Budesonide/Formoterol Fumarate (Symbicort 80/4.5 Inhaler) Aero 2 PUFFS INH BID for 30 Days, #120 PUFFS (This prescription has been renewed) Carvedilol (Coreg) 6.25 Mg Tab 3.125 MG PO BID, TAB Cholecalciferol (Vitamin D3) 1,000 Unit Tab 1000 INTER.UNIT PO DAILY for 90 Days, TAB 3 Refills Clopidogrel (Plavix) 75 Mg Tab 75 MG PO DAILY, TAB Cyanocobalamin (Vitamin B12) 1,000 Mcg Tab 1000 MCG PO DAILY Esomeprazole Magnesium (Nexium) 40 Mg Cap 40 MG PO DAILY, CAP Fluoxetine (Prozac) 10 Mg Cap 10 MG PO DAILY, CAP TAKE ALONG WITH 20MG TAB. TOTAL DOSE 30MG DAILY Fluoxetine (Prozac) 20 Mg Cap 20 MG PO DAILY, CAP TAKE ALONG WITH 10MG TAB. TOTAL DOSE 30MG DAILY Gabapentin (Neurontin) 600 Mg Tab 600 MG PO BID, TAB MORNING & AFTERNOON Gabapentin (Neurontin) 600 Mg Tab 1200 MG PO HS, TAB Levothyroxine Sodium (Levothyroxine Sodium) 50 Mcg Tab 50 MCG PO DAILY for 90 Days, #90 TAB 3 Refills Mometasone Furoate (Nasal) (Mometasone Furoate) 50 Mcg/Act Spr 2 SPRAYS SHELLIE DAILY Nitroglycerin (Nitrostat) 0.4 Mg Tab 0.4 MG UT PRN, 0 Refills Quetiapine Fumarate (Seroquel) 200 Mg Tab 200 MG PO HS, TAB TAKE ALONG WITH 50MG TAB. TOTAL DOSE 250MG Quetiapine Fumarate (Seroquel) 50 Mg Tab 50 MG PO HS, TAB TAKE ALONG WITH 200MG TAB. TOTAL DOSE 250MG DAILY Quinapril Hcl (Accupril) 10 Mg Tab 10 MG PO DAILY, TAB Ramelteon (Rozerem) 8 Mg Tab 8 MG PO HS, TAB Ropinirole (Requip) 4 Mg Tab 4 MG PO HS, TAB Trazodone Hcl (Trazodone) 100 Mg Tab 200 MG PO HS, TAB Discharge Exam Patient reports feeling better. He denies any shortness of breath at rest or with exertion and is off oxygen. His cough, weakness and fatigue are improved. He does complain of some intermittent wheezing. He denies any nausea or vomiting today and his appetite is improved. He denies any leg pain. The patient denies fevers, chills, sweats, chest pain, palpitations, claudication, shortness of breath, nausea, vomiting, abdominal pain, dysuria, hematuria, urinary retention, paralysis, weakness, numbness and tingling. Constitutional: No fever, No chills, No sweats Eyes: No worsening of vision, No eye pain, No diplopia ENT: No hearing loss, No nasal symptoms, No trouble swallowing Respiratory: +Cough, wheezing. No shortness of breath Cardiovascular: No chest pain, No claudication, No palpitations Abdomen: No pain, No nausea, No vomiting Musculoskeletal: No joint pain, No muscle pain, No swelling Genitourinary - Male: No dysuria, No urinary retention, No hematuria Neurologic: No paralysis, No weakness, No numbness/tingling Integumentary: No rash, No itch, No color change General appearance: Well-developed, well-nourished, no apparent distress Head: Normocephalic, atraumatic Eyes: Normal inspection, PERRL, EOMI ENT: Normal ENT inspection, hearing grossly normal, pharynx normal Neck: Supple, no JVD, trachea midline Respiratory/Chest: +Decreased breath sounds, improved. On room air. Lungs clear to auscultation, no respiratory distress Cardiovascular: Regular rate & rhythm, no gallop, no murmur Abdomen/GI: Normal bowel sounds, non-tender, soft Extremities/Musculoskeletal: Normal inspection, no calf tenderness, no pedal edema Neurological/Psych: Alert, normal mood/affect, oriented x 3 Skin: Normal color, warm/dry, no rash Hospital Course 71 y/o male with a history of CAD, HTN, HLD, h/o [place] and CVA, restrictive lung disease, prediabetes, hypothyroidism, RLS, atypical face pain, insomnia and anxiety who presented to the ED on 05/14 with productive cough and fevers. Pt febrile on arrival to ED with temp of 38.1C, did resolve with Tylenol. Tachypneic with RR of 26, hypoxic with O2 sat 87% on room air. Now 93% on 2L NC. Does not wear oxygen at home. HR and BP stable. CXR without pneumonia, shows improving pulmonary vascular congestion. EKG no acute ischemic changes. Influenza A positive. No leukocytosis. Labs grossly unremarkable. Acute respiratory failure w/hypoxia secondary to influenza A--improving -Admit to med/surg for observation -Tamiflu 75 mg PO BID x 5 days. Completed first 3 doses while inpatient, will continue at discharge -DuoNebs QIDR and q2h prn SOB/wheezing -Prednisone 40 mg PO qd. Had 2 days of this inpt. Continue 1 more day of 40 mg outpatient, then decrease to 20 mg PO qd x 3 days, then stop -Tylenol prn fever, Zofran prn nausea -O2 by protocol. 95% on room air at rest, 91% with ambulation on room air CAD, HTN, HLD, h/o [place], h/o CVA--stable. Per pt, had [place] about 25 years ago, started on heparin drip and had allergic reaction causing a stroke later that day -Continue Coreg 3.125 mg PO BID, Plavix, quinapril 10 mg PO qd, and Lipitor 40 mg PO hs Restrictive lung disease -Had been on Symbicort but has not taken in a few months per pt. Will resume Symbicort BID now and nebs as above. Script for Symbicort renewed at discharge H/o prediabetes--last HgbA1c 5.8 on 12/28/16 -Sugars currently acceptable but will be started on steroids, likely to increase -Insulin sliding scale -Check BSGs q ac and qhs -Recheck HgbA1c 5.5 on 05/14 Hypothyroidism -TSH WNL 03/28/17 -Continue Synthroid 50 mcg PO qd RLS -Continue Requip 4 mg PO hs Atypical face pain -Continue gabapentin 600 mg PO q morning and afternoon, 1200 mg PO hs Insomnia, anxiety -Continue Xanax 0.75 mg PO hs, Seroquel 250 mg PO hs, Rozerem 8 mg PO hs, trazodone 200 mg PO hs, and fluoxetine 30 mg PO qd DVT prophylaxis -Will avoid chemical prophylaxis due to h/o severe reaction to heparin -SONDRA hose and SCDs Code Status -Level I, FULL RESUSCITATION STATUS Supervising Note Dr. Estrada I performed a history and physical examination on the patient. I reviewed above note and agree with it. I discussed discharge plan with APC and patient. During my face to face encounter with the patient, I answered all of the patient's questions. Total Time Spent: Greater than 30 minutes This includes examination of the patient, discharge planning, medication reconciliation, and communication with other providers. Discharge Instructions Please refer to the electronic Patient Visit Report (Discharge Instructions) for additional information. Additional Copies To Cassie Oconnell P.A.
== END 2017-05-15 16:55 | disposition home or self-care (01) ==
LOC: EDBD 07:23 → C.EDB 07:24 → C.MS4W 10:25 → EDBEDREQ 11:05 → ENRESERV 12:07
PROVIDERS: ADMIT Internal Medicine Sports Medicine; ATTEND Internal Medicine Sports Medicine
DX: J09.X2 Influenza due to identified novel influenza A virus with other respiratory manifestations (principal); J96.01 Acute respiratory failure with hypoxia; G50.1 Atypical facial pain; I25.10 Atherosclerotic heart disease of native coronary artery without angina pectoris; I10 Essential (primary) hypertension; E78.5 Hyperlipidemia, unspecified; J98.4 Other disorders of lung; E03.9 Hypothyroidism, unspecified; G47.00 Insomnia, unspecified; G25.81 Restless legs syndrome; R73.03 Prediabetes; I25.2 Old myocardial infarction; Z86.73 Personal history of transient ischemic attack (TIA), and cerebral infarction without residual deficits; Z90.49 Acquired absence of other specified parts of digestive tract; Z87.891 Personal history of nicotine dependence; Z87.11 Personal history of peptic ulcer disease; Z87.01 Personal history of pneumonia (recurrent)

== ENCOUNTER → 2017-06-27 | Outpatient (CLI) | payer OTHER ==
[~2017-06-27] MED LIST changes: +CYAN100020 PO; -LEVO1TAB35 PO; +PRD20 PO; +SYMIN/8045 INH; +TMF75 PO
[2017-06-27 14:18] LABS: ALBUMIN 3.7 gm/dl (3.4-5.0); ALT/SGPT 31 U/L (12-78); BLOOD UREA NITROGEN 8 mg/dl (7-18); CALCIUM 8.7 mg/dl (8.5-10.1); CARBON DIOXIDE 30 mmol/L (21-32); CHOLESTEROL 114 mg/dl (0-200); CREATININE 1.04 mg/dl (0.60-1.40); GLUCOSE 94 mg/dl (70-99); SODIUM 140 mmol/L (136-145)
[2017-06-27 14:29] LABS: ALKALINE PHOSPHATASE 63 U/L (45-117); AST/SGOT 22 U/L (15-37); LDL CHOLESTEROL CALCULATED 7 mg/dl; TOTAL PROTEIN 6.4 gm/dl (6.4-8.2)
[2017-06-27 19:24] LABS: BASO % 0.2 %; BASO ABS # 0.01 K/uL (0-0.2); EOS % 4.4 %; EOS ABS # 0.21 K/uL (0-0.5); HEMATOCRIT 39.3 % (42-52); HEMOGLOBIN 13.6 g/dL (14.0-18.0); IG# 0.02 K/uL (0.00-0.02); LYMPH % 23.9 %; LYMPH ABS # 1.14 K/uL (1.2-3.4); MEAN CELL VOLUME 91.6 fL (80-100); MEAN CORPUSCULAR HEMOGLOBIN 31.7 pg (25-34); MEAN CORPUSCULAR HGB CONC 34.6 g/dl (32-36); MEAN PLATELET VOLUME 9.3 fL (7.4-10.4); MONO ABS # 0.57 K/uL (0.11-0.59); NEUT % 59.1 %; NEUT ABS # 2.81 K/uL (1.4-6.5); PLATELET COUNT 136 K/uL (130-400); RED CELL DISTRIBUTION WIDTH CV 13.4 % (11.5-14.5); RED CELL DISTRIBUTION WIDTH SD 44.2 fL (36.4-46.3); WHITE BLOOD COUNT 4.76 K/uL (4.8-10.8)
[2017-06-28 06:44] LABS: HEMOGLOBIN A1C 5.5 % (4.5-5.6)
== END | disposition home or self-care (01) ==
LOC: C.LABBC 10:21
PROVIDERS: ATTEND Internal Medicine Geriatric Medicine
DX: I25.5 Ischemic cardiomyopathy (principal); I10 Essential (primary) hypertension; E11.9 Type 2 diabetes mellitus without complications; E03.9 Hypothyroidism, unspecified; I25.10 Atherosclerotic heart disease of native coronary artery without angina pectoris; E53.8 Deficiency of other specified B group vitamins; E55.9 Vitamin D deficiency, unspecified

== ENCOUNTER 2017-11-24 09:22 | Emergency (ER) | payer OTHER ==
[~2017-11-24] VITALS: Ht 162.6 cm; Wt 79.8 kg
[2017-11-24 09:25] VITALS: TEMP 37.9; Ht 162.6 cm; Wt 79.8 kg
[2017-11-24] MEDS ORDERED: LEVAQUIN 750MG / 150ML D5W IV STA (09:36)
[2017-11-24] MEDS ORDERED: ALBUT/IPRATROP 3MG/0.5MG NEB 3 ML VIAL INH STA (09:36)
[2017-11-24] MEDS ORDERED: SODIUM CHLORIDE 0.9% 1000ML 1,000 ML IV STA (09:36)
[2017-11-24 10:07] LABS: BASO % 0.1 %; BASO ABS # 0.01 K/uL (0-0.2); EOS % 0.2 %; EOS ABS # 0.03 K/uL (0-0.5); HEMOGLOBIN 14.4 g/dL (14.0-18.0); IG# 0.04 K/uL (0.00-0.02); LYMPH % 4.9 %; LYMPH ABS # 0.62 K/uL (1.2-3.4); MEAN CELL VOLUME 91.1 fL (80-100); MEAN CORPUSCULAR HEMOGLOBIN 32.8 pg (25-34); MONO ABS # 0.89 K/uL (0.11-0.59); NEUT % 87.5 %; NEUT ABS # 11.09 K/uL (1.4-6.5); PLATELET COUNT 113 K/uL (130-400); RED CELL DISTRIBUTION WIDTH CV 12.9 % (11.5-14.5); RED CELL DISTRIBUTION WIDTH SD 43.2 fL (36.4-46.3); WHITE BLOOD COUNT 12.68 K/uL (4.8-10.8)
--- NOTE | 2017-11-24 10:11 | DIAGNOSTIC IMAGING REPORT ---
CHEST ONE VIEW PORTABLE CLINICAL HISTORY: Fever. Sepsis. COMPARISON STUDY: Chest radiograph May 14, 2017. FINDINGS: Lung volumes are normal. Patient is rotated. There is no evidence for pulmonary edema. There is no pneumothorax or pleural effusion. Right basilar opacity is present. There is minimal left basilar opacity. Cardiomegaly is unchanged. IMPRESSION: 1. Bibasilar opacities, right greater than left. The findings may reflect pneumonia or atelectasis. Radiographic follow-up is recommended. 2. Stable cardiomegaly without evidence for pulmonary edema. Electronically signed by: Shant Keen M.D. 11/24/2017 10:09 AM Dictated Date/Time: 11/24/2017 10:07 AM
[2017-11-24 10:16] LABS: PTT PATIENT 25.4 SECONDS (21.0-31.0)
[2017-11-24 10:40] LABS: ALBUMIN 3.7 gm/dl (3.4-5.0); ALKALINE PHOSPHATASE 55 U/L (45-117); ALT/SGPT 34 U/L (12-78); AST/SGOT 31 U/L (15-37); BLOOD UREA NITROGEN 9 mg/dl (7-18); CALCIUM 8.5 mg/dl (8.5-10.1); CARBON DIOXIDE 25 mmol/L (21-32); CKMB < 1.0 ng/ml (0.5-3.6); CREATININE 1.16 mg/dl (0.60-1.40); GLUCOSE 136 mg/dl (70-99); SODIUM 139 mmol/L (136-145); TOTAL PROTEIN 6.6 gm/dl (6.4-8.2)
[2017-11-24] MEDS ORDERED: LEVO-366 PO (11:47)
--- NOTE | 2017-11-24 11:49 | EMERGENCY ROOM VISIT NOTE ---
History First contact with patient: 09:31 Chief Complaint: RESPIRATORY PROBLEMS Stated Complaint: COUGH/WEAK Nursing Triage Summary: states he woke up coughing around [id number] his morning. states she gave him tessalon perles which seemed to help. patient staes he woke up this AM c/o cough/SOB, generalized malaise/weakness/tired. 6 months ago states he was admitted with aspiration pneumonia History of Present Illness The patient is a 72 year old male who presents to the Emergency Room with complaints of cough and shortness of breath. The patient's cough started overnight around 2 AM. He reports some shortness of breath this morning and is feeling weak. He has history of aspiration pneumonia. He states that it feels similar to those symptoms that he has had previously. He denies any vomiting. Denies chest pains or headaches. Exertion makes his symptoms worse. Review of Systems As above otherwise negative for 10 systems Past Medical/Surgical History Medical Problems: (1) Acute myocardial infarction (2) Acute respiratory failure with hypoxia (3) Benign hypertension (4) Cholecystectomy (5) Diabetes mellitus (6) Gastric ulcer (7) Heart disease (8) Influenza A (9) Ischemic stroke (10) legally blind (11) Myocardial infarction (12) Pneumonia (13) Restless legs (14) Small bowel obstruction (15) stroke (16) Weakness Family History Unobtainable family history due to adoption Social History Smoking Status: Former Smoker Alcohol Use: none Drug Use: none Marital Status: in relationship Housing Status: lives with family Occupation Status: retired Current/Historical Medications Scheduled Alprazolam (Xanax), 0.75 MG PO HS Atorvastatin (Lipitor), 40 MG PO DAILY Budesonide/Formoterol Fumarate (Symbicort 80/4.5 Inhaler), 2 PUFFS INH BID Carvedilol (Coreg), 3.125 MG PO BID Cholecalciferol (Vitamin D3), 1,000 INTER.UNIT PO DAILY Clopidogrel (Plavix), 75 MG PO DAILY Cyanocobalamin (Vitamin B12), 1,000 MCG PO DAILY Esomeprazole Magnesium (Nexium), 40 MG PO DAILY Fluoxetine (Prozac), 10 MG PO DAILY Fluoxetine (Prozac), 20 MG PO DAILY Gabapentin (Neurontin), 600 MG PO BID Gabapentin (Neurontin), 1,200 MG PO HS Levothyroxine Sodium (Levothyroxine Sodium), 50 MCG PO DAILY Mometasone Furoate (Nasal) (Mometasone Furoate), 2 SPRAYS SHELLIE DAILY Nitroglycerin (Nitrostat), 0.4 MG UT PRN Quetiapine Fumarate (Seroquel), 200 MG PO HS Quetiapine Fumarate (Seroquel), 50 MG PO HS Quinapril Hcl (Accupril), 10 MG PO DAILY Ramelteon (Rozerem), 8 MG PO HS Ropinirole (Requip), 4 MG PO HS Trazodone Hcl (Trazodone), 200 MG PO HS Physical Exam Vital Signs Date Time Temp Pulse Resp B/P (MAP) Pulse Ox O2 Delivery O2 Flow Rate FiO2 11/24/17 11:09 77 20 103/61 97 Room Air 11/24/17 09:35 88 11/24/17 09:25 37.9 90 22 130/79 90 Room Air Physical Exam CONSTITUTIONAL/VITAL SIGNS: Reviewed / noted above. GENERAL: Non-toxic in appearance. INTEGUMENTARY: Warm, dry, and [place]. HEAD: Normocephalic. EYES: without scleral icterus or trauma. ENT/OROPHARYNX: clear and moist. LYMPHADENOPATHY/NECK: Is supple without lymphadenopathy or meningismus. RESPIRATORY: Lungs clear and equal. There are some crackles in the right base. CARDIOVASCULAR: Regular rate and rhythm. GI/ABDOMEN: Soft and nontender. No organomegaly or pulsatile mass. No rebound or guarding. Normal bowel sounds. EXTREMITIES: Warm and well perfused. BACK: No CVA tenderness. NEUROLOGICAL: Intact without focal deficits. PSYCHIATRIC: normal affect. MUSCULOSKELETAL: Normally developed with good muscle tone. TRIAGE NURSING DOCUMENTATION REVIEWED. Medical Decision & Procedures ER Provider Diagnostic Interpretation: CHEST ONE VIEW PORTABLE CLINICAL HISTORY: Fever. Sepsis. COMPARISON STUDY: Chest radiograph May 14, 2017. FINDINGS: Lung volumes are normal. Patient is rotated. There is no evidence for pulmonary edema. There is no pneumothorax or pleural effusion. Right basilar opacity is present. There is minimal left basilar opacity. Cardiomegaly is unchanged. IMPRESSION: 1. Bibasilar opacities, right greater than left. The findings may reflect pneumonia or atelectasis. Radiographic follow-up is recommended. 2. Stable cardiomegaly without evidence for pulmonary edema. Laboratory Results 11/24/17 09:45 Red Blood Count 4.39, Mean Corpuscular Volume 91.1, Mean Corpuscular Hemoglobin 32.8, Mean Corpuscular Hemoglobin Concent 36.0, Mean Platelet Volume 9.0, Neutrophils (%) (Auto) 87.5, Lymphocytes (%) (Auto) 4.9, Monocytes (%) (Auto) 7.0, Eosinophils (%) (Auto) 0.2, Basophils (%) (Auto) 0.1, Neutrophils # (Auto) 11.09, Lymphocytes # (Auto) 0.62, Monocytes # (Auto) 0.89, Eosinophils # (Auto) 0.03, Basophils # (Auto) 0.01 11/24/17 09:45 Test 11/24/17 09:45 11/24/17 10:39 White Blood Count 12.68 K/uL (4.8-10.8) Red Blood Count 4.39 M/uL (4.7-6.1) Hemoglobin 14.4 g/dL (14.0-18.0) Hematocrit 40.0 % (42-52) Mean Corpuscular Volume 91.1 fL (80-100) Mean Corpuscular Hemoglobin 32.8 pg (25-34) Mean Corpuscular Hemoglobin Concent 36.0 g/dl (32-36) Platelet Count 113 K/uL (130-400) Mean Platelet Volume 9.0 fL (7.4-10.4) Neutrophils (%) (Auto) 87.5 % Lymphocytes (%) (Auto) 4.9 % Monocytes (%) (Auto) 7.0 % Eosinophils (%) (Auto) 0.2 % Basophils (%) (Auto) 0.1 % Neutrophils # (Auto) 11.09 K/uL (1.4-6.5) Lymphocytes # (Auto) 0.62 K/uL (1.2-3.4) Monocytes # (Auto) 0.89 K/uL (0.11-0.59) Eosinophils # (Auto) 0.03 K/uL (0-0.5) Basophils # (Auto) 0.01 K/uL (0-0.2) RDW Standard Deviation 43.2 fL (36.4-46.3) RDW Coefficient of Variation 12.9 % (11.5-14.5) Immature Granulocyte % (Auto) 0.3 % Immature Granulocyte # (Auto) 0.04 K/uL (0.00-0.02) Prothrombin Time 11.0 SECONDS (9.0-12.0) Prothromb Time International Ratio 1.0 (0.9-1.1) Activated Partial Thromboplast Time 25.4 SECONDS (21.0-31.0) Partial Thromboplastin Ratio 1.0 Anion Gap 9.0 mmol/L (3-11) Est Creatinine Clear Calc Drug Dose 56.5 ml/min Estimated GFR () 73.5 Estimated GFR (Non- 63.5 BUN/Creatinine Ratio 7.7 (10-20) Calcium Level 8.5 mg/dl (8.5-10.1) Total Bilirubin 1.0 mg/dl (0.2-1) Direct Bilirubin 0.3 mg/dl (0-0.2) Aspartate Amino Transf (AST/SGOT) 31 U/L (15-37) Alanine Aminotransferase (ALT/SGPT) 34 U/L (12-78) Alkaline Phosphatase 55 U/L (45-117) Total Creatine Kinase 102 U/L (39-308) Creatine Kinase MB < 1.0 ng/ml (0.5-3.6) Creatine Kinase MB Ratio (0-3.0) Troponin I < 0.015 ng/ml (0-0.045) Total Protein 6.6 gm/dl (6.4-8.2) Albumin 3.7 gm/dl (3.4-5.0) Urine Color YELLOW Urine Appearance CLEAR (CLEAR) Urine pH 5.0 (4.5-7.5) Urine Specific [place] 1.018 (1.000-1.030) Urine Protein NEG (NEG) Urine Glucose (UA) NEG (NEG) Urine Ketones NEG (NEG) Urine Occult Blood NEG (NEG) Urine Nitrite NEG (NEG) Urine Bilirubin NEG (NEG) Urine Urobilinogen NEG (NEG) Urine Leukocyte Esterase NEG (NEG) Medications Administered Medications (Trade) Dose Ordered Sig/Shelby Route Start Time Stop Time Status Last Admin Dose Admin Sodium Chloride 1,000 ml @ 999 mls/hr Q1H1M STAT IV 11/24/17 09:36 11/24/17 10:36 DC 11/24/17 09:36 999 MLS/HR Albuterol/ Ipratropium (Duoneb) 3 ml NOW STAT INH 11/24/17 09:36 11/24/17 09:38 DC 11/24/17 10:05 3 ML Levofloxacin (Levaquin / D5W) 750 mg NOW STAT IV 11/24/17 09:36 11/24/17 09:38 DC 11/24/17 10:05 750 MG ECG Per My Interpretation Indication: weakness Rate (beats per minute): 88 Rhythm: normal sinus Findings: PVC, no acute ischemic change (no st elevation) ED Course IV Levaquin, DuoNeb treatment and normal saline IV was ordered. Medical Decision This is a 72-year-old male who presents to the ED with a chief complaint of shortness of breath, new cough and weakness that started around 2 or 3 AM. He has a temperature of 37.9 today. Oxygen saturations are above 90%. His physical exam reveals some diminished breath sounds in the right base with some crackles. Exam is otherwise unremarkable and he is in no respiratory distress. Initial EKG shows a sinus rhythm at a rate of 88 with a PVC and no acute injury. A chest x-ray suggests a right base pneumonia. White blood cell count was 12.68. Complete metabolic panel was otherwise unremarkable. Troponin was negative. Urine did not show infection. The patient was told the results of the test. He is felt to be stable for discharge. His oxygen saturations were 94% on room air at the time of disposition. Medication Reconcilliation Current Medication List: was personally reviewed by ri Blood Pressure Screening Patient's blood pressure: Normal blood pressure Impression Primary Impression: Pneumonia Departure Information Dispostion Home / Self-Care Prescriptions Levofloxacin (Levaquin) 500 Mg Tab 500 MG PO DAILY for 7 Days, #7 TAB Prov: Magan Aponte D.O. 11/24/17 Referrals Luis Manuel Pham M.D. (PCP) Patient Instructions My [facility] Additional Instructions Levaquin as prescribed for the next 7 days. Follow-up with your doctor for further care and evaluation in 3-5 days. Return to the emergency department for worsening or new symptoms or any concerns. You have been examined and treated today on an emergency basis only. This is not a substitute for, or an effort to provide, complete comprehensive medical care. It is impossible to recognize and treat all injuries or illnesses in a single emergency department visit. It is therefore important that you follow up closely with your doctor. Call as soon as possible for an appointment.
[2017-11-24 12:12] VITALS: BP 119/64; PULSE 71; O2SAT 95
== END 2017-11-24 12:13 | disposition home or self-care (01) ==
LOC: EDBD 09:22 → C.EDA 09:24
DX: J18.9 Pneumonia, unspecified organism (principal); I25.2 Old myocardial infarction; I10 Essential (primary) hypertension; E11.9 Type 2 diabetes mellitus without complications; I51.9 Heart disease, unspecified; Z87.891 Personal history of nicotine dependence

== ENCOUNTER 2017-12-06 13:14 | Inpatient (IN) | payer OTHER ==
[~2017-12-06] VITALS: Ht 162.6 cm; Wt 88.2 kg
[~2017-12-06 13:14] MED LIST changes: -PRD20 PO; -TMF75 PO
[2017-12-06] MEDS ORDERED: SODIUM CHLORIDE 0.9% 500ML 500 ML IV STA (13:43)
--- NOTE | 2017-12-06 13:58 | EMERGENCY ROOM VISIT NOTE ---
History First contact with patient: 13:30 Chief Complaint: WEAKNESS Stated Complaint: Generalized weakness, not eaten/drank much Nursing Triage Summary: See triage note History of Present Illness The patient is a 72 year old male who presents to the Emergency Room with complaints of significant weakness for the last 2 days. The patient was treated in the emergency department 2 weeks ago for pneumonia. He finished a 7 day course of Levaquin. He thinks that those symptoms have improved. He denies any cough or shortness of breath. No fever or chills. He denies any chest pain. The patient did have a minor fall yesterday when he tripped trying to sit down on his scooter. He landed on his right knee. He denies any significant pain in the knee. He does admit to not having a good appetite the last few days. Review of Systems 10 system review performed and negative unless noted in HPI or below Past Medical/Surgical History Medical Problems: (1) Acute myocardial infarction (2) Acute respiratory failure with hypoxia (3) Aspiration pneumonia (4) Benign hypertension (5) Cholecystectomy (6) Diabetes mellitus (7) Gastric ulcer (8) Heart disease (9) Influenza A (10) Ischemic stroke (11) legally blind (12) Myocardial infarction (13) Pneumonia (14) Restless legs (15) Small bowel obstruction (16) stroke (17) Weakness Family History Unobtainable family history due to adoption Social History Smoking Status: Former Smoker Alcohol Use: none Drug Use: none Marital Status: in relationship Housing Status: lives with family Occupation Status: retired Current/Historical Medications Scheduled Alprazolam (Xanax), 0.75 MG PO HS Atorvastatin (Lipitor), 40 MG PO DAILY Carvedilol (Coreg), 3.125 MG PO BID Cholecalciferol (Vitamin D3), 1,000 INTER.UNIT PO DAILY Clopidogrel (Plavix), 75 MG PO DAILY Cyanocobalamin (Vitamin B12), 1,000 MCG PO DAILY Esomeprazole Magnesium (Nexium), 40 MG PO DAILY Fluoxetine (Prozac), 10 MG PO DAILY Fluoxetine (Prozac), 20 MG PO DAILY Fluticasone-Salmeterol 230/21 Mcg (Advair Hfa 230/21 Mcg), 1 PUFF INH BID Gabapentin (Neurontin), 600 MG PO BID Gabapentin (Neurontin), 1,200 MG PO HS Levothyroxine Sodium (Levothyroxine Sodium), 50 MCG PO DAILY Mometasone Furoate (Nasal) (Mometasone Furoate), 2 SPRAYS SHELLIE DAILY Nitroglycerin (Nitrostat), 0.4 MG UT PRN Quetiapine Fumarate (Seroquel), 200 MG PO HS Quetiapine Fumarate (Seroquel), 50 MG PO HS Quinapril Hcl (Accupril), 10 MG PO DAILY Ramelteon (Rozerem), 8 MG PO HS Ropinirole (Requip), 4 MG PO HS Trazodone Hcl (Trazodone), 200 MG PO HS Physical Exam Vital Signs Date Time Temp Pulse Resp B/P (MAP) Pulse Ox O2 Delivery O2 Flow Rate FiO2 12/06/17 16:27 59 12/06/17 15:26 58 20 141/79 95 Room Air 12/06/17 14:44 58 18 109/69 94 Room Air 12/06/17 13:30 69 12/06/17 13:21 91 Room Air 12/06/17 13:21 37.0 69 20 125/70 90 Room Air Physical Exam VITALS: Vitals are noted on the nurse's note and reviewed by myself. Vital signs stable. GENERAL: 72-year-old male, in no acute distress, nondiaphoretic, well-developed well-nourished. SKIN: Minor abrasion to the right knee HEAD: Normocephalic atraumatic. EYES:. Conjunctivae without injection, sclerae without icterus. Extraocular movements intact. MOUTH: Mucous membranes moderately dry NECK: Supple without nuchal rigidity. No lymphadenopathy. No JVD. HEART: Regular rate and rhythm without murmurs gallops or rubs. LUNGS: Clear to auscultation bilaterally without wheezes, rales or rhonchi. No accessory muscle use. ABDOMEN: Positive bowel sounds x 4.Soft, nontender, without organomegaly. No guarding or rebound tenderness. MUSCULOSKELETAL: No muscle atrophy, erythema, or edema noted. Full range of motion in all extremities. No focal weakness noted. Throughout. NEURO: Patient was alert and oriented to person place and time. Normal sensation to touch. No focal neurological deficits. Medical Decision & Procedures ER Provider Diagnostic Interpretation: Chest x-ray IMPRESSION: 1. Stable to slight interval increase in bibasilar infiltrates greater on the right. This may in part be vascular in etiology related to volume overload and/or atelectasis. Aspiration or infection may appear similarly. 2. New small right pleural effusion. 3. Cardiomegaly. Laboratory Results 12/06/17 13:35 Red Blood Count 4.07, Mean Corpuscular Volume 93.4, Mean Corpuscular Hemoglobin 32.9, Mean Corpuscular Hemoglobin Concent 35.3, Mean Platelet Volume 9.3, Neutrophils (%) (Auto) 84.1, Lymphocytes (%) (Auto) 9.2, Monocytes (%) (Auto) 5.9, Eosinophils (%) (Auto) 0.3, Basophils (%) (Auto) 0.0, Neutrophils # (Auto) 12.13, Lymphocytes # (Auto) 1.33, Monocytes # (Auto) 0.85, Eosinophils # (Auto) 0.05, Basophils # (Auto) 0.00 12/06/17 13:35 Test 12/06/17 13:35 12/06/17 14:50 White Blood Count 14.43 K/uL (4.8-10.8) Red Blood Count 4.07 M/uL (4.7-6.1) Hemoglobin 13.4 g/dL (14.0-18.0) Hematocrit 38.0 % (42-52) Mean Corpuscular Volume 93.4 fL (80-100) Mean Corpuscular Hemoglobin 32.9 pg (25-34) Mean Corpuscular Hemoglobin Concent 35.3 g/dl (32-36) Platelet Count 146 K/uL (130-400) Mean Platelet Volume 9.3 fL (7.4-10.4) Neutrophils (%) (Auto) 84.1 % Lymphocytes (%) (Auto) 9.2 % Monocytes (%) (Auto) 5.9 % Eosinophils (%) (Auto) 0.3 % Basophils (%) (Auto) 0.0 % Neutrophils # (Auto) 12.13 K/uL (1.4-6.5) Lymphocytes # (Auto) 1.33 K/uL (1.2-3.4) Monocytes # (Auto) 0.85 K/uL (0.11-0.59) Eosinophils # (Auto) 0.05 K/uL (0-0.5) Basophils # (Auto) 0.00 K/uL (0-0.2) RDW Standard Deviation 47.1 fL (36.4-46.3) RDW Coefficient of Variation 13.8 % (11.5-14.5) Immature Granulocyte % (Auto) 0.5 % Immature Granulocyte # (Auto) 0.07 K/uL (0.00-0.02) Anion Gap 9.0 mmol/L (3-11) Est Creatinine Clear Calc Drug Dose 65.6 ml/min Estimated GFR () 83.0 Estimated GFR (Non- 71.6 BUN/Creatinine Ratio 6.3 (10-20) Calcium Level 8.6 mg/dl (8.5-10.1) Magnesium Level 1.9 mg/dl (1.8-2.4) Total Bilirubin 0.7 mg/dl (0.2-1) Aspartate Amino Transf (AST/SGOT) 31 U/L (15-37) Alanine Aminotransferase (ALT/SGPT) 36 U/L (12-78) Alkaline Phosphatase 59 U/L (45-117) Total Protein 6.6 gm/dl (6.4-8.2) Albumin 3.5 gm/dl (3.4-5.0) Globulin 3.1 gm/dl (2.5-4.0) Albumin/Globulin Ratio 1.1 (0.9-2) Thyroid Stimulating Hormone (TSH) 0.657 uIu/ml (0.300-4.500) Urine Color YELLOW Urine Appearance CLEAR (CLEAR) Urine pH 7.0 (4.5-7.5) Urine Specific [place] 1.006 (1.000-1.030) Urine Protein NEG (NEG) Urine Glucose (UA) NEG (NEG) Urine Ketones NEG (NEG) Urine Occult Blood NEG (NEG) Urine Nitrite NEG (NEG) Urine Bilirubin NEG (NEG) Urine Urobilinogen NEG (NEG) Urine Leukocyte Esterase NEG (NEG) Medications Administered Medications (Trade) Dose Ordered Sig/Shelby Route Start Time Stop Time Status Last Admin Dose Admin Sodium Chloride 500 ml @ 999 mls/hr Q31M STAT IV 12/06/17 13:43 12/06/17 14:13 DC 12/06/17 13:57 999 MLS/HR Ampicillin Sodium/ Sulbactam Sodium 3000 mg/Sodium Chloride 108 ml @ 200 mls/hr NOW STAT IV 12/06/17 15:08 12/06/17 15:40 DC 12/06/17 15:26 200 MLS/HR ED Course Patient was seen and examined Vital signs including blood pressure were reviewed medications list was verified with patient Labs were obtained, and a saline lock was established The patient was hydrated with 500 cc normal saline The patient's imaging was reviewed. I reassessed the patient. He was resting comfortably. We discussed his results. He voiced understanding. The patient was ordered Unasyn 3 g IV The case was discussed with my supervising physician who personally evaluated the patient [facility] who kindly agreed to evaluate the patient for further workup/treatment and possible admission Medical Decision Differential diagnosis: Persistent pneumonia, other infectious etiology such as UTI, dehydration, malnutrition, renal insufficiency, severe anemia among others were considered This patient is a 72-year-old male presents to the emergency department with profound weakness over the last 2 days. He was recently diagnosed and treated for pneumonia with Levaquin. His x-ray today reveals slightly increased in size of bibasilar infiltrates. He also has leukocytosis. He has a history of aspiration, which is likely the cause of his pneumonia today. As he is failed outpatient therapy, I do not feel comfortable sending the patient home. [facility] to evaluate the patient for further treatment and possible admission to the hospital. His vital signs remained stable during his emergency department stay. This chart was completed in part utilizing [employer] Speech Voice Recognition software. Attempts were made to minimize the grammatical errors, random word insertions, pronoun errors and incomplete sentences. Any formal questions or concerns about the content, text or information contained within the body of this dictation should be directly addressed to the provider for clarification. Medication Reconcilliation Current Medication List: was personally reviewed by me Blood Pressure Screening Patient's blood pressure: Normal blood pressure Consults Consulting Physician: [facility] Impression Primary Impression: Aspiration pneumonia Departure Information Referrals Luis Manuel Pham M.D. (PCP) Patient Instructions My [facility]
[2017-12-06 14:08] LABS: EOS % 0.3 %; EOS ABS # 0.05 K/uL (0-0.5); HEMOGLOBIN 13.4 g/dL (14.0-18.0); IG# 0.07 K/uL (0.00-0.02); LYMPH % 9.2 %; LYMPH ABS # 1.33 K/uL (1.2-3.4); MEAN CELL VOLUME 93.4 fL (80-100); MEAN CORPUSCULAR HEMOGLOBIN 32.9 pg (25-34); MEAN CORPUSCULAR HGB CONC 35.3 g/dl (32-36); MEAN PLATELET VOLUME 9.3 fL (7.4-10.4); MONO % 5.9 %; MONO ABS # 0.85 K/uL (0.11-0.59); NEUT % 84.1 %; NEUT ABS # 12.13 K/uL (1.4-6.5); PLATELET COUNT 146 K/uL (130-400); RED CELL DISTRIBUTION WIDTH CV 13.8 % (11.5-14.5); RED CELL DISTRIBUTION WIDTH SD 47.1 fL (36.4-46.3); WHITE BLOOD COUNT 14.43 K/uL (4.8-10.8)
--- NOTE | 2017-12-06 14:13 | DIAGNOSTIC IMAGING REPORT ---
CHEST ONE VIEW PORTABLE CLINICAL HISTORY: 72 years-old Male presenting with PNA ? Improving. TECHNIQUE: Portable upright AP view of the chest was obtained. COMPARISON: 11/24/2017. FINDINGS: Prominence of the superior mediastinum and cardiac silhouette unchanged. Bronchial wall thickening. Mildly low lung volumes. Interval development of a small right pleural effusion. Bibasilar opacities stable to slightly increased, especially on the right. No pneumothorax. Degenerative changes of the shoulders. Degenerative changes of the thoracic spine. Upper abdomen normal. IMPRESSION: 1. Stable to slight interval increase in bibasilar infiltrates greater on the right. This may in part be vascular in etiology related to volume overload and/or atelectasis. Aspiration or infection may appear similarly. 2. New small right pleural effusion. 3. Cardiomegaly. Electronically signed by: Harjit Shipman M.D. 12/06/2017 2:12 PM Dictated Date/Time: 12/06/2017 2:09 PM
[2017-12-06] MEDS ORDERED: FLUT230A INH (14:22)
[2017-12-06 14:27] LABS: ALBUMIN 3.5 gm/dl (3.4-5.0); CALCIUM 8.6 mg/dl (8.5-10.1); CREATININE 1.05 mg/dl (0.60-1.40); POTASSIUM 3.8 mmol/L (3.5-5.1); TOTAL PROTEIN 6.6 gm/dl (6.4-8.2)
[2017-12-06] MEDS ORDERED: AMPICILLIN/SULBACTAM SOD INJ 3,000 MG in SODIUM CHLORIDE 0.9% 100ML 100 ML IV STA (15:08)
--- NOTE | 2017-12-06 16:40 | EMERGENCY ROOM VISIT NOTE ---
ED Visit Note First contact with patient: 13:30 Patient was seen by our PA/GROUP MARKETING VP. I was involved in the patient's care and did evaluate the patient myself. I was involved in the care throughout the ER stay. Patient presents with weakness. He appears to be failing treatment for a pneumonia. His white count has increased. The size of the pneumonia has increased. A hospital stay is warranted.
--- NOTE | 2017-12-06 16:53 | History and Physical ---
History & Physical Date & Time of Service: Dec 06, 2017 at 16:33 Chief Complaint: Generalized weakness, not eaten/drank much Primary Care Physician: Luis Manuel Pham M.D. History of Present Illness Source: patient, hospital records 72 y/o M Hx CAD, CVA, HTN, HPL hypothyroid, recurrent pneumonias and pneumonitis due to aspiration. The pt presented to the ER 2 weeks prior with a productive cough and was discharged with a course of Levaquin. He returns with progressive weakness. A CXR indicates progression of BL infiltrates. He states that his cough has not worsened and he denies SOB or fevers. Past Medical/Surgical History Medical Problems: 1) CAD/GA 2) Benign hypertension 3) Hypothyroidism 4) Ischemic stroke 5) legally blind 6) Restless leg 7) Small bowel obstruction 8) 2016 echo reveals an EF of 50%, ant and inf hypokinesis 9) Recurrent aspiration PNM Surgical: Cholecystectomy Family History Unobtainable family history due to adoption Social History Smoking Status: Former Smoker Drug Use: none Marital Status: in relationship Housing status: lives with significant other Occupational Status: retired Immunizations History of Influenza Vaccine: Yes Influenza Vaccine Date: Dec 26, 2011 History of Tetanus Vaccine?: Yes Tetanus Immunization Date: Oct 26, 2009 History of Pneumococcal: Yes Pneumococcal Date: Dec 26, 2011 History of Hepatitis B Vaccine: No Allergies Coded Allergies: Heparin (Verified Allergy, Severe, SEVERE REACTION, 12/06/17) Home Medications Scheduled Alprazolam (Xanax), 0.75 MG PO HS Atorvastatin (Lipitor), 40 MG PO DAILY Carvedilol (Coreg), 3.125 MG PO BID Cholecalciferol (Vitamin D3), 1,000 INTER.UNIT PO DAILY Clopidogrel (Plavix), 75 MG PO DAILY Cyanocobalamin (Vitamin B12), 1,000 MCG PO DAILY Esomeprazole Magnesium (Nexium), 40 MG PO DAILY Fluoxetine (Prozac), 10 MG PO DAILY Fluoxetine (Prozac), 20 MG PO DAILY Fluticasone-Salmeterol 230/21 Mcg (Advair Hfa 230/21 Mcg), 1 PUFF INH BID Gabapentin (Neurontin), 600 MG PO BID Gabapentin (Neurontin), 1,200 MG PO HS Levothyroxine Sodium (Levothyroxine Sodium), 50 MCG PO DAILY Mometasone Furoate (Nasal) (Mometasone Furoate), 2 SPRAYS SHELLIE DAILY Nitroglycerin (Nitrostat), 0.4 MG UT PRN Quetiapine Fumarate (Seroquel), 200 MG PO HS Quetiapine Fumarate (Seroquel), 50 MG PO HS Quinapril Hcl (Accupril), 10 MG PO DAILY Ramelteon (Rozerem), 8 MG PO HS Ropinirole (Requip), 4 MG PO HS Trazodone Hcl (Trazodone), 200 MG PO HS Review of Systems Constitutional: + weakness, + fatigue, No fever, No chills, No sweats Eyes: No worsening of vision ENT: No hearing loss, No unusual epistaxis, No nasal symptoms Respiratory: + cough, No sputum, No wheezing, No shortness of breath, No dyspnea on exertion, No dyspnea at rest Cardiovascular: No chest pain Abdomen: No pain, No nausea, No vomiting Musculoskeletal: No joint pain Genitourinary - Male: No hematuria, No dysuria Neurologic: + weakness, No memory loss Psychiatric: No depression symptoms Endocrine: + fatigue Hematologic / Lymphatic: No abnormal bleeding/bruising Integumentary: No rash Allergic / Immunologic: No environmental allergies Physical Exam Vital Signs Date Time Temp Pulse Resp B/P (MAP) Pulse Ox O2 Delivery O2 Flow Rate FiO2 12/06/17 16:27 59 12/06/17 15:26 58 20 141/79 95 Room Air 12/06/17 14:44 58 18 109/69 94 Room Air 12/06/17 13:30 69 12/06/17 13:21 91 Room Air 12/06/17 13:21 37.0 69 20 125/70 90 Room Air General Appearance: WD/WN, no apparent distress Head: normocephalic Eyes: normal inspection ENT: normal ENT inspection, pharynx normal Neck: supple, no JVD Respiratory/Chest: chest non-tender, + pertinent finding (There is reduced air entry at the bases - no audible crackels or wheezing) Cardiovascular: regular rate, rhythm, no edema Abdomen/GI: normal bowel sounds, non tender, soft Back: normal inspection, normal range of motion Extremities/Musculoskelatal: normal inspection, no calf tenderness, normal capillary refill Neurologic/Psych: no motor/sensory deficits, alert, oriented x 3, + pertinent finding (Visually impaired at baseline) Skin: normal color Diagnostics Laboratory Results Results Past 24 Hours Test 12/06/17 13:35 12/06/17 14:50 Range/Units White Blood Count 14.43 4.8-10.8 K/uL Red Blood Count 4.07 4.7-6.1 M/uL Hemoglobin 13.4 14.0-18.0 g/dL Hematocrit 38.0 42-52 % Mean Corpuscular Volume 93.4 80-100 fL Mean Corpuscular Hemoglobin 32.9 25-34 pg Mean Corpuscular Hemoglobin Concent 35.3 32-36 g/dl Platelet Count 146 130-400 K/uL Mean Platelet Volume 9.3 7.4-10.4 fL Neutrophils (%) (Auto) 84.1 % Lymphocytes (%) (Auto) 9.2 % Monocytes (%) (Auto) 5.9 % Eosinophils (%) (Auto) 0.3 % Basophils (%) (Auto) 0.0 % Neutrophils # (Auto) 12.13 1.4-6.5 K/uL Lymphocytes # (Auto) 1.33 1.2-3.4 K/uL Monocytes # (Auto) 0.85 0.11-0.59 K/uL Eosinophils # (Auto) 0.05 0-0.5 K/uL Basophils # (Auto) 0.00 0-0.2 K/uL RDW Standard Deviation 47.1 36.4-46.3 fL RDW Coefficient of Variation 13.8 11.5-14.5 % Immature Granulocyte % (Auto) 0.5 % Immature Granulocyte # (Auto) 0.07 0.00-0.02 K/uL Sodium Level 137 136-145 mmol/L Potassium Level 3.8 3.5-5.1 mmol/L Chloride Level 102 98-107 mmol/L Carbon Dioxide Level 26 21-32 mmol/L Anion Gap 9.0 3-11 mmol/L Blood Urea Nitrogen 7 7-18 mg/dl Creatinine 1.05 0.60-1.40 mg/dl Est Creatinine Clear Calc Drug Dose 65.6 ml/min Estimated GFR () 83.0 Estimated GFR (Non- 71.6 BUN/Creatinine Ratio 6.3 10-20 Random Glucose 117 70-99 mg/dl Calcium Level 8.6 8.5-10.1 mg/dl Magnesium Level 1.9 1.8-2.4 mg/dl Total Bilirubin 0.7 0.2-1 mg/dl Aspartate Amino Transf (AST/SGOT) 31 15-37 U/L Alanine Aminotransferase (ALT/SGPT) 36 12-78 U/L Alkaline Phosphatase 59 45-117 U/L Total Protein 6.6 6.4-8.2 gm/dl Albumin 3.5 3.4-5.0 gm/dl Globulin 3.1 2.5-4.0 gm/dl Albumin/Globulin Ratio 1.1 0.9-2 Thyroid Stimulating Hormone (TSH) 0.657 0.300-4.500 uIu/ml Urine Color YELLOW Urine Appearance CLEAR CLEAR Urine pH 7.0 4.5-7.5 Urine Specific [place] 1.006 1.000-1.030 Urine Protein NEG NEG Urine Glucose (UA) NEG NEG Urine Ketones NEG NEG Urine Occult Blood NEG NEG Urine Nitrite NEG NEG Urine Bilirubin NEG NEG Urine Urobilinogen NEG NEG Urine Leukocyte Esterase NEG NEG Microbiology Results 12/06/17 Blood Culture, Received Pending 12/06/17 Blood Culture, Received Pending Diagnostic Radiology CXR: 1. Stable to slight interval increase in bibasilar infiltrates greater on the right. This may in part be vascular in etiology related to volume overload and/ or atelectasis. Aspiration or infection may appear similarly. 2. New small right pleural effusion. 3. Cardiomegaly. Impression Assessment and Plan 72 y/o M Hx CAD, CVA, HTN, HPL hypothyroid, recurrent pneumonias and pneumonitis due to aspiration. The pt presented to the ER 2 weeks prior with a productive cough and was discharged with a course of Levaquin. He returns with progressive weakness. A CXR indicates progression of BL infiltrates. He states that his cough has not worsened and he denies SOB or fevers. 1) PNM - likely aspiration. He has failed Levaquin which would not be adequate coverage for aspiration. We will place him on Unasyn. Nebs and 02 provided. It is noted that his primary symptom is weakness and he is having difficulty mobilizing. We will consult PT/OT. He had been evaluated by speech therapy in the past and was only advised on a soft diet. He drinks thin liquids without difficulty. 2) DM - placed on a SS 3) CAD - cont Plavix, ASA, B art, Statin 4) Hx of CVA - cont Plavix, Statin 5) Hypothyroidism - cont Synthroid 6) HTN, HPL - cont Lipitor, Carvedilol Full code - SCDs due to Heparin allergy Total time for this admit including review of labs, meds, imaging, records - discussion with pt and ER attending - 38 min Resuscitation Status VTE Prophylaxis Will order VTE Prophylaxis: Yes
[2017-12-06] MEDS ORDERED: ALUMINUM/MAGNESIUM/SIMETH (MAALOX MAX) 30 ML UDC PO PRN (17:00)
[2017-12-06] MEDS ORDERED: POLYETHYLENE (MIRALAX) 17 GM PACK PO PRN (17:00)
[2017-12-06] MEDS ORDERED: ONDANSETRON INJ 2 MG/ML 2 ML VIAL IV PRN (17:00)
[2017-12-06] MEDS ORDERED: ACETAMINOPHEN 325 MG TAB PO PRN (17:00)
[2017-12-06] MEDS ORDERED: MAGNESIUM HYDROXIDE SUSP 30 ML UDC PO PRN (17:00)
[2017-12-06 17:01] VITALS: O2SAT 95; BMI 33.4
[2017-12-06 18:42] VITALS: BP 161/83; PULSE 55; TEMP 36.6; O2SAT 94
[2017-12-06] MEDS: ALBUT/IPRATROP 3MG/0.5MG NEB 3 ML VIAL INH SCH (19:43)
[2017-12-06 19:44] VITALS: PULSE 57; O2SAT 96
[2017-12-06] MEDS: CARVEDILOL 3.125 MG TAB PO SCH (20:27)
[2017-12-06] MEDS: QUETIAPINE FUMARATE 200 MG TAB PO SCH (20:27)
[2017-12-06] MEDS: QUETIAPINE FUMARATE 25 MG TAB PO SCH (20:27)
[2017-12-06] MEDS: GABAPENTIN 600 MG TAB PO SCH (20:28)
[2017-12-06] MEDS: TRAZODONE HCL 100 MG TAB PO SCH (20:29)
[2017-12-06] MEDS: ROPINIROLE HCL 1 MG TAB PO SCH (20:32)
[2017-12-06 23:29] VITALS: BP 115/70; PULSE 59; TEMP 36.9; O2SAT 92
[2017-12-07] VITALS (8 sets, daily range): BP systolic 118–133; BP diastolic 58–74; PULSE 0–64; TEMP 35.8–36.3; O2SAT 92–96; Ht 162.6 cm; Wt 88.2 kg
[2017-12-07] MEDS: ALBUT/IPRATROP 3MG/0.5MG NEB 3 ML VIAL INH SCH ×4 (02:03→19:05)
[2017-12-07] MEDS: LEVOTHYROXINE 50 MCG TAB PO SCH (06:16)
[2017-12-07] MEDS: CLOPIDOGREL BISULFATE 75 MG TAB PO SCH (07:51)
[2017-12-07] MEDS: CARVEDILOL 3.125 MG TAB PO SCH ×2 (07:52→20:35)
[2017-12-07] MEDS: CYANOCOBALAMIN 500 MCG TAB (VIT B-12) PO SCH (07:52)
[2017-12-07] MEDS: ATORVASTATIN 40 MG TAB PO SCH (07:52)
[2017-12-07] MEDS: PANTOprazole SOD 40 MG TAB PO SCH (07:52)
[2017-12-07] MEDS: FLUOXETINE HCL 10 MG CAP PO SCH (07:52)
[2017-12-07] MEDS: GABAPENTIN 600 MG TAB PO SCH ×3 (07:53→20:33)
[2017-12-07] MEDS: FLUOXETINE HCL 20 MG CAP PO SCH (07:53)
[2017-12-07] MEDS ORDERED: ENALAPRIL MALEATE 10 MG TAB PO SCH (08:00)
[2017-12-07 09:27] LABS: BASO % 0.2 %; BASO ABS # 0.01 K/uL (0-0.2); EOS % 0.9 %; EOS ABS # 0.06 K/uL (0-0.5); HEMATOCRIT 38.6 % (42-52); HEMOGLOBIN 13.3 g/dL (14.0-18.0); IG# 0.03 K/uL (0.00-0.02); LYMPH % 12.4 %; LYMPH ABS # 0.82 K/uL (1.2-3.4); MEAN CELL VOLUME 93.7 fL (80-100); MEAN CORPUSCULAR HEMOGLOBIN 32.3 pg (25-34); MEAN CORPUSCULAR HGB CONC 34.5 g/dl (32-36); MEAN PLATELET VOLUME 9.1 fL (7.4-10.4); MONO ABS # 0.33 K/uL (0.11-0.59); NEUT ABS # 5.34 K/uL (1.4-6.5); PLATELET COUNT 123 K/uL (130-400); RED CELL DISTRIBUTION WIDTH SD 47.7 fL (36.4-46.3); WHITE BLOOD COUNT 6.59 K/uL (4.8-10.8)
[2017-12-07 09:51] LABS: BLOOD UREA NITROGEN 9 mg/dl (7-18); CALCIUM 8.2 mg/dl (8.5-10.1); CARBON DIOXIDE 28 mmol/L (21-32); CREATININE 1.17 mg/dl (0.60-1.40); GLUCOSE 153 mg/dl (70-99); POTASSIUM 3.7 mmol/L (3.5-5.1); SODIUM 139 mmol/L (136-145)
[2017-12-07 09:56] LABS: HEMOGLOBIN A1C 5.8 % (4.5-5.6)
[2017-12-07] MEDS: AMPICILLIN/SULBACTAM SOD INJ 3,000 MG in SODIUM CHLORIDE 0.9% 100ML 100 ML IV SCH ×2 (12:14→17:54)
--- NOTE | 2017-12-07 19:17 | Hospitalist Progress Note ---
Hospitalist Progress Note Date of Service Dec 07, 2017. Subjective Pt evaluation today including: conversation w/ patient Pt feeling so much better today. Feels much stronger. Is coughing minimally. His denies chest pain or abdominal pain. No diarrhea. He is ambulating around without difficulty. All Other Systems: Reviewed and Negative Objective Vital Signs Date Time Temp Pulse Resp B/P (MAP) Pulse Ox O2 Delivery O2 Flow Rate FiO2 12/07/17 15:00 36.3 60 16 128/62 (84) 95 Room Air 12/07/17 11:47 35.8 60 18 120/70 (87) 95 Room Air 12/07/17 08:00 Room Air 12/07/17 08:00 64 12/07/17 07:49 36.2 59 18 118/58 (78) 92 Room Air 12/07/17 07:07 55 16 93 Room Air 12/07/17 02:03 54 16 93 Room Air 12/07/17 00:42 Room Air 12/06/17 23:29 36.9 59 19 115/70 (85) 92 Room Air 12/06/17 19:44 57 14 96 Room Air Physical Exam General Appearance: WD/WN, no apparent distress Eyes: sclerae normal, + pertinent finding (Right eye esotropia) ENT: hearing grossly normal Neck: trachea midline Respiratory/Chest: no respiratory distress, no accessory muscle use, + decreased breath sounds (At the bases bilaterally) Cardiovascular: regular rate, rhythm, no edema, no murmur Abdomen: normal bowel sounds, non tender, soft, no organomegaly Extremities: non-tender, normal inspection, no pedal edema, no calf tenderness Neurologic/Psychiatric: alert, normal mood/affect, oriented x 3 Skin: normal color, warm/dry, no rash Laboratory Results Last 24 Hours Test 12/07/17 09:13 White Blood Count 6.59 K/uL Red Blood Count 4.12 M/uL Hemoglobin 13.3 g/dL Hematocrit 38.6 % Mean Corpuscular Volume 93.7 fL Mean Corpuscular Hemoglobin 32.3 pg Mean Corpuscular Hemoglobin Concent 34.5 g/dl Platelet Count 123 K/uL Mean Platelet Volume 9.1 fL Neutrophils (%) (Auto) 81.0 % Lymphocytes (%) (Auto) 12.4 % Monocytes (%) (Auto) 5.0 % Eosinophils (%) (Auto) 0.9 % Basophils (%) (Auto) 0.2 % Neutrophils # (Auto) 5.34 K/uL Lymphocytes # (Auto) 0.82 K/uL Monocytes # (Auto) 0.33 K/uL Eosinophils # (Auto) 0.06 K/uL Basophils # (Auto) 0.01 K/uL RDW Standard Deviation 47.7 fL RDW Coefficient of Variation 14.0 % Immature Granulocyte % (Auto) 0.5 % Immature Granulocyte # (Auto) 0.03 K/uL Sodium Level 139 mmol/L Potassium Level 3.7 mmol/L Chloride Level 104 mmol/L Carbon Dioxide Level 28 mmol/L Anion Gap 7.0 mmol/L Blood Urea Nitrogen 9 mg/dl Creatinine 1.17 mg/dl Est Creatinine Clear Calc Drug Dose 58.8 ml/min Estimated GFR () 72.8 Estimated GFR (Non- 62.8 BUN/Creatinine Ratio 7.5 Random Glucose 153 mg/dl Estimated Average Glucose 120 mg/dl Hemoglobin A1c 5.8 % Calcium Level 8.2 mg/dl Magnesium Level 1.8 mg/dl Troponin I < 0.015 ng/ml Procalcitonin < 0.05 ng/ml Assessment and Plan This patient is a 72 y/o M Hx CAD, CVA, HTN, prediabetes, HPL hypothyroidism, depression, insomnia, RLS, recurrent pneumonias and pneumonitis due to aspiration. The pt presented to the ER 2 weeks prior with a productive cough and was discharged with a course of Levaquin. He returned with progressive weakness. A CXR indicates progression of BL infiltrates. He states that his cough has not worsened and he denies SOB or fevers. PNA/generalized weakness likely aspiration. With bilateral lower lobe infiltrates. He has failed Levaquin which would not be adequate coverage for aspiration. Already significantly improved today with improving strength. -Continue on Unasyn -Continue bronchodilators -It is noted that his primary symptom is weakness and he is having difficulty mobilizing.-Consult PT/OT. -He had been evaluated by speech therapy in the past and was only advised on a soft diet. He drinks thin liquids without difficulty, but was known to aspirate them on a recent video swallow. -follow CXR to resolution Prediabetes Last hemoglobin A1c 5.8% -Not on any medications for this at home CAD/chronic systolic CHF-most recent EF 50% -ECG here initially with anterior lead T-wave inversions. Asymptomatic no chest pain. Troponin negative 2, repeat ECG improved. -cont Plavix, B art, Statin, quinapril Hx of CVA -no current issues with this -cont Plavix, Statin Hypothyroidism -TSH normal 0.657 -cont Synthroid HTN, HPL -stable cont Lipitor, Carvedilol, quinapril RLS -Continue Requip 4 mg PO hs Atypical facial pain-stable -Continue gabapentin 600 mg PO q morning and afternoon, 1200 mg PO hs Insomnia, anxiety/depression-stable -Continue Seroquel 250 mg PO hs, Rozerem 8 mg PO hs, trazodone 200 mg PO hs, and fluoxetine Prophylaxis-SCDs due to Heparin allergy Disposition-likely to home tomorrow
[2017-12-07] MEDS: ROPINIROLE HCL 1 MG TAB PO SCH (20:31)
[2017-12-07] MEDS: QUETIAPINE FUMARATE 25 MG TAB PO SCH (20:33)
[2017-12-07] MEDS: QUETIAPINE FUMARATE 200 MG TAB PO SCH (20:34)
[2017-12-07] MEDS: TRAZODONE HCL 100 MG TAB PO SCH (20:35)
[2017-12-08 00:04] VITALS: BP 135/74; PULSE 60; TEMP 36.7; O2SAT 90
[2017-12-08] MEDS: AMPICILLIN/SULBACTAM SOD INJ 3,000 MG in SODIUM CHLORIDE 0.9% 100ML 100 ML IV SCH ×3 (00:14→11:45)
[2017-12-08 02:05] VITALS: PULSE 58; O2SAT 98
[2017-12-08] MEDS: ALBUT/IPRATROP 3MG/0.5MG NEB 3 ML VIAL INH SCH ×2 (02:05→07:12)
[2017-12-08] MEDS: LEVOTHYROXINE 50 MCG TAB PO SCH (05:38)
[2017-12-08 07:17] VITALS: PULSE 58; O2SAT 95
[2017-12-08 07:24] VITALS: BP 147/83; PULSE 51; TEMP 36.4; O2SAT 95
[2017-12-08] MEDS: ATORVASTATIN 40 MG TAB PO SCH (08:35)
[2017-12-08] MEDS: CARVEDILOL 3.125 MG TAB PO SCH (08:35)
[2017-12-08] MEDS: CLOPIDOGREL BISULFATE 75 MG TAB PO SCH (08:36)
[2017-12-08] MEDS: CYANOCOBALAMIN 500 MCG TAB (VIT B-12) PO SCH (08:37)
[2017-12-08] MEDS: GABAPENTIN 600 MG TAB PO SCH (08:37)
[2017-12-08] MEDS: PANTOprazole SOD 40 MG TAB PO SCH (08:37)
[2017-12-08] MEDS: FLUOXETINE HCL 10 MG CAP PO SCH (08:38)
[2017-12-08] MEDS: FLUOXETINE HCL 20 MG CAP PO SCH (08:38)
[2017-12-08 12:10] VITALS: BP 147/83; PULSE 51; TEMP 36.4; O2SAT 95
[2017-12-08] MEDS ORDERED: VNTHFA/IN INH (12:34)
[2017-12-08] MEDS ORDERED: AMOX875T PO (12:34)
--- NOTE | 2017-12-08 12:36 | Discharge Instructions ---
Discharge Instructions Date of Service Dec 08, 2017. Admission Reason for Admission: Aspiration Pneumonia Discharge Discharge Diagnosis / Problem: Aspiration pneumonia Discharge Goals Goal(s): Improve disease control, Diagnostic testing, Therapeutic intervention Activity Recommendations Activity Limitations: resume your previous activity Shower/Bathe: no limitations . Instructions / Follow-Up Instructions / Follow-Up Please finish out the course of Augmentin 1 tablet twice a day for 5 more days. You can use the Ventolin inhaler as needed for cough or shortness of breath. Please follow-up with your primary care physician within 1 week after discharge. Current Hospital Diet Patient's current hospital diet: AHA Diet (Heart Healthy) Discharge Diet Recommended Diet: AHA Diet (Heart Healthy) Procedures Procedures Performed: Chest x-ray Pending Studies Studies pending at discharge: yes List of pending studies: Final blood culture result-no growth to date Laboratory Results Hemoglobin A1c Test 12/07/17 09:13 Range/Units Estimated Average Glucose 120 mg/dl Hemoglobin A1c 5.8 H 4.5-5.6 % Medical Emergencies . Who to Call and When: Medical Emergencies: If at any time you feel your situation is an emergency, please call 911 immediately. . Non-Emergent Contact Non-Emergency issues call your: Primary Care Provider Call Non-Emergent contact if: temperature is above 101, you have any medication questions . . "Provider Documentation" section prepared by Rosie Qiu. .
--- NOTE | 2017-12-08 12:47 | Discharge Summary ---
Discharge Summary Date of Service Dec 08, 2017. Discharge Summary Admission Date: Dec 06, 2017 at 16:53 Discharge Date: Dec 08, 2017 Discharge Disposition: Home Principal Diagnosis: Aspiration PNA Problems/Secondary Diagnoses: CAD History of CVA Chronic systolic CHF HTN Prediabetes HPL Hypothyroidism Major depressive disorder Insomnia RLS Recurrent aspiration pneumonitis Atypical facial pain Immunizations: Have You Had Influenza Vaccine: Yes Influenza Vaccine Date: Dec 26, 2011 History of Tetanus Vaccine?: Yes Tetanus Immunization Date: Oct 26, 2009 History of Pneumococcal: Yes Pneumococcal Date: Dec 26, 2011 History of Hepatitis B Vaccine: No Procedures: CXR Medication Reconciliation New Medications: Albuterol Hfa (Ventolin Hfa) 200 Puffs/69554 Mcg Aers 2 PUFFS INH Q6H PRN for shortness of breath or cough, #1 INHALER Amoxicillin & Pot Clavulanate (Augmentin 875-125 mg) 1 Tab Tab 875 MG PO BID for 5 Days, #10 TAB Continued Medications: Alprazolam (Xanax) 0.5 Mg Tab 0.75 MG PO HS, 0 Refills Atorvastatin (Lipitor) 40 Mg Tab 40 MG PO DAILY, TAB Carvedilol (Coreg) 6.25 Mg Tab 3.125 MG PO BID, TAB Cholecalciferol (Vitamin D3) 1,000 Unit Tab 1000 INTER.UNIT PO DAILY for 90 Days, TAB 3 Refills Clopidogrel (Plavix) 75 Mg Tab 75 MG PO DAILY, TAB Cyanocobalamin (Vitamin B12) 1,000 Mcg Tab 1000 MCG PO DAILY Esomeprazole Magnesium (Nexium) 40 Mg Cap 40 MG PO DAILY, CAP Fluoxetine (Prozac) 10 Mg Cap 10 MG PO DAILY, CAP TAKE ALONG WITH 20MG TAB. TOTAL DOSE 30MG DAILY Fluoxetine (Prozac) 20 Mg Cap 20 MG PO DAILY, CAP TAKE ALONG WITH 10MG TAB. TOTAL DOSE 30MG DAILY Fluticasone-Salmeterol 230/21 Mcg (Advair Hfa 230/21 Mcg) 1 Aer Aer 1 PUFF INH BID, AER Gabapentin (Neurontin) 600 Mg Tab 600 MG PO BID, TAB MORNING & AFTERNOON Gabapentin (Neurontin) 600 Mg Tab 1200 MG PO HS, TAB Levothyroxine Sodium (Levothyroxine Sodium) 50 Mcg Tab 50 MCG PO DAILY for 90 Days, #90 TAB 3 Refills Mometasone Furoate (Nasal) (Mometasone Furoate) 50 Mcg/Act Spr 2 SPRAYS SHELLIE DAILY Nitroglycerin (Nitrostat) 0.4 Mg Tab 0.4 MG UT PRN, 0 Refills Quetiapine Fumarate (Seroquel) 200 Mg Tab 200 MG PO HS, TAB TAKE ALONG WITH 50MG TAB. TOTAL DOSE 250MG Quetiapine Fumarate (Seroquel) 50 Mg Tab 50 MG PO HS, TAB TAKE ALONG WITH 200MG TAB. TOTAL DOSE 250MG DAILY Quinapril Hcl (Accupril) 10 Mg Tab 10 MG PO DAILY, TAB Ramelteon (Rozerem) 8 Mg Tab 8 MG PO HS, TAB Ropinirole (Requip) 4 Mg Tab 4 MG PO HS, TAB Trazodone Hcl (Trazodone) 100 Mg Tab 200 MG PO HS, TAB Discharge Exam Patient feeling very well, has really no cough at all. His strength is much improved he is ambulating the halls without difficulty. Remains afebrile and no growth to date and his blood cultures. Physical Exam General Appearance: WD/WN, no apparent distress Eyes: sclerae normal, + pertinent finding (Right eye esotropia) ENT: hearing grossly normal Neck: trachea midline Respiratory/Chest: no respiratory distress, no accessory muscle use, + decreased breath sounds (At the bases bilaterally) Cardiovascular: regular rate, rhythm, no edema, no murmur Abdomen: normal bowel sounds, non tender, soft, no organomegaly Extremities: non-tender, normal inspection, no pedal edema, no calf tenderness Neurologic/Psychiatric: alert, normal mood/affect, oriented x 3 Skin: normal color, warm/dry, no rash Review of Systems: Constitutional: No fever, No chills Eyes: No problem reported ENT: No problem reported Respiratory: No problem reported Cardiovascular: No problem reported Abdomen: No problem reported Musculoskeletal: No problem reported Genitourinary - Male: No problem reported Neurologic: No problem reported Psychiatric: No problem reported Endocrine: No problem reported Hematologic / Lymphatic: No problem reported Integumentary: No problem reported Hospital Course This patient is a 72 y/o M Hx CAD, CVA, HTN, prediabetes, HPL hypothyroidism, depression, insomnia, RLS, recurrent pneumonias and pneumonitis due to aspiration. The pt presented to the ER 2 weeks prior with a productive cough and was discharged with a course of Levaquin. He returned with progressive weakness. A CXR indicates progression of BL infiltrates. He states that his cough has not worsened and he denies SOB or fevers. PNA/generalized weakness- likely aspiration. With bilateral lower lobe infiltrates. He failed Levaquin which would not be adequate coverage for aspiration. Continues to be significantly improved today on Unasyn with improving strength in minimal respiratory symptoms. -Discharged home on Augmentin for 5 more days -Continue bronchodilators -PT/OT evaluated him in said he was appropriate for discharge to home as an outpatient in 4-6 weeks -He had been evaluated by speech therapy in the past and was only advised on a soft diet. He drinks thin liquids without difficulty, but was known to aspirate them on a recent video swallow. -follow CXR to resolution Prediabetes Last hemoglobin A1c 5.8% -Not on any medications for this at home CAD/chronic systolic CHF-most recent EF 50% -ECG here initially with anterior lead T-wave inversions. Asymptomatic no chest pain. Troponin negative 2, repeat ECG improved. -cont Plavix, B art, Statin, quinapril Hx of CVA -no current issues with this -cont Plavix, Statin Hypothyroidism -TSH normal 0.657 -cont Synthroid HTN, HPL -stable cont Lipitor, Carvedilol, quinapril RLS -Continue Requip 4 mg PO hs Atypical facial pain-stable -Continue gabapentin 600 mg PO q morning and afternoon, 1200 mg PO hs Insomnia, anxiety/depression-stable -Continue Seroquel 250 mg PO hs, Rozerem 8 mg PO hs, trazodone 200 mg PO hs, and fluoxetine 30 mg daily Stable for discharge to home Total Time Spent: Greater than 30 minutes This includes examination of the patient, discharge planning, medication reconciliation, and communication with other providers. Discharge Instructions Please refer to the electronic Patient Visit Report (Discharge Instructions) for additional information. Follow-Up With PCP within 1 week Additional Copies To Luis Manuel Pham M.D.
[2017-12-09] MEDS ORDERED: ENALAPRIL MALEATE 10 MG TAB PO SCH (08:00)
== END 2017-12-08 13:30 | disposition home or self-care (01) | DRG 178 ==
LOC: EDBD 13:14 → C.EDA 13:17 → C.4E 16:53 → ENRESERV 17:44
PROVIDERS: ADMIT Internal Medicine; ATTEND Family Medicine
DX: J69.0 Pneumonitis due to inhalation of food and vomit (principal); I50.22 Chronic systolic (congestive) heart failure; G25.81 Restless legs syndrome; Z87.01 Personal history of pneumonia (recurrent); I25.10 Atherosclerotic heart disease of native coronary artery without angina pectoris; I25.2 Old myocardial infarction; Z86.73 Personal history of transient ischemic attack (TIA), and cerebral infarction without residual deficits; Z87.891 Personal history of nicotine dependence; E03.9 Hypothyroidism, unspecified; I11.0 Hypertensive heart disease with heart failure; E78.5 Hyperlipidemia, unspecified; F32.9 Major depressive disorder, single episode, unspecified; R73.03 Prediabetes

== ENCOUNTER 2018-07-10 12:40 | Observation (INO) ==
--- NOTE | 2018-07-10 13:32 | CT Scan Report ---
HEAD CT NONCONTRAST CT DOSE: 788.63 mGycm HISTORY: Stroke evaluation TECHNIQUE: Multiaxial CT images of the head were performed without the use of intravenous contrast. A utomated exposure control was utilized for this study. A dose lowering technique was utilized adheri ng to the principles of ALARA. Comparison: Head CT 07/07/2012. Findings: The paranasal sinuses and mastoid air cells are clear. The calvarium and skull base are int act. There is no mass, hematoma, midline shift, acute infarct. White matter hypodensity is nonspecifi c but suggestive of microvascular ischemic change. The ventricles and sulci demonstrate mild age-rela rhonda involutional changes. Old left periventricular parietal infarct. Impression: No significant change compared to the prior study. No acute intracranial abnormality. Electronically signed by: Lam Rivera M.D. 07/10/2018 1:31 PM
[2018-07-10 13:45] LABS: Eosinophils # (auto) 0.06 K/uL (0-0.5); Eosinophils % (auto) 1.2 %; Hematocrit (blood only) 39.5 % (42-52); Hemoglobin 13.9 g/dL (14.0-18.0); Immature Granulocytes # (auto) 0.01 K/uL (0.00-0.02); Immature Granulocytes % (auto) 0.2 %; Lymphocytes # (auto) 1.05 K/uL (1.2-3.4); Lymphocytes % (auto) 21.7 %; Mean Corpuscular Hgb Conc 35.2 g/dL (32-36); Mean Corpuscular Volume 92.5 fL (80-100); Mean Platelet Volume 9.6 fL (7.4-10.4); Monocytes # (auto) 0.49 K/uL (0.11-0.59); Monocytes % (auto) 10.1 %; Neutrophils # (auto) 3.22 K/uL (1.4-6.5); Neutrophils % (auto) 66.8 %; Platelet Count 148 K/uL (130-400); RDW Coefficient of Variation 12.9 % (11.5-14.5); RDW Standard Deviation 43.5 fL (36.4-46.3); Red Blood Count 4.27 M/uL (4.7-6.1); White Blood Count 4.83 K/uL (4.8-10.8)
[2018-07-10] MEDS ORDERED: OPTIRAY 320 125ml IV PRN (13:48)
[2018-07-10 13:57] LABS: Alanine Aminotransferase 33 U/L (12-78); Albumin Level 3.6 gm/dl (3.4-5.0); Aspartate Aminotransferase 24 U/L (15-37); BUN Creatinine Ratio 8.1 (10-20); Blood Urea Nitrogen 9 mg/dl (7-18); Calcium 9.5 mg/dl (8.5-10.1); Carbon Dioxide 30 mmol/L (21-32); Chloride 106 mmol/L (98-107); Est GFR (African American) 79.3; Est GFR (Non-African American) 68.4; Glucose 93 mg/dl (70-99); Magnesium 2.1 mg/dl (1.8-2.4); Potassium 4.1 mmol/L (3.5-5.1); Sodium 139 mmol/L (136-145)
[2018-07-10] MEDS ORDERED: SODIUM CHLORIDE 0.9% 1000ML 500 ML IV ONE (13:58)
[2018-07-10 14:02] LABS: Albumin Globulin Ratio 1.2 (0.9-2); Alkaline Phosphatase 93 U/L (45-117); Bilirubin,Total 0.5 mg/dl (0.2-1); Total Protein 6.6 gm/dl (6.4-8.2); Troponin I < 0.015 ng/ml (0-0.045)
--- NOTE | 2018-07-10 14:05 | CT Scan Report ---
HEAD & NECK CTA HISTORY: Stroke symptoms. Dizziness. TECHNIQUE: Multiaxial CT images of the head were performed following the intravenous administration o f contrast to evaluate the major cerebral vessels. Multiaxial CT images of the neck were also perform ed following the intravenous administration of contrast to evaluate the major cervical vessels. Maxim um intensity projection images were also obtained. A dose lowering technique was utilized adhering to the principles of ALARA. COMPARISON: Head CT 07/10/2018. FINDINGS: The left transverse sinus is small in caliber. However, the major dural venous sinuses appear to be p atent. Hypoplastic distal right vertebral artery demonstrating multifocal mild narrowing. There is al so mild focal narrowing within the distal left vertebral artery. Basilar artery and intracranial inte rnal carotid arteries appear to be widely patent. The bilateral ACAs, MCAs, and back filler operator show no signific ant stenosis, occlusion, or aneurysm. There is also focal fusiform aneurysmal dilatation within the d istal right vertebral artery measuring 3 mm in diameter. The aortic arch and proximal great vessels are widely patent. There is no significant stenosis, occ lusion, or dissection identified within the bilateral common carotid, internal carotid, or left verte bral arteries. Visualized lungs are essentially clear. The thyroid gland enhances normally. No cervic al lymphadenopathy. Multilevel degenerative changes within the cervical spine resulting in mild centr al canal narrowing. Hypoplastic right vertebral artery. Moderate focal narrowing within the right fannie tebral artery due to the adjacent osteophytes at the C6-C7 level. Mild atherosclerotic plaque within the bilateral carotid bulbs. IMPRESSION: 1. No significant stenosis, occlusion, or aneurysm within the [place]. 2. Hypoplastic right vertebral artery. This demonstrates mild multifocal stenosis distally within the intracranial portion. 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 3. Moderate focal narrowing within the proximal right vertebral artery at the C6-C7 level due to mass effect from the adjacent osteophytes. 4. No significant stenosis, occlusion, or dissection within the bilateral carotid arteries or left ve rtebral artery. Electronically signed by: Lam Rivera M.D. 07/10/2018 2:04 PM
[2018-07-10 14:06] LABS: INR 1.1 (0.9-1.1); Partial Thromboplastin Time 27.4 Seconds (21.0-31.0); Prothrombin Time 11.1 Seconds (9.0-12.0)
--- NOTE | 2018-07-10 14:28 | XRay Report ---
XR chest 1V portable CLINICAL HISTORY: Weakness. Possible pneumonia. COMPARISON STUDY: 04/26/2018 FINDINGS: The heart is mildly enlarged. There is stable aortic tortuosity/ectasia. There is no overt failure. There is no focal pulmonary consolidation. There are no pleural effusions.[ IMPRESSION: No active disease in the chest. Electronically signed by: Sagar Magana M.D. 07/10/2018 2:27 PM
--- NOTE | 2018-07-10 14:31 | History & Physical Report ---
Date of Service July 10, 2018 Assessment & Plan (1) TIA (transient ischemic attack): * Patient's symptoms are primarily resolved * Continues to have a very slight left deviation of the tongue * Reports prior history of CVA * CT of the head without any significant findings * CTA of the head and neck vessels clear with no significant stenosis or sclerosis * NIH scale improved from 6-1 since being in the emergency department * Patient is bradycardic and I question a near syncopal event and whether the left deviation of the tongue is residual from prior CVA * Admit to med telemetry for observation (2) Near syncope: * Patient presents with bradycardia with a rate in the low 50s * Review of outpatient records shows that 2 days ago he had a rate of 59 * I do not see any prior history of bradycardia or heart block * Will place patient on observation and med telemetry and look for arrhythmias * Check orthostatics * No indication for cardiology consult at this time * Repeat echocardiogram as patient had prior CAD (3) CAD (coronary artery disease): * Prior history of PTCA with stenting to the LAD * Patient chronically on clopidogrel * Clopidogrel is been held secondary to bradycardia in the event the patient would have defined bradycardia requiring a pacemaker insertion * Restart clopidogrel tomorrow if bradycardia does not seem to be the primary issue with the dizziness and near syncope * Consider cardiology consult tomorrow as needed * Repeat echocardiogram * (4) GERD (gastroesophageal reflux disease): * No hematochezia, melena, bright red blood per rectum, hematemesis * Chronic anemia * Continue PPI * No abdominal pain (5) Hypothyroidism: * Continue levothyroxine (6) Restrictive lung disease: * Continue home bronchodilators * No hypoxia * No chest pain * Faint bronchospasm * Monitor (7) Restless legs: * Continue home meds (8) Parkinsonian features: * Patient and report shuffle gait seems to be progressive at home * Has not been diagnosed with Parkinson's * Follows with Dr. Chong in neurology * Fall precautions per nursing protocol (9) Depression with anxiety: * Recently increased trazodone at bedtime from 200 mg to 300 mg. Will only give 200 mg while inpatient secondary to dizziness and near syncope * Patient also takes Seroquel 250 mg at bedtime. Continue this dose * Continue other home meds as prescribed (10) Diabetes mellitus type 2 in nonobese: * Hemoglobin A1c has been controlled at home * Patient is not on any diabetic medications or insulin * Outpatient note reports the patient should continue exercise and diet * Will continue with diabetic carb limiting diet while inpatient (11) Hypertension: * Continue home medications including carvedilol * Due to bradycardia we will add hydralazine 10 mg every 8 hours as needed for systolic blood pressure greater than 160 * Repeat echocardiogram * May require cardiology consult due to bradycardia, history of CAD, previous echo findings * Admit to med telemetry * Follow (12) History of aspiration pneumonia: * Previous video swallow study showed trace aspiration * Nursing to do bedside swallow eval * Aspiration precautions on the floor * Soft chopped food on diet (13) DVT prophylaxis: * SONDRA hose * SCDs * Hold chemical prophylaxis at this time as patient is on clopidogrel as an outpatient and may require interventional procedures History of Present Illness Primary Care Provider: ABE Whatley Attending: Dr. Manzanares This is a 72 year old male that appears older than his stated age. Hi sis no acute distress. He has a past medical history significant for DMII (non-insulin controlled), CAD, chronic use of clopidigrel, hx embolic CVA, hx aspiration pneumonia, chronic cerebral ischemia, HTN, hyperlipidemia, GERD, disturbed gait, chronic anemia, chronic B/L LE weakness, general weakness, restrictive lung disease, hypothyroidism, apical akinesis on echo, ischemic cardiomyopathy, left atrial thrombus, hx of falls, hx of tobacco abuse, hx of alcohol abuse. The patient went to his dentist this morning to have his upper dentures aligned. He was walking out to the car after the appointment and suddenly became light headed and slumped against the car due to weakness in his lower extremities. He denies fall or LOC but felt as though he would "pass out". He reports that this has happened in the past and resolved in short order after sitting down. He is noted to have "bradycardia" on his most recent outpatient note with a rate of 59. Prior to that, it appears that he was in the 70s. He denies chest pain or tightness. Last BM was this morning. He has no abdominal pain. No vagal response or near syncope with BM reported. He denies melena, hematochezia, BRBPR, hemate mesis. No recent illness. Vaccinations: Influenza: last given 12/01/14 PCV: 08/03/15 PPSV: 08/20/16 TdAP: 08/03/15 Zoster: Previous Workup: Video swallow 12/27/2016: Trace aspiration, generalized dysmotility of esophagus, vallecula pooling CT angios chest 12/27/2016 No pulmonary emboli Multifocal airspace opacifications within the right lung dependent regions Mild/moderate cardiomegaly and old infarction left ventricular apex Probable basilar pleural thickening and signs of bilateral lower lobe bronchiectasis CXR 12/26/2016: Mild pulmonary edema, retrocardiac opacification CTA thorax 11/11/2015 Bilateral basilar pleural scarring Bilateral basilar bronchiectasis Dorsey dependent infiltrates/aspiration within the trachea CT of the abdomen 09/13/2012 Bilateral pleural scarring at the bases with atelectasis of the right Microbiology: Blood culture 11/29/1998: Escherichia coli Hearing catheterization 07/07/2012: Gram-positive cocci Pulmonary function studies 12/10/2015 These were very poor pulmonary function studies at most can be said is the numbers are equal to their estimated value FEV1: 1.80/62% FVC: 1.92/52% FEV1/FVC: 94 T.65/62% DLCO: 65% Allergies Allergy/AdvReac Type Severity Reaction Status Date / Time heparin Allergy Severe SEVERE Verified 07/10/18 13:59 REACTION Home Medications Home Medications Medication Instructions Recorded Confirmed Type atorvastatin 40 mg PO DAILY 03/30/18 07/10/18 History carvedilol 3.125 mg PO BID 03/30/18 07/10/18 History clopidogrel 75 mg PO DAILY 03/30/18 07/10/18 History fluoxetine 10 mg PO DAILY 03/30/18 07/10/18 History fluticasone propion-salmeterol 1 puff INHALATION Q12 PRN 03/30/18 07/10/18 History [Advair HFA] gabapentin 600 mg PO TID 03/30/18 07/10/18 History quetiapine 200 mg PO QPM 03/30/18 07/10/18 History ramelteon [Rozerem] 8 mg PO HS 03/30/18 07/10/18 History ropinirole 5 mg PO BID 03/30/18 07/10/18 History cyclobenzaprine 10 mg PO BID 07/10/18 07/10/18 History esomeprazole magnesium [Nexium] 40 mg PO DAILY 07/10/18 07/10/18 History fluoxetine 20 mg PO DAILY 07/10/18 07/10/18 History mometasone 2 spray INTRANASAL DAILY 07/10/18 07/10/18 History oxycodone 5 mg PO QID 07/10/18 07/10/18 History quetiapine [Seroquel] 50 mg PO QPM PRN 07/10/18 07/10/18 History trazodone 300 mg PO DAILY 07/10/18 07/10/18 History Past Med/Surg History Medical History Restless legs (Chronic 09/13/12) CAD (coronary artery disease) DMII (diabetes mellitus, type 2) HTN (hypertension) History of alcohol abuse History of tobacco abuse Hypothyroidism Legally blind in right eye, as defined in [place] Restless legs syndrome (RLS) Restrictive lung disease Ischemic stroke Surgical History H/O hernia repair History of cholecystectomy S/P PTCA (percutaneous transluminal coronary angioplasty) 2010; occluded LAD Family History Other Unobtainable family history due to adoption Social History Preferred Language: Stateless Communication Ability: Effective Grants Specialist Required: No Beliefs That Will Affect Care: None Current Living Situation: Significant Other Other Information That Helps Us Care for You: No Feels Safe at Home: Yes Safety Concerns: Feels Safe At This Time Smoking Status: Former smoker Hx Alcohol Use: No Hx Substance Use: No Review of Systems All systems reviewed & are unremarkable except as noted in HPI & below Physical Exam Vital Signs (Past 24 Hours): Last Vital Signs Temp 36.3 C L 07/10/18 12:47 Pulse 53 L 07/10/18 14:24 Resp 18 07/10/18 14:24 BP 124/82 07/10/18 14:24 Pulse Ox 95 07/10/18 14:24 Physical Exam: GENERAL : No acute distress. Pleasant EYES: No icterus, gaze conjugate. Appears to have cataracts bilaterally. NOSE: No evidence of epistaxis. MOUTH: No lesions or candidiasis. Mucosa is dry. Slight tongue deviation to the left. Facial droop corrected with insertion of dentures. NECK: Supple. No stridor or appreciation of carotid bruits LUNGS: CTA B/L, no wheezes, rales or rhonchi. Poor coordination of inspiration on command. No specific adventitious breath sounds HEART: Regular, rate controlled. Bradycardic at 53 bpm. Telemetry appears to be normal sinus rhythm ABDOMEN: Soft, NT, ND, BS Present. No guarding or rebound tenderness with deep palpation EXTREMITIES: No LE edema, pedal pulses intact. NEURO: A&OX3. Generalized weakness. Inability to sit up on bed without hanging legs over the edge of the bed. Slight facial droop which corrects with placement of upper dentures. Tongue slightly deviated to the left. Strength equal and appropriate to upper extremities bilaterally. Strength equal to lower extremities bilaterally. Bicep, brachioradialis, patellar tendons 2/4 bilaterally. No a aphasia. No atypical slurred or garbled speech. Patient's states that his speech pattern is usual with him at home. No headache. No blurred vision. Some loss of field of vision in the right lower quadrant which the patient says is customary for him. No nystagmus. Gait and Romberg are deferred. NIH score is 1 Results & Data Laboratory Results 07/10/18 07/10/18 07/10/18 13:25 13:25 13:25 WBC 4.83 RBC 4.27 L Hgb 13.9 L Hct 39.5 L MCV 92.5 MCH 32.6 MCHC 35.2 RDW Std Deviation 43.5 RDW Coeff of Camille 12.9 Plt Count 148 MPV 9.6 Immature Gran % (Auto) 0.2 Neut % (Auto) 66.8 Lymph % (Auto) 21.7 [place] % (Auto) 10.1 Eos % (Auto) 1.2 Baso % (Auto) 0.0 Immature Gran # (Auto) 0.01 Neut # (Auto) 3.22 Lymph # (Auto) 1.05 L [place] # (Auto) 0.49 Eos # (Auto) 0.06 Baso # (Auto) 0.00 PT 11.1 INR 1.1 APTT 27.4 PTT Ratio 1.0 Sodium 139 Potassium 4.1 Chloride 106 Carbon Dioxide 30 Anion Gap 3.0 BUN 9 Creatinine 1.09 Est Cr Clr Drug Dosing 57.0 Est GFR ( Amer) 79.3 Est GFR (Non-Af Amer) 68.4 BUN/Creatinine Ratio 8.1 L Glucose 93 POC Glucose Calcium 9.5 Magnesium 2.1 Total Bilirubin 0.5 AST 24 ALT 33 Alkaline Phosphatase 93 Troponin I < 0.015 Total Protein 6.6 Albumin 3.6 Globulin 3.0 Albumin/Globulin Ratio 1.2 07/10/18 13:54 WBC RBC Hgb Hct MCV MCH MCHC RDW Std Deviation RDW Coeff of Camille Plt Count MPV Immature Gran % (Auto) Neut % (Auto) Lymph % (Auto) [place] % (Auto) Eos % (Auto) Baso % (Auto) Immature Gran # (Auto) Neut # (Auto) Lymph # (Auto) [place] # (Auto) Eos # (Auto) Baso # (Auto) PT INR APTT PTT Ratio Sodium Potassium Chloride Carbon Dioxide Anion Gap BUN Creatinine Est Cr Clr Drug Dosing Est GFR ( Amer) Est GFR (Non-Af Amer) BUN/Creatinine Ratio Glucose POC Glucose 92 Calcium Magnesium Total Bilirubin AST ALT Alkaline Phosphatase Troponin I Total Protein Albumin Globulin Albumin/Globulin Ratio Diagnostic Findings HEAD CT NONCONTRAST CT DOSE: 788.63 mGycm HISTORY: Stroke evaluation TECHNIQUE: Multiaxial CT images of the head were performed without the use of intravenous contrast. Automated exposure control was utilized for this study. A dose lowering technique was utilized adhering to the principles of ALARA. Comparison: Head CT 07/07/2012. Findings: The paranasal sinuses and mastoid air cells are clear. The calvarium and skull base are intact. There is no mass, hematoma, midline shift, acute infarct. White matter hypodensity is nonspecific but suggestive of microvascular ischemic change. The ventricles and sulci demonstrate mild age-related involutional changes. Old left periventricular parietal infarct. Impression: No significant change compared to the prior study. No acute intracranial abnormality. Electronically signed by: Lam Rivera M.D. 07/10/2018 1:31 PM HEAD & NECK CTA HISTORY: Stroke symptoms. Dizziness. TECHNIQUE: Multiaxial CT images of the head were performed following the intravenous administration of contrast to evaluate the major cerebral vessels. Multiaxial CT images of the neck were also performed following the intravenous administration of contrast to evaluate the major cervical vessels. Maximum intensity projection images were also obtained. A dose lowering technique was utilized adhering to the principles of ALARA. COMPARISON: Head CT 07/10/2018. FINDINGS: The left transverse sinus is small in caliber. However, the major dural venous sinuses appear to be patent. Hypoplastic distal right vertebral artery demonstrating multifocal mild narrowing. There is also mild focal narrowing within the distal left vertebral artery. Basilar artery and intracranial internal carotid arteries appear to be widely patent. The bilateral ACAs, MCAs, and milk pasteurizer show no significant stenosis, occlusion, or aneurysm. There is also focal fusiform aneurysmal dilatation within the distal right vertebral artery measuring 3 mm in diameter. The aortic arch and proximal great vessels are widely patent. There is no significant stenosis, occlusion, or dissection identified within the bilateral common carotid, internal carotid, or left vertebral arteries. Visualized lungs are essentially clear. The thyroid gland enhances normally. No cervical lymphadenopathy. Multilevel degenerative changes within the cervical spine resulting in mild central canal narrowing. Hypoplastic right vertebral artery. Moderate focal narrowing within the right vertebral artery due to the adjacent osteophytes at the C6-C7 level. Mild atherosclerotic plaque within the bilateral carotid bulbs. IMPRESSION: 1. No significant stenosis, occlusion, or aneurysm within the ute of [place]. 2. Hypoplastic right vertebral artery. This demonstrates mild multifocal stenosis distally within the intracranial portion. 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 3. Moderate focal narrowing within the proximal right vertebral artery at the C6-C7 level due to mass effect from the adjacent osteophytes. 4. No significant stenosis, occlusion, or dissection within the bilateral carotid arteries or left vertebral artery. Electronically signed by: Lam Rivera M.D. 07/10/2018 2:04 PM HEAD & NECK CTA HISTORY: Stroke symptoms. Dizziness. TECHNIQUE: Multiaxial CT images of the head were performed following the intravenous administration of contrast to evaluate the major cerebral vessels. Multiaxial CT images of the neck were also performed following the intravenous administration of contrast to evaluate the major cervical vessels. Maximum intensity projection images were also obtained. A dose lowering technique was utilized adhering to the principles of ALARA. COMPARISON: Head CT 07/10/2018. FINDINGS: The left transverse sinus is small in caliber. However, the major dural venous sinuses appear to be patent. Hypoplastic distal right vertebral artery demonstrating multifocal mild narrowing. There is also mild focal narrowing within the distal left vertebral artery. Basilar artery and intracranial internal carotid arteries appear to be widely patent. The bilateral ACAs, MCAs, and milk pasteurizer show no significant stenosis, occlusion, or aneurysm. There is also focal fusiform aneurysmal dilatation within the distal right vertebral artery measuring 3 mm in diameter. The aortic arch and proximal great vessels are widely patent. There is no sign ificant stenosis, occlusion, or dissection identified within the bilateral common carotid, internal carotid, or left vertebral arteries. Visualized lungs are essentially clear. The thyroid gland enhances normally. No cervical lymphadenopathy. Multilevel degenerative changes within the cervical spine resulting in mild central canal narrowing. Hypoplastic right vertebral artery. Moderate focal narrowing within the right vertebral artery due to the adjacent osteophytes at the C6-C7 level. Mild atherosclerotic plaque within the bilateral carotid bulbs. IMPRESSION: 1. No significant stenosis, occlusion, or aneurysm within the ute of [place]. 2. Hypoplastic right vertebral artery. This demonstrates mild multifocal stenosis distally within the intracranial portion. 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 3. Moderate focal narrowing within the proximal right vertebral artery at the C6-C7 level due to mass effect from the adjacent osteophytes. 4. No significant stenosis, occlusion, or dissection within the bilateral carotid arteries or left vertebral artery. Electronically signed by: Lam Rivera M.D. 07/10/2018 2:04 PM XR chest 1V portable CLINICAL HISTORY: Weakness. Possible pneumonia. COMPARISON STUDY: 04/26/2018 FINDINGS: The heart is mildly enlarged. There is stable aortic tortuosity/ectasia. There is no overt failure. There is no focal pulmonary consolidation. There are no pleural effusions.[ IMPRESSION: No active disease in the chest. Electronically signed by: Sagar Magana M.D. 07/10/2018 2:27 PM Code Status & VTE Plan Code Status Level of I full code. VTE Prophylaxis Plan VTE Prophylaxis will be ordered: Yes Reason for no VTE drug order: Contraindicated (TIA symptoms) Supervising Physician Co-Signing Physician Notes Patient seen and examined, chart reviewed, case discussed with VIC Flowers and I agree with his assessment and plan as documented above. Patient is a 72 yo male with history of DM, CAD, HTN, HLP, prior CVA presenting with stroke-like symptoms that began today. Patient became lightheaded and fell against a car. He had reported slurred speech and confusion. On arrival to the ER he was found to have RLE weakness. Symptoms largely resolved upon our evaluation with exception of mild tongue deviation On exam he is afebrile, hypertensive and in sinus bradycardia Slight tongue deviation to the left. Generalized weakness equal in UE/LE bilaterally. Remainder of exam unremarkable Labs and images reviewed. Significant for stable normocytic/normochromic anemia CT results above - hypoplastic vertebral artery with multifocal stenosis, small aneurysmal dilatation, focal narrowing with osteophytes EKG with sinus bradycardia at 50bpm, ID=[id number], [id number], [id number], low voltage Assessment/Plan: -Telemetry monitoring, check orthostatics, repeat echocardiogram, neurochecks Remainder of plan as above
[2018-07-10] MEDS ORDERED: MAGNESIUM HYDROXIDE SUSP 30 ML UDC PO PRN (16:35)
[2018-07-10] MEDS ORDERED: ALUMINUM/MAGNESIUM SUSP 30 ML UDC PO PRN (16:35)
[2018-07-10] MEDS ORDERED: POLYETHYLENE (MIRALAX) 17 GM PACK PO PRN (16:35)
[2018-07-10] MEDS ORDERED: ACETAMINOPHEN 325 MG TAB PO PRN (16:35)
[2018-07-10] MEDS ORDERED: ONDANSETRON INJ 2 MG/ML 2 ML VIAL IV PRN (16:35)
[2018-07-10] MEDS ORDERED: FLUTICASONE PROPION SALMETEROL INH PRN (16:35)
[2018-07-10] MEDS ORDERED: HydrALAZINE 10 MG TAB PO PRN (16:43)
[2018-07-10] MEDS ORDERED: ALBUT/IPRATROP 3MG/0.5MG NEB 3 ML VIAL NEB PRN (16:46)
[2018-07-10] MEDS: ENALAPRIL MALEATE 10 MG TAB PO SCH (17:22)
--- NOTE | 2018-07-10 19:46 | Emergency Department Note ---
Entered by Rodríguez Kline acting as a scribe for Omar Seo MD History of Present Illness General Chief complaint: Fall Stated complaint: COLLAPSED - FALL Source: patient and family Limitations: other (cognitive disorder) History of Present Illness Provider complaint: Dizzy/Fall/Weak Onset (ago): hour(s) (1) Location: lower extremity, left and right Pain Consistency: + other (Single fall epsidoe) Quality: + other (weakness) Associated symptoms: + headaches (Dizziness) Treatments prior to arrival: none The patient is a 72 year old male who presents to the Emergency Room with complaints of an episode of weakness and dizziness. The patient states that he was at the dentist this morning to have his "teeth aligned." He did not receive any Novocaine from the dentist. The at bedside states that they walked through the parking lot back to their car when the patient dropped. The patient adds that when he got to the car he suddenly felt "dizzy" and then experienced weakness in both of his legs and dropped to the ground. He did not hit his head when he fell. This episode occurred about 1 hour ago at 12:30 PM. The patient denies any other chest pain, shortness of breath, fevers, or vomiting. The patient has no history of bleeding, but did have a stroke 25 years ago. There were no residual deficits from the stroke. His states that he had a heart attack and was given blood thinners and then subsequently had a stroke. She is not sure if he had a bleed in his brain. Home Medications Home Medications Medication Instructions Recorded Confirmed Type atorvastatin 40 mg PO DAILY 03/30/18 07/10/18 History carvedilol 3.125 mg PO BID 03/30/18 07/10/18 History clopidogrel 75 mg PO DAILY 03/30/18 07/10/18 History fluoxetine 10 mg PO DAILY 03/30/18 07/10/18 History fluticasone propion-salmeterol 1 puff INHALATION Q12 PRN 03/30/18 07/10/18 History [Advair HFA] gabapentin 600 mg PO TID 03/30/18 07/10/18 History quetiapine 200 mg PO QPM 03/30/18 07/10/18 History ramelteon [Rozerem] 8 mg PO HS 03/30/18 07/10/18 History ropinirole 5 mg PO BID 03/30/18 07/10/18 History cyclobenzaprine 10 mg PO BID 07/10/18 07/10/18 History esomeprazole magnesium [Nexium] 40 mg PO DAILY 07/10/18 07/10/18 History fluoxetine 20 mg PO DAILY 07/10/18 07/10/18 History mometasone 2 spray INTRANASAL DAILY 07/10/18 07/10/18 History oxycodone 5 mg PO QID 07/10/18 07/10/18 History quetiapine [Seroquel] 50 mg PO QPM PRN 07/10/18 07/10/18 History trazodone 300 mg PO DAILY 07/10/18 07/10/18 History Allergies Allergy/AdvReac Type Severity Reaction Status Date / Time heparin Allergy Severe SEVERE Verified 07/10/18 13:59 REACTION Past Med/Surg History Medical History Restless legs (Chronic 09/13/12) CAD (coronary artery disease) DMII (diabetes mellitus, type 2) HTN (hypertension) History of alcohol abuse History of tobacco abuse Hypothyroidism Legally blind in right eye, as defined in [place] Restless legs syndrome (RLS) Restrictive lung disease Ischemic stroke Surgical History H/O hernia repair History of cholecystectomy S/P PTCA (percutaneous transluminal coronary angioplasty) 2010; occluded LAD Family History Other Unobtainable family history due to adoption Social History Preferred Language: Tuval[place] Communication Ability: Effective Racehorse Trainer Required: No Beliefs That Will Affect Care: None Current Living Situation: Significant Other Other Information That Helps Us Care for You: No Feels Safe at Home: Yes Safety Concerns: Feels Safe At This Time Smoking Status: Former smoker Hx Alcohol Use: No Hx Substance Use: No Review of Systems See HPI for pertinent positives & negatives. and A total of 10 systems reviewed and were otherwise negative Physical Exam Vital Signs Vital Signs - 24 hr 07/10/18 12:47 07/10/18 13:05 07/10/18 13:39 Temperature 36.3 C L Temperature Source Oral Sepsis Recent Fever Within 48 Hours No Sepsis New/Unexplained Change in Mental Status No Sepsis Action Taken by Nursing No Action Required Pulse Rate 55 L 53 L Pulse Rate [Apical] Pulse Rate [Left Finger] Pulse Rate from SpO2 Sensor 53 L Respiratory Rate 17 15 Respiratory Effort / Characteristics Non-Labored Respiratory Depth Normal Respiratory Pattern Regular Blood Pressure 139/80 146/91 H Blood Pressure [Right Arm] Blood Pressure Mean 99 109 Blood Pressure Mean [Right Arm] Blood Pressure Position [Right Arm] Pulse Oximetry 96 95 95 Oxygen Delivery Method Room Air Room Air 07/10/18 13:46 07/10/18 14:00 07/10/18 14:01 Temperature Temperature Source Sepsis Recent Fever Within 48 Hours Sepsis New/Unexplained Change in Mental Status Sepsis Action Taken by Nursing Pulse Rate 49 L 50 L 51 L Pulse Rate [Apical] Pulse Rate [Left Finger] Pulse Rate from SpO2 Sensor 50 L 49 L 51 L Respiratory Rate 19 18 15 Respiratory Effort / Characteristics Respiratory Depth Respiratory Pattern Blood Pressure 124/82 Blood Pressure [Right Arm] Blood Pressure Mean 96 Blood Pressure Mean [Right Arm] Blood Pressure Position [Right Arm] Pulse Oximetry 94 83 L 95 Oxygen Delivery Method 07/10/18 14:24 07/10/18 14:30 07/10/18 14:31 Temperature Temperature Source Sepsis Recent Fever Within 48 Hours Sepsis New/Unexplained Change in Mental Status Sepsis Action Taken by Nursing Pulse Rate 53 L 53 L Pulse Rate [Apical] 53 L Pulse Rate [Left Finger] Pulse Rate from SpO2 Sensor 52 L 53 L Respiratory Rate 18 19 17 Respiratory Effort / Characteristics Respiratory Depth Normal Respiratory Pattern Blood Pressure 144/83 H Blood Pressure [Right Arm] 124/82 Blood Pressure Mean 103 Blood Pressure Mean [Right Arm] 96 Blood Pressure Position [Right Arm] Pulse Oximetry 95 96 97 Oxygen Delivery Method Room Air 07/10/18 15:00 07/10/18 15:30 07/10/18 15:31 Temperature Temperature Source Sepsis Recent Fever Within 48 Hours Sepsis New/Unexplained Change in Mental Status Sepsis Action Taken by Nursing Pulse Rate 55 L 54 L 53 L Pulse Rate [Apical] Pulse Rate [Left Finger] Pulse Rate from SpO2 Sensor 56 L 54 L Respiratory Rate 16 21 18 Respiratory Effort / Characteristics Respiratory Depth Respiratory Pattern Blood Pressure 157/142 H Blood Pressure [Right Arm] Blood Pressure Mean 147 Blood Pressure Mean [Right Arm] Blood Pressure Position [Right Arm] Pulse Oximetry 89 L 98 Oxygen Delivery Method 07/10/18 16:00 07/10/18 16:01 07/10/18 16:08 Temperature Temperature Source Sepsis Recent Fever Within 48 Hours Sepsis New/Unexplained Change in Mental Status Sepsis Action Taken by Nursing Pulse Rate 54 L 54 L 53 L Pulse Rate [Apical] Pulse Rate [Left Finger] Pulse Rate from SpO2 Sensor 55 L 53 L Respiratory Rate 19 19 18 Respiratory Effort / Characteristics Respiratory Depth Respiratory Pattern Blood Pressure 156/88 H 144/97 H Blood Pressure [Right Arm] Blood Pressure Mean 110 Blood Pressure Mean [Right Arm] Blood Pressure Position [Right Arm] Pulse Oximetry 96 98 95 Oxygen Delivery Method 07/10/18 16:35 07/10/18 17:00 Temperature 36.5 C 36.5 C Temperature Source Oral Oral Sepsis Recent Fever Within 48 Hours Sepsis New/Unexplained Change in Mental Status Sepsis Action Taken by Nursing Pulse Rate Pulse Rate [Apical] 51 L Pulse Rate [Left Finger] 51 L Pulse Rate from SpO2 Sensor Respiratory Rate 20 20 Respiratory Effort / Characteristics Non-Labored Spontaneous Respiratory Depth Normal Respiratory Pattern Regular Blood Pressure Blood Pressure [Right Arm] 172/99 H 172/99 H Blood Pressure Mean Blood Pressure Mean [Right Arm] 123 123 Blood Pressure Position [Right Arm] Lying Sitting Pulse Oximetry 95 95 Oxygen Delivery Method Room Air Room Air Constitutional: Vital signs reviewed. Eyes: Pupils are equal round reactive to light. Conjunctiva are noninjected. ENT: Pharynx is clear without erythema or exudate. Mucous membranes are moist. Neck supple without meningeal signs. Respiratory: Clear to auscultation bilaterally. Breath sounds are equal bilaterally. Cardiovascular: Regular rate and rhythm. No rubs or gallops. GI: Soft, nondistended and nontender. Bowel sounds are present. Musculoskeletal: No peripheral edema. No lower extremity tenderness. Integumentary: No cyanosis. Neurological: The patient is awake and alert. Cranial nerves II-XII are intact. There are tremors throughout all extremities. Limb ataxia present in both lower extremities, no ataxia in upper extremities. There is slurred speech. 4/5 strength present in the right lower extremity. It is 5 out of 5 otherwise. Sensation is intact to light touch throughout the extremities. Psychiatric: Normal affect. Course 1304: The patient was evaluated in room C9, and a complete history and physical examination were performed. 1319: I discussed the case with Dr. Claudio Vanegas Stroke Neurology. She will evaluate him for a stroke. 1331: I reviewed the patient's MRI with Dr. Snyder. She is talking with the currently. 1340: The patient is back in the room and is being evaluated by Dr. Snyder. ED pharmacist is at bedside. 1354: I spoke with Dr. Snyder again at this time. The and the patient do not want to give the TPA which Dr. Snyder agrees with as he does not have a focal exam currently, other than slurred speech. Dr. David's recommends MRI and further work-up. 1424: I reviewed the patient's case with Dr. Leighton Wright [facility] Hospitalist. She will evaluate the patient for further management. Administered Medications Enalapril Maleate (Vasotec) 10 mg PO QAM KITTY Stop: 08/09/18 16:59 Last Admin: 07/10/18 17:22 Dose: 10 mg Documented by: [id number] Ioversol (Optiray 320 125ml) 120 ml IV ONCE PRN PRN Reason: Interaction Checking Stop: 07/14/18 13:47 Last Admin: 07/10/18 13:48 Dose: 120 ml Documented by: [id number] Discontinued Medications Sodium Chloride (Nss 1000ml) 500 mls @ 999 mls/hr IV .Q31M ONE Stop: 07/10/18 14:28 Last Infusion: 07/10/18 14:56 Dose: 0 mls/hr Documented by: [id number] Admin: 07/10/18 14:22 Dose: 999 mls/hr Documented by: [id number] . Medical Decision Making Differential Diagnosis Differential Diagnosis includes: CVA, TIA, metabolic derangement, intracranial hemorrhage, intracranial mass, anemia. Medical Records Attestation: I reviewed the patient's medical records. Home Medications Current Medication List: was personally reviewed by me Laboratory Data Attestation: I reviewed the patient's lab results. Result diagrams: 07/10/18 13:25 07/10/18 13:25 Lab Results 07/10/18 07/10/18 07/10/18 Range/Units 13:25 13:25 13:25 WBC 4.83 (4.8-10.8) K/uL RBC 4.27 L (4.7-6.1) M/uL Hgb 13.9 L (14.0-18.0) g/dL Hct 39.5 L (42-52) % MCV 92.5 (80-100) fL MCH 32.6 (25-34) pg MCHC 35.2 (32-36) g/dL RDW Std Deviation 43.5 (36.4-46.3) fL RDW Coeff of Camille 12.9 (11.5-14.5) % Plt Count 148 (130-400) K/uL MPV 9.6 (7.4-10.4) fL Immature Gran % (Auto) 0.2 % Neut % (Auto) 66.8 % Lymph % (Auto) 21.7 % Mclennan % (Auto) 10.1 % Eos % (Auto) 1.2 % Baso % (Auto) 0.0 % Immature Gran # (Auto) 0.01 (0.00-0.02) K/uL Neut # (Auto) 3.22 (1.4-6.5) K/uL Lymph # (Auto) 1.05 L (1.2-3.4) K/uL Mclennan # (Auto) 0.49 (0.11-0.59) K/uL Eos # (Auto) 0.06 (0-0.5) K/uL Baso # (Auto) 0.00 (0-0.2) K/uL PT 11.1 (9.0-12.0) Seconds INR 1.1 (0.9-1.1) APTT 27.4 (21.0-31.0) Seconds PTT Ratio 1.0 Sodium 139 (136-145) mmol/L Potassium 4.1 (3.5-5.1) mmol/L Chloride 106 (98-107) mmol/L Carbon Dioxide 30 (21-32) mmol/L Anion Gap 3.0 (3-11) BUN 9 (7-18) mg/dl Creatinine 1.09 (0.6-1.4) mg/dl Est Cr Clr Drug Dosing 57.0 ml/min Est GFR ( Amer) 79.3 Est GFR (Non-Af Amer) 68.4 BUN/Creatinine Ratio 8.1 L (10-20) Glucose 93 (70-99) mg/dl POC Glucose (70-99) Calcium 9.5 (8.5-10.1) mg/dl Magnesium 2.1 (1.8-2.4) mg/dl Total Bilirubin 0.5 (0.2-1) mg/dl AST 24 (15-37) U/L ALT 33 (12-78) U/L Alkaline Phosphatase 93 (45-117) U/L Troponin I < 0.015 (0-0.045) ng/ml Total Protein 6.6 (6.4-8.2) gm/dl Albumin 3.6 (3.4-5.0) gm/dl Globulin 3.0 (2.5-4.0) gm/dl Albumin/Globulin Ratio 1.2 (0.9-2) Blood Type Antibody Screen 07/10/18 07/10/18 07/10/18 Range/Units 13:30 13:54 16:29 WBC (4.8-10.8) K/uL RBC (4.7-6.1) M/uL Hgb (14.0-18.0) g/dL Hct (42-52) % MCV (80-100) fL MCH (25-34) pg MCHC (32-36) g/dL RDW Std Deviation (36.4-46.3) fL RDW Coeff of Camille (11.5-14.5) % Plt Count (130-400) K/uL MPV (7.4-10.4) fL Immature Gran % (Auto) % Neut % (Auto) % Lymph % (Auto) % Mclennan % (Auto) % Eos % (Auto) % Baso % (Auto) % Immature Gran # (Auto) (0.00-0.02) K/uL Neut # (Auto) (1.4-6.5) K/uL Lymph # (Auto) (1.2-3.4) K/uL Mclennan # (Auto) (0.11-0.59) K/uL Eos # (Auto) (0-0.5) K/uL Baso # (Auto) (0-0.2) K/uL PT (9.0-12.0) Seconds INR (0.9-1.1) APTT (21.0-31.0) Seconds PTT Ratio Sodium (136-145) mmol/L Potassium (3.5-5.1) mmol/L Chloride (98-107) mmol/L Carbon Dioxide (21-32) mmol/L Anion Gap (3-11) BUN (7-18) mg/dl Creatinine (0.6-1.4) mg/dl Est Cr Clr Drug Dosing ml/min Est GFR ( Amer) Est GFR (Non-Af Amer) BUN/Creatinine Ratio (10-20) Glucose (70-99) mg/dl POC Glucose 92 102 H (70-99) Calcium (8.5-10.1) mg/dl Magnesium (1.8-2.4) mg/dl Total Bilirubin (0.2-1) mg/dl AST (15-37) U/L ALT (12-78) U/L Alkaline Phosphatase (45-117) U/L Troponin I (0-0.045) ng/ml Total Protein (6.4-8.2) gm/dl Albumin (3.4-5.0) gm/dl Globulin (2.5-4.0) gm/dl Albumin/Globulin Ratio (0.9-2) Blood Type A Positive Antibody Screen NEGATIVE Imaging Data Attestation: I personally reviewed and interpreted this imaging study as follows: Radiologist's Impression: XR chest 1V portable CLINICAL HISTORY: Weakness. Possible pneumonia. COMPARISON STUDY: 04/26/2018 FINDINGS: The heart is mildly enlarged. There is stable aortic tortuosity/ectasia. There is no overt failure. There is no focal pulmonary consolidation. There are no pleural effusions.[ IMPRESSION: No active disease in the chest. Electronically signed by: Sagar Magana M.D. 07/10/2018 2:27 PM HEAD & NECK CTA HISTORY: Stroke symptoms. Dizziness. TECHNIQUE: Multiaxial CT images of the head were performed following the intravenous administration of contrast to evaluate the major cerebral vessels. Multiaxial CT images of the neck were also performed following the intravenous administration of contrast to evaluate the major cervical vessels. Maximum intensity projection images were also obtained. A dose lowering technique was utilized adhering to the principles of ALARA. COMPARISON: Head CT 07/10/2018. FINDINGS: The left transverse sinus is small in caliber. However, the major dural venous sinuses appear to be patent. Hypoplastic distal right vertebral artery demonstrating multifocal mild narrowing. There is also mild focal narrowing within the distal left vertebral artery. Basilar artery and intracranial internal carotid arteries appear to be widely patent. The bilateral ACAs, MCAs, and cable strander show no significant stenosis, occlusion, or aneurysm. There is also focal fusiform aneurysmal dilatation within the distal right vertebral artery measuring 3 mm in diameter. The aortic arch and proximal great vessels are widely patent. There is no s ignificant stenosis, occlusion, or dissection identified within the bilateral common carotid, internal carotid, or left vertebral arteries. Visualized lungs are essentially clear. The thyroid gland enhances normally. No cervical lymphadenopathy. Multilevel degenerative changes within the cervical spine resulting in mild central canal narrowing. Hypoplastic right vertebral artery. Moderate focal narrowing within the right vertebral artery due to the adjacent osteophytes at the C6-C7 level. Mild atherosclerotic plaque within the bilateral carotid bulbs. IMPRESSION: 1. No significant stenosis, occlusion, or aneurysm within the [place]. 2. Hypoplastic right vertebral artery. This demonstrates mild multifocal stenosis distally within the intracranial portion. 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 3. Moderate focal narrowing within the proximal right vertebral artery at the C6-C7 level due to mass effect from the adjacent osteophytes. 4. No significant stenosis, occlusion, or dissection within the bilateral carotid arteries or left vertebral artery. Electronically signed by: Lam Rivera M.D. 07/10/2018 2:[address] NON[address]AST CT DOSE: 788.63 mGycm HISTORY: Stroke evaluation TECHNIQUE: Multiaxial CT images of the head were performed without the use of intravenous contrast. Automated exposure control was utilized for this study. A dose lowering technique was utilized adhering to the principles of ALARA. Comparison: Head CT 07/07/2012. Findings: The paranasal sinuses and mastoid air cells are clear. The calvarium and skull base are intact. There is no mass, hematoma, midline shift, acute infarct. White matter hypodensity is nonspecific but suggestive of microvascular ischemic change. The ventricles and sulci demonstrate mild age-related involutional changes. Old left periventricular parietal infarct. Impression: No significant change compared to the prior study. No acute intracranial abnormality. Electronically signed by: ECG Data Attestation: I personally reviewed and interpreted this ECG as follows: Indication: weakness Rate (beats per minute): 80 Rhythm: sinus bradycardia Findings: + other (Low voltage throughout) and + Q waves (Inferior); no ST elevation Blood Pressure Blood Pressure Findings: Elevated blood pressure Blood Pressure Disposition: further management by hospitalist VISHNU Narrative I did perform a limited focused review of portions of the patient's old chart on the electronic medical record. The patient was seen here for weakness in April by Dr. Alves. He had a work-up here and was discharged home. He did have a MRI in 2014 which showed an old left occipital infarct. I did evaluate the patient as noted above. The patient is presenting with some confusion and difficulty speaking. I did call a stroke alert. On my examination he did have some weakness to the right leg. IV access was established. The patient was placed on a continuous cardiac rehabilitation program director. I did order and personally review the patient's 12-lead EKG and chest x-ray as described above. Twelve-lead EKG and chest x-ray are unremarkable other than Q waves inferiorly. His states he has a prior history of [place]. I did order and review the patient's blood work as noted in the electronic medical record. He has very mild anemia otherwise his labs are normal. I did order a stat CT of the head and CT angiogram of the head and neck. I did review the images myself as well as the radiology report as described above. I did consult the tele- stroke neurologist who evaluated patient. She did not feel the patient was a IV TPA candidate as there was a question of possible prior bleed with his stroke and his symptoms are relatively mild and his and the patient do not wish to have TPA. I did attempt to review his old records but we do not have any electronic records from 25 years back. I did reassess the patient. He has no significant change in his symptoms. Neurology recommended MRI and further evaluation. I did discuss the case with the hospitalist and case repairer. Impression & Plan Slurred speech, Fall, Right leg weakness, Dizziness Discharge Plan Visit Data *Final* Discharge Date/Time: 07/10/18 16:08 Chief Complaint: Fall Stated Complaint: COLLAPSED - FALL ED Provider: Omar Seo Discharge Problem: Slurred speech, Fall, Right leg weakness, Dizziness Patient Disposition: Admitted As Inpatient Discharge Instructions Interventions: ED Discharge Assessment Last Done: 07/10/18 16:08 Discharge Problem: Fall Qualifiers: Encounter type: initial encounter Qualified Code(s): W19.XXXA - Unspecified fal l, initial encounter The scribe's documentation has been prepared under my direction and personally reviewed by me in its entirety. I confirm that the note above accurately reflects all work, treatment, procedures, and medical decision making performed by me.
[2018-07-10] MEDS: CARVEDILOL 3.125 MG TAB PO SCH (20:36)
[2018-07-10] MEDS: ROPINIROLE HCL 5 MG TABLET PO SCH (20:37)
[2018-07-10] MEDS: QUETIAPINE FUMARATE 200 MG TAB PO SCH (20:37)
[2018-07-10] MEDS: GABAPENTIN 600 MG TAB PO SCH (20:38)
[2018-07-10] MEDS ORDERED: QUETIAPINE FUMARATE 25 MG TABLET PO SCH (21:00)
[2018-07-10] MEDS ORDERED: TRAZODONE HCL 100 MG TAB PO SCH (21:00)
[2018-07-10] MEDS ORDERED: RAMELTEON 8 MG PO SCH (21:00)
[2018-07-11 05:34] LABS: Basophils # (auto) 0.01 K/uL (0-0.2); Basophils % (auto) 0.2 %; Eosinophils # (auto) 0.04 K/uL (0-0.5); Eosinophils % (auto) 0.9 %; Hematocrit (blood only) 38.8 % (42-52); Hemoglobin 13.7 g/dL (14.0-18.0); Immature Granulocytes # (auto) 0.01 K/uL (0.00-0.02); Immature Granulocytes % (auto) 0.2 %; Lymphocytes # (auto) 1.01 K/uL (1.2-3.4); Lymphocytes % (auto) 23.6 %; Mean Corpuscular Hgb Conc 35.3 g/dL (32-36); Mean Corpuscular Volume 92.6 fL (80-100); Mean Platelet Volume 9.5 fL (7.4-10.4); Monocytes # (auto) 0.42 K/uL (0.11-0.59); Monocytes % (auto) 9.8 %; Neutrophils # (auto) 2.79 K/uL (1.4-6.5); Neutrophils % (auto) 65.3 %; Platelet Count 130 K/uL (130-400); RDW Standard Deviation 43.6 fL (36.4-46.3); Red Blood Count 4.19 M/uL (4.7-6.1); White Blood Count 4.28 K/uL (4.8-10.8)
[2018-07-11 05:58] LABS: BUN Creatinine Ratio 8.4 (10-20); Calcium 8.2 mg/dl (8.5-10.1); Est GFR (African American) 85.9; Est GFR (Non-African American) 74.1; Potassium 3.8 mmol/L (3.5-5.1)
[2018-07-11 06:40] LABS: Estimated Average Glucose 123 mg/dl; Hemoglobin A1C 5.9 % (4.5-5.6)
[2018-07-11] MEDS: FLUOXETINE HCL 20 MG CAP PO SCH (08:47)
[2018-07-11] MEDS: ATORVASTATIN 40 MG TAB PO SCH (08:47)
[2018-07-11] MEDS: PANTOprazole 40 MG TAB PO SCH (08:47)
[2018-07-11] MEDS: ROPINIROLE HCL 5 MG TABLET PO SCH ×2 (08:47→21:18)
[2018-07-11] MEDS: ENALAPRIL MALEATE 10 MG TAB PO SCH (08:48)
[2018-07-11] MEDS: GABAPENTIN 600 MG TAB PO SCH ×3 (08:48→21:20)
[2018-07-11] MEDS: CARVEDILOL 3.125 MG TAB PO SCH ×2 (08:48→21:20)
[2018-07-11] MEDS ORDERED: OXYCODONE HCL IR 5 MG TAB (IMMEDIATE RELEASE) PO PRN (09:01)
--- NOTE | 2018-07-11 10:49 | Neurology Consultation ---
Date of Consultation July 11, 2018 Assessment & Plan (1) TIA (transient ischemic attack): This patient may have had a posterior circulation TIA presenting with dizziness and drop attack. It sounds like he may have had a similar episode about 3 weeks ago at home. He does have evidence of multifocal right vertebral artery stenosis both proximally and distally. His examination is a bit difficult to interpret as he does have considerable baseline restlessness and dyskinesias. I agree with obtaining an MRI of the brain for further assessment. Would also suggest obtaining a transthoracic echocardiogram with bubble study. Continue with Plavix and atorvastatin. continue to monitor blood pressure. (2) Near syncope: To some extent, patient's symptoms could also be consistent with presyncope. He does appear to have bradycardia and it is possible that his heart rate may have been even lower and a potential triggering factor for his apparent drop attack. Perhaps the antecedent time in the dental chair may have induced some vagally mediated bradycardia. On the other hand, ropinirole may also trigger orthostatic hypotension which could have been a factor in his presentation as well. It would probably be worthwhile to check orthostatic vital signs. Would also consider decreasing his dosage of ropinirole to 4 milligrams twice daily if his MRI results are negative. I also wonder if this patient's Seroquel could have contributed to his symptoms. Would consider reducing his evening dose of Seroquel as well. History of Present Illness Reason for Consultation: TIA Requesting Physician: Rosie Qiu MD Attending Physician: Rosie Qiu MD History of Present Illness The patient is a 72-year-old male who complains of an episode of dizziness and fall that occurred yesterday morning while in the parking lot, walking to his car, after a dentist appointment. He recalls feeling dizzy and lightheaded prior to his legs giving out from under him. He believes his right leg felt a bit weaker than the left. There was no associated loss of consciousness or significant injury sustained in this fall. He reports that he had a similar episode that occurred about 3 weeks ago, in the evening, at home, upon getting up to use the bathroom, after a medication adjustment from his psychiatrist earlier that day. Past medical history is notable for motor restlessness, dyskinesias, restless leg syndrome for which he follows with Dr. Chong and is prescribed ropinirole. He follows with Psychiatry for depression and anxiety and is prescribed Seroquel, fluoxetine, and trazodone. Patient's past medical history is also notable for stroke without residual neurological deficit, and strabismus/amblyopia affecting the right eye. Allergies Allergy/AdvReac Type Severity Reaction Status Date / Time heparin Allergy Severe SEVERE Verified 07/10/18 13:59 REACTION Home Medications Home Medications Medication Instructions Recorded Confirmed Type atorvastatin 40 mg PO DAILY 03/30/18 07/10/18 History carvedilol 3.125 mg PO BID 03/30/18 07/10/18 History clopidogrel 75 mg PO DAILY 03/30/18 07/10/18 History fluoxetine 10 mg PO DAILY 03/30/18 07/10/18 History fluticasone propion-salmeterol 1 puff INHALATION Q12 PRN 03/30/18 07/10/18 History [Advair HFA] gabapentin 600 mg PO TID 03/30/18 07/10/18 History quetiapine 200 mg PO QPM 03/30/18 07/10/18 History ramelteon [Rozerem] 8 mg PO HS 03/30/18 07/10/18 History ropinirole 5 mg PO BID 03/30/18 07/10/18 History cyclobenzaprine 10 mg PO BID 07/10/18 07/10/18 History esomeprazole magnesium [Nexium] 40 mg PO DAILY 07/10/18 07/10/18 History fluoxetine 20 mg PO DAILY 07/10/18 07/10/18 History mometasone 2 spray INTRANASAL DAILY 07/10/18 07/10/18 History oxycodone 5 mg PO QID 07/10/18 07/10/18 History quetiapine [Seroquel] 50 mg PO QPM PRN 07/10/18 07/10/18 History trazodone 300 mg PO DAILY 07/10/18 07/10/18 History Patient History Medical History Restless legs (Chronic 09/13/12) CAD (coronary artery disease) DMII (diabetes mellitus, type 2) HTN (hypertension) History of alcohol abuse History of tobacco abuse Hypothyroidism Ischemic stroke Legally blind in right eye, as defined in [place] Restless legs syndrome (RLS) Restrictive lung disease Surgical History H/O hernia repair History of cholecystectomy S/P PTCA (percutaneous transluminal coronary angioplasty) 2010; occluded LAD Family History Other Unobtainable family history due to adoption Social History Preferred Language: Sami Communication Ability: Effective 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: No Beliefs That Will Affect Care: None Current Living Situation: Significant Other Other Information That Helps Us Care for You: No Feels Safe at Home: Yes Safety Concerns: Feels Safe At This Time Smoking Status: Former smoker Hx Alcohol Use: No Hx Substance Use: No Review of Systems Constitutional: no fever and no chills Eyes: as per Subjective / HPI; no diplopia Ear, Nose, Mouth, Throat: no hearing loss Respiratory: no cough and no dyspnea Cardiovascular: no chest pain and no palpitations Gastrointestinal: no nausea and no vomiting Genitourinary (Male): no dysuria Musculoskeletal: no myalgia Integumentary: no rash and no lesions Neurologic: as per Subjective / HPI, + unsteadiness, + falls, + tremor(s) and + dizziness Psychiatric: as per Subjective / HPI, + depression and + anxiety Hematologic / Lymphatic: no easy bleeding Physical Exam Vital Signs (Past 24 Hours): Last Vital Signs Temp 36.3 C L 07/11/18 07:32 Pulse 67 07/11/18 08:49 Resp 18 07/11/18 07:32 BP 144/76 H 07/11/18 07:32 Pulse Ox 94 07/11/18 07:32 Physical Exam: The patient is a well-nourished elderly male. He is lying comfortably although appears generally restless. He is alert and fully oriented. Recent and remote memory intact. Attention and concentration normal. Patient exhibits a normal spontaneous speech pattern. He is able to name objects and repeat phrases. Patient is edentulous and his speech does have a slightly dysarthric quality. Patient exhibits an age-appropriate fund of knowledge and normal vocabulary. Visual lin and acuity for the left eye is normal. No light perception for the right eye. Right pupil 4 millimeters and minimally reactive to light. Left pupil 3 millimeters round and reactive to lig ht and accommodation. The right eye is medially deviated in primary gaze and exhibits restricted ocular motility. Normal eye movements for the left eye observed. No nystagmus. Facial sensation intact. There is no facial droop or facial weakness. Hearing intact. Palate elevates to midline. Shoulder shrug intact. Tongue protrudes to midline. Sensation intact to all modalities in all 4 limbs. Deep tendon reflexes are intact and symmetrical for the arms and legs bilaterally. Plantar responses downgoing bilaterally. There is no dysdiadochokinesia or dysmetria of [id number] bilaterally. Patient does seem to have a mild degree of difficulty with heel to xiao bilaterally although he asserts that he typically has difficulty with coordination and states that he has always been clumsy. The optic nerves and posterior segments cannot be adequately visualized due to cataracts. Carotid pulses normal bilaterally, no bruits to auscultation. Gait and station not tested due to safety concerns. Patient exhibits normal muscle strength and tone for all 4 limbs. No atrophy. He exhibits a moderate degree of generalized restlessness of the limbs with some associated perioral dyskinesias. He is not bradykinetic or rigid and does not have a pill-rolling resting tremor. Results & Data Laboratory Results Labs completed today reviewed. WBC 4.28, hemoglobin 13.7, platelets 130, sodium 140, potassium 3.8, BUN 9, creatinine 1.02, glucose 114, hemoglobin A1c 5.[address] of the head completed yesterday revealed white matter hypodensity suggestive of chronic microvascular ischemic change. There is evidence of an old left periventricular infarct as well as age-related atrophy. Images and report reviewed. CT angiography of the head and neck were completed yesterday as well. There is no evidence of significant stenosis, occlusion, or aneurysm within the [place]. 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 There is moderate focal narrowing within the proximal right vertebral artery at the C6-7 level due to adjacent osteophytes. No significant stenosis, occlusion, or dissection within the bilateral carotid arteries or left vertebral artery identified. An electrocardiogram completed today revealed sinus bradycardia, 54 beats per minute. Electrocardiogram completed yesterday revealed sinus bradycardia, 50 beats per minute.
[2018-07-11] MEDS ORDERED: GADOBUTROL 65ML VIAL IV PRN (11:00)
--- NOTE | 2018-07-11 11:17 | Magnetic Resonance Report ---
Brain MRI WITH AND WITHOUT CONTRAST HISTORY: Syncope. TECHNIQUE: Multiplanar multisequence MRI of the brain was performed both before and after the intrave nous administration of contrast. COMPARISON STUDY: Brain MRI 10/25/2014. Head CT 07/10/2018. FINDINGS: There is no mass, hematoma, midline shift, or acute infarct. The paranasal sinuses are luther r. The mastoid air cells are clear. The ventricles and sulci demonstrate mild age-related involutiona l changes. Scattered foci of T2 hyperintensity seen within the periventricular and subcortical white matter are nonspecific but suggestive of mild microvascular ischemic changes. The major vascular flow voids at the skull base are well-maintained. Old left parietal infarct, unchanged. IMPRESSION: No significant change compared to the prior study. No acute intracranial abnormality. Electronically signed by: Lam Rivera M.D. 07/11/2018 11:15 AM
[2018-07-11] MEDS: CLOPIDOGREL BISULFATE 75 MG TAB PO SCH (11:47)
--- NOTE | 2018-07-11 17:25 | Hospitalist Progress Note ---
Date of Service July 11, 2018 Assessment & Plan (1) Near syncope: Seems to be most likely related to orthostatic hypotension as given positive orthostatics here. He was lying in the dental chair for an hour and half prior to getting up and walking to the car when the event happened. Not likely related to stroke CT of the head without any significant findings CTA of the head and neck with mild stenosis of the right vertebral artery MRI of the brain no new stroke (2) Orthostatic hypotension: With positive orthostatics here. Symptoms on admission consistent with orthostatic hypotension area -Decrease trazodone to 250 mg at bedtime -Decrease Seroquel down to 200 mg at bedtime -Ropinirole can also cause this but he is unwilling to lower the dose on this due to severe RLS -Follow orthostatics every shift -Ordered SONDRA hose -Educated on not getting up quickly and pumping legs prior to standing -With hypertension, will keep carvedilol same dose (3) CAD (coronary artery disease): Prior history of PTCA with stenting to the LAD -Continue clopidogrel -Echo pending with bubble study for stroke workup (4) GERD (gastroesophageal reflux disease): No hematochezia, melena, bright red blood per rectum, hematemesis Chronic anemia Continue PPI No abdominal pain (5) Hypothyroidism: Continue levothyroxine (6) Restrictive lung disease: Continue home bronchodilators No hypoxia No chest pain Faint bronchospasm Monitor (7) Restless legs: Continue ropinirole 5 mg p.o. twice daily This is fairly severe Question if he has tardive dyskinesia especially given the jaw movements and tongue thrusting-defer to neurology for management but not likely much to do at this point (8) Parkinsonian features: (8) Parkinsonian features: Patient and report shuffle gait seems to be progressive at home Has not been diagnosed with Parkinson's Follows with Dr. Chong in neurology Fall precautions per nursing protocol (9) Depression with anxiety: Recently increased trazodone at bedtime from 200 mg to 300 mg as an outpatient 2 weeks ago.-Decrease to 250 mg as above Patient also takes Seroquel 250 mg at bedtime. Lowering this dose to 200 mg to decrease orthostasis Continue other home meds as prescribed (10) Diabetes mellitus type 2 in nonobese: Hemoglobin A1c has been controlled at home Patient is not on any diabetic medications or insulin Outpatient note reports the patient should continue exercise and diet Will continue with diabetic carb limiting diet while inpatient (11) Hypertension: Blood pressures controlled but orthostatic hypotension present Continue home medications including carvedilol Patient and requesting cardiology consultation-placed today With history of left atrial appendage previous and Coumadin, now no longer on Coumadin as per cardiology notes (12) History of aspiration pneumonia: Previous video swallow study showed trace aspiration Nursing to do bedside swallow eval Aspiration precautions on the floor Soft chopped food on diet (13) DVT prophylaxis: SONDRA sloan, has allergy to heparin-unclear what it is-hold off on Lovenox or heparin-containing products Disposition-remain on telemetry overnight to continue observation to see if medication changes improve orthostasis Subjective Patient feeling a little stronger today. He is still lightheaded when he stands up and his orthostatics are positive. He reports his trazodone was increased to 300 mg every night about 2 weeks ago. He is on a lot of medications that can cause orthostasis. He and his are willing to try to cut down somewhat. Patient's biggest complaint is of involuntary movements of his mouth and tongue and arms and legs. Denies chest pain or shortness of breath Telemetry with normal sinus rhythm with rates in the 50s-60s Review of Systems All systems reviewed & are unremarkable except as noted in HPI & below Physical Exam Vital Signs (Past 24 Hours): Last Vital Signs Temp 37 C 07/11/18 15:29 Pulse 66 07/11/18 15:43 Resp 22 07/11/18 15:29 BP 130/80 07/11/18 15:29 Pulse Ox 94 07/11/18 15:29 Constitutional: WD/WN, vitals as above Eyes: PERRL, conjunctivae normal, anicteric sclerae ENMT: external ear and nose normal, oropharynx normal (With involuntary jaw movement and tongue thrusting) Neck: trachea midline, no thyromegaly Respiratory: normal respiratory effort, lungs clear to auscultation Cardiovascular: RRR, no murmur, no edema Gastrointestinal (Abdomen): normal bowel sounds, soft, nontender, no hepatosplenomegaly Musculoskeletal: Extremities: extremities normal to inspection; no cyanosis and no clubbing Skin: no rashes, warm and dry Neurologic: moves all extremities (Sometimes involuntarily in the legs and arms) and awake; no focal motor deficits Psychiatric: A+Ox3, euthymic affect Results & Data Laboratory Results BMP within normal limits except glucose 114 Hemoglobin A1c 5.9% Diagnostic Findings MRI of the brain-no acute stroke, with old left parietal stroke CT angiogram head and neck with mild stenosis right vertebral artery, 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
[2018-07-11] MEDS ORDERED: ROPINIROLE HCL 1 MG TABLET PO SCH (21:00)
[2018-07-11] MEDS: TRAZODONE HCL 100 MG TAB PO SCH (21:18)
[2018-07-11] MEDS: QUETIAPINE FUMARATE 200 MG TAB PO SCH (21:21)
[2018-07-11] MEDS: ALPRAZolam 0.5 MG TABLET PO SCH (21:24)
[2018-07-12 07:29] LABS: Eosinophils # (auto) 0.07 K/uL (0-0.5); Eosinophils % (auto) 1.5 %; Hematocrit (blood only) 43.5 % (42-52); Hemoglobin 15.4 g/dL (14.0-18.0); Immature Granulocytes # (auto) 0.01 K/uL (0.00-0.02); Immature Granulocytes % (auto) 0.2 %; Lymphocytes # (auto) 1.19 K/uL (1.2-3.4); Lymphocytes % (auto) 25.6 %; Mean Corpuscular Hgb Conc 35.4 g/dL (32-36); Mean Corpuscular Volume 92.9 fL (80-100); Mean Platelet Volume 9.2 fL (7.4-10.4); Monocytes # (auto) 0.43 K/uL (0.11-0.59); Monocytes % (auto) 9.2 %; Neutrophils # (auto) 2.95 K/uL (1.4-6.5); Neutrophils % (auto) 63.5 %; Platelet Count 135 K/uL (130-400); RDW Standard Deviation 43.8 fL (36.4-46.3); Red Blood Count 4.68 M/uL (4.7-6.1); White Blood Count 4.65 K/uL (4.8-10.8)
[2018-07-12] MEDS: ENALAPRIL MALEATE 10 MG TAB PO SCH (07:39)
[2018-07-12] MEDS: ROPINIROLE HCL 5 MG TABLET PO SCH ×2 (07:39→20:29)
[2018-07-12] MEDS: PANTOprazole 40 MG TAB PO SCH (07:39)
[2018-07-12] MEDS: ATORVASTATIN 40 MG TAB PO SCH (07:40)
[2018-07-12] MEDS: CARVEDILOL 3.125 MG TAB PO SCH ×2 (07:40→20:44)
[2018-07-12] MEDS: CLOPIDOGREL BISULFATE 75 MG TAB PO SCH (07:40)
[2018-07-12] MEDS: FLUOXETINE HCL 20 MG CAP PO SCH (07:40)
[2018-07-12] MEDS: GABAPENTIN 600 MG TAB PO SCH ×3 (07:40→20:29)
[2018-07-12 08:28] LABS: BUN Creatinine Ratio 8.7 (10-20); Creatinine Clr Calc Pharmacy 60.6 ml/min; Est GFR (African American) 93.6; Est GFR (Non-African American) 80.8
--- NOTE | 2018-07-12 16:37 | Cardiology Consultation ---
Date of Consultation July 12, 2018 Assessment & Plan (1) Orthostatic hypotension: The patient has a known history of orthostatic hypotension. Suspect that his prolonged amount of time the supine position set him up for his event prompting hospitalization. Agree with decreasing his neurologic medications. No further cardiac evaluation necessary. (2) CAD (coronary artery disease): The patient has a history of remote anterior wall KS and found to have a totally obstructed LAD with good collateralization at the time of a cardiac catheterization 2010. Continue medical management. (3) Left ventricular dysfunction: Current echocardiogram notes an ejection fraction of 35-40% which is consistent with his prior studies. Continue medical management. (4) Hypercholesterolemia: Continue atorvastatin as you are. History of Present Illness Attending Physician: Rosie Qiu MD History of Present Illness Mr. Paulino is a 72-year-old male admitted yesterday after an episode of presyncope. This consultation was ordered to assist in his cardiac management. Of note, the patient typically follows with Dr. Gonzalez in the outpatient setting. The patient was in his usual state of health until yesterday. He spent 1.5 hours in a dental chair. While leaving the office and walking to his car, his legs felt weak, but cold, and he fell to the ground. There was no loss of consciousness. The patient does carry history of orthostatic hypotension likely related to his neurologic medications. The patient carries a history of coronary artery disease. He had a remote anterior wall myocardial infarction and underwent a cardiac catheterization in 2010. This revealed a totally occluded LAD with good distal collateralization. The patient has been stable on medical management. Currently, patient is resting comfortably in bed without complaints. Past medical and surgical history 1. Coronary artery disease-see above 2. Hypertension 3. Ischemic cardiomyopathy-40% 4. Hypercholesterolemia 5. Diabetes mellitus 6. Peptic ulcer disease 7. History of gastric ulcer 8. GERD 9. Restrictive lung disease 10. Hypothyroidism 11. History of embolic stroke-apical thrombus 12. Vitamin-D deficiency 13. Vitamin B deficiency Social history and lives with his No tobacco or alcohol. Family history Noncontributory new heading review of systems A 10 point review of systems was undertaken and negative except for that sherwin cribed above. Allergies Allergy/AdvReac Type Severity Reaction Status Date / Time heparin Allergy Severe SEVERE Verified 07/10/18 13:59 REACTION Home Medications Home Medications Medication Instructions Recorded Confirmed Type atorvastatin 40 mg PO DAILY 03/30/18 07/10/18 History carvedilol 3.125 mg PO BID 03/30/18 07/10/18 History clopidogrel 75 mg PO DAILY 03/30/18 07/10/18 History fluoxetine 10 mg PO DAILY 03/30/18 07/10/18 History fluticasone propion-salmeterol 1 puff INHALATION Q12 PRN 03/30/18 07/10/18 History [Advair HFA] gabapentin 600 mg PO TID 03/30/18 07/10/18 History quetiapine 200 mg PO QPM 03/30/18 07/10/18 History ramelteon [Rozerem] 8 mg PO HS 03/30/18 07/10/18 History ropinirole 5 mg PO BID 03/30/18 07/10/18 History cyclobenzaprine 10 mg PO BID 07/10/18 07/10/18 History esomeprazole magnesium [Nexium] 40 mg PO DAILY 07/10/18 07/10/18 History fluoxetine 20 mg PO DAILY 07/10/18 07/10/18 History mometasone 2 spray INTRANASAL DAILY 07/10/18 07/10/18 History oxycodone 5 mg PO QID 07/10/18 07/10/18 History quetiapine [Seroquel] 50 mg PO QPM PRN 07/10/18 07/10/18 History trazodone 300 mg PO DAILY 07/10/18 07/10/18 History alprazolam 2 mg PO HS 07/11/18 07/11/18 History Patient History Medical History Restless legs (Chronic 09/13/12) CAD (coronary artery disease) DMII (diabetes mellitus, type 2) HTN (hypertension) History of alcohol abuse History of tobacco abuse Hypothyroidism Ischemic stroke Legally blind in right eye, as defined in [place] Restless legs syndrome (RLS) Restrictive lung disease Surgical History H/O hernia repair History of cholecystectomy S/P PTCA (percutaneous transluminal coronary angioplasty) 2010; occluded LAD Family History Other Unobtainable family history due to adoption Social History Communication Ability: Effective Beliefs That Will Affect Care: None marital status: Life Partner Current Living Situation: Significant Other Other Information That Helps Us Care for You: No Feels Safe at Home: Yes Safety Concerns: Feels Safe At This Time Smoking Status: Former smoker Hx Alcohol Use: No Hx Substance Use: No Physical Exam Vital Signs (Past 24 Hours): Last Vital Signs Temp 36.5 C 07/12/18 14:53 Pulse 60 07/12/18 14:53 Resp 18 07/12/18 14:53 BP 139/78 07/12/18 14:53 Pulse Ox 93 07/12/18 14:53 Results & Data Laboratory Results Laboratory Results - last 24 hr 07/12/18 07/12/18 07/12/18 07:06 07:06 09:05 WBC 4.65 L RBC 4.68 L Hgb 15.4 Hct 43.5 MCV 92.9 MCH 32.9 MCHC 35.4 RDW Std Deviation 43.8 RDW Coeff of Camille 13.0 Plt Count 135 MPV 9.2 Immature Gran % (Auto) 0.2 Neut % (Auto) 63.5 Lymph % (Auto) 25.6 Har[place] % (Auto) 9.2 Eos % (Auto) 1.5 Baso % (Auto) 0.0 Immature Gran # (Auto) 0.01 Neut # (Auto) 2.95 Lymph # (Auto) 1.19 L [place] # (Auto) 0.43 Eos # (Auto) 0.07 Baso # (Auto) 0.00 Sodium 139 Potassium 3.9 Chloride 108 H Carbon Dioxide 27 Anion Gap 5.0 BUN 8 Creatinine 0.95 Est Cr Clr Drug Dosing 60.6 Est GFR ( Amer) 93.6 Est GFR (Non-Af Amer) 80.8 BUN/Creatinine Ratio 8.7 L Glucose 111 H Calcium 9.0 Diagnostic Findings Echocardiogram notes ejection fraction 35-40% with hypokinesis of the anterior wall, dyskinesis of the septum. There is mild aortic insufficiency and basal septal thickness without an outflow obstruction. EKG notes sinus bradycardia with a left axis deviation, old IMI, and old AMI. MRI notes an old left parietal stroke.
[2018-07-12] MEDS: TRAZODONE HCL 100 MG TAB PO SCH (20:28)
[2018-07-12] MEDS: QUETIAPINE FUMARATE 200 MG TAB PO SCH (20:29)
[2018-07-12] MEDS: ALPRAZolam 0.5 MG TABLET PO SCH (20:33)
--- NOTE | 2018-07-12 23:26 | Hospitalist Progress Note ---
Date of Service July 12, 2018 Assessment & Plan (1) Near syncope: The episode that brought him in seems to be most likely related to orthostatic hypotension as given positive orthostatics here. He was lying in the dental chair for an hour and half prior to getting up and walking to the car when the event happened. Not related to stroke CT of the head without any significant findings CTA of the head and neck with mild stenosis of the right vertebral artery MRI of the brain no new stroke (2) Orthostatic hypotension: With positive orthostatics here that persist. Symptoms on admission consistent with orthostatic hypotension He is on multiple medications that could contribute to this; he was agreeable to a few minor changes but is afraid to exacerbate his mood disorder as well as his restless leg syndrome by decreasing the dose is too much Despite the positive orthostatic vital signs today, he is asymptomatic. -Continue the decreased dose of trazodone to 250 mg at bedtime -Continue the decreased dose of Seroquel down to 200 mg at bedtime -Ropinirole can also cause this but he is unwilling to lower the dose on this due to severe RLS when he was previously at the 4 mg twice daily dose -Follow orthostatics every shift -Ordered SONDRA hose -Educated on not getting up quickly and pumping legs prior to standing -With hypertension, will keep carvedilol same dose (3) CAD (coronary artery disease): Prior history of PTCA with stenting to the LAD -Continue clopidogrel, statin, enalapril -Echo with moderately decreased LVEF at 35-40% with wall motion abnormalities (4) GERD (gastroesophageal reflux disease): Continue PPI (5) Hypothyroidism: TSH here is 1.44 Continue levothyroxine (6) Restrictive lung disease: Continue home bronchodilators No hypoxia (7) Restless legs: Continue ropinirole 5 mg p.o. twice daily This is fairly severe Question if he has tardive dyskinesia especially given the jaw movements and tongue thrusting-defer to neurology for management but not likely much to do at this point (8) Depression with anxiety: With long history of major depressive disorder including a suicide attempt many decades ago. He reports he was on antidepressants for a long time about 30 or 40 years ago and cannot recall what it was. He follows with psychiatry Dr. Singer as an outpatient who recently increased trazodone at bedtime from 200 mg to 300 mg as an outpatient 2 weeks ago. -Decrease trazodone to 250 mg as above Patient also takes Seroquel 250 mg at bedtime. Lowering this dose to 200 mg to decrease orthostasis Continue other home meds as prescribed to include fluoxetine 20 mg daily and alprazolam 2 mg p.o. nightly (9) Diabetes mellitus type 2 in nonobese: Hemoglobin A1c has been controlled-is 5.9% here Patient is not on any diabetic medications or insulin Outpatient note reports the patient should continue exercise and diet Will continue with diabetic carb limiting diet while inpatient (10) Hypertension: Blood pressures controlled but orthostatic hypotension present Continue home medications including carvedilol Patient and requesting cardiology consultation-appreciate recommendations With history of left atrial appendage previous and Coumadin, now no longer on Coumadin as per cardiology notes (11) History of aspiration pneumonia: Previous video swallow study showed trace aspiration Nursing to do bedside swallow eval Aspiration precautions on the floor Soft chopped food on diet (12) 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 MRI of the brain negative He does have a long history of drinking a bottle of vodka a day for approximately 25 years, but quit at age 40. reports that over the last 6-12 months, his ataxic symptoms have worsened He reports he has been "clumsy" for as long as he can remember-question if he has some worsening cerebellar degeneration? Discussed with neurology-recommends continued outpatient follow-up -PT/OT evaluations here recommend home with home health (13) Dyskinesia: With significant movement disorder and difficulty with rapid alternating hand testing and finger to nose testing -Discussed with neurology-chronic issue and should follow-up in the outpatient office (14) DVT prophylaxis: SONDRA sloan, has allergy to heparin-unclear what it is-hold off on Lovenox or heparin-containing products Disposition-remain on telemetry overnight to continue observation to see if medication changes improve orthostasis, is uncomfortable with him coming home today because of his significant fatigue this morning which I do believe is medication related and he did not get much sleep last night. Hopeful for discharge to home on Saturday Subjective Patient reports feeling very sluggish this morning. He did not sleep well last night. His is at the bedside and is very concerned and reports that when he has felt like this in the past, she has called 911 at the house and brought him to the hospital. Patient denies headache or chest pain, denies shortness of breath. Denies focal weakness. He denies lightheadedness with standing. I discussed the case with cardiology and neurology today. He remains positive with his orthostatic vital signs Telemetry with sinus bradycardia with rates in the 40s-60s. Review of Systems All systems reviewed & are unremarkable except as noted in HPI & below Physical Exam Vital Signs (Past 24 Hours): Last Vital Signs Temp 36.3 C L 07/12/18 19:37 Pulse 72 07/12/18 19:37 Resp 20 07/12/18 19:37 BP 101/64 07/12/18 19:37 Pulse Ox 90 07/12/18 19:37 Constitutional: average body habitus and cooperative Was drowsy today, but alert awake and oriented x3, answers all my questions appropriately, but did fall asleep while I was talking to him. Eyes: + EOM not intact (Right sided esotropia) ENMT: external ear and nose normal, oropharynx normal (With involuntary jaw movement and tongue thrusting) Neck: trachea midline, no thyromegaly Respiratory: normal respiratory effort, lungs clear to auscultation Cardiovascular: RRR, no murmur, no edema Gastrointestinal (Abdomen): normal bowel sounds, soft, nontender, no hepatosplenomegaly Musculoskeletal: Extremities: extremities normal to inspection; no cyanosis and no clubbing Skin: no rashes, warm and dry Neurologic: moves all extremities (Sometimes involuntarily in the legs and arms) and awake; no focal motor deficits Speech / Cognition: no expressive aphasia Gait: + ataxic gait (Has truncal ataxia with sitting on the side of the bed) Coordination: + abnormal [id number] test (Dyskinetic more so on the right than the left) Psychiatric: A+Ox3, euthymic affect Results & Data Laboratory Results 07/12/18 07/12/18 07/12/18 Range/Units 09:05 07:06 07:06 WBC 4.65 L (4.8-10.8) K/uL RBC 4.68 L (4.7-6.1) M/uL Hgb 15.4 (14.0-18.0) g/dL Hct 43.5 (42-52) % MCV 92.9 (80-100) fL MCH 32.9 (25-34) pg MCHC 35.4 (32-36) g/dL RDW Std Deviation 43.8 (36.4-46.3) fL RDW Coeff of [place] 13.0 (11.5-14.5) % Plt Count 135 (130-400) K/uL MPV 9.2 (7.4-10.4) fL Immature Gran % (Auto) 0.2 % Neut % (Auto) 63.5 % Lymph % (Auto) 25.6 % [place] % (Auto) 9.2 % Eos % (Auto) 1.5 % Baso % (Auto) 0.0 % Immature Gran # (Auto) 0.01 (0.00-0.02) K/uL Neut # (Auto) 2.95 (1.4-6.5) K/uL Lymph # (Auto) 1.19 L (1.2-3.4) K/uL [place] # (Auto) 0.43 (0.11-0.59) K/uL Eos # (Auto) 0.07 (0-0.5) K/uL Baso # (Auto) 0.00 (0-0.2) K/uL Sodium 139 (136-145) mmol/L Potassium 3.9 (3.5-5.1) mmol/L Chloride 108 H (98-107) mmol/L Carbon Dioxide 27 (21-32) mmol/L Anion Gap 5.0 (3-11) BUN 8 (7-18) mg/dl Creatinine 0.95 (0.6-1.4) mg/dl Est Cr Clr Drug Dosing 60.6 ml/min Est GFR ( Amer) 93.6 Est GFR (Non-Af Amer) 80.8 BUN/Creatinine Ratio 8.7 L (10-20) Glucose 111 H (70-99) mg/dl Calcium 9.0 (8.5-10.1) mg/dl ECG Additional Comments: ECG with sinus bradycardia and old anteroseptal and inferior infarct
[2018-07-13] MEDS: ATORVASTATIN 40 MG TAB PO SCH (07:23)
[2018-07-13] MEDS: ENALAPRIL MALEATE 10 MG TAB PO SCH (07:23)
[2018-07-13] MEDS: FLUOXETINE HCL 20 MG CAP PO SCH (07:23)
[2018-07-13] MEDS: CLOPIDOGREL BISULFATE 75 MG TAB PO SCH (07:23)
[2018-07-13] MEDS: GABAPENTIN 600 MG TAB PO SCH ×2 (07:23→13:39)
[2018-07-13] MEDS: ROPINIROLE HCL 5 MG TABLET PO SCH (07:23)
[2018-07-13] MEDS: CARVEDILOL 3.125 MG TAB PO SCH (07:23)
[2018-07-13] MEDS: PANTOprazole 40 MG TAB PO SCH (07:24)
[2018-07-13 12:16] VITALS: TEMP 97.9; O2SAT 93
[2018-07-13 14:57] VITALS: BP 110/69; PULSE 67
--- NOTE | 2018-07-19 11:27 | Discharge Summary ---
Date of Service date of admission - July 10, 2018 date of discharge - July 13, 2018 Admission HPI Per Admitting Provider This is a 72 year old male that appears older than his stated age. He has a past medical history significant for DMII (non-insulin controlled), CAD, chronic use of clopidigrel, hx embolic CVA, hx aspiration pneumonia, chronic cerebral ischemia, HTN, hyperlipidemia, GERD, disturbed gait, chronic anemia, chronic B/L LE weakness, general weakness, restrictive lung disease, hypothyroidism, cardiomyopathy, left atrial thrombus, hx of falls, hx of tobacco abuse, hx of alcohol abuse. The patient went to his dentist this morning to have his upper dentures aligned. He was walking out to the car after the appointment and suddenly became light headed and slumped against the car due to weakness in his lower extremities. He denies fall or LOC but felt as though he would "pass out". He reports that this has happened in the past and resolved in short order after sitting down. He is noted to have "bradycardia" on his most recent outpatient note with a rate of 59. Prior to that, it appears that he was in the 70s. He denies chest pain or tightness. Last BM was this morning. He has no abdominal pain. No vagal response or near syncope with BM reported. He denies melena, hematochezia, BRBPR, hematemesis. Principal Diagnosis near syncope 2nd to orthostatic hypotension Discharge Exam Constitutional well developed, well nourished and average body habitus; no acute distress and not ill appearing ENMT external ear and nose normal, oropharynx normal Respiratory normal respiratory effort, lungs clear to auscultation Cardiovascular Rate/Rhythm: regular rate and regular rhythm Heart Sounds: normal S1 and normal S2; no murmur Vessels: posterior tibial pulses present and dorsalis pedis pulses present; no JVD Gastrointestinal (Abdomen) normal bowel sounds, soft, nontender, no hepatosplenomegaly Neurologic no focal motor deficits speech modestly dysarthric (baseline) Psychiatric A+Ox3, euthymic affect Discharge Data Allergies Allergy/AdvReac Type Severity Reaction Status Date / Time heparin Allergy Severe SEVERE Verified 07/10/18 13:59 REACTION Consultations 1. Neurology - Luis Carlos Polanco MD 2. Cardiology - Luan Rust MD 3. PT, OT Ordered Studies 1. echocardiogram: * EF 35-40% * focal thickening of basal septum but no LV outflow tract obstruction * global hypokinesis of left ventricle 2. CT head - negative for acute process. Old left periventricular parietal infarct. 3. CT angio head and neck - IMPRESSION: 1. No significant stenosis, occlusion, or aneurysm within the [place]. 2. Hypoplastic right vertebral artery. This demonstrates mild multifocal s tenosis distally within the intracranial portion. 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 3. Moderate focal narrowing within the proximal right vertebral artery at the C6-C7 level due to mass effect from the adjacent osteophytes. 4. No significant stenosis, occlusion, or dissection within the bilateral carotid arteries or left vertebral artery. 4. MRI brain - IMPRESSION: No significant change compared to the prior study. No acute intracranial abnormality. Hospital Course (1) Near syncope: Both cardiology and neurology felt that his near-syncopal episode was related to orthostatic hypotension as his orthostatics were positive at time of admission. Stroke work-up was entirely negative for stroke or other factors that may have precipitated the event. The patient's trazodone, seroquel, and lisinopril were all reduced in dose to help with the orthostasis. He was also asked not to take flexeril. Orthostatic BPs on day of discharge only showed about a 25point drop in systolic BP as opposed to 35-40 drop seen at time of admission. Fortunately he did NOT have any symptoms at time of discharge. (2) Orthostatic hypotension: See above in "near syncope." Again his trazodone, seroquel, and lisinopril doses were reduced. Ropinirole can also cause orthostasis but he was unwilling to lower the dose on this medication due to severe RLS symptoms. He was counseled about use of compression stockings and not getting up too quickly from lying or sitting positions. (3) CAD (coronary artery disease): Prior history of PTCA with stenting to the LAD. He will continue clopidogrel, statin, coreg, and SIDNEY. Echo with moderately decreased LVEF at 35-40% with global hypokinesis. Troponins were negative. (4) GERD (gastroesophageal reflux disease): No issues on PPI. (5) Hypothyroidism: TSH was normal; he will continue levothyroxine. (6) Restrictive lung disease: No issues while here. (7) Restless legs: Continue ropinirole 5 mg p.o. twice daily. His RLS symptoms are quite severe. Question if he has tardive dyskinesia especially given the jaw movements and tongue thrusting. Advised outpatient iron studies given his RLS. (8) Depression with anxiety: He follows with psychiatry Dr. Saavedra as an outpatient who recently increased trazodone at bedtime from 200 mg to 300 mg about 2 weeks ago. Due to orthostasis his trazodone was decreased back to 200mg at HS. Seroquel dose was also lowered to 200mg each day. He will continue his other home meds as prescribed including fluoxetine 20mg daily and alprazolam 2mg p.o. nightl (9) Diabetes mellitus type 2 in nonobese: Excellent control with diet and exercise alone. (10) Hypertension: SIDNEY dose decreased due to orthostasis. Coreg dose left as is. (11) History of aspiration pneumonia: No issues while here. (12) Ataxia: Chronic issue but worsening over time. Neurology recommends continued outpatient follow-up. PT/OT evaluations completed -- they recommend home with home health. (13) Dyskinesia: chronic issue and again should follow-up in the outpatient office with neurology. Total Time Total Time Spent Total Time Spent (In Minutes): 35 Total Time Includes: Examination of the Patient, Discharge Planning and Medication Reconciliation Discharge Plan Discharge Items Patient Disposition: Home - Self-Care Reason For Visit: Near Fainting Spell Discharge Diagnosis: Near Fainting Spell due to "orthostatic hypotension" (drop in blood pressure with standing) Discharge Goals: Diagnostic testing and Therapeutic intervention Activity: Resume your previous activity Non-emergency contact: Primary Care Provider Call non-emergency contact if: you have any medication questions, your symptoms worsen and your temperature is above 100.5 Follow-up/Referrals: Melani Pham CRNP [Primary Care Provider] - (see [facility] within 5 days) Diet: Heart Healthy Diet Texture: Dental soft (bite-sized) Addtl Provider Instructions: From Micky Hutchins - Hospitalist - You were admitted for a near-fainting spell. This was felt to be due to orthostatic hypotension. Orthostatic hypotension is when your blood pressure drops when you sit up or stand up too quickly. It is a common cause of fainting or near-fainting. Several of your medications including your restless legs medications can cause orthostatic hypotension. Our academic administrator and neurologist recommended some minor changes in your medic ations to help with the above issue. At this time we recommend - 1. LOWER your trazodone dose from 300mg each day to 200mg each day. New prescription given. 2. LOWER your lisinopril dose to 5mg once a day. New prescription given. Your outpatient chart states you had been taking " quinapril." Please stop this medication/throw it out. 3. LOWER your night-time seroquel (quetiapine) dose to 200mg from 250mg. 4. Please have your family doctor check your iron levels including ferritin due to your restless legs syndrome. 5. wear compression stockings on your legs during the daytime. Ok to remove them during sleep. 6. when you go from a lying position to sitting please pause for a moment to "get your bearings" and avoid dizziness. It is even more important for you to go slowly from a sitting to standing position to avoid dizziness/lightheadedness and to avoid fainting. 7. continue to use your walker and/or cane at home. 8. stop any flexeril use (Cyclobenzaprine). 9. Have a repeat CAT scan of the blood vessels of your neck in about 1 year due to the presence of a very tiny aneurysm. Your family doctor can order this for you. Follow-up- Please see Ms. Pham's office this week. Return to [facility] if - * you have fever over 100.5 degrees * you have recurrent, severe dizziness / lightheadedness / near-fainting * any other concerns Prescriptions: New lisinopril 5 mg tablet 5 mg PO DAILY Qty: 30 RF: 2 trazodone 100 mg tablet 200 mg PO DAILY Qty: 60 RF: 2 Continued atorvastatin 40 mg tablet 40 mg PO DAILY RF: 0 carvedilol 6.25 mg tablet 3.125 mg PO BID RF: 0 gabapentin 600 mg tablet 600 mg PO TID RF: 0 quetiapine 200 mg tablet 200 mg PO QPM RF: 0 clopidogrel 75 mg tablet 75 mg PO DAILY RF: 0 fluoxetine 10 mg capsule 10 mg PO DAILY RF: 0 ropinirole 5 mg tablet 5 mg PO BID RF: 0 ramelteon 8 mg tablet 8 mg PO HS RF: 0 fluticasone propion-salmeterol 230-21 mcg/actuation HFA aerosol inhaler 1 puff Inhalation Q12 PRN (Reason: Shortness Of Breath) RF: 0 esomeprazole magnesium [Nexium] 40 mg Capsule,Delayed Release(Dr/Ec) 40 mg PO DAILY RF: 0 fluoxetine 20 mg Capsule 20 mg PO DAILY RF: 0 oxycodone 5 mg Tablet 5 mg PO QID RF: 0 mometasone 50 mcg/actuation [place],Non-Aerosol 2 spray INTRANASAL DAILY RF: 0 alprazolam 2 mg tablet 2 mg PO HS RF: 0 Discontinued cyclobenzaprine 10 mg Tablet 10 mg PO BID RF: 0 quetiapine [Seroquel] 50 mg Tablet 50 mg PO QPM PRN (Reason: Unknown) RF: 0 Stand-Alone Forms: [facility] Discharge Orders: Discharge Order (Routine); Ordered 07/13/18 Ordered By: Micky Hutchins Admission Data Admit Date/Time: 07/10/18 15:49 Attending Provider: Micky Hutchins Admit Provider: Sisi Manzanares Primary Care Provider: Melani Pham I Other Providers: Luis Carlos Polanco ; Sisi Manzanares ; Sanjay Gonzalez Service: Telemetry Other Interventions: Discharge Summary Assessment (RN) Last Done: 07/13/18 14:54 DC Date/Time DO NOT enter until pt leaves facility: 07/13/18 15:39
== END 2018-07-13 15:39 | disposition home or self-care (01) ==
LOC: 2W 12:40 → ED 12:40 → SUATTDRO 15:49 → 2W 16:08
DX: I10 Essential (primary) hypertension; R55 Syncope and collapse; E03.9 Hypothyroidism, unspecified; I95.1 Orthostatic hypotension; G25.81 Restless legs syndrome; Z79.899 Other long term (current) drug therapy; R27.0 Ataxia, unspecified; I25.10 Atherosclerotic heart disease of native coronary artery without angina pectoris; I66.9 Occlusion and stenosis of unspecified cerebral artery; F41.8 Other specified anxiety disorders; I25.5 Ischemic cardiomyopathy; K21.9 Gastro-esophageal reflux disease without esophagitis; I67.82 Cerebral ischemia; D64.9 Anemia, unspecified; E11.9 Type 2 diabetes mellitus without complications; G24.9 Dystonia, unspecified

== ENCOUNTER 2018-09-09 08:59 | Inpatient (IN) ==
[2018-09-09] MEDS ORDERED: SODIUM CHLORIDE 0.9% 500 ML IV SCH (10:00)
--- NOTE | 2018-09-09 10:18 | XRay Report ---
XR chest 1V portable CLINICAL HISTORY: weakness COMPARISON STUDY: 07/10/2018 FINDINGS: The heart is enlarged. There is no failure. There is no lobar consolidation. There is sligh t lower lung zone interstitial thickening.[ No pleural effusions are visualized. IMPRESSION: 1. Cardiomegaly with slightly lower lung zone interstitial thickening 2. No evidence of focal pulmonary consolidation Electronically signed by: Sagar Magana M.D. 09/09/2018 10:17 AM
[2018-09-09 10:44] LABS: Eosinophils # (auto) 0.05 K/uL (0-0.5); Eosinophils % (auto) 0.6 %; Hematocrit (blood only) 37.5 % (42-52); Hemoglobin 13.7 g/dL (14.0-18.0); Immature Granulocytes # (auto) 0.03 K/uL (0.00-0.02); Immature Granulocytes % (auto) 0.4 %; Lymphocytes # (auto) 1.01 K/uL (1.2-3.4); Mean Corpuscular Hgb Conc 36.5 g/dL (32-36); Mean Corpuscular Volume 90.8 fL (80-100); Mean Platelet Volume 9.4 fL (7.4-10.4); Monocytes # (auto) 0.83 K/uL (0.11-0.59); Monocytes % (auto) 10.7 %; Neutrophils # (auto) 5.85 K/uL (1.4-6.5); Neutrophils % (auto) 75.3 %; Platelet Count 155 K/uL (130-400); RDW Coefficient of Variation 13.2 % (11.5-14.5); RDW Standard Deviation 43.8 fL (36.4-46.3); Red Blood Count 4.13 M/uL (4.7-6.1); White Blood Count 7.77 K/uL (4.8-10.8)
[2018-09-09 10:50] LABS: Alanine Aminotransferase 22 U/L (12-78); Albumin Level 3.4 gm/dl (3.4-5.0); Aspartate Aminotransferase 15 U/L (15-37); Blood Urea Nitrogen 12 mg/dl (7-18); Calcium 9.3 mg/dl (8.5-10.1); Carbon Dioxide 27 mmol/L (21-32); Chloride 104 mmol/L (98-107); Creatinine Clr Calc Pharmacy 65.3 ml/min; Est GFR (African American) 92.4; Est GFR (Non-African American) 79.8; Glucose 107 mg/dl (70-99); Magnesium 2.2 mg/dl (1.8-2.4); Potassium 4.1 mmol/L (3.5-5.1); Sodium 139 mmol/L (136-145)
--- NOTE | 2018-09-09 10:52 | CT Scan Report ---
CT head/brain wo con CLINICAL HISTORY: weakness COMPARISON STUDY: Right dated 07/11/2018 TECHNIQUE: Axial CT of the brain is performed from the vertex to the skull base. IV contrast was not administered for this examination. A dose lowering technique was utilized adhering to the principles of ALARA. CT DOSE: 537.48 mGy.cm FINDINGS: No intra or extra-axial mass lesions are visualized. There is no CT evidence of acute cortical infarc tion. There is no evidence of midline shift. There is no acute hemorrhage. No calvarial fractures ar e visualized. There are patchy white matter hypodensities likely on a small vessel basis. There is an old left dia etal infarct. There is mild particular prominence, finding which is felt to be secondary to volume loss. There are dense vertebral calcifications. There is no evidence of acute sinusitis. IMPRESSION: No acute intracranial findings Electronically signed by: Sagar Magana M.D. 09/09/2018 10:51 AM
[2018-09-09 11:01] LABS: Alkaline Phosphatase 79 U/L (45-117); Bilirubin,Total 0.5 mg/dl (0.2-1); Globulin 3.2 gm/dl (2.5-4.0); Total Protein 6.6 gm/dl (6.4-8.2); Troponin I < 0.015 ng/ml (0-0.045)
[2018-09-09] MEDS ORDERED: SODIUM CHLORIDE 0.9% 1000ML 500 ML IV ONE (11:13)
--- NOTE | 2018-09-09 12:37 | History & Physical Report ---
Date of Service September 09, 2018 Assessment & Plan (1) Fall: Patient reports 2-3 months of progressive weakness, gait instability and falls. No LOC. Presents today with some slurred speech as well. Neurological exam otherwise unremarkable. ?CVA, TIA vs medication effects - patient is on a number of sedating medications to include Neurontin, Seroquel, Trazodone, Benzos and Oxycodone. Also with sinus bradycardia which may be contributing to overall weakness. Patient follows with Neurology and thought to have lumbar radiculopathy contributing to ambulatory dysfunction as well. -Admit to PCU for cardiac monitoring -Check CTA head and neck -PT/OT evaluation -If patient remains bradycardic would consider decreasing Carvedilol -Will change Trazodone, Seroquel and Alprazolam to PRN rather than scheduled -May consider decreasing dosage of Gabapentin as well (he is taking this for atypical facial pain) -Fall precautions -Neuro checks Present on Admission?: Yes (2) Weakness: As above. Patient with subjective weakness. MS is 5/5 in UE/LE bilaterally on exam. ?medication effects. B12 and Folate have been in normal range in the past -Workup as above Present on Admission?: Yes (3) Hyperammonemia: Mildly elevated ammonia level. Patient is AA&O x 4, no asterixis. No underlying lung disease. Labs do not suggest liver dysfunction, LFTs, albumin, platelets within normal limits. -Check INR -Continue to monitor Present on Admission?: Yes (4) Hypercholesterolemia: Chronic -Continue Atorvastatin Present on Admission?: Yes (5) Hypertension: Blood pressure well controlled at present -Continue Carvedilol -Continue Lisinopril Present on Admission?: Yes (6) Depression with anxiety: Chronic. Stable -Continue Fluoxetine -Alprazolam PRN -Trazodone and Seroquel PRN Present on Admission?: Yes (7) GERD (gastroesophageal reflux disease): Chronic. Stable -Will change Nexium to Protonix daily as patient is on Plavix Present on Admission?: Yes (8) CAD (coronary artery disease): Patient presently without chest pain. EKG with no evidence of acute ischemia. Denies exertional symptoms. Patient follows with Dr. Gonzalez -Continue Carvedilol, may consider decreasing or discontinuing based on heart rate monitoring -Continue Atorvastatin -Continue Plavix -Continue Lisinopril Present on Admission?: Yes (9) Ischemic stroke: Remote history of CVA. No residual deficits reported -Continue Plavix and Atorvastatin -Change Nexium to Protonix as above Present on Admission?: Yes (10) Restless legs: Chronic -Continue Ropinirole Present on Admission?: Yes (11) Restrictive lung disease: No SOB. Adequate oxygenation on room air -Continue home medications, Albuterol, Symbicort, Breo -Continue to monitor F/E/N - NS at 100mL/hr x 1 liter, monitor electrolytes and replete as needed, heart healthy diet as tolerated, bowel regimen with Colace, Dulcolax and Miralax PRN Ppx - Low risk for DVT, allergic to heparin Code - DNR/DNI per discussion with patient Dispo - Admit to PCU Present on Admission?: Yes History of Present Illness Chief Complaint: weakness, falls Primary Care Provider: ABE Whately Mr. Paulino is a 72yo male with history of HGN, CAD, restrictive lung disease, hypothyroidism and restless legs presenting after a fall at home. Patient woke this AM around 07:30 and got out of bed and, per , was "walking like he was drunk", imbalance and gait instability. Patient reports that his legs went out from underneath him and he fell. He did not lose consciousness. He did bump his head off the baseboard. He was unable to get up secondary to ongoing bilateral weakness of his legs. also reports that his speech was slurred all day as well. Overall they report an increase in lethargy, weakness, gait instability and falls over the last few months. He follows with Neurology, Dr. Chong. Last seen on 2018. Patient with chronic low back and lower extremity pain and numbness as well as radicular symptoms thought to be secondary to an L3-L4 radiculopathy. MRI of the L-spine was ordered. He follows with Pain Management also. ER Course: NSS x 1L Allergies Allergy/AdvReac Type Severity Reaction Status Date / Time heparin Allergy Severe SEVERE Verified 09/09/18 11:12 REACTION Home Medications Home Medications Medication Instructions Recorded Confirmed Type atorvastatin 40 mg PO QAM 03/30/18 09/09/18 History carvedilol 3.125 mg PO BID 03/30/18 09/09/18 History clopidogrel 75 mg PO QAM 03/30/18 09/09/18 History gabapentin 600 mg PO TID 03/30/18 09/09/18 History quetiapine 200 mg PO QPM 03/30/18 09/09/18 History ropinirole 5 mg PO QAM 03/30/18 09/09/18 History esomeprazole magnesium [Nexium] 40 mg PO QAM 07/10/18 09/09/18 History fluoxetine 20 mg PO QAM 07/10/18 09/09/18 History mometasone 2 spray INTRANASAL DAILY 07/10/18 09/09/18 History oxycodone 5 mg PO QID 07/10/18 09/09/18 History alprazolam 2 mg PO HS 07/11/18 09/09/18 History lisinopril 5 mg PO DAILY #30 tab 07/13/18 09/09/18 Rx albuterol sulfate [Proventil HFA] 2 puff INHALATION Q6H PRN 09/09/18 09/09/18 History budesonide-formoterol [Symbicort] 2 puff INHALATION BID 09/09/18 09/09/18 History cholecalciferol (vitamin D3) 1,000 unit PO QAM 09/09/18 09/09/18 History [Vitamin D3] fluticasone furoate-vilanterol 1 inh INHALATION QAM 09/09/18 09/09/18 History [Breo Ellipta] levothyroxine 50 mcg PO QAM 09/09/18 09/09/18 History nitroglycerin 0.4 mg SUBLINGUAL DIRECTED PRN 09/09/18 09/09/18 History trazodone 200 mg PO HS 09/09/18 09/09/18 History vitamin [id number] acid 2 tab PO QAM 09/09/18 09/09/18 History Past Med/Surg History Medical History Restless legs (Chronic 09/13/12) Anemia GERD without esophagitis History of alcoholism CAD (coronary artery disease) DMII (diabetes mellitus, type 2) HTN (hypertension) History of alcohol abuse History of tobacco abuse Hypothyroidism Ischemic stroke Legally blind in right eye, as defined in [place] Restless legs syndrome (RLS) Restrictive lung disease Surgical History H/O hernia repair History of cholecystectomy S/P PTCA (percutaneous transluminal coronary angioplasty) 2010; occluded LAD Family History Other Unobtainable family history due to adoption Social History Preferred Language: Micronesian Communication Ability: Effective Beliefs That Will Affect Care: None marital status: Life Partner Current Living Situation: Spouse and Significant Other Other Information That Helps Us Care for You: No Feels Safe at Home: Yes Safety Concerns: Feels Safe At This Time Smoking Status: Never smoker Hx Alcohol Use: No Hx Substance Use: No Review of Systems Review of Systems: All systems reviewed & are unremarkable except as noted in HPI & below +Dizziness +Lethargy +Weakness Decreased appetite Physical Exam Physical Exam: General: patient resting comfortably, NAD, non-toxic in appearance, AA&O x 4 Skin: warm, dry, intact, no rashes or lesions HEENT: NC/AT, PERRL, EOMI, anicteric sclera, conjunctiva without injection, external ear normal to inspection and nontender, nares patent, moist mucus membranes, dentition intact, no oropharyngeal lesions, neck supple, trachea midline, no LAD, no thyromegaly, no JVD Heart: +S1/S2, regular, no m/r/g Lungs: equal air entry bilaterally, no rales/rhonchi/wheezes Abd: +BS, soft, NT/ND, no masses/organomegaly/ascites Ext: warm, 2+ pulses in UE/LE bilaterally, no clubbing/cyanosis or edema Neuro: nonfocal, patient AA&O x 4, speech slow and slightly slurred, no facial droop, moving all extremities on command with equal strength 5/5 Results & Data Vital Signs (Past 12 Hours) Vital Signs Temp Pulse Pulse Resp BP BP Pulse Ox 09/09/18 11:41 51 L 18 105/62 98 09/09/18 09:28 88 L 09/09/18 09:12 36.7 C 62 18 103/64 92 Laboratory Results Lab Results 09/09/18 09/09/18 09/09/18 Range/Units 10:12 10:12 10:12 WBC 7.77 (4.8-10.8) K/uL RBC 4.13 L (4.7-6.1) M/uL Hgb 13.7 L (14.0-18.0) g/dL Hct 37.5 L (42-52) % MCV 90.8 (80-100) fL MCH 33.2 (25-34) pg MCHC 36.5 H (32-36) g/dL RDW Std Deviation 43.8 (36.4-46.3) fL RDW Coeff of Camille 13.2 (11.5-14.5) % Plt Count 155 (130-400) K/uL MPV 9.4 (7.4-10.4) fL Immature Gran % (Auto) 0.4 % Neut % (Auto) 75.3 % Lymph % (Auto) 13.0 % [place] % (Auto) 10.7 % Eos % (Auto) 0.6 % Baso % (Auto) 0.0 % Immature Gran # (Auto) 0.03 H (0.00-0.02) K/uL Neut # (Auto) 5.85 (1.4-6.5) K/uL Lymph # (Auto) 1.01 L (1.2-3.4) K/uL [place] # (Auto) 0.83 H (0.11-0.59) K/uL Eos # (Auto) 0.05 (0-0.5) K/uL Baso # (Auto) 0.00 (0-0.2) K/uL PT (9.0-12.0) Seconds INR (0.9-1.1) Sodium 139 (136-145) mmol/L Potassium 4.1 (3.5-5.1) mmol/L Chloride 104 (98-107) mmol/L Carbon Dioxide 27 (21-32) mmol/L Anion Gap 8.0 (3-11) BUN 12 (7-18) mg/dl Creatinine 0.96 (0.6-1.4) mg/dl Est Cr Clr Drug Dosing 65.3 ml/min Est GFR ( Amer) 92.4 Est GFR (Non-Af Amer) 79.8 BUN/Creatinine Ratio 12.0 (10-20) Glucose 107 H (70-99) mg/dl Calcium 9.3 (8.5-10.1) mg/dl Phosphorus (2.5-4.9) mg/dl Magnesium 2.2 (1.8-2.4) mg/dl Total Bilirubin 0.5 (0.2-1) mg/dl AST 15 (15-37) U/L ALT 22 (12-78) U/L Alkaline Phosphatase 79 (45-117) U/L Ammonia 40.9 H (11-32) umol/L Troponin I < 0.015 (0-0.045) ng/ml Total Protein 6.6 (6.4-8.2) gm/dl Albumin 3.4 (3.4-5.0) gm/dl Globulin 3.2 (2.5-4.0) gm/dl Albumin/Globulin Ratio 1.0 (0.9-2) TSH 1.490 (0.300-4.500) uIu/ml 09/09/18 09/09/18 Range/Units 10:12 10:27 WBC (4.8-10.8) K/uL RBC (4.7-6.1) M/uL Hgb (14.0-18.0) g/dL Hct (42-52) % MCV (80-100) fL MCH (25-34) pg MCHC (32-36) g/dL RDW Std Deviation (36.4-46.3) fL RDW Coeff of Camille (11.5-14.5) % Plt Count (130-400) K/uL MPV (7.4-10.4) fL Immature Gran % (Auto) % Neut % (Auto) % Lymph % (Auto) % [place] % (Auto) % Eos % (Auto) % Baso % (Auto) % Immature Gran # (Auto) (0.00-0.02) K/uL Neut # (Auto) (1.4-6.5) K/uL Lymph # (Auto) (1.2-3.4) K/uL [place] # (Auto) (0.11-0.59) K/uL Eos # (Auto) (0-0.5) K/uL Baso # (Auto) (0-0.2) K/uL PT 10.6 (9.0-12.0) Seconds INR 1.0 (0.9-1.1) Sodium (136-145) mmol/L Potassium (3.5-5.1) mmol/L Chloride (98-107) mmol/L Carbon Dioxide (21-32) mmol/L Anion Gap (3-11) BUN (7-18) mg/dl Creatinine (0.6-1.4) mg/dl Est Cr Clr Drug Dosing ml/min Est GFR ( Amer) Est GFR (Non-Af Amer) BUN/Creatinine Ratio (10-20) Glucose (70-99) mg/dl Calcium (8.5-10.1) mg/dl Phosphorus 2.8 (2.5-4.9) mg/dl Magnesium (1.8-2.4) mg/dl Total Bilirubin (0.2-1) mg/dl AST (15-37) U/L ALT (12-78) U/L Alkaline Phosphatase (45-117) U/L Ammonia (11-32) umol/L Troponin I (0-0.045) ng/ml Total Protein (6.4-8.2) gm/dl Albumin (3.4-5.0) gm/dl Globulin (2.5-4.0) gm/dl Albumin/Globulin Ratio (0.9-2) TSH (0.300-4.500) uIu/ml Diagnostic Findings CT head/brain wo con CLINICAL HISTORY: weakness COMPARISON STUDY: Right dated 07/11/2018 TECHNIQUE: Axial CT of the brain is performed from the vertex to the skull base. IV contrast was not administered for this examination. A dose lowering technique was utilized adhering to the principles of ALARA. CT DOSE: 537.48 mGy.cm FINDINGS: No intra or extra-axial mass lesions are visualized. There is no CT evidence of acute cortical infarction. There is no evidence of midline shift. There is no acute hemorrhage. No calvarial fractures are visualized. There are patchy white matter hypodensities likely on a small vessel basis. There is an old left parietal infarct. There is mild particular prominence, finding which is felt to be secondary to volume loss. There are dense vertebral calcifications. There is no evidence of acute sinusitis. IMPRESSION: No acute intracranial findings Electronically signed by: Sagar Magana M.D. 09/09/2018 10:51 AM Dictated: 09/09/18 1050 Transcribed: 09/09/18 1050 XR chest 1V portable CLINICAL HISTORY: weakness COMPARISON STUDY: 07/10/2018 FINDINGS: The heart is enlarged. There is no failure. There is no lobar consolidation. There is slight lower lung zone interstitial thickening.[ No pleural effusions are visualized. IMPRESSION: 1. Cardiomegaly with slightly lower lung zone interstitial thickening 2. No evidence of focal pulmonary consolidation Electronically signed by: Sagar Magana M.D. 09/09/2018 10:17 AM Dictated: 09/09/18 1016 Transcribed: 09/09/18 1016 ECG Indication: weakness Rhythm: sinus bradycardia Comparison ECG Date: from (12 July 2018) Change: the following changes noted (T wave inversions less evident in anterior leads) Code Status & VTE Plan Code Status DNR (1) CAD (coronary artery disease) Associated angina: without angina Coronary Disease-Associated Artery/Lesion type: [place] artery [place] vs. transplanted heart: [place] heart Qualified Code(s): I25.10 - Atherosclerotic heart disease of [place] coronary artery without angina pectoris (2) GERD (gastroesophageal reflux disease) Esophagitis presence: esophagitis presence not specified Qualified Code(s): K21.9 - Gastro-esophageal reflux disease without esophagitis (3) Hypertension Hypertension type: essential hypertension Qualified Code(s): I10 - Essential (primary) hypertension (4) Fall Encounter type: initial encounter Qualified Code(s): W19.XXXA - Unspecified fall, initial encounter
[2018-09-09] MEDS ORDERED: TRAZODONE HCL 100 MG TAB PO PRN (13:27)
[2018-09-09] MEDS ORDERED: BISACODYL 10 MG SUPP PR PRN (13:27)
[2018-09-09] MEDS ORDERED: QUETIAPINE FUMARATE 200 MG TAB PO PRN (13:27)
[2018-09-09] MEDS ORDERED: ONDANSETRON INJ 2 MG/ML 2 ML VIAL IV PRN (13:27)
[2018-09-09] MEDS ORDERED: SODIUM CHLORIDE 0.9% 1000ML 1,000 ML IV SCH (13:27)
[2018-09-09] MEDS ORDERED: ALPRAZolam 0.5 MG TABLET PO PRN (13:27)
[2018-09-09] MEDS ORDERED: DOCUSATE SODIUM 100 MG CAP PO PRN (13:27)
[2018-09-09] MEDS ORDERED: ALBUTEROL HFA 8 GM INHALER INH PRN (13:27)
[2018-09-09] MEDS ORDERED: POLYETHYLENE (MIRALAX) 17 GM PACK PO PRN (13:27)
[2018-09-09] MEDS ORDERED: ACETAMINOPHEN 325 MG TAB PO PRN (13:27)
[2018-09-09 13:54] LABS: Prothrombin Time 10.6 Seconds (9.0-12.0)
[2018-09-09] MEDS: GABAPENTIN 600 MG TAB PO SCH ×2 (15:25→21:31)
[2018-09-09] MEDS: OXYCODONE HCL IR 5 MG TAB (IMMEDIATE RELEASE) PO SCH ×2 (15:25→17:13)
[2018-09-09] MEDS: FLUTICASONE PROPIONATE NA SPR 16 GM BTL SCH (15:26)
[2018-09-09] MEDS: BREO ELLIPTA - ORDER AWAITING ACTION SCH (16:07)
--- NOTE | 2018-09-09 16:29 | Emergency Department Note ---
Entered by Annika Castillo acting as a scribe for Vik Nguyen MD History of Present Illness General Chief complaint: Fall Time Seen by Provider: 09/09/18 09:49 Source: patient, family and old records reviewed History of Present Illness Provider complaint: fall Onset (ago): hour(s) (today) Location: left and right Maximum Pain Intensity: 2 Quality: + other (fall) Associated symptoms: + shortness of breath, + weakness (bilateral leg) and + ot her (intermittent slurred speech ); no fever/chills and no nausea/vomiting The patient is a 72 year old male who presents to the Emergency Department with complaints of a fall occurring today. He denies hurting himself. The patient states that he has been falling and has had weakness over the last several months. He states that he had an MRI of the back done that showed disc problems. He reports having bilateral leg weakness but denies fevers and vomiting. The patient states that he has intermittent slurred speech with these episodes and also reports having intermittent shortness of breath. He states that he does not wear Oxygen at home. His family states that the patient's legs collapse. Per family, the patient is on Plavix. The patient states that he has been drinking enough fluids. The patient denies a history of back surgery in the past. Per family, the patient has not been placed on any new medications. Review of EMR shows that the patient was discharged on July 19 after near syncope, orthostasis, and weakness. Home Medications Home Medications Medication Instructions Recorded Confirmed Type atorvastatin 40 mg PO QAM 03/30/18 09/09/18 History carvedilol 3.125 mg PO BID 03/30/18 09/09/18 History clopidogrel 75 mg PO QAM 03/30/18 09/09/18 History gabapentin 600 mg PO TID 03/30/18 09/09/18 History quetiapine 200 mg PO QPM 03/30/18 09/09/18 History ropinirole 5 mg PO QAM 03/30/18 09/09/18 History esomeprazole magnesium [Nexium] 40 mg PO QAM 07/10/18 09/09/18 History fluoxetine 20 mg PO QAM 07/10/18 09/09/18 History mometasone 2 spray INTRANASAL DAILY 07/10/18 09/09/18 History oxycodone 5 mg PO QID 07/10/18 09/09/18 History alprazolam 2 mg PO HS 07/11/18 09/09/18 History lisinopril 5 mg PO DAILY #30 tab 07/13/18 09/09/18 Rx albuterol sulfate [Proventil HFA] 2 puff INHALATION Q6H PRN 09/09/18 09/09/18 History budesonide-formoterol [Symbicort] 2 puff INHALATION BID 09/09/18 09/09/18 History cholecalciferol (vitamin D3) 1,000 unit PO QAM 09/09/18 09/09/18 History [Vitamin D3] fluticasone furoate-vilanterol 1 inh INHALATION QAM 09/09/18 09/09/18 History [Breo Ellipta] levothyroxine 50 mcg PO QAM 09/09/18 09/09/18 History nitroglycerin 0.4 mg SUBLINGUAL DIRECTED PRN 09/09/18 09/09/18 History trazodone 200 mg PO HS 09/09/18 09/09/18 History vitamin Y19-jrals acid 2 tab PO QAM 09/09/18 09/09/18 History Allergies Allergy/AdvReac Type Severity Reaction Status Date / Time heparin Allergy Severe SEVERE Verified 09/09/18 11:12 REACTION Past Med/Surg History Medical History Restless legs (Chronic 09/13/12) Anemia GERD without esophagitis History of alcoholism CAD (coronary artery disease) DMII (diabetes mellitus, type 2) HTN (hypertension) History of alcohol abuse History of tobacco abuse Hypothyroidism Ischemic stroke Legally blind in right eye, as defined in [place] Restless legs syndrome (RLS) Restrictive lung disease Surgical History H/O hernia repair History of cholecystectomy S/P PTCA (percutaneous transluminal coronary angioplasty) 2010; occluded LAD Family History Other Unobtainable family history due to adoption Social History Preferred Language: [place] Communication Ability: Effective Beliefs That Will Affect Care: None marital status: Life Partner Current Living Situation: Spouse and Significant Other Other Information That Helps Us Care for You: No Feels Safe at Home: Yes Safety Concerns: Feels Safe At This Time Smoking Status: Never smoker Hx Alcohol Use: No Hx Substance Use: No Review of Systems See HPI for pertinent positives & negatives. and A total of 10 systems reviewed and were otherwise negative Physical Exam Vital Signs Vital Signs - 24 hr 09/09/18 09:12 09/09/18 09:28 09/09/18 10:57 Temperature 36.7 C Temperature Source Oral Sepsis Recent Fever Within 48 Hours No Sepsis Action Taken by Nursing No Action Required Pulse Rate - Lying 51 L Pulse Rate - Sitting 53 L Pulse Rate - Standing 55 L Pulse Rate 62 Pulse Rate [Finger] Pulse Rhythm Regular Pulse Strength Normal Respiratory Rate 18 Respiratory Effort / Characteristics Non-Labored Respiratory Depth Normal Blood Pressure - Lying 92/60 L Blood Pressure - Sitting 92/65 L Blood Pressure- Standing 83/70 L Blood Pressure 103/64 Blood Pressure [Right Arm] Blood Pressure Mean 77 Blood Pressure Mean [Right Arm] Pulse Oximetry 92 88 L Oxygen Delivery Method Room Air Room Air 09/09/18 11:39 09/09/18 11:41 Temperature Temperature Source Sepsis Recent Fever Within 48 Hours Sepsis Action Taken by Nursing Pulse Rate - Lying Pulse Rate - Sitting Pulse Rate - Standing Pulse Rate Pulse Rate [Finger] 51 L Pulse Rhythm Pulse Strength Respiratory Rate 18 Respiratory Effort / Characteristics Non-Labored Respiratory Depth Normal Blood Pressure - Lying Blood Pressure - Sitting Blood Pressure- Standing Blood Pressure Blood Pressure [Right Arm] 105/62 Blood Pressure Mean Blood Pressure Mean [Right Arm] 76 Pulse Oximetry 98 Oxygen Delivery Method Room Air GENERAL: Patient is in no acute distress. HEENT: No acute trauma, normocephalic atraumatic, mucous membranes dry, no nasal congestion, no scleral icterus. NECK: No stridor, no adenopathy, no meningismus, trachea is midline. LUNGS: Diminished breath sounds. Occasional crackles. No wheezing. No respira tory distress. HEART: Without murmurs gallops or rubs, regular rate and rhythm. ABDOMEN: Soft, nontender, bowel sounds positive, no hernias, no peritonitis. EXTREMITIES: No cyanosis or edema, full range of motion of all the joints without pain or difficulty, no signs for acute trauma. NEUROLOGIC: Oriented x 3. Speech slur noted. No facial droop. Able to lift both legs off of the bed equally. No reflexes in the Achilles or patella bilaterally. Clonus noted in the lower extremities. SKIN: No rash, no jaundice, no diaphoresis. Course 0952: The patient was evaluated in room B7. A history and physical were performed. 1112: The patient's orthostatic vital signs showed a drop of blood pressure with standing but were technically negative. 1116: I discussed the patient's case with Dr. Amelia Vargas who will evaluate the patient for further management. 1118: I updated the patient and his family who verbalized agreement and understa nding of the treatment plan. Consultations Consultation #1: Dr. Amelia Vargas Time: 11:16 Administered Medications Fluticasone Propionate (Flonase) 2 sprays NA DAILY KITTY Stop: 10/09/18 13:59 Last Admin: 09/09/18 15:26 Dose: 2 sprays Documented by: [id number] Gabapentin (Neurontin) 600 mg PO TID KITTY Stop: 10/09/18 13:59 Last Admin: 09/09/18 15:25 Dose: 600 mg Documented by: [id number] Sodium Chloride (Nss 1000ml) 1,000 mls @ 100 mls/hr IV .Q10H KITTY Stop: 09/09/18 23:26 Last Admin: 09/09/18 13:58 Dose: 100 mls/hr Documented by: [id number] Ioversol (Optiray 320 125ml) 120 ml IV ONCE PRN PRN Reason: Interaction Checking Stop: 09/13/18 16:45 Last Admin: 09/09/18 16:46 Dose: 120 ml Documented by: [id number] Miscellaneous (Order Awaiting Action) 1 ea N/A QS KITTY Stop: 10/09/18 15:59 Last Admin: 09/09/18 16:07 Dose: Not Given Documented by: [id number] Oxycodone HCl (Roxicodone Immediate Rel) 5 mg PO QID KITTY Stop: 09/23/18 13:26 Last Admin: 09/09/18 15:25 Dose: 5 mg Documented by: [id number] Discontinued Medications Sodium Chloride (Nss) 500 mls @ 999 mls/hr IV .Q31M KITTY Stop: 09/09/18 10:30 Last Infusion: 09/09/18 11:33 Dose: 0 mls/hr Documented by: [id number] Admin: 09/09/18 11:03 Dose: 999 mls/hr Documented by: [id number] Sodium Chloride (Nss 1000ml) 500 mls @ 999 mls/hr IV .Q31M ONE Stop: 09/09/18 11:43 Last Infusion: 09/09/18 12:04 Dose: 0 mls/hr Documented by: [id number] Admin: 09/09/18 11:40 Dose: 999 mls/hr Documented by: [id number] Medical Decision Making Differential Diagnosis Differentials include dehydration, anemia, electrolyte imbalance, renal or liver failure, UTI, intracranial bleeding, stroke, Guillain [place] syndrome, medication reaction, and thyroid disorder. Medical Records Attestation: I reviewed the patient's medical records. Home Medications Current Medication List: was personally reviewed by me Laboratory Data Attestation: I reviewed the patient's lab results. Result diagrams: 09/09/18 10:12 09/09/18 10:12 Lab Results 09/09/18 09/09/18 09/09/18 Range/Units 10:12 10:12 10:12 WBC 7.77 (4.8-10.8) K/uL RBC 4.13 L (4.7-6.1) M/uL Hgb 13.7 L (14.0-18.0) g/dL Hct 37.5 L (42-52) % MCV 90.8 (80-100) fL MCH 33.2 (25-34) pg MCHC 36.5 H (32-36) g/dL RDW Std Deviation 43.8 (36.4-46.3) fL RDW Coeff of Camille 13.2 (11.5-14.5) % Plt Count 155 (130-400) K/uL MPV 9.4 (7.4-10.4) fL Immature Gran % (Auto) 0.4 % Neut % (Auto) 75.3 % Lymph % (Auto) 13.0 % [place] % (Auto) 10.7 % Eos % (Auto) 0.6 % Baso % (Auto) 0.0 % Immature Gran # (Auto) 0.03 H (0.00-0.02) K/uL Neut # (Auto) 5.85 (1.4-6.5) K/uL Lymph # (Auto) 1.01 L (1.2-3.4) K/uL [place] # (Auto) 0.83 H (0.11-0.59) K/uL Eos # (Auto) 0.05 (0-0.5) K/uL Baso # (Auto) 0.00 (0-0.2) K/uL PT (9.0-12.0) Seconds INR (0.9-1.1) Sodium 139 (136-145) mmol/L Potassium 4.1 (3.5-5.1) mmol/L Chloride 104 (98-107) mmol/L Carbon Dioxide 27 (21-32) mmol/L Anion Gap 8.0 (3-11) BUN 12 (7-18) mg/dl Creatinine 0.96 (0.6-1.4) mg/dl Est Cr Clr Drug Dosing 65.3 ml/min Est GFR ( Amer) 92.4 Est GFR (Non-Af Amer) 79.8 BUN/Creatinine Ratio 12.0 (10-20) Glucose 107 H (70-99) mg/dl Calcium 9.3 (8.5-10.1) mg/dl Phosphorus (2.5-4.9) mg/dl Magnesium 2.2 (1.8-2.4) mg/dl Total Bilirubin 0.5 (0.2-1) mg/dl AST 15 (15-37) U/L ALT 22 (12-78) U/L Alkaline Phosphatase 79 (45-117) U/L Ammonia 40.9 H (11-32) umol/L Troponin I < 0.015 (0-0.045) ng/ml Total Protein 6.6 (6.4-8.2) gm/dl Albumin 3.4 (3.4-5.0) gm/dl Globulin 3.2 (2.5-4.0) gm/dl Albumin/Globulin Ratio 1.0 (0.9-2) TSH 1.490 (0.300-4.500) uIu/ml 09/09/18 09/09/18 Range/Units 10:12 10:27 WBC (4.8-10.8) K/uL RBC (4.7-6.1) M/uL Hgb (14.0-18.0) g/dL Hct (42-52) % MCV (80-100) fL MCH (25-34) pg MCHC (32-36) g/dL RDW Std Deviation (36.4-46.3) fL RDW Coeff of Camille (11.5-14.5) % Plt Count (130-400) K/uL MPV (7.4-10.4) fL Immature Gran % (Auto) % Neut % (Auto) % Lymph % (Auto) % [place] % (Auto) % Eos % (Auto) % Baso % (Auto) % Immature Gran # (Auto) (0.00-0.02) K/uL Neut # (Auto) (1.4-6.5) K/uL Lymph # (Auto) (1.2-3.4) K/uL [place] # (Auto) (0.11-0.59) K/uL Eos # (Auto) (0-0.5) K/uL Baso # (Auto) (0-0.2) K/uL PT 10.6 (9.0-12.0) Seconds INR 1.0 (0.9-1.1) Sodium (136-145) mmol/L Potassium (3.5-5.1) mmol/L Chloride (98-107) mmol/L Carbon Dioxide (21-32) mmol/L Anion Gap (3-11) BUN (7-18) mg/dl Creatinine (0.6-1.4) mg/dl Est Cr Clr Drug Dosing ml/min Est GFR ( Amer) Est GFR (Non-Af Amer) BUN/Creatinine Ratio (10-20) Glucose (70-99) mg/dl Calcium (8.5-10.1) mg/dl Phosphorus 2.8 (2.5-4.9) mg/dl Magnesium (1.8-2.4) mg/dl Total Bilirubin (0.2-1) mg/dl AST (15-37) U/L ALT (12-78) U/L Alkaline Phosphatase (45-117) U/L Ammonia (11-32) umol/L Troponin I (0-0.045) ng/ml Total Protein (6.4-8.2) gm/dl Albumin (3.4-5.0) gm/dl Globulin (2.5-4.0) gm/dl Albumin/Globulin Ratio (0.9-2) TSH (0.300-4.500) uIu/ml Imaging Data Radiologist's Impression: Radiology results as stated below per my review and the radiologist's interpretation: XR chest 1V portable CLINICAL HISTORY: weakness COMPARISON STUDY: 07/10/2018 FINDINGS: The heart is enlarged. There is no failure. There is no lobar consolidation. There is slight lower lung zone interstitial thickening.[ No pleural effusions are visualized. IMPRESSION: 1. Cardiomegaly with slightly lower lung zone interstitial thickening 2. No evidence of focal pulmonary consolidation Electronically signed by: Sagar Magana M.D. 09/09/2018 10:[address] head/brain wo con CLINICAL HISTORY: weakness COMPARISON STUDY: Right dated 07/11/2018 TECHNIQUE: Axial CT of the brain is performed from the vertex to the skull base. IV contrast was not administered for this examination. A dose lowering technique was utilized adhering to the principles of ALARA. CT DOSE: 537.48 mGy.cm FINDINGS: No intra or extra-axial mass lesions are visualized. There is no CT evidence of acute cortical infarction. There is no evidence of midline shift. There is no acute hemorrhage. No calvarial fractures are visualized. There are patchy white matter hypodensities likely on a small vessel basis. There is an old left parietal infarct. There is mild particular prominence, finding which is felt to be secondary to volume loss. There are dense vertebral calcifications. There is no evidence of acute sinusitis. IMPRESSION: No acute intracranial findings Electronically signed by: Sagar Magana M.D. 09/09/2018 10:51 AM ECG Data Attestation: I personally reviewed and interpreted this ECG as follows: Indication: weakness Rate (beats per minute): 58 Rhythm: sinus bradycardia Findings: + other (old inferior infarct); no PVC and no ST elevation Blood Pressure Blood Pressure Findings: Low blood pressure Blood Pressure Disposition: further management by hospitalist [facility] Narrative There is no leukocytosis. The hemoglobin was slightly low at 13.7. INR was not elevated. No evidence for electrolyte abnormality or kidney failure. Liver enzymes were not elevated. Ammonia was somewhat elevated at 40. Certainly, the elevated ammonia level could explain some of his sleepiness and weakness. EKG showed a sinus rhythm, no acute ischemia. Cardiac enzyme testing x1 was not consistent with acute cardiac injury. Urinalysis result is pending. Brain CT shows no acute bleed or mass-effect. Chest film did not show pneumonia or CHF. Orthostatic vital signs were technically negative but the blood pressure was low in general. On exam, the patient did not have any focal neurologic deficits but he did have some speech slurring and appeared quite dehydrated clinically. The patient received IV saline, 500 cc. A second 500 cc bolus was administered. Given the change in his speech, given the weakness, the fall, the elevated ammonia level and lower blood pressure, I do think a hospital stay is warranted. I spoke to the patient and case management. The on-call hospitalist was consulted. At this point, the true cause for his presentation is not completely clear. Impression & Plan Hypotension, Fall, Weakness, Hypoxia, Hyperammonemia Discharge Plan Visit Data *Final* Discharge Date/Time: 09/09/18 13:07 Chief Complaint: Fall Other Complaint: Shoulder Pain ED Provider: Vik Nguyen Discharge Problem: Hypotension, Fall, Weakness, Hypoxia, Hyperammonemia Patient Disposition: Admitted As Inpatient Discharge Instructions Interventions: ED Discharge Assessment Last Done: 09/09/18 13:07 Discharge Problem: Hypotension Qualifiers: Hypotension type: unspecified hypotension type Qualified Code(s): I95.9 - Hypotension, unspecified Fall Qualifiers: Encounter type: initial encounter Qualified Code(s): W19.XXXA - Unspecified fall, initial encounter The scribe's documentation has been prepared under my direction and personally reviewed by me in its entirety. I confirm that the note above accurately reflects all work, treatment, procedures, and medical decision making performed by me.
[2018-09-09] MEDS ORDERED: OPTIRAY 320 125ml IV PRN (16:46)
[2018-09-09] MEDS ORDERED: Nursing to Pharmacy Communication ONE (17:01)
[2018-09-09] MEDS ORDERED: OXYCODONE HCL IR 5 MG TAB (IMMEDIATE RELEASE) PO PRN (17:08)
--- NOTE | 2018-09-09 17:16 | CT Scan Report ---
CTA ANGIOGRAPHY OF THE HEAD CLINICAL HISTORY: ?CVA COMPARISON STUDY: CTA of the head July 10, 2018. MRI of the brain July 11, 2018. Head CT performed earlier today. TECHNIQUE: Helical axial images of the head were obtained following uneventful intravenous administr ation of 120 cc of Optiray 320. Automated exposure control was utilized for the study. A dose lower ing technique was utilized adhering to the principles of ALARA. FINDINGS: Please note that the CTA of the neck will be reported separately. No acute intracranial hem orrhage, midline shift or mass effect is present. Ventricular system is stable. Basilar cisterns are patent. There are no extra-axial collections. Encephalomalacia within the periventricular left pariet al lobe is again noted. The bilateral M1, M2, A1 and A2 segments are patent. There is no abrupt vesse l cut off. There is no saccular aneurysm within the intracranial circulation. Anterior communicating artery is present. The left vertebral artery is dominant. There is moderate calcified plaque within t he intracranial portion of the left internal carotid artery without significant stenosis. The right v ertebral artery is hypoplastic. There are moderate multifocal stenoses of the intracranial portion of the right vertebral artery which are similar to CT of July 02, 2018. No abrupt cut off within the p osterior circulation is noted. IMPRESSION: 1. No significant change since CTA of July 10, 2018. No abrupt vessel cut off, intraluminal thrombus or dissection within the major intracranial vessels. 2. Moderate plaque within the intracranial portion of the left vertebral artery without significant s tenosis. 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 Electronically signed by: Shant Keen M.D. 09/09/2018 5:14 PM
[2018-09-09 17:24] LABS: Appearance Urine Clear (Clear); Bilirubin Urine Negative (Negative); Blood Urine Negative (Negative); Color Urine Yellow; Glucose Urine UA Negative (Negative); Ketones Urine Negative (Negative); Leukocyte Esterase Urine Negative (Negative); Nitrite Urine Negative (Negative); Protein Urine Negative (Negative); Specific Gravity Urine 1.027 (1.000-1.030); Urobilinogen Urine Negative (Negative)
--- NOTE | 2018-09-09 17:25 | CT Scan Report ---
CT ANGIOGRAPHY OF THE NECK WITH CONTRAST CLINICAL HISTORY: ?CVA COMPARISON STUDY: CTA of the neck July 10, 2018. Technique: CT angiography of the carotid and vertebral arteries was obtained using [employer] 320 IV and 3D reconstruction on an independent workstation. NASCET criteria was utilized. Automated exposure c ontrol was utilized for the study. A dose lowering technique was utilized adhering to the principles of ALARA. CT DOSE: 488.85 mGy.cm Findings: Mild groundglass opacities are noted within visualized portions of the upper lungs. These f avor atelectasis. No cervical lymphadenopathy. There is no cervical spine fracture. The right vertebr al artery is hypoplastic. This is unchanged. There is stenosis of the right vertebral artery at the C 6-C7 level due to osteophytes. This is unchanged. The left vertebral artery is dominant and patent. T here is no dissection. There is mild plaque within the proximal bilateral internal carotid arteries w ithout stenosis. The bilateral common carotid and cervical internal carotid arteries are patent. The appearance is unchanged since CT of July 10, 2018. IMPRESSION: 1. No change since CTA of July 10, 2018. No stenosis within the bilateral common carotid and cervica l internal carotid arteries. Mild atherosclerotic plaque. 2. Dominant, patent left vertebral artery. Hypoplastic right vertebral artery, as described above. Electronically signed by: Shant Keen M.D. 09/09/2018 5:24 PM
[2018-09-09] MEDS: CARVEDILOL 3.125 MG TAB PO SCH (21:31)
[2018-09-09] MEDS: BUDESONIDE/FORMOTEROL FUMARATE 160/4.5 60 PUFFS/INHALER INH SCH (21:31)
[2018-09-10] MEDS: BREO ELLIPTA - ORDER AWAITING ACTION SCH ×3 (00:48→15:14)
[2018-09-10] MEDS: LEVOTHYROXINE SODIUM 50 MCG TABLET PO SCH (05:25)
[2018-09-10 07:17] LABS: Eosinophils # (auto) 0.08 K/uL (0-0.5); Hematocrit (blood only) 38.5 % (42-52); Hemoglobin 13.9 g/dL (14.0-18.0); Immature Granulocytes # (auto) 0.02 K/uL (0.00-0.02); Immature Granulocytes % (auto) 0.2 %; Lymphocytes # (auto) 0.85 K/uL (1.2-3.4); Lymphocytes % (auto) 10.6 %; Mean Corpuscular Hgb Conc 36.1 g/dL (32-36); Mean Corpuscular Volume 91.9 fL (80-100); Mean Platelet Volume 9.4 fL (7.4-10.4); Monocytes # (auto) 0.71 K/uL (0.11-0.59); Monocytes % (auto) 8.8 %; Neutrophils # (auto) 6.38 K/uL (1.4-6.5); Neutrophils % (auto) 79.4 %; Platelet Count 150 K/uL (130-400); RDW Coefficient of Variation 13.3 % (11.5-14.5); RDW Standard Deviation 44.7 fL (36.4-46.3); Red Blood Count 4.19 M/uL (4.7-6.1); White Blood Count 8.04 K/uL (4.8-10.8)
[2018-09-10 07:47] LABS: BUN Creatinine Ratio 8.7 (10-20); Calcium 8.7 mg/dl (8.5-10.1); Est GFR (African American) 92.4; Est GFR (Non-African American) 79.8; Potassium 4.4 mmol/L (3.5-5.1)
--- NOTE | 2018-09-10 08:00 | Hospitalist Progress Note ---
Date of Service September 10, 2018 Assessment & Plan (1) Fall: Patient reports 2-3 months of progressive weakness, gait instability and falls. No LOC. Presents today with some slurred speech as well. Neurological exam otherwise unremarkable. ?CVA, TIA vs medication effects - patient is on a number of sedating medications to include Neurontin, Seroquel, Trazodone, Benzos and Oxycodone. Also with sinus bradycardia which may be contributing to overall weakness. Patient follows with Neurology and thought to have lumbar radiculopathy contributing to ambulatory dysfunction as well. -Admit to PCU for cardiac monitoring -Check CTA head and neck -PT/OT evaluation -If patient remains bradycardic would consider decreasing Carvedilol -Will change Trazodone, Seroquel and Alprazolam to PRN rather than scheduled -May consider decreasing dosage of Gabapentin as well (he is taking this for atypical facial pain) -Fall precautions -Neuro checks (2) Weakness: As above. Patient with subjective weakness. MS is 5/5 in UE/LE bilaterally on exam. ?medication effects. B12 and Folate have been in normal range in the past -Workup as above (3) Hyperammonemia: Mildly elevated ammonia level. Patient is AA&O x 4, no asterixis. No underlying lung disease. Labs do not suggest liver dysfunction, LFTs, albumin, platelets within normal limits. -Check INR -Continue to monitor (4) Hypercholesterolemia: Chronic -Continue Atorvastatin (5) Hypertension: Blood pressure well controlled at present -Continue Carvedilol -Continue Lisinopril (6) Depression with anxiety: Chronic. Stable -Continue Fluoxetine -Alprazolam PRN -Trazodone and Seroquel PRN (7) GERD (gastroesophageal reflux disease): Chronic. Stable -Will change Nexium to Protonix daily as patient is on Plavix (8) CAD (coronary artery disease): Patient presently without chest pain. EKG with no evidence of acute ischemia. Denies exertional symptoms. Patient follows with Dr. Gonzalez -Continue Carvedilol, may consider decreasing or discontinuing based on heart rate monitoring -Continue Atorvastatin -Continue Plavix -Continue Lisinopril (9) Ischemic stroke: Remote history of CVA. No residual deficits reported -Continue Plavix and Atorvastatin -Change Nexium to Protonix as above (10) Restless legs: Chronic -Continue Ropinirole (11) Restrictive lung disease: No SOB. Adequate oxygenation on room air -Continue home medications, Albuterol, Symbicort, Breo -Continue to monitor F/E/N - NS at 100mL/hr x 1 liter, monitor electrolytes and replete as needed, heart healthy diet as tolerated, bowel regimen with Colace, Dulcolax and Miralax PRN Ppx - Low risk for DVT, allergic to heparin Code - DNR/DNI per discussion with patient Dispo - Admit to PCU Results & Data Vital Signs (Past 12 Hours) Vital Signs Temp Pulse Pulse Resp BP BP Pulse Ox 09/10/18 07:19 36.8 C 68 17 128/69 93 09/10/18 03:36 36.8 C 68 19 120/45 L 97 09/10/18 00:00 56 L 09/09/18 23:20 36.9 C 54 L 18 137/72 96 (1) Fall Encounter type: initial encounter Qualified Code(s): W19.XXXA - Unspecified fall, initial encounter (2) Hypertension Hypertension type: essential hypertension Qualified Code(s): I10 - Essential (primary) hypertension (3) GERD (gastroesophageal reflux disease) Esophagitis presence: esophagitis presence not specified Qualified Code(s): K21.9 - Gastro-esophageal reflux disease without esophagitis (4) CAD (coronary artery disease) Coronary Disease-Associated Artery/Lesion type: [place] artery [place] vs. transplanted heart: [place] heart Associated angina: without angina Qualified Code(s): I25.10 - Atherosclerotic heart disease of [place] coronary artery without angina pectoris
[2018-09-10] MEDS: LISINOPRIL 5 MG TAB PO SCH (08:38)
[2018-09-10] MEDS: PANTOprazole 40 MG TAB PO SCH (08:39)
[2018-09-10] MEDS: CLOPIDOGREL BISULFATE 75 MG TAB PO SCH (08:39)
[2018-09-10] MEDS: ATORVASTATIN 40 MG TAB PO SCH (08:39)
[2018-09-10] MEDS: FLUOXETINE HCL 20 MG CAP PO SCH (08:39)
[2018-09-10] MEDS: CARVEDILOL 3.125 MG TAB PO SCH ×2 (08:39→20:30)
[2018-09-10] MEDS: BUDESONIDE/FORMOTEROL FUMARATE 160/4.5 60 PUFFS/INHALER INH SCH ×2 (08:40→20:29)
[2018-09-10] MEDS: FLUTICASONE PROPIONATE NA SPR 16 GM BTL SCH (08:40)
[2018-09-10] MEDS ORDERED: VITAMIN B12 FOLIC ACID PO SCH (09:00)
[2018-09-10] MEDS ORDERED: ROPINIROLE HCL 5 MG TABLET PO SCH (09:00)
[2018-09-10] MEDS: GABAPENTIN 300 MG CAP PO SCH ×3 (09:25→20:29)
--- NOTE | 2018-09-10 17:40 | Hospitalist Progress Note ---
Date of Service September 10, 2018 Assessment & Plan (1) Fall: Patient reports 2-3 months of progressive weakness, gait instability and falls. Wearing mostly about medication effects - patient is on a number of sedating medications to include Neurontin, Seroquel, Trazodone, Benzodiazepines and Oxycodone. Also with sinus bradycardia which may be contributing to overall weakness. Patient follows with Neurology and thought to have lumbar radiculopathy contributing to ambulatory dysfunction as well. MRI from 08/25 only with mild foraminal and spinal canal narrowing -PT/OT evaluation Did change Trazodone, Seroquel and Alprazolam to PRN rather than scheduled We also did decrease dosage of Gabapentin as well (he is taking this for atypical facial pain) -Fall precautions -Neuro checks (2) Weakness: As above. Patient with subjective weakness. Confrontational testing does not reveal focal strength loss B12 and Folate have been in normal range in the past -Workup as above (3) Hyperammonemia: Mildly elevated ammonia level. Patient is AA&O x 4, no asterixis. No underlying lung disease. Labs do not suggest liver dysfunction, LFTs, albumin, platelets within normal limits. INR is normal suggesting normal synthetic function of his liver (4) Hypercholesterolemia: Chronic -Continue Atorvastatin (5) Hypertension: Blood pressure well controlled at present -Continue Carvedilol -Continue Lisinopril (6) Depression with anxiety: Chronic. Stable -Continue Fluoxetine -Alprazolam PRN -Trazodone and Seroquel PRN (7) GERD (gastroesophageal reflux disease): Chronic. Stable -Will change Nexium to Protonix daily as patient is on Plavix (8) CAD (coronary artery disease): Patient presently without chest pain. EKG with no evidence of acute ischemia. Denies exertional symptoms. Patient follows with Dr. Gonzalez -Continue Carvedilol, may consider decreasing or discontinuing based on heart rate monitoring -Continue Atorvastatin Plavix Lisinopril (9) Ischemic stroke: Remote history of CVA. No residual deficits reported secondary risk prevention with Plavix and Atorvastatin -Change Nexium to Protonix as above (10) Restless legs: We will hold ropinirole (11) Restrictive lung disease: No SOB. Adequate oxygenation on room air -Continue home medications, Albuterol, Symbicort, Breo -Continue to monitor Code - DNR/DNI per discussion with patient and admitting team Subjective Patient seen the presence of his states he feels back to his baseline improved from when he is been over the last few months. His however relates episodes where he just drops in his weak legs. He did not MRI of his back as an outpatient approximately on 25 August which only showed mild spinal canal narrowing and mild foraminal narrowing not explaining the episodes where he loses control of his lower legs. Patient is on many medications owing to back discomfort and psychiatric discomfort these may have ROAD CONDUCTOR effects Review of Systems Review of Systems: ROS: She appears chronically ill and has weakness No double vision blurry vision he does have strabismus at baseline with decreased visual acuity of his right eye No problems with speech or swallowing No palpitations, chest pain or pressure No Wheezing or breathing issues No abdominal pain nausea vomiting diarrhea changes in appetite or weight No burning urine urine frequency or changes in color No focal joint pain or muscle pain No skin rashes or oral lesions No unusual bruising or bleeding Patient is chronic daily back pain and some loss of strength of his lower extremities this is episodic and variable without exacerbation by any particular thing usually worse in the morning which makes me wonder if it is related to some nocturnal meds. No changes in memory or confusion Physical Exam Physical Exam: The patient appeared chronically ill Vital signs as documented. Head exam is unremarkable. normocephalic, atraumatic strabismus was right eye Neck is without jugular venous distension, thyromegaly, or lymphademopathy Lungs are clear to auscultation and percussion. Cardiac exam reveals Rhythm is regular. First and second heart sounds normal. Abdominal exam reveals normal bowel sounds, no masses, no organomegaly Extremities are nonedematous and both pedal pulses are present Neurologic exam is A&Ox3, no focal deficits, strength is equal bilateral to confrontational testing Psychologically seems neither anxious or depressed Skin is warm Dry without bruises or lesions Results & Data Vital Signs (Past 12 Hours) Vital Signs Temp Pulse Resp BP BP Pulse Ox 09/10/18 15:20 36.7 C 67 18 110/70 95 09/10/18 10:51 36.8 C 56 L 20 114/70 93 09/10/18 07:19 36.8 C 68 17 128/69 93 (1) CAD (coronary artery disease) Associated angina: without angina Coronary Disease-Associated Artery/Lesion type: [place] artery [place] vs. transplanted heart: [place] heart Qualified Code(s): I25.10 - Atherosclerotic heart disease of [place] coronary artery without angina pectoris (2) GERD (gastroesophageal reflux disease) Esophagitis presence: esophagitis presence not specified Qualified Code(s): K21.9 - Gastro-esophageal reflux disease without esophagitis (3) Hypertension Hypertension type: essential hypertension Qualified Code(s): I10 - Essential (primary) hypertension (4) Fall Encounter type: initial encounter Qualified Code(s): W19.XXXA - Unspecified fall, initial encounter
[2018-09-11] MEDS: BREO ELLIPTA - ORDER AWAITING ACTION SCH ×2 (04:19→08:38)
[2018-09-11] MEDS: LEVOTHYROXINE SODIUM 50 MCG TABLET PO SCH (05:33)
[2018-09-11] MEDS: PANTOprazole 40 MG TAB PO SCH (08:37)
[2018-09-11] MEDS: LISINOPRIL 5 MG TAB PO SCH (08:37)
[2018-09-11] MEDS: CLOPIDOGREL BISULFATE 75 MG TAB PO SCH (08:37)
[2018-09-11] MEDS: FLUOXETINE HCL 20 MG CAP PO SCH (08:37)
[2018-09-11] MEDS: ATORVASTATIN 40 MG TAB PO SCH (08:37)
[2018-09-11] MEDS: CARVEDILOL 3.125 MG TAB PO SCH (08:37)
[2018-09-11] MEDS: GABAPENTIN 300 MG CAP PO SCH (08:37)
[2018-09-11] MEDS: BUDESONIDE/FORMOTEROL FUMARATE 160/4.5 60 PUFFS/INHALER INH SCH (08:38)
[2018-09-11] MEDS: FLUTICASONE PROPIONATE NA SPR 16 GM BTL SCH (08:38)
--- NOTE | 2018-09-11 19:33 | Discharge Summary ---
Date of Service September 11, 2018 Admission HPI Per Admitting Provider Mr. Paulino is a 72yo male with history of HGN, CAD, restrictive lung disease, hypothyroidism and restless legs presenting after a fall at home. Patient woke this AM around 07:30 and got out of bed and, per , was "walking like he was drunk", imbalance and gait instability. Patient reports that his legs went out from underneath him and he fell. He did not lose consciousness. He did bump his head off the baseboard. He was unable to get up secondary to ongoing bilateral weakness of his legs. also reports that his speech was slurred all day as well. Overall they report an increase in lethargy, weakness, gait instability and falls over the last few months. He follows with Neurology, Dr. Chong. Last seen on 2018. Patient with chronic low back and lower extremity pain and numbness as well as radicular symptoms thought to be secondary to an L3-L4 radiculopathy. MRI of the L-spine was ordered. He follows with Pain Management also. ER Course: NSS x 1L Principal Diagnosis toxic encephalopathy from prescription medication Discharge Exam ROS: well nourished well developed. No double vision blurry vision she does have baseline strabismus No problems with speech or swallowing No palpitations, chest pain or pressure No Wheezing or breathing issues No abdominal pain nausea vomiting diarrhea changes in appetite or weight No burning urine urine frequency or changes in color No focused back pain or numbness or loss of strength Is able to ambulate in the unit a few labs prior to going home with nursing supervision Discharge Data Allergies Allergy/AdvReac Type Severity Reaction Status Date / Time heparin Allergy Severe SEVERE Verified 09/09/18 11:12 REACTION Consultations 09/09/18 11:14 ED Decision to Admit Stat 09/11/18 13:21 Consult Health Information Management Routine Ordered Studies 09/09/18 09:59 CT head/brain wo con Stat 09/09/18 13:27 CT angio head w con Routine CT angio neck with con Routine Hospital Course (1) Fall: Patient reports 2-3 months of progressive weakness, gait instability and falls. Wearing mostly about medication effects - patient is on a number of sedating medications to include Neurontin, Seroquel, Trazodone, Benzodiazepines and Oxycodone. Also with sinus bradycardia which may be contributing to overall weakness. Patient follows with Neurology and thought to have lumbar radiculopathy contributing to ambulatory dysfunction as well. MRI from 08/25 only with mild foraminal and spinal canal narrowing -PT/OT evaluation patient did very well and was discharged without need for inpatient care but only for home health PT Did change Trazodone, Seroquel and Alprazolam also reducing dose level of trazodone We also did decrease dosage of Gabapentin as well (he is taking this for atypical facial pain) (2) Weakness: As above. Patient with subjective weakness. Confrontational testing does not reveal focal strength loss B12 and Folate have been in normal range in the past -Workup as above (3) Hyperammonemia: Mildly elevated ammonia level. Patient is AA&O x 4, no asterixis. No underlying lung disease. Labs do not suggest liver dysfunction, LFTs, albumin, platelets within normal limits. INR is normal suggesting normal synthetic function of his liver (4) Hypercholesterolemia: Chronic -Continue Atorvastatin (5) Hypertension: Blood pressure well controlled at present -Continue Carvedilol -Continue Lisinopril (6) Depression with anxiety: Chronic. Stable -Continue Fluoxetine -Alprazolam PRN -Trazodone and Seroquel PRN (7) GERD (gastroesophageal reflux disease): Chronic. Stable -Will change Nexium to Protonix daily as patient is on Plavix (8) CAD (coronary artery disease): Patient presently without chest pain. EKG with no evidence of acute ischemia. Denies exertional symptoms. Patient follows with Dr. Gonzalez -Continue Carvedilol, may consider decreasing or discontinuing based on heart rate monitoring -Continue Atorvastatin Plavix Lisinopril (9) Ischemic stroke: Remote history of CVA. No residual deficits reported secondary risk prevention with Plavix and Atorvastatin -Change Nexium to Protonix as above (10) Restless legs: We will hold ropinirole (11) Restrictive lung disease: No SOB. Adequate oxygenation on room air -Continue home medications, Albuterol, Symbicort, Breo -Continue to monitor Code - DNR/DNI per discussion with patient and admitting team Total Time Total Time Spent Total Time Spent (In Minutes): greater than 30 minutes were required to prepare discharge Discharge Plan Discharge Items Patient Disposition: Home - Home Health Services Reason For Visit: FALL,SLURRED SPEECH Discharge Diagnosis: medication affecting altertness Discharge Goals: Decrease discomfort and Diagnostic testing Activity: Resume your previous activity Non-emergency contact: Primary Care Provider Call non-emergency contact if: you have any medication questions Follow-up/Referrals: Sheila Murray MD [Physician] - 09/15/18 10:00 am (An appointment has been made at your PCP's office on your behalf. Please call the office with any questions or concerns.) Diet: Regular Addtl Provider Instructions: I have called [facility] office to arrange second opinion referral to aníbal benavides please have follow up appointment with them within a week Prescriptions: New gabapentin 300 mg Capsule 300 mg PO TID Qty: 90 RF: 3 Continued atorvastatin 40 mg tablet 40 mg PO QAM RF: 0 carvedilol 6.25 mg tablet 3.125 mg PO BID RF: 0 quetiapine 200 mg tablet 200 mg PO QPM RF: 0 clopidogrel 75 mg tablet 75 mg PO QAM RF: 0 levothyroxine 50 mcg tablet 50 mcg PO QAM RF: 0 nitroglycerin 0.4 mg tablet, sublingual 0.4 mg sublingual DIRECTED PRN (Reason: Chest Pain) RF: 0 albuterol sulfate [Proventil HFA] 90 mcg/actuation Hfa Aerosol Inhaler 2 puff INHALATION Q6H PRN (Reason: Shortness Of Breath) RF: 0 cholecalciferol (vitamin D3) [Vitamin D3] 1,000 unit Tablet 1,000 unit PO QAM RF: 0 Symbicort 160-4.5 mcg/actuation Hfa Aerosol Inhaler 2 puff INHALATION BID RF: 0 vitamin O95-kwdma acid 500-400 mcg Tablet 2 tab PO QAM RF: 0 Breo Ellipta 100-25 mcg/dose Blister With Device 1 inh INHALATION QAM RF: 0 esomeprazole magnesium [Nexium] 40 mg Capsule,Delayed Release(Dr/Ec) 40 mg PO QAM RF: 0 fluoxetine 20 mg Capsule 20 mg PO QAM RF: 0 oxycodone 5 mg Tablet 5 mg PO QID PRN (Reason: Pain) RF: 0 mometasone 50 mcg/actuation [place],Non-Aerosol 2 spray INTRANASAL DAILY RF: 0 lisinopril 5 mg tablet 5 mg PO DAILY Qty: 30 RF: 2 Changed trazodone 100 mg tablet 100 mg PO HS Qty: 0 RF: 0 alprazolam 2 mg tablet 1 mg PO HS Qty: 0 RF: 0 Discontinued gabapentin 600 mg tablet 600 mg PO TID RF: 0 ropinirole 5 mg tablet 5 mg PO QAM RF: 0 Stand-Alone Forms: [facility] Discharge Orders: Discharge Order (Routine); Ordered 09/11/18 Ordered By: Omar Chaney Admission Data Admit Date/Time: 09/09/18 12:24 Attending Provider: Omar Chaney Admit Provider: Sisi Manzanares Primary Care Provider: Melani Pham I Other Providers: Sisi Manzanares Service: Telemetry Other Interventions: Discharge Summary Assessment (RN) Last Done: 09/11/18 14:28 DC Date/Time DO NOT enter until pt leaves facility: 09/11/18 15:10
== END 2018-09-11 15:10 | disposition home or self-care (01) | DRG 947 ==
LOC: ED 08:59 → SUATTDRO 12:24 → 2S 12:24

== ENCOUNTER 2024-11-11 10:41 | Inpatient (IN) ==
[2024-11-11 12:11] LABS: Hematocrit (blood only) 30.3 % (42.0-52.0); Hemoglobin 9.8 g/dl (14.0-18.0); Mean Corpuscular Hemoglobin 38.3 pg (25.0-34.0); Mean Corpuscular Volume 118.4 fL (80.0-100.0); Platelet Count 109 K/uL (130-400); RDW Standard Deviation 67.5 fL (36.4-46.3); Red Blood Count 2.56 M/uL (4.70-6.10); White Blood Count 10.96 K/ul (4.8-10.8)
--- NOTE | 2024-11-11 12:11 | XRay Report ---
XR chest 1V not portable CLINICAL HISTORY: Chest pain, nonspecific COMPARISON STUDY: 09/12/2024 FINDINGS: Stable pacemaker. There is prominent cardiomegaly with pulmonary vascular congestion. There is diffuse pulmonary interstitial prominence. There is hazy opacity at the left base with obscuratio n of the left hemidiaphragm. No pneumothorax. IMPRESSION: 1. CHF. 2. Increased opacity at the left lung base could represent small pleural effusion, atelectasis, or ea rly pneumonia. ACT 112: Negative or not required by law. Electronically signed by: Brendan Wood M.D. 11/11/2024 12:10 PM
[2024-11-11 12:27] LABS: Anion Gap 12 (3-11); Blood Urea Nitrogen 32 mg/dl (6-23); Calcium 9.0 mg/dl (8.6-10.3); Carbon Dioxide 21 mmol/L (21-32); Chloride 104 mmol/L (98-107); Glucose 151 mg/dl (70-99(Fasting)); Potassium 4.7 mmol/L (3.5-5.1); Sodium 137 mmol/L (136-145)
[2024-11-11 12:32] LABS: Immature Granulocytes # (auto) 0.11 K/uL (0.01-0.20); Immature Granulocytes % (auto) 1.0 %; Macrocytosis Present; Polychromasia 1+
[2024-11-11 12:33] LABS: INR 1.4 (0.9-1.1); Partial Thromboplastin Time 31 Seconds (21-31); Prothrombin Time 14.5 Seconds (9.0-12.0)
[2024-11-11 12:43] LABS: Albumin Globulin Ratio 1.2 (0.9-2); Alkaline Phosphatase 75 U/L (34-104); Bilirubin,Total 0.9 mg/dl (0.2-1.0); Globulin 3.0 gm/dl (2.5-4.0); Total Protein 6.7 gm/dl (6.0-8.3)
[2024-11-11] MEDS ORDERED: VANCOMYCIN CONSULT ACTIVE PRN ×2 (13:02→14:37)
[2024-11-11 13:05] LABS: Alanine Aminotransferase 547 U/L (7-52)
[2024-11-11] MEDS: CEFEPIME 2000MG 2,000 MG/20 ML SYR IV STA (13:29)
[2024-11-11] MEDS: VANCOMYCIN HCL 1,500 MG in SODIUM CHLORIDE 0.9% 500 ML IV ONE (13:29)
--- NOTE | 2024-11-11 14:26 | History & Physical Report ---
Date of Service November 11, 2024 Assessment & Plan (1) Elevated troponin: (2) Poor historian: (3) CHF exacerbation: (4) Hypertension: (5) CAD (coronary artery disease): (6) Ischemic cardiomyopathy: Plan 79 male history intellectual disability Ischemic dilated cardiomyopathy status p ost AICD CHF CAD NSTEMI Syncope hypertension valvular heart disease mild ascending aortic dilatation Restrictive lung disease Pancytopenia Secondary to MDS follows with Heme oncology outpatient, Hypothyroidism diabetes type 2 depression anxiety peripheral neuropathy insomnia Ambulatory dysfunction Who presents with worsening shortness of breath Community-acquired pneumonia Supportive care Pulmonary toilet as needed Respiratory PCR and infectious workup as ordered Sputum cultures MRSA screen Continue vancomycin and cefepime started in ED. Pharmacy for dosing. Anticipate de-escalation soon. Follow-up blood cultures ST evaluation with history of dysphagia Acute on chronic CHF exacerbation CHF protocol orders I's and O's Daily weights IV Lasix TTE TFTs, BNP GDMT Cardiology consultation Acute hypoxic respiratory failure secondary to above Wean O2 Transaminitis unclear etiology. Viral? Monitor avoid hepatotoxic meds Liver ultrasound Hepatitis panel Elevated troponins likely type II [place] Trend until flat Home aspirin statin Can consider outpatient ischemic workup Cytopenias Secondary history MDS stable Monitor Outpatient follow-up with heme oncology Generalized weakness/Ambulatory dysfunction Fall precautions PT OT DVT prophylaxis SCDs and ambulation. History thrombocytopenia and reported allergy to heparin? Full code Disposition admission to telemetry History of Present Illness Chief Complaint: dyspnea Primary Care Provider: Luis Carlos Westbrook, DO 79 male history intellectual disability Ischemic dilated cardiomyopathy status post AICD CHF CAD NSTEMI Syncope hypertension valvular heart disease mild [place] aortic dilatation Restrictive lung disease Pancytopenia Secondary to MDS follows with Heme oncology outpatient, Hypothyroidism diabetes type 2 depression anxiety peripheral neuropathy insomnia Ambulatory dysfunction Who presents with worsening shortness of breath Orthopnea and fatigue generalized weakness over the past few days. No reports of chest pain lightheadedness nausea vomiting abdominal pain fevers chills cough diarrhea symptoms or any other symptoms. Discussed with ED physician. No signs of sepsis. Being admitted with impression of questionable CHF exacerbation and pneumonia. Do not see BNP ordered? Ordered Awaiting completion of home med rec to resume home meds Allergies Allergy/AdvReac Type Severity Reaction Status Date / Time heparin Allergy Severe "caused a Verified 11/03/24 12:55 stroke" quetiapine [From Seroquel] AdvReac Severe See Unverified 11/11/24 13:39 comment box Home Medications Medication Instructions Recorded Confirmed Type cholecalciferol (vitamin D3) 25 1,000 unit PO QAM 09/09/18 11/11/24 History mcg (1,000 unit) tablet (Vitamin D3) Flutter Valve #1 ea 12/12/20 11/03/24 Rx nitroglycerin 0.4 mg sublingual 0.4 mg sublingual DIRECTED PRN 04/08/23 11/11/24 Rx tablet Chest Pain #25 tabs guaifenesin 600 mg tablet, 600 mg PO BID PRN Congestion 08/12/23 11/11/24 History extended release 12 hr (Mucinex) levothyroxine 50 mcg tablet 50 mcg PO QAM #90 tabs 02/28/24 11/11/24 Rx acyclovir 400 mg tablet 400 mg PO BID 04/14/24 11/11/24 History fluoxetine 40 mg capsule 80 mg PO QAM 05/18/24 11/11/24 History trazodone 100 mg tablet 100 mg PO HS 05/18/24 11/11/24 History atorvastatin 20 mg tablet 20 mg PO DAILY #90 tabs 05/19/24 11/11/24 Rx gabapentin 800 mg tablet 800 mg PO TID #90 tabs 06/30/24 11/11/24 Rx Wheeled Walker #1 ea 07/08/24 11/03/24 Rx cyanocobalamin (vitamin B-12) 500 500 mcg PO DAILY 09/09/24 11/11/24 History mcg tablet (Vitamin B-12) triamcinolone acetonide 0.5 % 1 applic topical BID PRN SKIN 09/09/24 11/11/24 History topical cream IRRITATIONS aspirin 81 mg tablet,delayed 81 mg PO DAILY #30 tabs 09/12/24 11/11/24 Rx release quetiapine 25 mg tablet 25 mg PO HS 10/28/24 11/11/24 History quetiapine 50 mg tablet 50 mg PO HS 10/28/24 11/11/24 History metoprolol succinate 25 mg 25 mg PO DAILY #90 tabs 11/03/24 11/11/24 Rx tablet,extended release 24 hr (Toprol XL) alprazolam 0.5 mg tablet 0.5 mg PO HS #90 tabs 11/06/24 11/11/24 Rx cefdinir 300 mg capsule 300 mg PO BID 11/11/24 11/11/24 History esomeprazole magnesium 40 mg 40 mg PO QAM 11/11/24 11/11/24 History capsule,delayed release (Nexium) fluconazole 100 mg tablet 100 mg PO DAILY 11/11/24 11/11/24 History lisinopril 10 mg tablet 10 mg PO DAILY 11/11/24 11/11/24 History Past Med/Surg History Problem List (Updated 11/11/24 @ 14:20 by Rickey Alcantara MD) CHF exacerbation Mild ascending aorta dilatation Valvular heart disease Dual ICD (implantable cardioverter-defibrillator) in place (09/11/24) Elevated troponin Acute lumbar back pain (Acute) Fall (Acute) Syncope and collapse (Acute) Bradycardia Dermatitis Frail elderly Ambulatory dysfunction Myelodysplasia (myelodysplastic syndrome) (~06/2023) follows w/ Dr Corral Pancytopenia CAD (coronary artery disease) (Chronic) Ischemic cardiomyopathy (Chronic) follows w/ Dr Gonzalez Hypercholesterolemia (Chronic) Restrictive lung disease Type 2 diabetes mellitus in remission Restless legs (Chronic 09/13/12) Iron deficiency anemia Tremors of nervous system Neuropathy Prostate enlargement Hypothyroidism GERD (gastroesophageal reflux disease) (Chronic) Depression with anxiety (Chronic) Insomnia (Chronic) states on Seroquel for sleep Infraorbital neuralgia Ataxia Medical History Stroke syndrome Parkinsonian features Colonoscopy refused (~02/2020) Hx of colonic polyps Hx of myocardial infarction (~2010) Hx of small bowel obstruction (~2012) Hx of deep venous thrombosis (~2023) Hx of gastric ulcer Macular degeneration Poor historian History of aspiration pneumonia Right leg weakness Chronic cerebral ischemia Aneurysm of vertebral artery Vitamin B12 deficiency History of alcoholism Anemia Dyskinesia Legally blind in right eye, as defined in [place] History of tobacco abuse Restrictive lung disease Restless legs syndrome (RLS) HTN (hypertension) Ischemic stroke (07/07/12) Surgical History Hx of cardiac catheterization (~2010) Hx of colonoscopy with polypectomy (~07/26/23) H/O hernia repair History of cholecystectomy S/P PTCA (percutaneous transluminal coronary angioplasty) (~2010) Family History Other Unobtainable family history due to adoption Social History Smoking Status: Former smoker Tobacco Type: Pipe Age Started Using Tobacco: 27; Age Quit Using Tobacco: 40; Second Hand Exposure: No; Do You Dip or Chew Tobacco: No; Hx Alcohol Use: No Hx Substance Use: No Preferred Language: Kiswahili Communication Ability: Effective Communication Ability Comment: legally blind Visual Impairment: Limited Hearing Ability: Use of Hearing Aid 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 Physical Exam Physical Exam: GENERAL: Patient in no acute distress. HEENT: Head is atraumatic, normocephalic. EOM's intact. Facies symmetric. No perioral cyanosis. NECK: No JVD. JVP is not elevated. Carotid upstrokes are + 2 bilaterally. No bruits. CHEST/LUNGS: Clear to auscultation throughout all lung lin. No wheezes, rales, or crackles. CVS: S1 and S2 are regular without murmurs, gallops, or rubs. PMI is nonpalpable. No lifts, heaves, or thrills. No abdominal aortic or renal bruits. ABDOMINAL EXAM: Bowel sounds are present. EXTREMITIES: No clubbing or cyanosis. No edema. Extremities are well perfused. NEUROLOGIC EXAM: Patient is awake, alert, and oriented. Pleasant and cooperative. Answers questions appropriately. Speech is clear. Results & Data Results & Data Vital Signs (Past 12 Hours) Vital Signs Temp Pulse Pulse Resp BP BP Pulse Ox 11/11/24 14:00 73 20 104/90 100 11/11/24 13:22 74 11/11/24 12:57 79 20 135/75 95 11/11/24 10:59 36.9 C 73 18 124/80 98 O2 Del Method O2 Flow Rate 11/11/24 14:00 Nasal Cannula 2 11/11/24 13:22 11/11/24 12:57 Nasal Cannula 3 11/11/24 10:59 Room Air Laboratory Results Abnormal Labs 11/11/24 11:48 WBC 10.96 H RBC 2.56 L Hgb 9.8 L Hct 30.3 L MCV 118.4 H MCH 38.3 H RDW Std Deviation 67.5 H RDW Coeff of Camille 16.0 H Plt Count 109 L MPV 12.6 H Neut # (Auto) 7.31 H Lymph # (Auto) 0.40 L [place] # (Auto) 3.13 H PT 14.5 H INR 1.4 H Anion Gap 12 H BUN 32 H BUN/Creatinine Ratio 24.4 H Glucose 151 H AST 650 H ALT 547 H Troponin I High Sens 407.0 H* Diagnostic Findings Chest X-Ray 11/11/24 11:05 XR chest 1V not portable CLINICAL HISTORY: Chest pain, nonspecific COMPARISON STUDY: 09/12/2024 FINDINGS: Stable pacemaker. There is prominent cardiomegaly with pulmonary vascular congestion. There is diffuse pulmonary interstitial prominence. There is hazy opacity at the left base with obscuration of the left hemidiaphragm. No pneumothorax. IMPRESSION: 1. CHF. 2. Increased opacity at the left lung base could represent small pleural effusion, atelectasis, or early pneumonia. ACT 112: Negative or not required by law. Electronically signed by: Brendan Wood M.D. 11/11/2024 12:10 PM PG Care Time/CCT Total # of Minutes Spent Total Time Spent with Patient: Total time spent is greater than 50% in coordination of care (as documented) at patient's floor/unit and/or counseling patient: Coding Level of Care Code 36614 INT INP/OBS CARE 2/55MIN Diagnoses Elevated troponin R79.89 Poor historian Z78.9 CHF exacerbation I50.9 Essential hypertension I10 Hypertension type: essential hypertension Coronary artery disease involving [place] coronary artery of [place] heart without angina pectoris I25.10 Associated angina: without angina Coronary Disease-Associated Artery/Lesion type: [place] artery [place] vs. transplanted heart: [place] heart Ischemic cardiomyopathy I25.5 (4) Hypertension Hypertension type: essential hypertension Qualified Code(s): I10 - Essential (primary) hypertension (5) CAD (coronary artery disease) Associated angina: without angina Coronary Disease-Associated Artery/Lesion type: [place] artery [place] vs. transplanted heart: [place] heart Qualified Code(s): I25.10 - Atherosclerotic heart disease of [place] coronary artery without angina pectoris
[2024-11-11] MEDS ORDERED: MAGNESIUM HYDROXIDE SUSP 30 ML UDC PO PRN (14:39)
[2024-11-11] MEDS ORDERED: ONDANSETRON INJ 2 MG/ML 2 ML VIAL IV PRN (14:39)
[2024-11-11 14:44] LABS: Chlamydia pneumoniae PCR Not Detected (NotDetected); Coronavirus 229E PCR Not Detected (NotDetected); Coronavirus CoV-2 (COVID19)PCR Not Detected (NotDetected); Coronavirus HKU1 PCR Not Detected (NotDetected); Coronavirus NL63 PCR Not Detected (NotDetected); Coronavirus OC43PCR Not Detected (NotDetected); Human Metapneumovirus PCR Not Detected (NotDetected); Parainfluenza Virus 1 PCR Not Detected (NotDetected); Parainfluenza Virus 2 PCR Not Detected (NotDetected); Parainfluenza Virus 3 PCR Not Detected (NotDetected); Parainfluenza Virus 4 PCR Not Detected (NotDetected); Respiratory Syncytial VirusPCR Not Detected (NotDetected); Rhinovirus/Enterovirus PCR Not Detected (NotDetected)
[2024-11-11] MEDS ORDERED: VANCOMYCIN HCL 1,000 MG/270 ML BAG IV SCH (14:45)
[2024-11-11] MEDS ORDERED: Patient's HEIGHT &/or WEIGHT Needed STA (14:53)
--- NOTE | 2024-11-11 15:10 | Pharmacy Report ---
Pharmacy PK ABX Note - Date of Service November 11, 2024 - Assessment and Plan Assessment 79 year old M receiving vancomycin and cefepime for treatment of pulmonary infection. MRSA nasal pending. SCr slightly elevated from baseline. Day # 1 of antimicrobial therapy. Plan Vancomycin * Loading dose: 1500 mg IV x 1 * Maintenance dose: 1000 mg IV every 24 hours * Regimen is predicted to achieve target AUC/HERACLIO of 400-600 mg/L.hr * Will obtain a level if therapy continued beyond 48h Pharmacy will continue to follow and will adjust dose/frequency as necessary. Thank you. Pharmacy has transitioned to AUC monitoring for vancomycin. AUC/HERACLIO is the preferred PK/PD target and is associated with decreased risk of nephrotoxicity compared to traditional trough targets.
[2024-11-11 16:11] LABS: Hematocrit (blood only) 29.6 % (42.0-52.0); Hemoglobin 9.5 g/dl (14.0-18.0); Mean Corpuscular Hemoglobin 38.2 pg (25.0-34.0); Mean Corpuscular Volume 118.9 fL (80.0-100.0); Platelet Count 105 K/uL (130-400); RDW Standard Deviation 69.5 fL (36.4-46.3); Red Blood Count 2.49 M/uL (4.70-6.10); White Blood Count 12.27 K/ul (4.8-10.8)
[2024-11-11 16:30] LABS: Anion Gap 12.0 (3-11); Blood Urea Nitrogen 36.0 mg/dl (6-23); Calcium 8.7 mg/dl (8.6-10.3); Carbon Dioxide 21.0 mmol/L (21-32); Chloride 104.0 mmol/L (98-107); Creatinine Clr Calc Pharmacy 41.3 ml/min; Glucose 142.0 mg/dl (70-99(Fasting)); Potassium 4.6 mmol/L (3.5-5.1); Sodium 137.0 mmol/L (136-145)
[2024-11-11 16:31] LABS: Albumin Globulin Ratio 1.2 (0.9-2); Alkaline Phosphatase 71.0 U/L (34-104); Bilirubin,Total 0.9 mg/dl (0.2-1.0); Globulin 2.9 gm/dl (2.5-4.0); Total Protein 6.5 gm/dl (6.0-8.3)
[2024-11-11 16:48] LABS: Alanine Aminotransferase 564.0 U/L (7-52); Thyroid Stimulating Hormone 3.632 uIu/ml (0.300-4.500)
--- NOTE | 2024-11-11 16:51 | Emergency Department Note ---
Impression & Plan Pneumonia, Elevated troponin, CHF (congestive heart failure) ED Provider Note NAME: SERJIO CASTREJON AGE: 79 SEX: Male INFORMANT: patient and caregiver ED PROVIDER(S): Sravan Hidalgo MD CHIEF COMPLAINT: shortness of breath PLAN: Disposition: admitted Outpatient prescription management: none Referral: none MEDICAL DECISION MAKING: Patient presented for shortness of breath. Workup initiated. He was found to have a leukocytosis. Chest x-ray concerning for possible pneumonia but also mild CHF. Patient did have elevation of LFTs. Ultrasound imaging ordered. Patient does have an elevated cardiac troponin. Given his recent hospitalization patient was treated with IV cefepime and vancomycin for broad- spectrum coverage. further evaluation and management will be necessary in the hospital. Consultation was made with Dr. Alc[facility]ara [facility]. Patient was evaluated in the ER admitted for further management. Care/management discussed with: supply chain manager Level of care consideration(s): After review of the information above and other included data, I feel the patient requires escalation of care to admission Triage Nursing notes: reviewed and agree them. Vital Signs: reviewed and remarkable for no significant abnormalities Additional History obtained from: Patient's caregiver. She did note some confusion today. Chronic Medical/Social Conditions affecting care: CHF Prior/ Outside/ External records reviewed: none Differential Diagnosis: Infection, dehydration, metabolic abnormality, hypo/hyperglycemia, electrolyte disturbance, anemia, hypoxia, cardiac sources, intracerebral event, toxicologic, neurologic, as well as other pathologies. Diagnostics, independently interpreted by me: ECG: Twelve-lead ECG reveals a normal sinus rhythm at 70 bpm. Anterior Q waves. No ST elevation. Cardiac Monitoring: Cardiac monitoring ordered by me: The patient was placed on continuous cardiac monitoring and observed. It revealed a normal sinus rhythm at 85 beats per minute without ectopy or evidence of dysrhythmia. Medical decision rules: none Imaging studies: Chest x-ray is concerning for CHF and left lower lobe pneumonia. Right upper quadrant ultrasound is pending. HPI: 79 year old Male arrives for evaluation of shortness of breath. this started 1 week ago and is worsening. The patient also notes the following associated symptoms, mild confusion. The patient has been given oxygen for relieving factors. Current pain is rated as 0/10. Pt denies LOC, headache, fevers, chills, diaphoresis, visual changes, neck pain, chest pain, leg swelling,nausea, vomiting, abdominal pain, back pain, melena, hematochezia, urinary symptoms, numbness, weakness, lymphadenopathy, rash, or other complaints.. PAST MEDICAL HISTORY: See Below, CHF, pancytopenia PAST SURGICAL HISTORY: See Below, SOCIAL HISTORY: See Below, retired HOME MEDICATIONS: See Below ALLERGIES: See Below VITALS: See Below PHYSICAL EXAMINATION: GENERAL: Awake, alert, mildly dyspneic-appearing, in no distress HENT: Normocephalic, atraumatic. Oropharynx unremarkable. EYES: Normal conjunctiva. Sclera non-icteric. NECK: Inspection normal. Non-tender. Supple. No nuchal rigidity. FROM. No masses. RESPIRATORY: scattered crackles and rhonchi in the bases. Increased respiratory effort. CARDIAC: Normal rate. Normal rhythm. Extremities warm and well perfused. Pulses equal. mild JVD. GI: Soft, non-distended. No tenderness to palpation. No rebound or guarding. No masses. RECTAL: Deferred. MUSCULOSKELETAL: Atraumatic. Chest examination reveals no tenderness. The back is symmetrical on inspection without obvious abnormality. There is no CVA tenderness to palpation. No joint edema. LOWER EXTREMITIES: Calves are equal size bilaterally and non-tender. No edema. No discoloration. NEURO: Normal sensorium. No sensory or motor deficits noted. SKIN: No rash or jaundice noted. 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 (09/11/24) Elevated troponin Acute lumbar back pain (Acute) Fall (Acute) Syncope and collapse (Acute) Bradycardia Dermatitis Frail elderly Ambulatory dysfunction Myelodysplasia (myelodysplastic syndrome) (~06/2023) follows riana Corral Pancytopenia CAD (coronary artery disease) (Chronic) Ischemic cardiomyopathy (Chronic) follows riana Gonzalez Hypercholesterolemia (Chronic) Restrictive lung disease Type 2 diabetes mellitus in remission Restless legs (Chronic 09/13/12) Iron deficiency anemia Tremors of nervous system Neuropathy Prostate enlargement Hypothyroidism GERD (gastroesophageal reflux disease) (Chronic) Depression with anxiety (Chronic) Insomnia (Chronic) states on Seroquel for sleep Infraorbital neuralgia Ataxia Medical History Stroke syndrome Parkinsonian features Colonoscopy refused (~02/2020) Hx of colonic polyps Hx of myocardial infarction (~2010) Hx of small bowel obstruction (~2012) Hx of deep venous thrombosis (~2023) Hx of gastric ulcer Macular degeneration Poor historian History of aspiration pneumonia Right leg weakness Chronic cerebral ischemia Aneurysm of vertebral artery Vitamin B12 deficiency History of alcoholism Anemia Dyskinesia Legally blind in right eye, as defined in [place] History of tobacco abuse Restrictive lung disease Restless legs syndrome (RLS) HTN (hypertension) Ischemic stroke (07/07/12) Surgical History Hx of cardiac catheterization (~2010) Hx of colonoscopy with polypectomy (~07/26/23) H/O hernia repair History of cholecystectomy S/P PTCA (percutaneous transluminal coronary angioplasty) (~2010) Family History Other Unobtainable family history due to adoption Social History Smoking Status: Former smoker Tobacco Type: Pipe Age Started Using Tobacco: 27; Age Quit Using Tobacco: 40; Second Hand Exposure: No; Do You Dip or Chew Tobacco: No; Hx Alcohol Use: No Hx Substance Use: No Preferred Language: [place] Communication Ability: Effective Communication Ability Comment: legally blind Visual Impairment: Limited Hearing Ability: Use of Hearing Aid Road Crew Member Required: No Beliefs That Will Affect Care: None marital status: Life Partner Current Living Situation: Spouse current occupational status: retired Feels Safe at Home: Yes Childhood Exposure to Second-Hand Smoke: No Diet: low salt caffeine: No Dental Care, Regularly: No Physical Activity Frequency: Does not Exercise Seatbelt Use: always Sunscreen Use: Yes Do you think of yourself as: straight/heterosexual Assistive Devices: Walker Allergies Allergies Allergy/AdvReac Type Severity Reaction Status Date / Time heparin Allergy Severe "caused a Verified 11/03/24 12:55 stroke" quetiapine [From Seroquel] AdvReac Severe See Unverified 11/11/24 13:39 comment box Home Meds Home Medications Medication Instructions Recorded Confirmed cholecalciferol (vitamin D3) 25 1,000 unit PO QAM 09/09/18 11/11/24 mcg (1,000 unit) tablet (Vitamin D3) guaifenesin 600 mg tablet, 600 mg PO BID PRN Congestion 08/12/23 11/11/24 extended release 12 hr (Mucinex) acyclovir 400 mg tablet 400 mg PO BID 04/14/24 11/11/24 fluoxetine 40 mg capsule 80 mg PO QAM 05/18/24 11/11/24 trazodone 100 mg tablet 100 mg PO HS 05/18/24 11/11/24 cyanocobalamin (vitamin B-12) 500 500 mcg PO DAILY 09/09/24 11/11/24 mcg tablet (Vitamin B-12) triamcinolone acetonide 0.5 % 1 applic topical BID PRN SKIN 09/09/24 11/11/24 topical cream IRRITATIONS quetiapine 25 mg tablet 25 mg PO HS 10/28/24 11/11/24 quetiapine 50 mg tablet 50 mg PO HS 10/28/24 11/11/24 cefdinir 300 mg capsule 300 mg PO BID 11/11/24 11/11/24 esomeprazole magnesium 40 mg 40 mg PO QAM 11/11/24 11/11/24 capsule,delayed release (Nexium) fluconazole 100 mg tablet 100 mg PO DAILY 11/11/24 11/11/24 lisinopril 10 mg tablet 10 mg PO DAILY 11/11/24 11/11/24 Previous Rx's Medication Instructions Recorded Flutter Valve #1 ea 12/12/20 nitroglycerin 0.4 mg sublingual 0.4 mg sublingual DIRECTED PRN 04/08/23 tablet Chest Pain #25 tabs levothyroxine 50 mcg tablet 50 mcg PO QAM #90 tabs 02/28/24 atorvastatin 20 mg tablet 20 mg PO DAILY #90 tabs 05/19/24 gabapentin 800 mg tablet 800 mg PO TID #90 tabs 06/30/24 Wheeled Walker #1 ea 07/08/24 aspirin 81 mg tablet,delayed 81 mg PO DAILY #30 tabs 09/12/24 release metoprolol succinate 25 mg 25 mg PO DAILY #90 tabs 11/03/24 tablet,extended release 24 hr (Toprol XL) alprazolam 0.5 mg tablet 0.5 mg PO HS #90 tabs 11/06/24 Results & Data (ED) Vital Signs Vital Signs - 24 hr 11/11/24 10:59 11/11/24 12:57 11/11/24 13:22 Temperature 36.9 C Temperature Source Oral Pulse Rate 73 74 Pulse Rate [Finger] 79 Respiratory Rate 18 20 Respiratory Effort / Characteristics Non-Labored Spontaneous Respiratory Depth Normal Respiratory Pattern Regular Blood Pressure 124/80 Blood Pressure [Right Arm] 135/75 Blood Pressure Mean 94 Blood Pressure Mean [Right Arm] 95 Pulse Oximetry 98 95 Oxygen Delivery Method Room Air Nasal Cannula Oxygen Flow Rate 3 Sepsis Recent Fever Within 48 Hours No Sepsis New/Unexplained Change in Mental Status N/A Sepsis Action Taken by Nursing No Action Required 11/11/24 14:00 11/11/24 16:49 11/11/24 16:57 Temperature Temperature Source Pulse Rate Pulse Rate [Finger] 73 85 Respiratory Rate 20 22 Respiratory Effort / Characteristics Respiratory Depth Respiratory Pattern Blood Pressure Blood Pressure [Right Arm] 104/90 123/90 Blood Pressure Mean Blood Pressure Mean [Right Arm] 94 101 Pulse Oximetry 100 97 96 Oxygen Delivery Method Nasal Cannula Nasal Cannula Nasal Cannula Oxygen Flow Rate 2 1 1 Sepsis Recent Fever Within 48 Hours Sepsis New/Unexplained Change in Mental Status Sepsis Action Taken by Nursing Laboratory Data 11/11/24 15:56 11/11/24 15:56 Lab Results 11/11/24 11/11/24 11/11/24 Range/Units 11:48 13:37 15:56 WBC 10.96 H 12.27 H (4.8-10.8) K/ul RBC 2.56 L 2.49 L (4.70-6.10) M/uL Hgb 9.8 L 9.5 L (14.0-18.0) g/dl Hct 30.3 L 29.6 L (42.0-52.0) % MCV 118.4 H 118.9 H (80.0-100.0) fL MCH 38.3 H 38.2 H (25.0-34.0) pg MCHC 32.3 32.1 (32.0-36.0) g/dL RDW Std Deviation 67.5 H 69.5 H (36.4-46.3) fL RDW Coeff of Camille 16.0 H 16.2 H (11.5-14.5) % Plt Count 109 L 105 L (130-400) K/uL MPV 12.6 H 12.3 (9.4-12.4) fL Immature Gran % (Auto) 1.0 % Neut % (Auto) 66.7 % Lymph % (Auto) 3.6 % [place] % (Auto) 28.6 % Eos % (Auto) 0.0 % Baso % (Auto) 0.1 % Neut # (Auto) 7.31 H (1.40-6.50) K/uL Lymph # (Auto) 0.40 L (1.20-3.40) K/uL [place] # (Auto) 3.13 H (0.11-0.59) K/uL Eos # (Auto) 0.00 (0.00-0.50) K/uL Baso # (Auto) 0.01 (0.00-0.20) K/uL Immature Gran # (Auto) 0.11 (0.01-0.20) K/uL Polychromasia 1+ Macrocytosis Present PT 14.5 H (9.0-12.0) Seconds INR 1.4 H (0.9-1.1) APTT 31 (21-31) Seconds PTT Ratio 1.2 Sodium 137 137 (136-145) mmol/L Potassium 4.7 4.6 (3.5-5.1) mmol/L Chloride 104 104 (98-107) mmol/L Carbon Dioxide 21 21 (21-32) mmol/L Anion Gap 12 H 12 H (3-11) BUN 32 H 36 H (6-23) mg/dl Creatinine 1.31 1.36 (0.6-1.4) mg/dl Est Cr Clr Drug Dosing Not Reportable 41.3 eGFR 56.06 53.60 BUN/Creatinine Ratio 24.4 H 26.5 H (10-20) Glucose 151 H 142 H (70-99(Fasting)) mg/dl Calcium 9.0 8.7 (8.6-10.3) mg/dl Total Bilirubin 0.9 0.9 (0.2-1.0) mg/dl AST 650 H 691 H (13-39) U/L ALT 547 H 564 H (7-52) U/L Alkaline Phosphatase 75 71 (34-104) U/L Troponin I High Sens 407.0 H* 610.6 H* D (0-20) pg/ml B-Natriuretic Peptide 3837 H (0-100) pg/ml Total Protein 6.7 6.5 (6.0-8.3) gm/dl Albumin 3.7 3.6 (3.4-5.0) gm/dl Globulin 3.0 2.9 (2.5-4.0) gm/dl Albumin/Globulin Ratio 1.2 1.2 (0.9-2) Procalcitonin 0.18 (0-0.5) ng/ml TSH 3.632 (0.300-4.500) uIu/ml Adenovirus (PCR) Not Detected (NotDetected) B. pertussis DNA (PCR) Not Detected (NotDetected) B.parapertussis DNA PCR Not Detected (NotDetected) C. pneumoniae DNA (PCR) Not Detected (NotDetected) Coronavirus OC43 (PCR) Not Detected (NotDetected) Coronavirus HKU1 (PCR) Not Detected (NotDetected) Coronavirus 229E (PCR) Not Detected (NotDetected) SARS-CoV-2 (PCR) Not Detected (NotDetected) Coronavirus NL63 (PCR) Not Detected (NotDetected) Hep Bs Antigen Negative (Negative) Human Metapneumovir PCR Not Detected (NotDetected) Influenza Type A (PCR) Not Detected (NotDetected) Influenza Type B (PCR) Not Detected (NotDetected) M. pneumoniae (PCR) Not Detected (NotDetected) Parainfluenza 1 (PCR) Not Detected (NotDetected) Parainfluenza 2 (PCR) Not Detected (NotDetected) Parainfluenza 3 (PCR) Not Detected (NotDetected) Parainfluenza 4 (PCR) Not Detected (NotDetected) RSV (PCR) Not Detected (NotDetected) Entero/Rhino (PCR) Not Detected (NotDetected) Administered Medications Discontinued Medications Cefepime HCl (Maxipime 2000mg) 2,000 mg in 20 mls @ 5 mls/min IV NOW STA; Protocol Stop: 11/11/24 13:05 Last Admin: 11/11/24 13:29 Dose: 5 mls/min Documented By: JV Vancomycin HCl 1,500 mg/ (Sodium Chloride) 530 mls @ 200 mls/hr IV NOW ONE Stop: 11/11/24 15:31 Last Admin: 11/11/24 13:29 Dose: 200 mls/hr Documented By: JV Imaging Data Radiologist's Impression: Chest X-Ray 11/11/24 11:05 XR chest 1V not portable CLINICAL HISTORY: Chest pain, nonspecific COMPARISON STUDY: 09/12/2024 FINDINGS: Stable pacemaker. There is prominent cardiomegaly with pulmonary vascular congestion. There is diffuse pulmonary interstitial prominence. There is hazy opacity at the left base with obscuration of the left hemidiaphragm. No pneumothorax. IMPRESSION: 1. CHF. 2. Increased opacity at the left lung base could represent small pleural effusion, atelectasis, or early pneumonia. ACT 112: Negative or not required by law. Electronically signed by: Brendan Wood M.D. 11/11/2024 12:10 PM Discharge Plan Visit Data Chief Complaint: Shortness of Breath/Dyspnea ED Provider: Sravan Hidalgo Discharge Problem: Pneumonia, Elevated troponin, CHF (congestive heart failure) Patient Disposition: Admitted As Inpatient Condition: Fair Forms Stand Alone Forms: [facility] Prescriptions Prescriptions: No Action nitroglycerin 0.4 mg tablet, sublingual 0.4 mg sublingual DIRECTED PRN (Reason: Chest Pain) Qty: 25 2RF levothyroxine 50 mcg tablet 50 mcg PO QAM Qty: 90 3RF atorvastatin 20 mg tablet 20 mg PO DAILY Qty: 90 3RF (DME) Wheeled Walker [facility] [place] See Rx Instructions .Route Qty: 1 0RF Rx Instructions: As directed rolator walker with breaks length of need 99 months alprazolam 0.5 mg tablet 0.5 mg PO HS Qty: 90 1RF (DME) Flutter Valve Device See Rx Instructions .Route Qty: 1 0RF Rx Instructions: Use 3 times daily or as directed. quetiapine 50 mg tablet 50 mg PO HS Rx Instructions: takes with 25mg to equal dose of 75mg quetiapine 25 mg tablet 25 mg PO HS Rx Instructions: takes with 50mg to equal dose of 75mg acyclovir 400 mg tablet 400 mg PO BID trazodone 100 mg tablet 100 mg PO HS fluoxetine 40 mg capsule 80 mg PO QAM gabapentin 800 mg tablet 800 mg PO TID Qty: 90 8RF metoprolol succinate [Toprol XL] 25 mg tablet extended release 24 hr 25 mg PO DAILY Qty: 90 3RF cholecalciferol (vitamin D3) [Vitamin D3] 1,000 unit Tablet 1,000 unit PO QAM fluconazole 100 mg tablet 100 mg PO DAILY lisinopril 10 mg tablet 10 mg PO DAILY cefdinir 300 mg capsule 300 mg PO BID esomeprazole magnesium [Nexium] 40 mg capsule,delayed release(DR/EC) 40 mg PO QAM guaifenesin [Mucinex] 600 mg tablet extended release 12hr 600 mg PO BID PRN (Reason: Congestion) triamcinolone acetonide 0.5 % cream 1 applic topical BID PRN (Reason: SKIN IRRITATIONS) cyanocobalamin (vitamin B-12) [Vitamin B-12] 500 mcg Tablet 500 mcg PO DAILY aspirin 81 mg Tablet,Delayed Release (Dr/Ec) 81 mg PO DAILY Qty: 30 0RF Referrals Referrals: Luis Carlos Westbrook DO [Primary Care Provider] -
[2024-11-11 17:00] LABS: Hep B Surface Ag with confirm Negative (Negative)
[2024-11-11 17:05] LABS: Hep C Ab Rflx HepCQuant RNA Negative (Negative)
--- NOTE | 2024-11-11 17:21 | Ultrasound Report ---
EXAM: US gallbladder CLINICAL HISTORY: Elevated LFTs.5 TECHNIQUE: Ultrasound examination of the RUQ was performed in real-time. COMPARISON: CT dated 09/09/2024 was reviewed. FINDINGS: Liver: Liver size: 19.2 cm. Liver appears enlarged in size with bright echotexture. No evidence of focal lesions, cysts, or masses. Hepatic vasculature appears normal. Gallbladder: The gallbladder is surgically removed. Biliary Tree: Common bile duct diameter: 4mm, The Common bile duct is within normal limits in caliber and not dilated. No evidence of choledocholithiasis or biliary obstruction. Right Kidney: Right kidney size: 9.7 cm, Right kidney appears normal in size with preserved corticomedullary differentiation. Upper pole simple cyst measuring 1.4 x 1.2 x 1.4 cm No evidence of hydronephrosis or masses. Pancreas: Not properly visualized due to bowel gases. Additional Findings: Right-sided pleural effusion. Ascites was noted. IMPRESSION: 1. Newly developed minimal ascites. 2. Newly developed right-sided pleural effusion. 3. Enlarged liver with grade I steatosis, stable. 4. Tiny right renal cyst. RECOMMENDATIONS: Clinical correlation with symptoms and further evaluation as indicated. Electronically signed by Anatoliy Costa 11-11-2024 5:21 PM
--- NOTE | 2024-11-11 19:47 | XCELERA ---
[id number]
[2024-11-11] MEDS: ASPIRIN 81 MG ECTAB PO SCH (20:17)
[2024-11-11] MEDS: FUROSEMIDE INJ 20 MG/2 ML VIAL IV SCH (20:20)
[2024-11-12] MEDS: MELATONIN 3 MG TAB PO PRN (01:28)
[2024-11-12] MEDS: CEFEPIME 2000MG 2,000 MG/20 ML SYR IV SCH (03:59)
[2024-11-12] MEDS: VANCOMYCIN HCL 1,000 MG/270 ML BAG IV SCH (05:57)
[2024-11-12 07:18] LABS: Hematocrit (blood only) 29.8 % (42.0-52.0); Hemoglobin 9.5 g/dl (14.0-18.0); Mean Corpuscular Hemoglobin 38.5 pg (25.0-34.0); Mean Corpuscular Volume 120.6 fL (80.0-100.0); Platelet Count 88 K/uL (130-400); RDW Standard Deviation 70.5 fL (36.4-46.3); Red Blood Count 2.47 M/uL (4.70-6.10); White Blood Count 18.42 K/ul (4.8-10.8)
[2024-11-12 07:37] LABS: Anion Gap 10.0 (3-11); Blood Urea Nitrogen 49.0 mg/dl (6-23); Calcium 8.5 mg/dl (8.6-10.3); Carbon Dioxide 22.0 mmol/L (21-32); Chloride 104.0 mmol/L (98-107); Creatinine Clr Calc Pharmacy 33.3 ml/min; Glucose 147.0 mg/dl (70-99(Fasting)); Potassium 4.9 mmol/L (3.5-5.1); Sodium 136.0 mmol/L (136-145)
[2024-11-12] MEDS: ATORVASTATIN 20 MG TAB PO SCH (07:37)
[2024-11-12 07:58] LABS: Alanine Aminotransferase 2088.0 U/L (7-52); Albumin Globulin Ratio 1.4 (0.9-2); Alkaline Phosphatase 82.0 U/L (34-104); Bilirubin,Total 1.3 mg/dl (0.2-1.0); Globulin 2.7 gm/dl (2.5-4.0); Total Protein 6.5 gm/dl (6.0-8.3)
--- NOTE | 2024-11-12 10:01 | Pharmacy Report ---
Pharmacy PK ABX Note - Date of Service November 12, 2024 - Assessment and Plan Assessment 11/12 * Scr trending up today from 1.3 to 1.6 - will scale back on vancomycin dosing as current regimen predicted to achieve AUC/HERACLIO >600. Will order a random level for vancomycin in AM to ensure okay to re-dose due to change in renal function * MRSA nasal swab was negative, however still awaiting blood culture results. Of note, procalcitonin and WBC trending upward. Cefepime is dosed appropriately for renal function. 11/11 * 79 year old M receiving vancomycin and cefepime for treatment of pulmonary infection. MRSA nasal pending. SCr slightly elevated from baseline. * Day # 1 of antimicrobial therapy. Plan Vancomycin * Random ordered for tomorrow AM to assess dosing Pharmacy will continue to follow and will adjust dose/frequency as necessary. Thank you. Pharmacy has transitioned to AUC monitoring for vancomycin. AUC/HERACLIO is the preferred PK/PD target and is associated with decreased risk of nephrotoxicity compared to traditional trough targets.
[2024-11-12] MEDS ORDERED: DOBUTamine 1000 MG/250ML D5W IV ONE (13:45)
--- NOTE | 2024-11-12 13:52 | Cardiology Consultation ---
Date of Consultation November 12, 2024 Assessment & Plan (1) Acute HFrEF (heart failure with reduced ejection fraction): (2) Elevated troponin: (3) CAD (coronary artery disease): (4) Ischemic cardiomyopathy: (5) Acute renal failure: (6) Elevated transaminase level: Plan ASSESSMENT/PLAN: 1. Acute heart failure with reduced EF: Findings suggestive of heart failure. Worsening renal and hepatic labs concerning for poor perfusion from severely reduced LV systolic function. We discussed this however he became anxious during the conversation. Discussed options, including inotropic support, palliative approach, or consideration for transfer to facility for mechanical support. He was agreeable for inotropic support. We discussed the fact that dobutamine can increase mortality. Patient and his daughter were agreeable to proceed. Start dobutamine 2.5 mcg/kg/min. Increase Lasix to 40 mg IV twice daily. Recommend net negative fluid balance if able. Strict I's and O's. Daily weights. We discussed the importance of a low-sodium diet, less than 2000 mg daily. GDMT has been limited in the past due to reported orthostatic symptoms. Would recommend attempt to initiate GDMT and titrate as tolerated following inotropic support. Heart failure program follow-up. 2. Cardiomyopathy: Reported as ischemic with occluded LAD in the past. LV systolic function severely reduced. Discussed echo findings in detail. Has had significantly elevated troponins in August 2024 (peak 3471) and troponins are once again trending upward. Denies angina. Likely due to demand ischemia with underlying CAD while showing signs of endorgan damage with poor pulm function. Could consider coronary angiography if clinically applicable but currently would not be able to tolerate laying flat without significant respiratory assistance. Recommend inotropic support and continued conversations throughout the hospitalization in regards to treatment options. ICD in place for primary prevention. 3. Elevated troponin: He did not present with acute coronary syndrome but has known severe CAD with his last cardiac catheterization in 2010. Continue aspirin. Coronary angiography is not urgently needed. 4. ICD: Follows with electrophysiology. Dual-chamber device. 5. Shortness of breath: He is being treated with antibiotics by primary hospitalist service while being worked up for respiratory issues. Defer to primary hospitalist service. Concerned that his breathing is mostly heart failure related as above. Treatment as above. 6. CAD: No angina. Continue aspirin and statin therapy. Last coronary angiography was in 2010 with occluded mid LAD and moderate nonobstructive CAD of the RCA. Plan as above. 7. Leukocytosis: Per primary hospitalist service. 8. Myelodysplastic syndrome: As per primary hospitalist service. 9. Elevated transaminase levels: Possibly due to shock liver from severely reduced LV systolic function. Plan as above. Monitor labs. 10. Acute renal insufficiency: Inotropic support as above. 11. Disposition: Cardiology will continue to follow. Poor prognosis given longstanding LV systolic dysfunction and now worsening renal and hepatic function. Discussed with patient and his daughter at the bedside. Discussed with nursing staff and primary hospitalist, Dr. Palomares. Pharmacy had initially stated that he needs to be transferred to ICU for dobutamine. Discussed with patient/family, primary hospitalist service, and entry level marketing assistant.. All agreed for transfer to ICU so he can receive inotropic support. Also suggested palliative care consultation if/when patient agreeable to speak with them. His daughter repeatedly stated "he wants to live." Highly complex medical issues. 95 minutes critical care time spent, which includes [id number] time, counseling patient/family, coordinating care with multiple providers/nurse/pharmacy, reviewing multiple records, and completing documentation. History of Present Illness Reason for Consultation: CHF Requesting Physician: Dr. Alcantara Attending Physician: Navin Palomares MD, PhD History of Present Illness Mr. 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 He had followed with Dr. Gonzalez in the outpatient setting and more recently Dr. Ingram of electrophysiology and Mr. Elsi DUNN. According to records, his last cath was on 02/23/2011, which reported mid LAD occlusion with collaterals and otherwise mid RCA 40%. On 07/11/2018, echo reported EF of 35-40%. On 09/09/2024, an echo reported LV systolic function of 20-25%. He underwent ICD placement by Dr. Ingram on 09/11/2024 ([employer] dual- chamber ICD). According to records, he had experienced orthostatic symptoms in the past but he has remained on low-dose metoprolol succinate. Lisinopril had been discontinued in the past, although on current medication list. He has not required a loop diuretic in the outpatient setting recently. He was hospitalized on 11/11/2024 after presenting with worsening shortness of breath, including orthopnea. He reports that he has been short of breath for approximately 6 months but has been sleeping in a recliner due to orthopnea. He has occasional palpitations but denies chest pain. He denies edema. He recalls falling 2 weeks ago, but no syncope or near syncope since hospitalization in August 2024 (when he presented with syncope) and ICD placement. He does not maintain a low-sodium diet and enjoys eating potato chips every couple of days or so. While here, his transaminase levels have continued to increase. He states he may feel slightly better but was not quite sure. He became very anxious when talking about his health care, which notably worsened his breathing with audible upper airway expiratory wheezing. His daughter was present at the bedside (Shalonda). Review of systems: As above. Family history: He was adopted. Social history: Quit smoking over 40 years ago but previously smoked a pipe. He denies alcohol or drug abuse. . 3 children (Shalonda and 2 sons). His daughter was present at the bedside. Allergies Allergy/AdvReac Type Severity Reaction Status Date / Time heparin Allergy Severe "caused a Verified 11/03/24 12:55 stroke" quetiapine [From Seroquel] AdvReac Severe See Unverified 11/11/24 13:39 comment box Home Medications Medication Instructions Recorded Confirmed Type cholecalciferol (vitamin D3) 25 1,000 unit PO QAM 09/09/18 11/11/24 History mcg (1,000 unit) tablet (Vitamin D3) Flutter Valve #1 ea 12/12/20 11/03/24 Rx nitroglycerin 0.4 mg sublingual 0.4 mg sublingual DIRECTED PRN 04/08/23 11/11/24 Rx tablet Chest Pain #25 tabs guaifenesin 600 mg tablet, 600 mg PO BID PRN Congestion 08/12/23 11/11/24 History extended release 12 hr (Mucinex) levothyroxine 50 mcg tablet 50 mcg PO QAM #90 tabs 02/28/24 11/11/24 Rx acyclovir 400 mg tablet 400 mg PO BID 04/14/24 11/11/24 History fluoxetine 40 mg capsule 80 mg PO QAM 05/18/24 11/11/24 History trazodone 100 mg tablet 100 mg PO HS 05/18/24 11/11/24 History atorvastatin 20 mg tablet 20 mg PO DAILY #90 tabs 05/19/24 11/11/24 Rx gabapentin 800 mg tablet 800 mg PO TID #90 tabs 06/30/24 11/11/24 Rx Wheeled Walker #1 ea 07/08/24 11/03/24 Rx cyanocobalamin (vitamin B-12) 500 500 mcg PO DAILY 09/09/24 11/11/24 History mcg tablet (Vitamin B-12) triamcinolone acetonide 0.5 % 1 applic topical BID PRN SKIN 09/09/24 11/11/24 History topical cream IRRITATIONS aspirin 81 mg tablet,delayed 81 mg PO DAILY #30 tabs 09/12/24 11/11/24 Rx release quetiapine 25 mg tablet 25 mg PO HS 10/28/24 11/11/24 History quetiapine 50 mg tablet 50 mg PO HS 10/28/24 11/11/24 History metoprolol succinate 25 mg 25 mg PO DAILY #90 tabs 11/03/24 11/11/24 Rx tablet,extended release 24 hr (Toprol XL) alprazolam 0.5 mg tablet 0.5 mg PO HS #90 tabs 11/06/24 11/11/24 Rx cefdinir 300 mg capsule 300 mg PO BID 11/11/24 11/11/24 History esomeprazole magnesium 40 mg 40 mg PO QAM 11/11/24 11/11/24 History capsule,delayed release (Nexium) fluconazole 100 mg tablet 100 mg PO DAILY 11/11/24 11/11/24 History lisinopril 10 mg tablet 10 mg PO DAILY 11/11/24 11/11/24 History Problem List (Updated 11/12/24 @ 19:59 by Osmani Gooden MD) Elevated transaminase level Acute renal failure Acute HFrEF (heart failure with reduced ejection fraction) CHF (congestive heart failure) (Acute) Elevated troponin (Acute) Pneumonia (Acute) CHF exacerbation Mild ascending aorta dilatation Valvular heart disease Dual ICD (implantable cardioverter-defibrillator) in place (09/11/24) Elevated troponin Acute lumbar back pain (Acute) Fall (Acute) Syncope and collapse (Acute) Bradycardia Dermatitis Frail elderly Ambulatory dysfunction Myelodysplasia (myelodysplastic syndrome) (~06/2023) follows [facility]/ Dr Corral Pancytopenia CAD (coronary artery disease) (Chronic) Ischemic cardiomyopathy (Chronic) follows [facility]/ Dr Gonzalez Hypercholesterolemia (Chronic) Restrictive lung disease Type 2 diabetes mellitus in remission Restless legs (Chronic 09/13/12) Iron deficiency anemia Tremors of nervous system Neuropathy Prostate enlargement Hypothyroidism GERD (gastroesophageal reflux disease) (Chronic) Depression with anxiety (Chronic) Insomnia (Chronic) states on Seroquel for sleep Infraorbital neuralgia Ataxia Patient History Medical History Stroke syndrome Parkinsonian features Colonoscopy refused (~02/2020) Hx of colonic polyps Hx of myocardial infarction (~2010) Hx of small bowel obstruction (~2012) Hx of deep venous thrombosis (~2023) Hx of gastric ulcer Macular degeneration Poor historian History of aspiration pneumonia Right leg weakness Chronic cerebral ischemia Aneurysm of vertebral artery Vitamin B12 deficiency History of alcoholism Anemia Dyskinesia Legally blind in right eye, as defined in [place] History of tobacco abuse Restrictive lung disease Restless legs syndrome (RLS) HTN (hypertension) Ischemic stroke (07/07/12) Surgical History Hx of cardiac catheterization (~2010) Hx of colonoscopy with polypectomy (~07/26/23) H/O hernia repair History of cholecystectomy S/P PTCA (percutaneous transluminal coronary angioplasty) (~2010) Family History Other Unobtainable family history due to adoption Social History Smoking Status: Former smoker Tobacco Type: Pipe Age Started Using Tobacco: 27; Age Quit Using Tobacco: 40; Smoking End Date: 40 years ago; Second Hand Exposure: No; Do You Dip or Chew Tobacco: No; Hx Alcohol Use: No Hx Substance Use: No Preferred Language: [place] Communication Ability: Effective Communication Ability Comment: legally blind Visual Impairment: Limited Hearing Ability: Use of Hearing Aid Dish Cloth Inspector Required: No Beliefs That Will Affect Care: None marital status: Life Partner Current Living Situation: Personal Care Facility Current Living Situation Comment: [facility] current occupational status: retired Other Information That Helps Us Care for You: No Feels Safe at Home: Yes Safety Concerns: Feels Safe At This Time Childhood Exposure to Second-Hand Smoke: No Diet: low salt caffeine: No Dental Care, Regularly: No Physical Activity Frequency: Does not Exercise Seatbelt Use: always Sunscreen Use: Yes Do you think of yourself as: straight/heterosexual Assistive Devices: Walker and Wheelchair Physical Exam Physical Exam: Gen.: No acute distress, but notably tachypneic when he became anxious discussing his health care. (Revisited several minutes later and breathing returned to baseline). Alert. HEENT: Anicteric sclera. Neck: Difficult to assess JVD given his breathing patterns. No bruits. Normal carotid upstrokes bilaterally. Cardiac: Regular. Normal S1-S2. No murmurs. Pulmonary: Crackles at the bases. Likely upper airway expiratory wheezing bilaterally. Abdomen: Soft, nontender, protuberant. No bruits noted. Extremities: 2+ radial pulses bilaterally. 1+ dorsalis pedis pulses bilate rally. No edema or cyanosis. Results & Data Vital Signs (Past 12 Hours) Vital Signs Temp Pulse Pulse Resp BP BP Pulse Ox 11/12/24 11:37 36.6 C 76 22 134/82 96 11/12/24 08:00 36.4 C L 77 18 138/88 97 11/12/24 07:27 11/12/24 07:11 74 11/12/24 03:48 36.6 C 76 18 122/80 99 O2 Del Method O2 Flow Rate 11/12/24 11:37 Nasal Cannula 2 11/12/24 08:00 Nasal Cannula 3 11/12/24 07:27 Nasal Cannula 3 11/12/24 07:11 11/12/24 03:48 Nasal Cannula 3.0 Intake & Output 11/10/24 11/11/24 11/12/24 11/13/24 06:59 06:59 06:59 06:59 Intake Total 930 / 930 503.190 / 503.190 Output Total 225 / 225 200 / 200 Balance 705 / 705 303.190 / 303.190 Weight 153 lb 7.068 oz Laboratory Results Laboratory Results - last hr 11/11/24 11/12/24 11/12/24 22:30 01:00 07:00 WBC 18.42 H RBC 2.47 L Hgb 9.5 L Hct 29.8 L MCV 120.6 H MCH 38.5 H MCHC 31.9 L RDW Std Deviation 70.5 H RDW Coeff of Camille 16.0 H Plt Count 88 L MPV 12.9 H Absolute Nucleated RBC 0.03 Nucleated RBC % (auto) 0.2 Sodium 136 Potassium 4.9 Chloride 104 Carbon Dioxide 22 Anion Gap 10 BUN 49 H Creatinine 1.63 H Est Cr Clr Drug Dosing 33.3 eGFR 43.13 BUN/Creatinine Ratio 30.1 H Glucose 147 H Lactate Calcium 8.5 L Total Bilirubin 1.3 H AST 3224 H ALT 2088 H Alkaline Phosphatase 82 Troponin I High Sens 872.3 H* D 1937.2 H* D Total Protein 6.5 Albumin 3.8 Globulin 2.7 Albumin/Globulin Ratio 1.4 Procalcitonin Nasal Screen MRSA (PCR) Negative Urine Legionella Ag Pending 11/12/24 11/12/24 11/12/24 08:23 08:25 11:58 WBC RBC Hgb Hct MCV MCH MCHC RDW Std Deviation RDW Coeff of Camille Plt Count MPV Absolute Nucleated RBC Nucleated RBC % (auto) Sodium Potassium Chloride Carbon Dioxide Anion Gap BUN Creatinine Est Cr Clr Drug Dosing eGFR BUN/Creatinine Ratio Glucose Lactate 5.0 H* 5.2 H* Calcium Total Bilirubin AST ALT Alkaline Phosphatase Troponin I High Sens Total Protein Albumin Globulin Albumin/Globulin Ratio Procalcitonin 1.27 H Nasal Screen MRSA (PCR) Urine Legionella Ag 11/12/24 14:26 WBC RBC Hgb Hct MCV MCH MCHC RDW Std Deviation RDW Coeff of Camille Plt Count MPV Absolute Nucleated RBC Nucleated RBC % (auto) Sodium Potassium Chloride Carbon Dioxide Anion Gap BUN Creatinine Est Cr Clr Drug Dosing eGFR BUN/Creatinine Ratio Glucose Lactate Calcium Total Bilirubin AST ALT Alkaline Phosphatase Troponin I High Sens 2096.6 H* Total Protein Albumin Globulin Albumin/Globulin Ratio Procalcitonin Nasal Screen MRSA (PCR) Urine Legionella Ag Diagnostic Findings Chart reviewed including cardiac cath report from 1999 as summarized in HPI. Echo report summarized as noted above in HPI. Echo 11/11/2024: Moderately dilated LV. EF 15-20%. Large apical aneurysm and otherwise severe global hypokinesis. RV not well-visualized but appears dilated with reduced systolic function. Severe left atrial dilation. Mild right atrial dilation. Trace AI. Mild MR. Mild to moderate TR. Mild pulmonary hypertension. Labs reviewed and notable for elevated high-sensitivity troponin up to 2095. Elevated BNP. Abnormal renal function, worsened since presentation, upward trending transaminase levels, worsening leukocytosis (typically leukopenic), chronic anemia, chronic thrombocytopenia. Elevated lactate, elevated procalcitonin (increased from 11/11/2024). Gallbladder ultrasound 11/11/2024: Ascites. Right sided pleural effusion. Grade 1 steatosis of the liver. Chest x-ray 11/11/2024: [place] vascular congestion and diffuse pulmonary interstitial prominence. Hazy opacity left base with obscuration of the left hemidiaphragm. ECG personally reviewed 11/11/2024: Sinus 78 bpm. Anterior infarct. Nonspecific T wave abnormality. Oncology/hematology note reviewed from 10/29/2024 Blood cultures negative x 2 from 11/11/2024. Medications Administered Current Inpatient Medications Aspirin (Aspirin 81 Mg Ectab) 81 mg PO DAILY KITTY Stop: 12/11/24 19:06 Last Admin: 11/12/24 07:37 Dose: 81 mg Furosemide (Furosemide 40 Mg/4 Ml Vial) 40 mg IV Q12 KITTY Stop: 12/12/24 20:59 Cefepime HCl (Maxipime 2000mg) 2,000 mg in 20 mls @ 5 mls/min IV Q12H KITTY; Protocol Stop: 11/19/24 00:59 Last Admin: 11/12/24 13:04 Dose: 5 mls/min Vancomycin HCl 750 mg/ Sodium (Chloride) 265 mls @ 200 mls/hr IV Q24H KITTY Stop: 11/19/24 08:59 Dobutamine HCl/Dextrose () 1,000 mg in 250 mls @ 2.61 mls/hr IV .Q24H KITTY; Protocol Stop: 12/12/24 13:44 Last Titration: 11/12/24 18:56 Dose: 2.5 mcg/kg/min, 2.6 mls/hr Magnesium Hydroxide (Magnesium Hydroxide Susp 30 Ml Udc) 30 ml PO Q12H PRN PRN Reason: Constipation Stop: 12/11/24 14:38 Melatonin (Melatonin 3 Mg Tab) 3 mg PO HS PRN PRN Reason: Sleep Stop: 12/12/24 01:16 Last Admin: 11/12/24 01:28 Dose: 3 mg Miscellaneous Information (Vancomycin Consult Active) 1 each N/A UD PRN PRN Reason: Consult Stop: 12/11/24 14:36 PG Care Time/CCT Total # of Minutes Spent Total Time Spent with Patient: Total time spent is greater than 50% in coordination of care (as documented) at patient's floor/unit and/or counseling patient: Critical Care Time: Yes Total Critical Care Time: 95 Coding Level of Care Code 31967 CRITICAL CARE 1ST 30-74M Diagnoses Acute HFrEF (heart failure with reduced ejection fraction) I50.21 Elevated troponin R79.89 Coronary artery disease involving [place] coronary artery of [place] heart without angina pectoris I25.10 Coronary Disease-Associated Artery/Lesion type: [place] artery [place] vs. transplanted heart: [place] heart Associated angina: without angina Ischemic cardiomyopathy I25.5 Acute renal failure N17.9 Elevated transaminase level R74.01 Additional Codes Critical Care Time - Critical Care Time: Yes ([id number]) Comment [id number] (3) CAD (coronary artery disease) Coronary Disease-Associated Artery/Lesion type: [place] artery [place] vs. transplanted heart: [place] heart Associated angina: without angina Qualified Code(s): I25.10 - Atherosclerotic heart disease of [place] coronary artery without angina pectoris
[2024-11-12] MEDS: ACETAMINOPHEN 325 MG TAB PO PRN (14:23)
[2024-11-12] MEDS: DOBUTamine / D5W 1,000 MG/250 ML BAG (Premixed) IV SCH (15:47)
[2024-11-12] MEDS: LIDOCAINE 2% JELLY 5 ML TUBE EXT ONE (18:56)
[2024-11-12] MEDS: FUROSEMIDE 40 MG/4 ML VIAL IV SCH (20:18)
--- NOTE | 2024-11-12 20:30 | Hospitalist Progress Note ---
Date of Service November 12, 2024 Assessment & Plan (1) Elevated troponin: Plan: Etiology of elevated troponin is due to demand ischemia in the setting of acute kidney injury with creatinine 1.63 mg/dL (11/12/2024, 7:00am). Consistent with acute type II NSTEMI. Observe. (2) Poor historian: Plan: Observe. (3) CHF exacerbation: Plan: Marginal urine output on lasix 20mg IV q12. Marginal urine output may be due to decreased renal perfusion, which in turn, is due to severe [id number] biventricular systolic CHF. Hence, patient was transferred from Telemetry floor to ICU floor on 11/12/2024 for the sole purpose of starting patient on dobutamine infusion to augment renal perfusion, and hopefully, augment urine o utput as patient is started on lasix 40mg IV q12 (11/12/2024, 8:18pm) and which replaces lasix 20mg IV q12 x 2 doses (11/11/2024, 8:20pm; 11/12/2024, 9:10am). (4) Hypertension: Plan: Well-controlled with BP 132/85 (11/12/2024, 8:08pm) s/p lasix 20mg IV q12 x 2 doses (11/11/2024, 8:20pm; 11/12/2024, 9:10am). Check BP q shift as patient is started on lasix 40mg IV q12 (11/12/2024, 8:18pm). (5) CAD (coronary artery disease): Plan: Continue secondary prophylaxis against CAD utilizing ASA 81mg PO daily and atorvastatin 20mg PO daily. (6) Ischemic cardiomyopathy: Plan: TTE (11/11/2024, 2:59pm): 1. Moderately dilated LV with EF 15-20%. Large apical aneurysm and otherwise severe global LV hypokinesis. No LVH. 2. RV not well visualized; appears dilated with reduced RV systolic function. 3. Severe LA dilation. 4. Mild RA dilation. 5. Trace AR. 6. Mild MR. 7. Mild-moderate TR. 8. Mild pulmonary HTN. 9. Compared to prior study on 09/09/2024, aortic and mitral regurgitation are less significant. (as per CARDS Dr. Osmani Gooden). Marginal urine output on lasix 20mg IV q12. Marginal urine output may be due to decreased renal perfusion, which in turn, is due to severe [id number] biventricular systolic CHF. Hence, patient was transferred from Telemetry floor to ICU floor on 11/12/2024 for the sole purpose of starting patient on dobutamine infusion to augment renal perfusion, and hopefully, augment urine output as patient is started on lasix 40mg IV q12 (11/12/2024, 8:18pm) and which replaces lasix 20mg IV q12 x 2 doses (11/11/2024, 8:20pm; 11/12/2024, 9:10am). Plan 79 male history intellectual disability Ischemic dilated cardiomyopathy status post AICD CHF CAD NSTEMI Syncope hypertension valvular heart disease mild ascending aortic dilatation Restrictive lung disease Pancytopenia Secondary to MDS follows with Heme oncology outpatient, Hypothyroidism diabetes type 2 depression anxiety peripheral neuropathy insomnia Ambulatory dysfunction Who presents with worsening shortness of breath Community-acquired pneumonia Supportive care Pulmonary toilet as needed Respiratory PCR and infectious workup as ordered Sputum cultures MRSA screen Continue vancomycin and cefepime started in ED. Pharmacy for dosing. Anticipate de-escalation soon. Follow-up blood cultures ST evaluation with history of dysphagia Acute on chronic CHF exacerbation CHF protocol orders I's and O's Daily weights IV Lasix TTE TFTs, BNP GDMT Cardiology consultation Acute hypoxic respiratory failure secondary to above Wean O2 Transaminitis unclear etiology. Viral? Monitor avoid hepatotoxic meds Liver ultrasound Hepatitis panel Elevated troponins likely type II DC Trend until flat Home aspirin statin Can consider outpatient ischemic workup Cytopenias Secondary history MDS stable Monitor Outpatient follow-up with heme oncology Generalized weakness/Ambulatory dysfunction Fall precautions PT OT DVT prophylaxis SCDs and ambulation. History thrombocytopenia and reported allergy to heparin? Full code Disposition admission to telemetry Admission and Anticipated Discharge Date Admission Date: November 11, 2024 Subjective "I am breathing better than yesterday (11/11/2024). I am not so short of breath today (11/12/2024). No coughing or wheezing today (11/12/2024). Review of Systems Constitutional: Mild shortness of breath at rest on 11/12/2024. Negative for antecedent/coincident fevers, chills, diaphoresis, cough, wheeze, sore throat, hemoptysis, chest pains, palpitations, pleurisy, nausea, vomiting, diarrhea, abdominal pain, pelvic pain, hematemesis, hematochezia, melena, hematuria, dysuria, frequency, urgency, headaches, dizziness, lightheadedness, visual changes, hearing changes, weakness, falls, syncope, trauma, travel history, sick contacts, or food/drug ingestions novel or new. All other review of systems are reported as negative by the patient on 11/12/2024. Physical Exam Constitutional: General appearance: Run-down, worn-out, and listless. Comfortable, coherent, cooperative. Wide awake and alert. Not confused, lethargic, or obtunded. Speaks in complete, fluent, and articulate sentences without pause, interruption, cough, or wheeze. HEENT: Normocephalic; atraumatic. EOMI. PERRL No rhinorrhea. No pharyngeal discharge. Neck: Supple, no stridor, bruit, goiter, JVD, or HJR. Lymph: No lymphadenopathy. Chest: Symmetric rise and fall with respirations. Non-tender to palpation. Lungs: Bibasilar crackles. No audible wheeze, pectoriloquy, increase in tactile fremitus, or flatness/dullness to percussion at the bases. Heart: RRR, S1S2, no S3 or S4. Grade II/ early systolic murmur @ LLSB without radiation to the carotids, axilla, or back, and which remains invariant in regards to the respiratory cycle. Abd: Soft, non-tender, non-distended. No rebound, guarding, Casey's sign, or organomegaly. Bowel sounds auscultated in all 4 quadrants. Ext: No clubbing, cyanosis, or edema. 2+ pedal pulses bilaterally. Skin: No decubitus ulcer, exanthem, or enanthem. Skin dry with skin tenting, but no delay in capillary refill time > 2 seconds. Neuro: Alert and oriented in regards to person, place, time, or situation. 5/5 motor strength in all 4 extremities, both proximally and distally. Urology: + mckeon catheter with 100cc of clear yellow urine on 11/12/2024 am. No urethral discharge. Psych: No suicidal ideation. No homicidal ideation. Results & Data Results & Data Vital Signs (Past 12 Hours) Vital Signs Temp Pulse Pulse Resp BP BP Pulse Ox 11/12/24 20:08 36.9 C 11/12/24 20:03 78 31 H 97 11/12/24 20:00 132/85 11/12/24 19:54 11/12/24 19:33 78 32 H 96 11/12/24 19:15 78 28 H 96 11/12/24 19:00 132/86 11/12/24 18:51 79 28 H 97 11/12/24 18:36 81 21 97 11/12/24 18:03 83 24 97 11/12/24 18:00 136/82 11/12/24 18:00 136/82 11/12/24 18:00 136/82 11/12/24 17:45 78 25 H 97 11/12/24 17:00 79 33 H 95 11/12/24 16:39 80 28 H 96 11/12/24 16:00 132/90 11/12/24 16:00 75 28 H 94 11/12/24 15:39 94 H 31 H 94 11/12/24 15:39 155/99 H 11/12/24 15:39 155/99 H 11/12/24 15:00 81 13 11/12/24 14:54 81 11/12/24 14:39 82 13 11/12/24 14:10 37.0 C 81 18 144/87 H 95 11/12/24 14:00 11/12/24 13:30 73 22 11/12/24 13:09 105 H 24 11/12/24 12:42 83 18 11/12/24 12:00 77 24 11/12/24 11:37 36.6 C 76 22 134/82 96 11/12/24 11:30 80 23 11/12/24 11:03 105 H 13 11/12/24 10:42 99 H 17 11/12/24 10:00 101 H 23 11/12/24 09:30 91 H 16 11/12/24 09:00 106 H 21 11/12/24 08:30 76 33 H O2 Del Method O2 Flow Rate 11/12/24 20:08 11/12/24 20:03 11/12/24 20:00 11/12/24 19:54 Nasal Cannula 2 11/12/24 19:33 11/12/24 19:15 11/12/24 19:00 11/12/24 18:51 11/12/24 18:36 11/12/24 18:03 11/12/24 18:00 11/12/24 18:00 11/12/24 18:00 11/12/24 17:45 11/12/24 17:00 11/12/24 16:39 11/12/24 16:00 11/12/24 16:00 11/12/24 15:39 11/12/24 15:39 11/12/24 15:39 11/12/24 15:00 11/12/24 14:54 11/12/24 14:39 11/12/24 14:10 Nasal Cannula 2 11/12/24 14:00 Nasal Cannula 3 11/12/24 13:30 11/12/24 13:09 11/12/24 12:42 11/12/24 12:00 11/12/24 11:37 Nasal Cannula 2 11/12/24 11:30 11/12/24 11:03 11/12/24 10:42 11/12/24 10:00 11/12/24 09:30 11/12/24 09:00 11/12/24 08:30 Laboratory Results Abnormal lab results 11/11/24 11/12/24 11/12/24 Range/Units 22:30 07:00 08:23 WBC 18.42 H (4.8-10.8) K/ul RBC 2.47 L (4.70-6.10) M/uL Hgb 9.5 L (14.0-18.0) g/dl Hct 29.8 L (42.0-52.0) % MCV 120.6 H (80.0-100.0) fL MCH 38.5 H (25.0-34.0) pg MCHC 31.9 L (32.0-36.0) g/dL RDW Std Deviation 70.5 H (36.4-46.3) fL RDW Coeff of Camille 16.0 H (11.5-14.5) % Plt Count 88 L (130-400) K/uL MPV 12.9 H (9.4-12.4) fL BUN 49 H (6-23) mg/dl Creatinine 1.63 H (0.6-1.4) mg/dl BUN/Creatinine Ratio 30.1 H (10-20) Glucose 147 H (70-99(Fasting)) mg/dl Lactate (0.4-2.0) mmol/L Calcium 8.5 L (8.6-10.3) mg/dl Total Bilirubin 1.3 H (0.2-1.0) mg/dl AST 3224 H (13-39) U/L ALT 2088 H (7-52) U/L Troponin I High Sens 872.3 H* D 1937.2 H* D (0-20) pg/ml Procalcitonin 1.27 H (0-0.5) ng/ml 11/12/24 11/12/24 11/12/24 Range/Units 08:25 11:58 14:26 WBC (4.8-10.8) K/ul RBC (4.70-6.10) M/uL Hgb (14.0-18.0) g/dl Hct (42.0-52.0) % MCV (80.0-100.0) fL MCH (25.0-34.0) pg MCHC (32.0-36.0) g/dL RDW Std Deviation (36.4-46.3) fL RDW Coeff of Camille (11.5-14.5) % Plt Count (130-400) K/uL MPV (9.4-12.4) fL BUN (6-23) mg/dl Creatinine (0.6-1.4) mg/dl BUN/Creatinine Ratio (10-20) Glucose (70-99(Fasting)) mg/dl Lactate 5.0 H* 5.2 H* (0.4-2.0) mmol/L Calcium (8.6-10.3) mg/dl Total Bilirubin (0.2-1.0) mg/dl AST (13-39) U/L ALT (7-52) U/L Troponin I High Sens 2096.6 H* (0-20) pg/ml Procalcitonin (0-0.5) ng/ml PG Care Time/CCT Total # of Minutes Spent Total Time Spent with Patient: Total time spent is greater than 50% in coordination of care (as documented) at patient's floor/unit and/or counseling patient: Coding Level of Care Code 71929 SUB INP/OBS CARE 50MIN Diagnoses Elevated troponin R79.89 Poor historian Z78.9 CHF exacerbation I50.9 Essential hypertension I10 Hypertension type: essential hypertension Coronary artery disease involving [place] coronary artery of [place] heart without angina pectoris I25.10 Coronary Disease-Associated Artery/Lesion type: [place] artery [place] vs. transplanted heart: [place] heart Associated angina: without angina Ischemic cardiomyopathy I25.5 (4) Hypertension Hypertension type: essential hypertension Qualified Code(s): I10 - Essential (primary) hypertension (5) CAD (coronary artery disease) Coronary Disease-Associated Artery/Lesion type: [place] artery [place] vs. transplanted heart: [place] heart Associated angina: without angina Qualified Code(s): I25.10 - Atherosclerotic heart disease of [place] coronary artery without angina pectoris
[2024-11-12] MEDS: HYDROmorphone INJ 0.5 MG/0.5 ML SYR IV STA ×2 (21:17→23:09)
[2024-11-13] MEDS: PHENAZOPYRIDINE HCL 200 MG TAB PO STA (00:44)
[2024-11-13 05:57] LABS: Anion Gap 9 (3-11); Blood Urea Nitrogen 61 mg/dl (6-23); Calcium 8.6 mg/dl (8.6-10.3); Carbon Dioxide 25 mmol/L (21-32); Chloride 103 mmol/L (98-107); Creatinine Clr Calc Pharmacy 26.3 ml/min; Glucose 147 mg/dl (70-99(Fasting)); Potassium 4.7 mmol/L (3.5-5.1); Sodium 137 mmol/L (136-145)
[2024-11-13 06:19] LABS: Alanine Aminotransferase > 2500 U/L (7-52); Albumin Globulin Ratio 1.5 (0.9-2); Alkaline Phosphatase 103 U/L (34-104); Bilirubin,Total 1.5 mg/dl (0.2-1.0); Globulin 2.5 gm/dl (2.5-4.0); Total Protein 6.2 gm/dl (6.0-8.3)
[2024-11-13 06:48] LABS: Hematocrit (blood only) 28.6 % (42.0-52.0); Hemoglobin 9.4 g/dl (14.0-18.0); Mean Corpuscular Hemoglobin 38.5 pg (25.0-34.0); Mean Corpuscular Volume 117.2 fL (80.0-100.0); Platelet Count 66 K/uL (130-400); RDW Standard Deviation 68.2 fL (36.4-46.3); Red Blood Count 2.44 M/uL (4.70-6.10); White Blood Count 14.20 K/ul (4.8-10.8)
[2024-11-13 06:51] LABS: Immature Granulocytes # (auto) 0.18 K/uL (0.01-0.20); Immature Granulocytes % (auto) 1.3 %; Macrocytosis Present; Ovalocytes 1+; Polychromasia 2+; Tear Drop Cells 1+
--- NOTE | 2024-11-13 08:08 | Cardiology Progress Note ---
Date of Service November 13, 2024 Assessment & Plan (1) Acute HFrEF (heart failure with reduced ejection fraction): (2) Elevated troponin: (3) CAD (coronary artery disease): (4) Ischemic cardiomyopathy: (5) Elevated transaminase level: (6) Acute renal failure: (7) Dual ICD (implantable cardioverter-defibrillator) in place: Plan ASSESSMENT/PLAN: 1. Acute heart failure with reduced EF: Findings suggestive of heart failure. Worsening renal and hepatic labs concerning for poor perfusion from severely reduced LV systolic function. He looks much more comfortable on inotropic support and lactate has improved. Transaminase levels still trending upward but at lower rate. Keep current dose of dobutamine 2.5 mcg/kg/min. Continue Lasix to 40 mg IV twice daily. Recommend net negative fluid balance if able. Strict I's and O's, which will be difficult as he did not tolerate Cruz catheter and has been incontinent per nursing staff. Daily weights. Low-sodium diet, less than 2000 mg daily. GDMT has been limited in the past due to reported orthostatic symptoms. Would recommend attempt to initiate GDMT and titrate as tolerated following inotropic support. Heart failure program follow-up. 2. Cardiomyopathy: Reported as ischemic with occluded LAD in the past. LV systolic function severely reduced. Has had significantly elevated troponins in August 2024 (peak 3471) and troponins are once again trending upward. Denies angina. Likely due to demand ischemia with underlying CAD while showing signs of endorgan damage with poor pump function. Recommend inotropic support and continued conversations throughout the hospitalization in regards to treatment options. Could consider coronary angiography if applicable but in current state and trending upward creatinine, would continue medical therapy for now unless acute coronary syndrome should occur. ICD in place for primary prevention. 3. Elevated troponin: He did not present with acute coronary syndrome but has known severe CAD with his last cardiac catheterization in 2010. Continue aspirin. Coronary angiography is not urgently needed. For troponin until peaked. 4. ICD: Follows with electrophysiology. Dual-chamber device. 5. Shortness of breath: He is being treated with antibiotics by primary hospitalist service while being worked up for respiratory issues. Defer to primary hospitalist service. Concerned that his breathing is related to heart failure as above. Treatment as above. 6. CAD: No angina. Continue aspirin and statin therapy. Last coronary angiography was in 2010 with occluded mid LAD and moderate nonobstructive CAD of the RCA. Plan as above. 7. Leukocytosis: Per primary hospitalist service. Improving. 8. Myelodysplastic syndrome: As per primary hospitalist service. 9. Elevated transaminase levels: Possibly due to shock liver from severely reduced LV systolic function. Plan as above. Monitor labs. 10. Acute renal insufficiency: Inotropic support as above. Monitor renal function and electrolytes closely. 11. Disposition: Cardiology will continue to follow. Poor prognosis given longstanding LV systolic dysfunction and now worsening renal and hepatic function. Discussed with patient and his daughter at the bedside on 11/12/2024. Once again recommend palliative care consultation if/when patient agreeable to have further discussions. Dr. Ingram will be covering starting at 5 PM this evening and throughout the weekend. Patient care will be signed out to Dr. Ingram. Please call on-call [facility] mail order biller for questions or concerns. Highly complex medical issues. Admission and Anticipated Discharge Date Admission Date: November 11, 2024 Subjective Patient was seen this morning and he was unaccompanied. His breathing was much improved per his report and he appeared more comfortable. He reported abdominal discomfort and stated that he is "discouraged" about his health in general. He denied chest pain, syncope, near syncope, edema, or bleeding. Physical Exam Physical Exam: Gen.: No acute distress. Appears much more comfortable then 11/12/2024 visit. Alert. HEENT: Anicteric sclera. Neck: Difficult to assess JVD. Cardiac: Regular. Normal S1-S2. No murmurs. Pulmonary: Crackles at the bases. Decreased breath sounds in general. Abdomen: Soft, protuberant. Mild generalized tenderness without rebound tenderness to. No bruits noted. Extremities: 2+ radial pulses bilaterally. 1+ dorsalis pedis pulses bilaterally. No significant pitting edema or cyanosis. Results & Data Vital Signs (Past 12 Hours) Vital Signs Temp Pulse Resp BP Pulse Ox 11/13/24 06:00 119/61 11/13/24 06:00 119/61 11/13/24 06:00 75 17 89 L 11/13/24 05:21 74 16 98 11/13/24 04:06 75 10 L 98 11/13/24 04:00 128/83 11/13/24 03:48 77 17 97 11/13/24 03:26 128/87 11/13/24 03:21 82 24 11/13/24 03:09 77 22 11/13/24 02:09 79 16 97 11/13/24 01:00 13311/13/24 01:00 11/13/24 01:00 11/13/24 01:00 11/13/24 01:00 11/13/24 01:00 11/13/24 01:00 13311/13/24 01:00 79 19 11/13/24 00:12 85 25 H 90 11/12/24 23:27 70 22 95 11/12/24 23:00 142/110 H 11/12/24 23:00 142/110 H 11/12/24 22:57 85 24 89 L 11/12/24 22:21 77 21 99 11/12/24 22:13 124/86 11/12/24 22:12 79 19 97 11/12/24 22:03 79 20 96 11/12/24 21:12 83 33 H 96 11/12/24 21:00 136/96 11/12/24 20:54 83 21 99 11/12/24 20:08 36.9 C Intake & Output 11/11/24 11/12/24 11/13/24 11/14/24 06:59 06:59 06:59 06:59 Intake Total 930 / 930 603.190 / 603.190 .417 / 31.417 Output Total 225 / 225 750 / 750 Balance 705 / 705 -146.810 / -146.810 .417 / 31.417 Weight 153 lb 7.068 oz 150 lb 2.157 oz Laboratory Results Laboratory Results - last 24 hr 11/12/24 11/12/24 11/12/24 08:23 08:25 11:58 WBC RBC Hgb Hct MCV MCH MCHC RDW Std Deviation RDW Coeff of Camille Plt Count MPV Immature Gran % (Auto) Neut % (Auto) Lymph % (Auto) [place] % (Auto) Eos % (Auto) Baso % (Auto) Neut # (Auto) Lymph # (Auto) [place] # (Auto) Eos # (Auto) Baso # (Auto) Immature Gran # (Auto) Absolute Nucleated RBC Nucleated RBC % (auto) Platelet Estimate Polychromasia Macrocytosis Tear Drop Cells Ovalocytes Sodium Potassium Chloride Carbon Dioxide Anion Gap BUN Creatinine Est Cr Clr Drug Dosing eGFR BUN/Creatinine Ratio Glucose Lactate 5.0 H* 5.2 H* Calcium Total Bilirubin AST ALT Alkaline Phosphatase Troponin I High Sens Total Protein Albumin Globulin Albumin/Globulin Ratio Procalcitonin 1.27 H Random Vancomycin 11/12/24 11/13/24 14:26 05:08 WBC 14.20 H RBC 2.44 L Hgb 9.4 L Hct 28.6 L MCV 117.2 H MCH 38.5 H MCHC 32.9 RDW Std Deviation 68.2 H RDW Coeff of Camille 15.9 H Plt Count 66 L MPV 13.5 H Immature Gran % (Auto) 1.3 Neut % (Auto) 74.5 Lymph % (Auto) 1.8 [place] % (Auto) 22.4 Eos % (Auto) 0.0 Baso % (Auto) 0.0 Neut # (Auto) 10.58 H Lymph # (Auto) 0.26 L [place] # (Auto) 3.18 H Eos # (Auto) 0.00 Baso # (Auto) 0.00 Immature Gran # (Auto) 0.18 Absolute Nucleated RBC 0.05 Nucleated RBC % (auto) 0.4 Platelet Estimate Decreased L Polychromasia 2+ Macrocytosis Present Tear Drop Cells 1+ Ovalocytes 1+ Sodium 137 Potassium 4.7 Chloride 103 Carbon Dioxide 25 Anion Gap 9 BUN 61 H Creatinine 1.89 H Est Cr Clr Drug Dosing 26.3 eGFR 36.11 BUN/Creatinine Ratio 32.3 H Glucose 147 H Lactate 3.1 H* Calcium 8.6 Total Bilirubin 1.5 H AST 3664 H ALT > 2500 H Alkaline Phosphatase 103 Troponin I High Sens 2096.6 H* Total Protein 6.2 Albumin 3.7 Globulin 2.5 Albumin/Globulin Ratio 1.5 Procalcitonin 1.41 H Random Vancomycin 9.4 L Diagnostic Findings Labs reviewed and notable for elevated high-sensitivity troponin, normal potassium, mildly worsening renal function, improved lactate, elevated transaminase levels (upward trending), improved leukocytosis, anemia, thrombocytopenia, and negative blood cultures x 2 from 11/11/2024. Telemetry personally reviewed: Sinus rhythm. Ventricular runs up to 5 beats but not tachycardic. Medications Administered Current Inpatient Medications Aspirin (Aspirin 81 Mg Ectab) 81 mg PO DAILY KITTY Stop: 12/11/24 19:06 Last Admin: 11/12/24 07:37 Dose: 81 mg Furosemide (Furosemide 40 Mg/4 Ml Vial) 40 mg IV Q12 KITTY Stop: 12/12/24 20:59 Last Admin: 11/12/24 20:18 Dose: 40 mg Cefepime HCl (Maxipime 2000mg) 2,000 mg in 20 mls @ 5 mls/min IV Q12H KITTY; Protocol Stop: 11/19/24 00:59 Last Admin: 11/13/24 00:44 Dose: 5 mls/min Dobutamine HCl/Dextrose () 1,000 mg in 250 mls @ 2.61 mls/hr IV .Q24H KITTY; Protocol Stop: 12/12/24 13:44 Last Titration: 11/13/24 07:01 Dose: 2.5 mcg/kg/min, 2.6 mls/hr Magnesium Hydroxide (Magnesium Hydroxide Susp 30 Ml Udc) 30 ml PO Q12H PRN PRN Reason: Constipation Stop: 12/11/24 14:38 Melatonin (Melatonin 3 Mg Tab) 3 mg PO HS PRN PRN Reason: Sleep Stop: 12/12/24 01:16 Last Admin: 11/12/24 23:11 Dose: 3 mg Miscellaneous Information (Vancomycin Consult Active) 1 each N/A UD PRN PRN Reason: Consult Stop: 12/11/24 14:36 PG Care Time/CCT Total # of Minutes Spent Total Time Spent with Patient: Total time spent is greater than 50% in coordination of care (as documented) at patient's floor/unit and/or counseling patient: Coding Level of Care Code 61054 SUB INP/OBS CARE 3/50MIN Diagnoses Acute HFrEF (heart failure with reduced ejection fraction) I50.21 Elevated troponin R79.89 Coronary artery disease involving [place] coronary artery of [place] heart without angina pectoris I25.10 Coronary Disease-Associated Artery/Lesion type: [place] artery [place] vs. transplanted heart: [place] heart Associated angina: without angina Ischemic cardiomyopathy I25.5 Elevated transaminase level R74.01 Acute renal failure N17.9 Dual ICD (implantable cardioverter-defibrillator) in place Z95.810 (3) CAD (coronary artery disease) Coronary Disease-Associated Artery/Lesion type: [place] artery [place] vs. transplanted heart: [place] heart Associated angina: without angina Qualified Code(s): I25.10 - Atherosclerotic heart disease of [place] coronary artery without angina pectoris
[2024-11-13] MEDS ORDERED: VANCOMYCIN LEVEL ONE (08:30)
[2024-11-13] MEDS ORDERED: VANCOMYCIN 750 MG in SODIUM CHLORIDE 0.9% 250 ML IV SCH (09:00)
[2024-11-13] MEDS: CEFEPIME 1000MG 1,000 MG/10 ML SYR IV SCH (13:14)
--- NOTE | 2024-11-13 19:26 | Hospitalist Progress Note ---
Date of Service November 13, 2024 Assessment & Plan (1) Elevated troponin: Plan: Etiology of elevated troponin is due to demand ischemia in the setting of acute kidney injury with creatinine 1.63 mg/dL (11/12/2024, 7:00am). Consistent with acute type II NSTEMI. Observe. (2) Poor historian: Plan: Observe. (3) CHF exacerbation: Plan: Marginal urine output on lasix 20mg IV q12. Marginal urine output may be due to decreased renal perfusion, which in turn, is due to severe [id number] biventricular systolic CHF. Hence, patient was transferred from Telemetry floor to ICU floor on 11/12/2024 for the sole purpose of starting patient on dobutamine infusion to augment renal perfusion, and hopefully, augment urine output as patient is started on lasix 40mg IV q12 (11/12/2024, 8:18pm) and which replaces lasix 20mg IV q12 x 2 doses (11/11/2024, 8:20pm; 11/12/2024, 9:10am). Subsequently, urine output has increased to 0.46 mL/kg/hr (11/12/2024, 8:27am to 11/13/2024, 8:27am), but renal function continues to decline with creatinine worsening/increasing from 1.63 mg/dL (11/12/2024, 7:00am) to 1.89 mg/dL (11/13/2024, 5:08am). I anticipate further renal embarrassment from continued lasix 40mg IV q12, and will check repeat creatinine level in the 11/14/2024 am to test this hypothesis. At the same time, I have opted to cut down the dobutamine infusion rate in half, from 2.5mcg/kg/min (start date/time, 11/12/2024, 3:47pm) to 1.25mcg/kg/min (start date/time, 11/13/2024, 7:30pm) with anticipated D/C of dobutamine infusion altogether on 11/14/2024 am, when patient is discharged back to his home in the 11/14/2024 am, this time with home hospice services (including hospital bed, and hospice visiting nurse services) being arranged by Case Management Service @ [facility] on 11/12/2024. (4) Hypertension: Plan: Well-controlled with BP 132/85 (11/12/2024, 8:08pm) s/p lasix 20mg IV q12 x 2 doses (11/11/2024, 8:20pm; 11/12/2024, 9:10am). Well-controlled with BP 124/85 (11/13/2024, 6:03pm) on lasix 40mg IV q12 x 2 doses (11/12/2024, 8:18pm; 11/13/2024, 8:15am). (5) CAD (coronary artery disease): Plan: Continue secondary prophylaxis against CAD utilizing ASA 81mg PO daily and atorvastatin 20mg PO daily. (6) Ischemic cardiomyopathy: Plan: TTE (11/11/2024, 2:59pm): 1. Moderately dilated LV with EF 15-20%. Large apical aneurysm and otherwise severe global LV hypokinesis. No LVH. 2. RV not well visualized; appears dilated with reduced RV systolic function. 3. Severe LA dilation. 4. Mild RA dilation. 5. Trace AR. 6. Mild MR. 7. Mild-moderate TR. 8. Mild pulmonary HTN. 9. Compared to prior study on 09/09/2024, aortic and mitral regurgitation are less significant. (as per CARDS Dr. Osmani Gooden). Marginal urine output on lasix 20mg IV q12. Marginal urine output may be due to decreased renal perfusion, which in turn, is due to severe [id number]-qi-ozlmtwk biventricular systolic CHF. Hence, patient was transferred from Telemetry floor to ICU floor on 11/12/2024 for the sole purpose of starting patient on dobutamine infusion to augment renal perfusion, and hopefully, augment urine output as patient is started on lasix 40mg IV q12 (11/12/2024, 8:18pm) and which replaces lasix 20mg IV q12 x 2 doses (11/11/2024, 8:20pm; 11/12/2024, 9:10am). Of practical note, with anticipated D/C of dobutamine infusion altogether on 11/14/2024 am, when patient is discharged back to his home in the 11/14/2024 am, this time with home hospice services (including hospital bed, and hospice visiting nurse services) being arranged by Case Management Service @ [facility] on 11/12/2024, patient will need to have his AICD inactivated permanently, prior to discharge back to his home in the 11/14/2024 am, this time with home hospice services (including hospital bed, and hospice visiting nurse services) being arranged by Case Management Service @ [facility] on 11/12/2024. Plan 79 male history intellectual disability Ischemic dilated cardiomyopathy status post AICD CHF CAD NSTEMI Syncope hypertension valvular heart disease mild ascending aortic dilatation Restrictive lung disease Pancytopenia Secondary to MDS follows with Heme oncology outpatient, Hypothyroidism diabetes type 2 depression anxiety peripheral neuropathy insomnia Ambulatory dysfunction Who presents with worsening shortness of breath Community-acquired pneumonia Supportive care Pulmonary toilet as needed Respiratory PCR and infectious workup as ordered Sputum cultures MRSA screen Continue vancomycin and cefepime started in ED. Pharmacy for dosing. Anticipate de-escalation soon. Follow-up blood cultures ST evaluation with history of dysphagia Acute on chronic CHF exacerbation CHF protocol orders I's and O's Daily weights IV Lasix TTE TFTs, BNP GDMT Cardiology consultation Acute hypoxic respiratory failure secondary to above Wean O2 Transaminitis unclear etiology. Viral? Monitor avoid hepatotoxic meds Liver ultrasound Hepatitis panel Elevated troponins likely type II NV Trend until flat Home aspirin statin Can consider outpatient ischemic workup Cytopenias Secondary history MDS stable Monitor Outpatient follow-up with heme oncology Generalized weakness/Ambulatory dysfunction Fall precautions PT OT DVT prophylaxis SCDs and ambulation. History thrombocytopenia and reported allergy to heparin? Full code Disposition admission to telemetry Admission and Anticipated Discharge Date Admission Date: November 11, 2024 Subjective "I feel weak. Breathing better than yesterday (11/12/2024). Review of Systems Constitutional: Mild shortness of breath at rest on 11/13/2024. Negative for antecedent/coincident fevers, chills, diaphoresis, cough, wheeze, sore throat, hemoptysis, chest pains, palpitations, pleurisy, nausea, vomiting, diarrhea, abdominal pain, pelvic pain, hematemesis, hematochezia, melena, hematuria, dysuria, frequency, urgency, headaches, dizziness, lightheadedness, visual changes, hearing changes, falls, syncope, trauma, travel history, sick contacts, or food/drug ingestions novel or new. All other review of systems are reported as negative by the patient on 11/13/2024. Physical Exam Constitutional: General appearance: Run-down, worn-out, and listless. Comfortable, coherent, cooperative. Wide awake and alert. Not confused, lethargic, or obtunded. Speaks in complete, fluent, and articulate sentences without pause, interruption, cough, or wheeze. HEENT: Normocephalic; atraumatic. EOMI. PERRL No rhinorrhea. No pharyngeal discharge. Neck: Supple, no stridor, bruit, goiter, JVD, or HJR. Lymph: No lymphadenopathy. Chest: Symmetric rise and fall with respirations. Non-tender to palpation. Lungs: Bibasilar crackles. No audible wheeze, pectoriloquy, increase in tactile fremitus, or flatness/dullness to percussion at the bases. Heart: RRR, S1S2, no S3 or S4. Grade II/ early systolic murmur @ LLSB without radiation to the carotids, axilla, or back, and which remains invariant in regards to the respiratory cycle. Abd: Soft, non-tender, non-distended. No rebound, guarding, Casey's sign, or organomegaly. Bowel sounds auscultated in all 4 quadrants. Ext: No clubbing, cyanosis, or edema. 2+ pedal pulses bilaterally. Skin: No decubitus ulcer, exanthem, or enanthem. Skin dry with skin tenting, but no delay in capillary refill time > 2 seconds. Neuro: Alert and oriented in regards to person, place, time, or situation. 5/5 motor strength in all 4 extremities, both proximally and distally. Urology: + mckeon catheter with urine output of 0.46 mL/kg/hr (11/12/2024, 8:27am to 11/13/2024, 8:27am). No urethral discharge. Psych: No suicidal ideation. No homicidal ideation. Results & Data Results & Data Vital Signs (Past 12 Hours) Vital Signs Temp Pulse Resp BP Pulse Ox O2 Del Method O2 Flow Rate 11/13/24 18:03 108 H 20 11/13/24 18:00 124/85 11/13/24 18:00 124/85 11/13/24 18:00 124/85 11/13/24 17:54 79 24 11/13/24 17:12 77 18 11/13/24 17:00 98 11/13/24 16:57 81 25 H 11/13/24 16:56 126/84 11/13/24 16:56 126/84 11/13/24 16:36 78 16 98 11/13/24 16:15 78 22 11/13/24 16:01 130/107 H 11/13/24 15:57 79 24 11/13/24 15:15 102 H 19 98 Nasal Cannula 11/13/24 15:00 126/80 11/13/24 15:00 126/80 11/13/24 14:48 79 18 98 11/13/24 14:00 77 16 11/13/24 14:00 109/77 11/13/24 14:00 109/77 11/13/24 14:00 109/77 11/13/24 14:00 109/77 11/13/24 13:00 125/83 11/13/24 13:00 125/83 11/13/24 13:00 125/83 11/13/24 13:00 79 23 100 11/13/24 12:00 78 21 99 11/13/24 12:00 122/83 11/13/24 12:00 122/83 11/13/24 11:09 77 19 100 11/13/24 11:00 36.8 C 11/13/24 10:56 132/83 11/13/24 10:42 78 16 99 11/13/24 10:09 78 28 H 97 11/13/24 09:00 125/82 11/13/24 09:00 125/82 11/13/24 09:00 125/82 11/13/24 09:00 74 15 98 11/13/24 08:12 78 23 98 11/13/24 08:00 Nasal Cannula 4 11/13/24 08:00 76 Laboratory Results Abnormal lab results 11/13/24 Range/Units 05:08 WBC 14.20 H (4.8-10.8) K/ul RBC 2.44 L (4.70-6.10) M/uL Hgb 9.4 L (14.0-18.0) g/dl Hct 28.6 L (42.0-52.0) % MCV 117.2 H (80.0-100.0) fL MCH 38.5 H (25.0-34.0) pg RDW Std Deviation 68.2 H (36.4-46.3) fL RDW Coeff of Camille 15.9 H (11.5-14.5) % Plt Count 66 L (130-400) K/uL MPV 13.5 H (9.4-12.4) fL Neut # (Auto) 10.58 H (1.40-6.50) K/uL Lymph # (Auto) 0.26 L (1.20-3.40) K/uL [place] # (Auto) 3.18 H (0.11-0.59) K/uL Platelet Estimate Decreased L (Normal) BUN 61 H (6-23) mg/dl Creatinine 1.89 H (0.6-1.4) mg/dl BUN/Creatinine Ratio 32.3 H (10-20) Glucose 147 H (70-99(Fasting)) mg/dl Lactate 3.1 H* (0.4-2.0) mmol/L Total Bilirubin 1.5 H (0.2-1.0) mg/dl AST 3664 H (13-39) U/L ALT > 2500 H (7-52) U/L Troponin I High Sens 1666.8 H* D (0-20) pg/ml Procalcitonin 1.41 H (0-0.5) ng/ml Random Vancomycin 9.4 L (10-20) mcg/ml PG Care Time/CCT Total # of Minutes Spent Total Time Spent with Patient: Total time spent is greater than 50% in coordination of care (as documented) at patient's floor/unit and/or counseling patient: Coding Level of Care Code 28142 SUB INP/OBS CARE 235MIN Diagnoses Elevated troponin R79.89 Poor historian Z78.9 CHF exacerbation I50.9 Essential hypertension I10 Hypertension type: essential hypertension Coronary artery disease involving [place] coronary artery of [place] heart without angina pectoris I25.10 Coronary Disease-Associated Artery/Lesion type: [place] artery [place] vs. transplanted heart: [place] heart Associated angina: without angina Ischemic cardiomyopathy I25.5 (4) Hypertension Hypertension type: essential hypertension Qualified Code(s): I10 - Essential (primary) hypertension (5) CAD (coronary artery disease) Coronary Disease-Associated Artery/Lesion type: [place] artery [place] vs. transplanted heart: [place] heart Associated angina: without angina Qualified Code(s): I25.10 - Atherosclerotic heart disease of [place] coronary artery without angina pectoris
[2024-11-13 20:21] VITALS: TEMP 98.4
[2024-11-13] MEDS: LORazepam 0.5 MG TAB PO ONE (22:02)
[2024-11-14 04:57] LABS: Hematocrit (blood only) 30.1 % (42.0-52.0); Hemoglobin 10.1 g/dl (14.0-18.0); Mean Corpuscular Hemoglobin 38.7 pg (25.0-34.0); Mean Corpuscular Volume 115.3 fL (80.0-100.0); Platelet Count 81 K/uL (130-400); RDW Standard Deviation 66.4 fL (36.4-46.3); Red Blood Count 2.61 M/uL (4.70-6.10); White Blood Count 10.19 K/ul (4.8-10.8)
[2024-11-14 05:11] LABS: Anion Gap 9.0 (3-11); Blood Urea Nitrogen 56.0 mg/dl (6-23); Calcium 8.8 mg/dl (8.6-10.3); Carbon Dioxide 26.0 mmol/L (21-32); Chloride 104.0 mmol/L (98-107); Creatinine Clr Calc Pharmacy 32.8 ml/min; Glucose 121.0 mg/dl (70-99(Fasting)); Potassium 3.8 mmol/L (3.5-5.1); Sodium 139.0 mmol/L (136-145)
[2024-11-14 05:30] LABS: Alanine Aminotransferase 2024.0 U/L (7-52); Albumin Globulin Ratio 1.3 (0.9-2); Alkaline Phosphatase 123.0 U/L (34-104); Bilirubin,Total 1.5 mg/dl (0.2-1.0); Globulin 2.8 gm/dl (2.5-4.0); Total Protein 6.3 gm/dl (6.0-8.3)
--- NOTE | 2024-11-14 06:12 | Electrocardiogram Report ---
Test Reason : Blood Pressure : */* mmHG Vent. Rate : 78 BPM Atrial Rate : 78 BPM P-R Int : 138 ms QRS Dur : 102 ms QT Int : 424 ms P-R-T Axes : 5 -13 -46 degrees QTcB Int : 483 ms Poor data quality, interpretation may be adversely affected Normal sinus rhythm Anterior infarct (cited on or before 17-Jul-1994) Nonspecific T wave abnormality Abnormal ECG When compared with ECG of 10-Sep-2024 08:55, Premature ventricular complexes are no longer Present ST no longer elevated in Inferior leads Inverted T waves have replaced nonspecific T wave abnormality in Inferior leads QT has shortened Confirmed by Osmani Gooden ([id number]) on 11/14/2024 6:12:25 AM Referred By: Confirmed By: Osmani Gooden
[2024-11-14 06:17] VITALS: O2SAT 97
--- NOTE | 2024-11-14 08:52 | Communication Note ---
Date of Service: November 14, 2024 I was asked to deactivate the patient's defibrillator therapies as he is going to hospice. In the presence of the patient and his son I deactivated both detection and therapy. No therapies for malignant ventricular arrhythmias will be delivered. Pacing function still active.
[2024-11-14 09:23] VITALS: RESP 18
--- NOTE | 2024-11-14 10:52 | Discharge Summary ---
Discharge Summary Date of Service November 14, 2024 Principal Dx & Hospital Course #1 = Principal Diagnosis (1) DNR (do not resuscitate): 1. DNR/DNI/comfort measures only on morphine 20mg/mL, 5mg (0.25mL) sublingual q3 prn pain, shortness of breath, anxiety/agitation/panic, #30 mL, no refills, transmitted to [facility], [address] [place] [address], [place] [address], on 11/14/2024, 10:39am, prior to hospital discharge back to his home/apt on 11/14/2024, 12:00pm with home hospice services including delivery of hospital bed. (2) Acute on chronic systolic CHF (congestive heart failure), NYHA class 4: 2. Nnotg-tw-ykxrdfj biventricular systolic CHF with reduced LVEF 15-20% and reduced RV systolic function (as noted on 11/11/2024, 2:59pm TTE, CARDS Dr. Osmani Gooden). Patient demonstrated marginal/nominal urine output on lasix 20mg IV q12. Marginal/nominal urine output was probably due to decreased renal perfusion, which in turn, was due to severe lrdxq-bn-vpsefex biventricular systolic CHF. Hence, patient was transferred from Telemetry floor to ICU floor on 11/12/2024 for the sole purpose of starting patient on dobutamine infusion to augment renal perfusion, and hopefully, augment urine output as patient was started on lasix 40mg IV q12 (11/12/2024, 8:18pm) and which replaced lasix 20mg IV q12 x 2 doses (11/11/2024, 8:20pm; 11/12/2024, 9:10am). Subsequently, urine output increased to 0.46 mL/kg/hr (11/12/2024, 8:27am to 11/13/2024, 8:27am), but renal function continued to decline with creatinine worsening/increasing from 1.63 mg/dL (11/12/2024, 7:00am) to 1.89 mg/dL (11/13/2024, 5:08am). I anticipated further renal embarrassment from continued lasix 40mg IV q12, and I checked repeat creatinine level in the 11/14/2024 am to test this hypothesis; subsequently, patient's creatinine level improved by decreasing to 1.52 mg/dL (11/14/2024, 4:28am). However, despite the apparent improvement in creatinine levels, urine output declined to 0.32 mL/kg/hr (11/13/2024, 11:58am to 11/14/2024, 11:58am), and which coincided with cutting down the dobutamine infusion rate in half, from 2.5mcg/kg/min (start date/time, 11/12/2024, 3:47pm) to 1.25mcg/kg/min (start date/time, 11/13/2024, 7:30pm), followed by discontinuation of dobutamine infusion altogether (stop date/time, 11/14/2024, 9:07am), followed by discharge of patient back to his home/apt on 11/14/2024, 12:00pm, this time with home hospice services (including hospital bed, and hospice visiting nurse services) and comfort measures only utilizing morphine 20mg/mL, 5mg (0.25mL) sublingual q3 prn pain, shortness of breath, anxiety/agitation/panic, #30 mL, no refills (with electronic prescription for this medication transmitted to his [facility], [address] [place] [address], [place] [address], on 11/14/2024, 10:39am, prior to hospital discharge back to his home/apt on 11/14/2024, 12:00pm. (3) Acute hypoxic respiratory failure: 3. Acute hypoxic respiratory failure due to (a) acute LLL CAP (as noted on 11/11/2024, 11:05am portable CXR) and (b) mzwjy-fc-zgzpdbv biventricular systolic CHF with reduced LVEF 15-20% and reduced RV systolic function (as noted on 11/11/2024, 2:59pm TTE, CARDS Dr. Osmani Gooden). To address (a), patient received cefepime 2g IV x 1 dose (11/11/2024, 1:29pm) in [facility] ER, followed by cefepime 2g IV q12 x 3 doses (11/12/2024, 3:59am, 1:04pm; 11/13/2024, 12:44am), followed by cefepime 1g IV q12 x 2 doses (11/13/2024, 1:14pm; 11/14/2024, 1:38am) in [facility] ICU bed #E110-1. Patient will not continue with this parenteral antibiotic and will not start oral antibiotic on hospital discharge back to his home/apt on 11/14/2024, 12:00pm, this time with home hospice services (including hospital bed, and hospice visiting nurse services) and comfort measures only utilizing morphine 20mg/mL, 5mg (0.25mL) sublingual q3 prn pain, shortness of breath, anxiety/agitation/panic, #30 mL, no refills (with electronic prescription for this medication transmitted to his [facility], [address] [place] [address], [place] [address], on 11/14/2024, 10:39am, prior to hos pital discharge back to his home/apt on 11/14/2024, 12:00pm. (4) Acute renal failure: 4. Acute kidney injury with admission creatinine 1.31 mg/dL, GFR 56.1 mL/min (11/11/2024, 11:48am), due to decreased renal perfusion, which in turn, is due to qgxpt-te-jwvlawf biventricular systolic CHF with reduced LVEF 15-20% and reduced RV systolic function (as noted on 11/11/2024, 2:59pm TTE, CARDS Dr. Osmani Gooden). cf., creatinine 1.31 mg/dL, GFR 56.1 mL/min (11/11/2024, 11:48am)(admission) cf., creatinine 1.36 mg/dL, GFR 53.6 mL/min (11/11/2024, 3:56pm). cf., creatinine 1.63 mg/dL, GFR 43.1 mL/min (11/12/2024, 7:00am). cf., creatinine 1.89 mg/dL, GFR 36.1 mL/min (11/13/2024, 5:08am). cf., creatinine 1.52 mg/dL, GFR 46.9 mL/min (11/14/2024, 4:28am)(discharge) Observe on hospital discharge back to his home/apt on 11/14/2024, 12:00pm, this time with home hospice services (including hospital bed, and hospice visiting nurse services) and comfort measures only utilizing morphine 20mg/mL, 5mg (0.25mL) sublingual q3 prn pain, shortness of breath, anxiety/agitation/panic, #30 mL, no refills (with electronic prescription for this medication transmitted to his [facility], [address] [place] [address], [place] [address], on 11/14/2024, 10:39am, prior to hospital discharge back to his home/apt on 11/14/2024, 12:00pm. (5) Acute hepatic failure: 5. Acute hepatic failure with admission AST 650 U/L, ALT 547 U/L (11/11/2024, 11:48am), due to decreased hepatic perfusion, which in turn, is due to ac avv-tk-ougodfa biventricular systolic CHF with reduced LVEF 15-20% and reduced RV systolic function (as noted on 11/11/2024, 2:59pm TTE, CARDS Dr. Osmani Gooden). cf., AST 23, ALT 18, ALK PHOS 66, Tbili 0.5 (10/29/2024, 9:31am). cf., AST 650, ALT 547, ALK PHOS 75, Tbili 0.9 (11/11/2024, 11:48am). cf., AST 691, ALT 564, ALK PHOS 75, TBili 0.9 (11/11/2024, 3:56pm). cf., AST 3224, ALT 2088, ALK PHOS 82, TBili 1.3 (11/12/2024, 7:00am). cf., AST 3664, ALT>2500, ALK PHOS 103, TBili 1.5 (11/13/2024, 5:08am). cf., AST 1486, ALT 2024, ALK PHOS 123, TBili 1.5 (11/14/2024, 4:28am). Observe on hospital discharge back to his home/apt on 11/14/2024, 12:00pm, this time with home hospice services (including hospital bed, and hospice visiting nurse services) and comfort measures only utilizing morphine 20mg/mL, 5mg (0.25mL) sublingual q3 prn pain, shortness of breath, anxiety/agitation/panic, #30 mL, no refills (with electronic prescription for this medication transmitted to his [facility], [address] [place] [address], [place] [address], on 11/14/2024, 10:39am, prior to hospital discharge back to his home/apt on 025, 12:00pm. (6) Elevated troponin: 6. Acute type II NSTEMI with troponin-I #1 407.0 pg/mL (11/11/2024, 11:48am), peaking to troponin-I #5 2,096.6 pg/mL (11/12/2024, 2:26pm), due to demand ischemia, which in turn, is due to pelgc-jl-inbynor biventricular systolic CHF with reduced LVEF 15-20% and reduced RV systolic function (as noted on 11/11/2024, 2:59pm TTE, CARDS Dr. Osmani Gooden). cf., troponin-I #1 407.0 pg/mL (11/11/2024, 11:48am). cf., troponin-I #2 610.6 pg/mL (11/11/2024, 3:56pm). cf., troponin-I #3 872.3 pg/mL (11/11/2024, 10:30pm). cf., troponin-I #4 1937.2 pg/mL (11/12/2024, 7:00am). cf., troponin-I #5 2096.6 pg/mL (11/12/2024, 2:26pm). cf., troponin-I #6 1666.8 pg/mL (11/13/2024, 5:08am). Observe on hospital discharge back to his home/apt on 11/14/2024, 12:00pm, this time with home hospice services (including hospital bed, and hospice visiting nurse services) and comfort measures only utilizing morphine 20mg/mL, 5mg (0.25mL) sublingual q3 prn pain, shortness of breath, anxiety/agitation/panic, #30 mL, no refills (with electronic prescription for this medication transmitted to his [facility], [address] [place] [id number], on 11/14/2024, 10:39am, prior to hospital discharge back to his home/apt on 11/14/2024, 12:00pm. (7) Ischemic cardiomyopathy: 7. Chronic ischemic dilated cardiomyopathy, s/p AICD. cf., TTE (11/11/2024, 2:59pm): 1. Moderately dilated LV with EF 15-20%. Large apical aneurysm and otherwise severe global LV hypokinesis. No LVH. 2. RV not well visualized; appears dilated with reduced RV systolic function. 3. Severe LA dilation. 4. Mild RA dilation. 5. Trace AR. 6. Mild MR. 7. Mild-moderate TR. 8. Mild pulmonary HTN. 9. Compared to prior study on 09/09/2024, aortic and mitral regurgitation are less significant. (as per CARDS Dr. Osmani Gooden). Marginal urine output on lasix 20mg IV q12. Marginal urine output may be due to decreased renal perfusion, which in turn, is due to severe algtj-lc-lqpneah biventricular systolic CHF. Hence, patient was transferred from Telemetry floor to ICU floor on 11/12/2024 for the sole purpose of starting patient on dobutamine infusion to augment renal perfusion, and hopefully, augment urine output as patient is started on lasix 40mg IV q12 (11/12/2024, 8:18pm) and which replaces lasix 20mg IV q12 x 2 doses (11/11/2024, 8:20pm; 11/12/2024, 9:10am). Of practical note, prior to hospital discharge back to his home/apt on 11/14/2024, 12:00pm, this time with home hospice services (including hospital bed, and hospice visiting nurse services) and comfort measures only utilizing morphine 20mg/mL, 5mg (0.25mL) sublingual q3 prn pain, shortness of breath, anxiety/agitation/panic, #30 mL, no refills (with electronic prescription for this medication transmitted to his [facility], [address] [place] [address], [place] [address], on 11/14/2024, 10:39am, prior to hospital discharge back to his home/apt on 11/14/2024, 12:00pm, patient's AICD was permanently deactivated by [facility] Interventional CARDS Dr. Gonsalo Ingram. (8) CAD (coronary artery disease): Patient received secondary prophylaxis against CAD utilizing ASA 81mg PO daily and atorvastatin 20mg PO daily while in [facility] from admission date 11/11/2024 through discharge date 11/14/2024. Patient will not continue either medication on discharge of patient back to his home/apt on 11/14/2024, 12:00pm, this time with home hospice services (including hospital bed, and hospice visiting nurse services) and comfort measures only utilizing morphine 20mg/mL, 5mg (0.25mL) sublingual q3 prn pain, shortness of breath, anxiety/agitation/panic, #30 mL, no refills (with electronic prescription for this medication transmitted to his [facility], [address] [place] [address], on 11/14/2024, 10:39am, prior to hospital discharge back to his home/apt on 11/14/2024, 12:00pm. (9) Hypertension: Well-controlled with BP 132/85 (11/12/2024, 8:08pm) s/p lasix 20mg IV q12 x 2 doses (11/11/2024, 8:20pm; 11/12/2024, 9:10am). Well-controlled with BP 144/87 (11/14/2024, 11:18am) s/p lasix 40mg IV q12 x 3 doses (11/12/2024, 8:18pm; 11/13/2024, 8:15am, 8:52am). Patient will not continue with lasix 40mg IV q12 or any oral formulation of lasix on discharge of patient back to his home/apt on 11/14/2024, 12:00pm, this time with home hospice services (including hospital bed, and hospice visiting nurse services) and comfort measures only utilizing morphine 20mg/mL, 5mg (0.25mL) sublingual q3 prn pain, shortness of breath, anxiety/agitation/panic, #30 mL, no refills (with electronic prescription for this medication transmitted to [facility], [address] [place] [id number], on 11/14/2024, 10:39am, prior to hospital discharge back to his home/apt on 11/14/2024, 12:00pm. 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 cf., WBC 10.96, Hb 9.8, MCV 118.4, MCHC 32.3, platelet 109 (11/11/2024, 11:48am). cf., WBC 12.27, Hb 9.5, MCV 118.9, MCHC 32.1, platelet 105 (11/11/2024, 3:56pm). cf., WBC 18.42, Hb 9.5, MCV 120.6, MCHC 31.9, platelet 88 (11/12/2024, 7:00am). cf., WBC 14.20, Hb 9.4, MCV 117.2, MCHC 32.9, platelet 66 (11/13/2024, 5:08am). cf., WBC 10.19, Hb 10.1, MCV 115.3, MCHC 33.6, platelet 81 (11/14/2024, 4:28am). Patient was NOT pancytopenic during this current hospitalization (11/11/2024 through 11/14/2024). Observe on hospital discharge of patient back to his home/apt on 11/14/2024, 12:00pm, this time with home hospice services (including hospital bed, and hospice visiting nurse services) and comfort measures only utilizing morphine 20mg/mL, 5mg (0.25mL) sublingual q3 prn pain, shortness of breath, anxiety/agitation/panic, #30 mL, no refills (with electronic prescription for this medication transmitted to his [facility], [address] [place] [address], on 11/14/2024, 10:39am, prior to hospital discharge back to his home/apt on 11/14/2024, 12:00pm. (11) GERD (gastroesophageal reflux disease): 11.Chronic GERD, no longer on esomeprazole 40mg PO qam due to DNR/DNI/comfort measures only on morphine 20mg/mL, 5mg (0.25mL) sublingual q3 prn pain, shortness of breath, anxiety/agitation/panic, #30 mL, no refills, transmitted to [facility], [address] [place] [address], on 11/14/2024, 10:39am, prior to hospital discharge back to his home/apt on 11/14/2024, 12:00pm with home hospice services including delivery of hospital bed. Observe. (12) Restrictive lung disease: 12.Chronic restrictive lung disease, not on home oxygen. Observe. (13) Hypothyroidism: 13.Chronic hypothyroidism, no longer on synthroid 50ug PO daily due to DNR/DNI/comfort measures only on morphine 20mg/mL, 5mg (0.25mL) sublingual q3 prn pain, shortness of breath, anxiety/agitation/panic, #30 mL, no refills, transmitted to [facility], [address] [place] [address], on 11/14/2024, 10:39am, prior to hospital discharge back to his home/apt on 11/14/2024, 12:00pm with home hospice services including delivery of hospital bed. Observe. (14) Major depression: 14.Chronic major depression, no longer on fluoxetine 80mg PO qam due to DNR/DNI/comfort measures only on morphine 20mg/mL, 5mg (0.25mL) sublingual q3 prn pain, shortness of breath, anxiety/agitation/panic, #30 mL, no refills, transmitted to [facility], [address] [place] [address], on 11/14/2024, 10:39am, prior to hospital discharge back to his home/apt on 11/14/2024, 12:00pm with home hospice services including delivery of hospital bed. Observe. (15) Insomnia: 15.Chronic insomnia disorder, no longer on seroquel 75mg PO qhs and trazodone 100mg PO qhs due to DNR/DNI/comfort measures only on morphine 20mg/mL, 5mg (0.25mL) sublingual q3 prn pain, shortness of breath, anxiety/agitation/panic, #30 mL, no refills, transmitted to [facility], [address] [facility], [place] [address], on 11/14/2024, 10:39am, prior to hospital discharge back to his home/apt on 11/14/2024, 12:00pm with home hospice services including delivery of hospital bed. Observe. Plan 79 male history intellectual disability Ischemic dilated cardiomyopathy status post AICD CHF CAD NSTEMI Syncope hypertension valvular heart disease mild ascending aortic dilatation Restrictive lung disease Pancytopenia Secondary to MDS follows with Heme oncology outpatient, Hypothyroidism diabetes type 2 depression anxiety peripheral neuropathy insomnia Ambulatory dysfunction Who presents with worsening shortness of breath Community-acquired pneumonia Supportive care Pulmonary toilet as needed Respiratory PCR and infectious workup as ordered Sputum cultures MRSA screen Continue vancomycin and cefepime started in ED. Pharmacy for dosing. Anticipate de-escalation soon. Follow-up blood cultures ST evaluation with history of dysphagia Acute on chronic CHF exacerbation CHF protocol orders I's and O's Daily weights IV Lasix TTE TFTs, BNP GDMT Cardiology consultation Acute hypoxic respiratory failure secondary to above Wean O2 Transaminitis unclear etiology. Viral? Monitor avoid hepatotoxic meds Liver ultrasound Hepatitis panel Elevated troponins likely type II AL Trend until flat Home aspirin statin Can consider outpatient ischemic workup Cytopenias Secondary history MDS stable Monitor Outpatient follow-up with heme oncology Generalized weakness/Ambulatory dysfunction Fall precautions PT OT DVT prophylaxis SCDs and ambulation. History thrombocytopenia and reported allergy to heparin? Full code Disposition admission to telemetry Admission HPI Per Admitting Provider 79 male history intellectual disability Ischemic dilated cardiomyopathy status post AICD CHF CAD NSTEMI Syncope hypertension valvular heart disease mild ascending aortic dilatation Restrictive lung disease Pancytopenia Secondary to MDS follows with Heme oncology outpatient, Hypothyroidism diabetes type 2 depression anxiety peripheral neuropathy insomnia Ambulatory dysfunction Who presents with worsening shortness of breath Orthopnea and fatigue generalized weakness over the past few days. No reports of chest pain lightheadedness nausea vomiting abdominal pain fevers chills cough diarrhea symptoms or any other symptoms. Discussed with ED physician. No signs of sepsis. Being admitted with impression of questionable CHF exacerbation and pneumonia. Do not see BNP ordered? Ordered Awaiting completion of home med rec to resume home meds Discharge Exam Constitutional General appearance: Run-down, worn-out, and listless. Comfortable, coherent, cooperative. Wide awake and alert. Not confused, lethargic, or obtunded. Speaks in complete, fluent, and articulate sentences without pause, interruption, cough, or wheeze. HEENT: Normocephalic; atraumatic. EOMI. PERRL No rhinorrhea. No pharyngeal discharge. Neck: Supple, no stridor, bruit, goiter, JVD, or HJR. Lymph: No lymphadenopathy. Chest: Symmetric rise and fall with respirations. Non-tender to palpation. Lungs: Bibasilar crackles. No audible wheeze, pectoriloquy, increase in tactile fremitus, or flatness/dullness to percussion at the bases. Heart: RRR, S1S2, no S3 or S4. Grade II/ early systolic murmur @ LLSB without radiation to the carotids, axilla, or back, and which remains invariant in regards to the respiratory cycle. Abd: Soft, non-tender, non-distended. No rebound, guarding, Casey's sign, or organomegaly. Bowel sounds auscultated in all 4 quadrants. Ext: No clubbing, cyanosis, or edema. 2+ pedal pulses bilaterally. Skin: No decubitus ulcer, exanthem, or enanthem. Skin dry with skin tenting, but no delay in capillary refill time > 2 seconds. Neuro: Alert and oriented in regards to person, place, time, or situation. 5/5 motor strength in all 4 extremities, both proximally and distally. Urology: + mckeon catheter with urine output of 0.32 mL/kg/hr (11/13/2024, 10:50am to 11/14/2024, 10:50am). No urethral discharge. Psych: No suicidal ideation. No homicidal ideation Discharge Plan Discharge Items Patient Disposition: Hospice - Home Reason For Visit: CHF Discharge Diagnosis: 1. DNR/DNI/comfort measures only on morphine 20mg/mL, 5mg (0.25mL) sublingual q3 prn pain, shortness of breath, anxiety/agitation/panic, #30 mL, no refills, transmitted to [facility], [address] [place] [address], on 11/14/2024, 10:39am, prior to hospital discharge back to his home/apt on 11/14/2024, 12:00pm with home hospice services including delivery of hospital bed. 2. Toodk-yg-wirjqbd biventricular systolic CHF with reduced LVEF 15-20% and reduced RV systolic function (as noted on 11/11/2024, 2:59pm TTE, CARDS Dr. Osmani Gooden). 3. Acute hypoxic respiratory failure due to (a) acute LLL CAP (as noted on 11/11/2024, 11:05am portable CXR) and (b) jjmak-hu-fymonul biventricular systolic CHF with reduced LVEF 15-20% and reduced RV systolic function (as noted on 11/11/2024, 2:59pm TTE, CARDS Dr. Osmani Gooden). 4. Acute kidney injury with admission creatinine 1.31 mg/dL, GFR 56.1 mL/min (11/11/2024, 11:48am), due to decreased renal perfusion, which in turn, is due to pbhbd-iu-rerqurj biventricular systolic CHF with reduced LVEF 15-20% and reduced RV systolic function (as noted on 11/11/2024, 2:59pm TTE, CARDS Dr. Osmani Gooden). 5. Acute hepatic failure with admission AST 650 U/L, ALT 547 U/L (11/11/2024, 11:48am), due to decreased hepatic perfusion, which in turn, is due to shrsh-tz-qlkudmx biventricular systolic CHF with reduced LVEF 15-20% and reduced RV systolic function (as noted on 11/11/2024, 2:59pm TTE, CARDS Dr. Osmani Gooden). 6. Acute type II NSTEMI with troponin-I #1 407.0 pg/mL (11/11/2024, 11:48am), peaking to troponin-I #5 2,096.6 pg/mL (11/12/2024, 2:26pm), due to demand ischemia, which in turn, is due to rbtgf-ek-vlboszb biventricular systolic CHF with reduced LVEF 15-20% and reduced RV systolic function (as noted on 11/11/2024, 2:59pm TTE, CARDS Dr. Osmani Gooden). 7. Chronic ischemic dilated cardiomyopathy, s/p AICD. 8. Chronic CAD, no longer on home-scheduled ASA 81mg PO daily and atorvastatin 20mg PO daily due to DNR/DNI/comfort measures only on morphine 20mg/mL, 5mg (0.25mL) sublingual q3 prn pain, shortness of breath, anxiety/agitation/panic, #30 mL, no refills, transmitted to [facility], [address] [place] [address], on 11/14/2024, 10:39am, prior to hospital discharge back to his home/apt on 11/14/2024, 12:00pm with home hospice services including delivery of hospital bed. 9. Chronic HTN, no longer on home-scheduled lisinopril 10mg PO daily and metoprolol XL 25mg PO daily due to DNR/DNI/comfort measures only on morphine 20mg/mL, 5mg (0.25mL) sublingual q3 prn pain, shortness of breath, anxiety/agitation/panic, #30 mL, no refills, transmitted to [facility], [address] [place] [address], on 11/14/2024, 10:39am, prior to hospital discharge back to his home/apt on 11/14/2024, 12:00pm with home hospice services including delivery of hospital bed. 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 11.Chronic GERD, no longer on esomeprazole 40mg PO qam due to DNR/DNI/comfort measures only on morphine 20mg/mL, 5mg (0.25mL) sublingual q3 prn pain, shortness of breath, anxiety/agitation/panic, #30 mL, no refills, transmitted to [facility], [address] [place] [address], on 11/14/2024, 10:39am, prior to hospital discharge back to his home/apt on 11/14/2024, 12:00pm with home hospice services including delivery of hospital bed. 12.Chronic restrictive lung disease, not on home oxygen. 13.Chronic hypothyroidism, no longer on synthroid 50ug PO daily due to DNR/DNI/comfort measures only on morphine 20mg/mL, 5mg (0.25mL) sublingual q3 prn pain, shortness of breath, anxiety/agitation/panic, #30 mL, no refills, transmitted to [facility], [address] [place] [address], on 11/14/2024, 10:39am, prior to hospital discharge back to his home/apt on 11/14/2024, 12:00pm with home hospice services including delivery of hospital bed. 14.Chronic major depression, no longer on fluoxetine 80mg PO qam due to DNR/DNI/comfort measures only on morphine 20mg/mL, 5mg (0.25mL) sublingual q3 prn pain, shortness of breath, anxiety/agitation/panic, #30 mL, no refills, transmitted to [facility], [address] [place] [address], on 11/14/2024, 10:39am, prior to hospital discharge back to his home/apt on 11/14/2024, 12:00pm with home hospice services including delivery of hospital bed. 15.Chronic insomnia disorder, no longer on seroquel 75mg PO qhs and trazodone 100mg PO qhs due to DNR/DNI/comfort measures only on morphine 20mg/mL, 5mg (0.25mL) sublingual q3 prn pain, shortness of breath, anxiety/agitation/panic, #30 mL, no refills, transmitted to [facility], [address] [place] [address], on 11/14/2024, 10:39am, prior to hospital discharge back to his home/apt on 11/14/2024, 12:00pm with home hospice services including delivery of hospital bed. Condition on Discharge: Critical Activity: Resume your previous activity Lifting: Gradually increase as tolerated Bathing: No limitations Exercise/Sports: Gradually increase as tolerated Weightbearing: Full weightbearing Non-emergency contact: Primary Care Provider Call non-emergency contact if: you have any medication questions Follow-up/Referrals: Luis Carlos Westbrook, DO [Primary Care Provider] - Diet: Regular Addtl Attending Provider Instructions: See your PCP Dr. Luis Carlos Westbrook to continue home hospice services. Pending Studies at Discharge: No Stand-Alone Forms: My [facility] Medications and DC Order Prescriptions: New morphine concentrate 20 mg/mL syringe 5 mg sublingual Q3H PRN (Reason: pain, shortness of breath, anxiety/agitation/panic) Qty: 30 0RF Discontinued nitroglycerin 0.4 mg tablet, sublingual 0.4 mg sublingual DIRECTED PRN (Reason: Chest Pain) Qty: 25 2RF levothyroxine 50 mcg tablet 50 mcg PO QAM Qty: 90 3RF atorvastatin 20 mg tablet 20 mg PO DAILY Qty: 90 3RF (DME) Wheeled Walker Misc See Rx Instructions .Route Qty: 1 0RF Rx Instructions: As directed rolator walker with breaks length of need 99 months alprazolam 0.5 mg tablet 0.5 mg PO HS Qty: 90 1RF (DME) Flutter Valve Device See Rx Instructions .Route Qty: 1 0RF Rx Instructions: Use 3 times daily or as directed. quetiapine 50 mg tablet 50 mg PO HS Rx Instructions: takes with 25mg to equal dose of 75mg quetiapine 25 mg tablet 25 mg PO HS Rx Instructions: takes with 50mg to equal dose of 75mg acyclovir 400 mg tablet 400 mg PO BID trazodone 100 mg tablet 100 mg PO HS fluoxetine 40 mg capsule 80 mg PO QAM gabapentin 800 mg tablet 800 mg PO TID Qty: 90 8RF metoprolol succinate [Toprol XL] 25 mg tablet extended release 24 hr 25 mg PO DAILY Qty: 90 3RF cholecalciferol (vitamin D3) [Vitamin D3] 1,000 unit Tablet 1,000 unit PO QAM fluconazole 100 mg tablet 100 mg PO DAILY lisinopril 10 mg tablet 10 mg PO DAILY cefdinir 300 mg capsule 300 mg PO BID esomeprazole magnesium [Nexium] 40 mg capsule,delayed release(DR/EC) 40 mg PO QAM guaifenesin [Mucinex] 600 mg tablet extended release 12hr 600 mg PO BID PRN (Reason: Congestion) triamcinolone acetonide 0.5 % cream 1 applic topical BID PRN (Reason: SKIN IRRITATIONS) cyanocobalamin (vitamin B-12) [Vitamin B-12] 500 mcg Tablet 500 mcg PO DAILY aspirin 81 mg Tablet,Delayed Release (Dr/Ec) 81 mg PO DAILY Qty: 30 0RF Discharge Orders: Discharge Order (Routine); Ordered 11/14/24 Ordered By: Navin Palomares Discharge Order- CHF (Routine); Ordered 11/14/24 Ordered By: Navin Palomares Admission Data Admit Date/Time: 11/11/24 14:39 Attending Provider: Navin Palomares Admit Provider: Rickey Alcantara Primary Care Provider: Luis Carlos Westbrook Other Providers: [facility]; [facility] [place]; Rickey Alcantara; Jose Alfredo Calzada; Toney Rust; Henry Short; Raz Mary; Bro Farnsworth Jr; Osmani Gooden; Bertha Macedo; Melani Adair; Gonsalo Engel; Gonsalo Ingram; hSeila Moore; Yung Monreal; Nikki Meza; Yung Mills; Javed Dupree; Aleksandar Leo; Gideon Barajas; Td Corrales; Dallas Lopez; Lissy Bartlett; [facility] Other Interventions: Discharge Summary Assessment (RN) Last Done: 11/14/24 11:18 Hospital Stay Data Consultations 11/11/24 14:02 ED Decision to Admit Stat 11/11/24 14:28 Consult Cardiology Routine 11/12/24 20:00 [facility] CHF Program Referral Routine Diagnostic Imagining Performed 11/11/24 13:01 US gallbladder Stat Pending Results Patient Have Any Pending Studies at Discharge: No Discharge Instructions Given to Patient (Per Discharging Provider) See your PCP Dr. Luis Carlos Westbrook to continue home hospice services. Total Time Total Time Spent Total Time Spent (In Minutes): 35 minutes. Of this time period, 19 minutes were spent in coordinating patient's discharge. 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 transplanted heart: crow heart Essential hypertension I10 Hypertension type: essential hypertension Pancytopenia D61.818 GERD (gastroesophageal reflux disease) K21.9 Restrictive lung disease J98.4 Hypothyroidism E03.9 Major depression F32.9 Insomnia G47.00
[2024-11-14 11:07] LABS: Hepatitis A Antibody IgM NON-REACTIVE (NON-REACTIVE); Hepatitis B Core Antibody IgM NON-REACTIVE (NON-REACTIVE)
[2024-11-14 11:20] VITALS: BP 122/80; PULSE 81
[2024-11-18 19:02] LABS: Pneumococcal IgG Type 12 (12F) <0.3; Pneumococcal IgG Type 17 (17F) <0.3; Pneumococcal IgG Type 19 (19F) <0.3; Pneumococcal IgG Type 2 <0.3; Pneumococcal IgG Type 20 <0.3; Pneumococcal IgG Type 22 (22F) <0.3; Pneumococcal IgG Type 23 (23F) <0.3; Pneumococcal IgG Type 26 (6B) <0.3; Pneumococcal IgG Type 34 (10A) <0.3; Pneumococcal IgG Type 43 (11A) <0.3; Pneumococcal IgG Type 51 (7F) <0.3; Pneumococcal IgG Type 54 (15B) <0.3; Pneumococcal IgG Type 56 (18C) <0.3; Pneumococcal IgG Type 57 (19A) 1.5; Pneumococcal IgG Type 68 (9V) <0.3; Pneumococcal IgG Type 70 (33F) <0.3
== END 2024-11-14 12:08 | disposition hospice, home (50) | DRG 193 ==
LOC: ED 10:41 → EDINP 14:39 → SUATTDRO 14:39 → 2S 18:15 → 1E 11-12 15:29